=== PATIENT | female | born 1990 | race Caucasian/White ===

== ENCOUNTER 2020-03-23 12:41 | Outpatient (REF) | payer OTHER, SELFPAY ==
[2020-03-23 14:29] LABS: COVID-19 Test Negative (Negative)
== END 2020-03-23 12:42 | disposition home or self-care (01) ==
LOC: HO.LAB 12:41
PROVIDERS: Visit Provider Internal Medicine
DX: Z20.828 Contact with and (suspected) exposure to other viral communicable diseases (principal)
CPT/HCPCS: 87635; C9803

== ENCOUNTER 2020-03-30 07:07 | Outpatient (REF) | payer OTHER, SELFPAY ==
[2020-03-30 08:02] LABS: COVID-19 Test Negative (Negative)
== END 2020-03-30 07:08 | disposition home or self-care (01) ==
LOC: HO.EMPCOV 07:07
PROVIDERS: PCP Internal Medicine; Visit Provider Internal Medicine
DX: Z20.828 Contact with and (suspected) exposure to other viral communicable diseases (principal)
CPT/HCPCS: 87635; C9803

== ENCOUNTER 2020-03-31 06:59 | Outpatient (REF) | payer OTHER, SELFPAY ==
[2020-03-31 07:37] LABS: COVID-19 Test Negative (Negative)
== END 2020-03-31 07:00 | disposition home or self-care (01) ==
LOC: HO.EMPCOV 06:59
PROVIDERS: Visit Provider Internal Medicine
DX: Z20.828 Contact with and (suspected) exposure to other viral communicable diseases (principal)
CPT/HCPCS: 87635; C9803

== ENCOUNTER 2020-04-02 07:44 | Outpatient (REF) | payer OTHER, SELFPAY ==
[2020-04-02 08:10] LABS: COVID-19 Test Negative (Negative)
== END 2020-04-02 07:45 | disposition home or self-care (01) ==
LOC: HO.EMPCOV 07:44
PROVIDERS: Visit Provider Internal Medicine
DX: Z20.828 Contact with and (suspected) exposure to other viral communicable diseases (principal)
CPT/HCPCS: 87635; C9803

== ENCOUNTER 2020-06-10 13:25 | Outpatient (REF) | payer OTHER, SELFPAY ==
[2020-06-10 13:46] LABS: COVID-19 Test Negative (Negative)
== END 2020-06-10 13:26 | disposition home or self-care (01) ==
LOC: HO.EMPCOV 13:25
PROVIDERS: Visit Provider Internal Medicine
DX: Z20.822 Contact with and (suspected) exposure to COVID-19 (principal)
CPT/HCPCS: 36415; 87635; C9803

== ENCOUNTER 2020-06-16 08:06 | Outpatient (REF) | payer OTHER, SELFPAY ==
[2020-06-16 08:56] LABS: COVID-19 Test Negative (Negative); IDNOW Serial# 55D5AD1C
== END 2020-06-16 08:07 | disposition home or self-care (01) ==
LOC: HO.EMPCOV 08:06
PROVIDERS: Visit Provider Internal Medicine
DX: Z20.822 Contact with and (suspected) exposure to COVID-19 (principal)
CPT/HCPCS: 36415; 87635; C9803

== ENCOUNTER → 2020-07-03 09:58 | Outpatient (BNVA) | payer OTHER, SELFPAY | PROVIDERS: PCP Internal Medicine; Visit Provider Physician Assistant ==

== ENCOUNTER → 2020-07-06 07:20 | Outpatient (BNVA) | payer OTHER, SELFPAY | PROVIDERS: PCP Internal Medicine; Visit Provider Surgery ==

== ENCOUNTER 2020-07-08 07:49 | Emergency (ER) | payer OTHER, SELFPAY ==
--- NOTE | ~2020-07-08 | XR_ITS ---
EXAMINATION: XR LUMBOSACRAL SPINE CLINICAL INFORMATION: Trauma, pain COMPARISON: None TECHNIQUE: Three views of the lumbosacral spine. FINDINGS: There is mild straightening of lumbar lordosis. The vertebral heights and alignment is normal. There is mild loss of L4-L5 and L5-S1 disc heights. Rest of the disc heights are normal. No visible acute fracture, dislocation or lytic process seen. The paravertebral soft tissues are normal. The SI joints are normal. XR/XR lumbar spine 2-3V IMPRESSION: Disc changes L4-L5 and L5-S1 disc levels.
[2020-07-08 09:07] VITALS: BP 110/70; PULSE 77; RESP 16; TEMP 36.7; O2SAT 98; BMI 57.2
--- NOTE | 2020-07-08 09:49 | ED.BACK ---
HPI - Back Pain/Injury General Chief Complaint: Back Pain/Injury Stated Complaint: back pain Time Seen by Provider: 07/08/20 09:41 Source: patient Mode of arrival: ambulatory Limitations: no limitations History of Present Illness HPI Narrative: 30-year-old female with a past medical history of back problems, sleep apnea, asthma, morbid obesity here with complaints of low back pain x2 days which radiates down the right leg. She has intermittent numbness and tingling in the leg. She denies any numbness in the groin. No bowel or bladder incontinence. No fevers or chills. Pain is worsened with ambulating. History of what sounds like herniated disc in 2016 requiring admission. Patient is unclear on actual diagnosis. MD elicited complaint: back pain Related Data Home Medications Medication Instructions Recorded Confirmed albuterol sulfate 90 mcg/actuation 2 puff PO Q4H PRN 07/03/20 07/06/20 aerosol inhaler budesonide-formoterol HFA 160 INHALATION DIRECTED 07/03/20 07/06/20 mcg-4.5 mcg/actuation aerosol inhaler cetirizine 10 mg tablet 10 mg PO DAILY PRN 07/03/20 07/06/20 inhalational spacing device #1 ea 07/03/20 07/06/20 meclizine 25 mg tablet 25 mg PO TID PRN 07/03/20 07/06/20 melatonin 5 mg capsule mg PO 07/03/20 07/06/20 montelukast 10 mg tablet 10 mg PO DAILY 07/03/20 07/06/20 prednisone 20 mg tablet 20 mg PO BID 07/03/20 07/06/20 umeclidinium 62.5 mcg-vilanterol 1 ea PO BID 07/03/20 07/06/20 25 mcg/actuation powdr for inhalation tiotropium bromide 2.5 2 puff INHALATION DAILY 07/06/20 07/06/20 mcg/actuation mist for inhalation Previous Rx's Medication Instructions Recorded cyclobenzaprine 10 mg PO TID PRN #10 tab 07/08/20 lidocaine [Lidoderm] 1 patch TOPICAL DAILY #15 ea 07/08/20 naproxen 500 mg PO BID PRN #20 tab 07/08/20 Allergies Allergy/AdvReac Type Severity Reaction Status Date / Time animal dander Allergy Unknown UNKNOWN Unverified 07/06/20 12:52 lactose [LACTOSE] Allergy Unknown GI Unverified 07/06/20 12:52 UPSET/DIRRHEA mold Allergy Unknown UNKNOWN Unverified 07/06/20 12:52 pollen extracts [POLLEN] Allergy Unknown UNKNOWN Unverified 07/06/20 12:52 Review of Systems Review of Systems: Yes all other systems are reviewed and are negative Constitutional: Constitutional: Reports no additional constitutional complaints, Denies body ache(s), Denies chills, Denies fever(s), Denies headache(s) and Denies weakness Eyes: Eyes: Reports no additional eye complaints and Denies change in vision ENT: Reports system reviewed and no additional complaints, except as documented, Denies dizziness, Denies headache(s), Denies nasal congestion, Denies nasal discharge and Denies neck pain Cardiovascular: Cardiovascular: Reports no additional cardiovascular complaints, Denies chest pain, Denies leg edema and Denies dyspnea Respiratory: Respiratory: Reports no additional respiratory complaints, Denies cough and Denies dyspnea Gastrointestinal: Gastrointestinal: Reports no additional gastrointestinal complaints, Denies abdominal pain, Denies diarrhea, Denies nausea and Denies vomiting Genitourinary: Genitourinary: Reports no additional female genitourinary complaints and Denies urinary incontinence Musculoskeletal: Musculoskeletal: Reports no additional musculoskeletal complaints, Reports back pain, Denies arthralgias, Denies joint swelling, Denies neck pain, Denies numbness and Denies tingling Integumentary/Breasts: Skin/Breast: Reports system reviewed and no additional complaints, except as docu and Denies rash Neurologic: Reports system reviewed and no additional complaints, except as documented, Denies Abnormal speech present, Denies dizziness, Denies headache(s), Denies numbness, Denies tingling and Denies weakness [facility] Past Medical History Attestation statement: The following information was validated with the patient. Source: old records reviewed and nursing notes reviewed Medical History Asthma Chronic back pain Morbid obesity Surgical History Hx of wisdom tooth extraction Family History Family History Mother Kidney stone Asthma Father No problems noted. Brother Asthma Back problem Social History Social History Alcohol intake: current Alcohol intake frequency: holidays/special occasions only Alcohol type: hard liquor Smoking Status: Former smoker Smoked in Last 30 Days: No Advance Directives: No Advance Directives Information Provided: No Physical Exam Vital Signs: Vital Signs: Last Vital Signs Temp 98.0 F 07/08/20 09:07 Pulse 77 07/08/20 09:07 Resp 16 07/08/20 09:07 BP 110/70 07/08/20 09:07 Pulse Ox 98 07/08/20 09:07 Body Mass Index 57.2 Const: General: cooperative, healthy appearing, comfortable and no acute distress Orientation/consciousness: patient oriented x3 Limitations: no limitations HENMT: Head: Yes normal to inspection Ears: hearing grossly normal bilaterally General nose exam: Normal external nose present Face and sinus: Yes normal facial exam Mouth: Normal oral and palatal mucosa present Throat: Yes posterior oropharynx normal Eyes: General: appearance normal, both eyes and all related structures Pupils: Equal, round and reactive pupils present Neck: Neck: Yes normal visual inspection Chest: Chest palpation & inspection: normal inspection of the chest Resp: Effort & Inspection: normal respiratory effort Auscultation: clear to auscultation bilaterally Cardio: Rate: regular rate Rhythm: regular rhythm Peripheral pulses: Peripheral pulses 2+ throughout GI: Inspection: Yes normal to inspection Palpation (GI): Soft to palpation and nontender Auscultation: normal bowel sounds Back/Spine/Pelvis: Other: Mid spine lumbar tenderness with no step-off deformities. Also having right lumbar paraspinal tenderness. Pain is worsened with straight leg raise on the right side Thoracic/Lumbar Spine: thoracic and lumbar spine normal to inspection Skin: General skin exam: no rashes or lesions noted Neuro: General: patient oriented x3, no focal motor deficits and normal sensation to monofilament Cranial nerves: Yes CN's II-XII intact bilaterally, Yes Equal, round and reactive pupils present, Yes Bilaterally intact EOM present, Yes Normal facial strength present and Yes Midline tongue present Cognition (Neuro): normal cognition Speech: No Abnormal speech present Gait exam (Neuro): Normal gait present Motor exam (neuro): 5/5 motor strength present throughout Sensory Exam: Normal double simultaneous stimulation for sensation Deep tendon reflexes (DTR's): Right patellar reflex intensity grade: 2+ and Left patellar reflex intensity grade: 2+ Extrem: General: Yes normal to inspection Course Course Course Narrative: Acute on chronic low back pain x2 days. No new injury or trauma. Pain radiates down the right leg with intermittent numbness and tingling. No red flag symptoms of neurological deficits from baseline. Will check imaging, manage pain and reassess. 1100-Xrays show Disc changes L4-L5 and L5-S1 disc levels. NO neuro deficits. Patient ambulatory. Discussed that she will likely need to follow-up with her primary care doctor for outpatient MRI for persistent pain. Reviewed worrisome signs and symptoms when to return to the emergency department. Comfortable discharge home. MDM - Back Pain/Injury Medical Records Attestation: I reviewed the patient's medical records. Lab Data Attestation: I reviewed the patient's lab results. Imaging Data lumbar xray: Attestation: I personally reviewed and interpreted this imaging study as follows: Radiologist's impression: EXAMINATION: XR LUMBOSACRAL SPINE CLINICAL INFORMATION: Trauma, pain COMPARISON: None TECHNIQUE: Three views of the lumbosacral spine. FINDINGS: There is mild straightening of lumbar lordosis. The vertebral heights and alignment is normal. There is mild loss of L4-L5 and L5-S1 disc heights. Rest of the disc heights are normal. No visible acute fracture, dislocation or lytic process seen. The paravertebral soft tissues are normal. The SI joints are normal. XR/XR lumbar spine 2-3V IMPRESSION: Disc changes L4-L5 and L5-S1 disc levels. Discharge Plan Discharge Clinical Impression: Strain of lumbar region Patient Disposition: Home, Self-Care Instructions: Acute Low Back Pain (ED) Additional Instructions: Call your doctor for a follow-up appointment as you likely will need an MRI of your low back No heavy lifting or bending Gentle stretching Heat or ice to the back Prescriptions: New cyclobenzaprine 10 mg tablet 10 mg PO TID PRN (Reason: muscle spasm) Qty: 10 RF: 0 naproxen 500 mg tablet 500 mg PO BID PRN (Reason: pain) Qty: 20 RF: 0 lidocaine [Lidoderm] 5 % adhesive patch,medicated 1 patch topical DAILY Qty: 15 RF: 0 No Action budesonide-formoterol 160-4.5 mcg/actuation HFA aerosol inhaler inhalation DIRECTED RF: 0 cetirizine 10 mg tablet 10 mg PO DAILY PRN (Reason: allergies) RF: 0 Anoro Ellipta 62.5-25 mcg/actuation blister with device 1 ea PO BID RF: 0 prednisone 20 mg tablet 20 mg PO BID RF: 0 (DME) [employer] Janae C Spacer See Rx Instructions ea .ROUTE .MEDSUPPLY Qty: 1 RF: 0 meclizine 25 mg tablet 25 mg PO TID PRN (Reason: dizziness) RF: 0 albuterol sulfate 90 mcg/actuation HFA aerosol inhaler 2 puff PO Q4H PRN (Reason: wheezing) RF: 0 melatonin 5 mg capsule PO RF: 0 montelukast [Singulair] 10 mg tablet 10 mg PO DAILY RF: 0 Spiriva Respimat 2.5 mcg/actuation mist 2 puff inhalation DAILY RF: 0 Referrals: Teri Grigsby MD [Primary Care Provider] - 2 days Stand Alone Forms: Work/School Release Interventions: ED Discharge Assessment Last Done: 07/08/20 11:22 Discharge Date/Time: 07/08/20 11:10
[2020-07-08] MEDS: Ketorolac Tromethamine 60 MG/2 ML VIAL IM (10:15)
== END 2020-07-08 11:10 | disposition home or self-care (01) ==
PROVIDERS: Emergency Provider Emergency Medicine Emergency Medical Services; PCP Internal Medicine
DX: S39.012A Strain of muscle, fascia and tendon of lower back, initial encounter (principal); M79.604 Pain in right leg; X58.XXXA Exposure to other specified factors, initial encounter; Y93.9 Activity, unspecified; Y92.9 Unspecified place or not applicable; Y99.9 Unspecified external cause status; Z79.899 Other long term (current) drug therapy; Z87.891 Personal history of nicotine dependence
CPT/HCPCS: 72100; 96372; 99283; 99284; J1885

== ENCOUNTER 2020-07-09 07:48 | Outpatient (REF) | payer OTHER, SELFPAY ==
--- NOTE | 2020-07-09 17:16 | PFT_ITS ---
FLOWS: FEV1 is 83% of predicted at 2.84 L. FVC 85% of predicted at 3.43 L. FEV1 to FVC ratio of 0.83. Positive bronchodilator response. LUNG VOLUMES: Total lung capacity 89% of predicted at 4.79 L. Residual volume 107% of predicted at 1.56 L. Slow vital capacity 82% of predicted at 3.24 L. Expiratory reserve volume 21% of predicted at 0.32 L. Diffusion capacity is normal. IMPRESSION: No obstructive or restrictive ventilatory defect. Positive bronchodilator response. Decreased expiratory reserve volume suggests extrathoracic restriction, likely secondary to underlying abdominal obesity. This test results can be observed in well controlled asthma. Clinical correlation is advised. MD PATTI Estrella/MODL / [id number]
== END 2020-07-09 07:49 | disposition home or self-care (01) ==
LOC: HO.RESP 07:48
PROVIDERS: PCP Internal Medicine; Visit Provider Surgery
DX: G47.30 Sleep apnea, unspecified (principal); G47.19 Other hypersomnia; J45.41 Moderate persistent asthma with (acute) exacerbation; E66.01 Morbid (severe) obesity due to excess calories
CPT/HCPCS: 94060; 94727; 94729; 95806

== ENCOUNTER 2020-07-10 08:15 | Outpatient (REF) | payer OTHER, SELFPAY ==
--- NOTE | ~2020-07-10 | XR_ITS ---
EXAMINATION: XR CHEST CLINICAL INFORMATION: Obesity. COMPARISON: Prior chest July 2018 TECHNIQUE: 2 views of the chest were obtained. FINDINGS: No significant abnormality is noted involving the heart, lungs, mediastinum, bony thorax or soft tissues. XR/XR chest 2V IMPRESSION: Unremarkable examination.
--- NOTE | 2020-07-10 09:06 | ECG_ITS ---
Test Reason : MORBID OBESITY Blood Pressure : / mmHG Vent. Rate : 074 BPM Atrial Rate : 074 BPM P-R Int : 080 ms QRS Dur : 126 ms QT Int : 438 ms P-R-T Axes : 000 018 000 degrees QTc Int : 486 ms Sinus rhythm with sinus arrhythmia with short CO Normal ECG When compared with ECG of 14-OCT-2014 20:03, No significant changes seen Referred By: Cesar Clark Electronically Signed By:JONATAN JON MD
[2020-07-10 09:36] LABS: MANUAL DIFF FLAG NO
[2020-07-10 09:37] LABS: Basophils Percent Auto 0.4 % (0-2); Eosinophils Absolute Auto 0.4 X10*3/uL (0.0-0.4); Hematocrit 40.9 % (37-47); Hemoglobin 13.2 g/dl (12.0-16.0); Imm Gran Abs Auto 0.01 X10*3/uL (0.00-0.03); Imm Gran Pct Auto 0.1 % (0.0-0.4); Lymphocytes Absolute Auto 1.3 X10*3/uL (1.2-4.9); Lymphocytes Percent Auto 19.2 % (20-40); Mean Corpuscular HGB Conc 32.3 g/dl (31.0-35.0); Mean Corpuscular Hemoglobin 27.6 pg (27.0-33.0); Mean Corpuscular Volume 85.6 fL (80-98); Mean Platelet Volume 11.4 fL (9.4-12.3); Monocytes Absolute Auto 0.3 X10*3/uL (0.1-1.2); Monocytes Percent Auto 4.6 % (2-11); Neutrophils Absolute Auto 4.9 X10*3/uL (2.0-8.3); Neutrophils Percent Auto 70.7 % (45-73); Platelet Count 309 X10*3/uL (160-400); Red Blood Count 4.78 X10*6/uL (4.20-5.50); Red Cell Distribution Width 13.1 % (11.0-16.0)
[2020-07-10 09:50] LABS: Estimated Average Glucose 100 mg/dL; Hemoglobin A1c % 5.1 %
[2020-07-10 10:18] LABS: Alanine Aminotransferase 40 U/L (0-31); Albumin Level 4.2 g/dL (3.5-5.0); Alkaline Phosphatase 56 U/L (39-117); Anion Gap 15 (12-20); Aspartate Amino Transferase 26 U/L (5-31); Bilirubin Total 1.3 mg/dL (0.0-1.0); Blood Urea Nitrogen 18 mg/dL (9-16); Carbon Dioxide 27 mmol/L (22-29); Chloride 109 mmol/L (96-108); Cholesterol 151 mg/dL; Estimated Glomerular Filt Rate > 60; Glucose Random 97 mg/dL (60-115); HDL Cholesterol 43 mg/dL; LDL Cholesterol Calculated 95 mg/dl; Potassium 4.6 mmol/L (3.3-5.1); Sodium 146 mmol/L (135-145); Total Protein 6.7 g/dL (6.5-8.0); Triglycerides 69 mg/dL
[2020-07-10 10:25] LABS: Ferritin 20 ng/mL (10-122); TSH reflex Free T4 1.51 uIU/mL (0.32-4.0); Vitamin D 25-OH Total 5.8 ng/mL (>30)
[2020-07-11 12:29] LABS: Folate 8.2 ng/mL (> or = 4.0); Vitamin B12 245 pg/mL (200-900)
[2020-07-11 15:12] LABS: H Pylori Breath Test NOT DETECTED (NOT DETECTED)
[2020-07-14 00:21] LABS: Zinc 73 mcg/dL (60-130)
[2020-07-14 21:51] LABS: Insulin Level Total 24.4 uIU/mL
[2020-07-15 14:31] LABS: Vitamin A 36 mcg/dL (38-98)
[2020-07-17 11:57] LABS: Calcium (PTHI) 9.3 mg/dL (8.6-10.2); PTHI 85 pg/mL (14-64)
[2020-07-22 11:02] LABS: Vitamin B1 9 nmol/L (8-30)
== END 2020-07-10 08:16 | disposition home or self-care (01) ==
LOC: HO.LAB 08:15
PROVIDERS: PCP Internal Medicine; Visit Provider Surgery
DX: E66.01 Morbid (severe) obesity due to excess calories (principal); G47.30 Sleep apnea, unspecified; J45.909 Unspecified asthma, uncomplicated
CPT/HCPCS: 36415; 71046; 80053; 80061; 82306; 82607; 82728; 82746; 83013; 83036; 83525; 83970; 84425; 84443; 84590; 84630; 85025; 86140; 93005

== ENCOUNTER → 2020-07-17 08:36 | Outpatient (BNVA) | payer OTHER, SELFPAY | PROVIDERS: PCP Internal Medicine; Visit Provider Physician Assistant ==

== ENCOUNTER 2020-07-21 08:19 | Outpatient (REF) | payer OTHER, SELFPAY ==
--- NOTE | ~2020-07-21 | FL_ITS ---
EXAMINATION: FL UPPER GI SERIES CLINICAL INFORMATION: Morbid/severe obesity due to excessive calories. COMPARISON: None TECHNIQUE: Routine upper GI air-contrast study was performed in upright and lying position. FINDINGS: Following oral administration of thick barium and effervescent granules, there is normal propagation bolus from the oral cavity through the pharynx, esophagus into stomach without any evidence of obstruction, narrowing or stricture. On placing patient supine and prone lying, the course, caliber and peristalsis of the esophagus, stomach and the duodenum is normal. There is a large gastroesophageal reflux without hiatal hernia. The mucosal pattern of the stomach and the duodenum is normal. FLUOROSCOPY TIME: 1.1 minute. DOSE AREA PRODUCT: 60.6 uGy-m2 (microgray-meter squared) FL/FL upper GI series IMPRESSION: Large gastroesophageal reflux without hiatal hernia.
--- NOTE | ~2020-07-21 | US_ITS ---
EXAMINATION: US COMPLETE ABDOMEN WITH LIVER ELASTOGRAPHY CLINICAL INFORMATION: Obesity. COMPARISON: None. TECHNIQUE: Real-time imaging of the abdominal viscera. Noninvasive ultrasound liver fibrosis assessment is performed using Livia ElastPQ point quantification shear wave elastography (pSWE) with a C5-2 MHz transducer. Multiple elastography samples are obtained. FINDINGS: PANCREAS: The visualized pancreatic head and body are normal in appearance. The remainder of the pancreas is obscured from visualization by the overlying bowel gas. ABDOMINAL AORTA: The proximal, middle, and distal aortic segments are normal in caliber. INFERIOR VENA CAVA: Visualized portions are normal. LIVER: The liver demonstrates normal size, contour and increased echogenicity. There are areas of focal fatty sparing. No focal lesion or intrahepatic biliary duct dilatation. The right lobe measures 18.3 cm in length. The left lobe measures 14.5 cm in length. Portal flow is hepatopedal. Shear wave liver elastography median stiffness is 1.48 m/s (reference: normal median stiffness is 1.3 m/s or less). IQR/median stiffness to assess sampling precision is 0.27 (reference: good quality data set is IQR/median stiffness of 0.15 or less). GALLBLADDER: Normal. The gallbladder is physiologically distended without evidence of stones, sludge, polyps, wall thickening or pericholecystic fluid. COMMON BILE DUCT: Normal in caliber measuring 0.6 cm in diameter. RIGHT KIDNEY: Normal. No hydronephrosis. No renal calculi or focal parenchymal lesions. The kidney measures 10.2 cm in maximum dimension. LEFT KIDNEY: Normal. No hydronephrosis. No renal calculi or focal parenchymal lesions. The kidney measures 10.9 cm in maximum dimension. SPLEEN: Normal. The spleen measures 13.7 cm in maximum dimension. FREE FLUID: None. US/US abdomen comp w elastography IMPRESSION: 1. Diffuse hepatic steatosis with areas of focal fatty sparing. The rest of the abdominal ultrasound is unremarkable. 2. Liver elastography: Liver stiffness measures 1.48 m/s. cALCD ruled out. REFERENCE: Society of Radiologists in Ultrasound Liver Stiffness Thresholds (2019): LIVER STIFFNESS THRESHOLDS: *Liver Stiffness equal or less than 1.3 m/s: High probability of being normal. *Liver Stiffness less than 1.7 m/s: In the absence of other known clinical signs, rules out compensated advanced chronic liver disease. *Liver Stiffness 1.7-2.1 m/s: Suggestive of compensated advanced chronic liver disease but need further test for confirmation. *Liver Stiffness over 2.1 m/s: Rules in compensated advanced chronic liver disease. *Liver Stiffness over 2.4 m/s: Suggestive of clinically significant portal hypertension. QUALITY OF DATA SET: *IQR/Median value equal or less than 0.15 implies a quality data set. *IQR/Median value over 0.15 implies a poor quality data set. SIGNIFICANT CHANGE FROM PRIOR EXAM: Significant change if liver stiffness measurement is 10% or greater from prior exam. OTHER CONSIDERATIONS: The stage of liver fibrosis may be overestimated in the setting of acute hepatitis, liver inflammation, elevated liver function tests, hepatic vascular congestion, obstructive cholestasis, non-fasting state, and infiltrative diseases such as amyloidosis and lymphoma. In some patients with NAFLD, the liver stiffness thresholds for compensated advanced chronic liver disease may be lower. In causes other than viral hepatitis and NAFLD, liver stiffness thresholds are not well established.
== END 2020-07-21 08:20 | disposition home or self-care (01) ==
LOC: HO.US 08:19
PROVIDERS: PCP Internal Medicine; Visit Provider Surgery
DX: Z01.818 Encounter for other preprocedural examination (principal); E66.01 Morbid (severe) obesity due to excess calories; K21.9 Gastro-esophageal reflux disease without esophagitis; G47.30 Sleep apnea, unspecified; J45.909 Unspecified asthma, uncomplicated
CPT/HCPCS: 74240; 76705; 76981

== ENCOUNTER → 2020-07-24 08:51 | Outpatient (BNVA) | payer OTHER, SELFPAY | PROVIDERS: PCP Internal Medicine; Visit Provider Physician Assistant ==

== ENCOUNTER → 2020-07-28 10:15 | Outpatient (BNVA) | payer OTHER, SELFPAY | PROVIDERS: PCP Internal Medicine; Visit Provider Internal Medicine ==

== ENCOUNTER → 2020-07-31 08:06 | Outpatient (BNVA) | payer OTHER, SELFPAY | PROVIDERS: PCP Internal Medicine; Visit Provider Physician Assistant ==

== ENCOUNTER → 2020-08-07 08:05 | Outpatient (BNVA) | payer OTHER, SELFPAY | PROVIDERS: PCP Internal Medicine; Visit Provider Dietitian, Registered | DX: E66.01 Morbid (severe) obesity due to excess calories (principal) | CPT/HCPCS: 97802 ==

== ENCOUNTER → 2020-08-14 08:05 | Outpatient (BNVA) | payer OTHER, SELFPAY | PROVIDERS: PCP Internal Medicine; Visit Provider Physician Assistant ==

== ENCOUNTER → 2020-08-19 19:55 | Outpatient (REF) | payer OTHER, SELFPAY | LOC: HO.SL 19:55 | PROVIDERS: PCP Internal Medicine; Visit Provider Internal Medicine | DX: G47.34 Idiopathic sleep related nonobstructive alveolar hypoventilation (principal); G47.30 Sleep apnea, unspecified | CPT/HCPCS: 95811 ==

== ENCOUNTER → 2020-08-21 08:26 | Outpatient (BNVA) | payer OTHER, SELFPAY | PROVIDERS: PCP Internal Medicine; Visit Provider Physician Assistant ==

== ENCOUNTER → 2020-08-28 08:08 | Outpatient (BNVA) | payer OTHER, SELFPAY | PROVIDERS: PCP Internal Medicine; Referring Provider Internal Medicine; Visit Provider Physician Assistant ==

== ENCOUNTER → 2020-09-04 07:59 | Outpatient (BNVA) | payer OTHER, SELFPAY | PROVIDERS: PCP Internal Medicine; Visit Provider Physician Assistant ==

== ENCOUNTER → 2020-09-09 09:40 | Outpatient (BNVA) | payer OTHER, SELFPAY | PROVIDERS: PCP Internal Medicine; Visit Provider Internal Medicine ==

== ENCOUNTER → 2020-09-11 08:14 | Outpatient (BNVA) | payer OTHER, SELFPAY | PROVIDERS: PCP Internal Medicine; Visit Provider Physician Assistant ==

== ENCOUNTER → 2020-09-18 07:55 | Outpatient (BNVA) | payer OTHER, SELFPAY | PROVIDERS: PCP Internal Medicine; Visit Provider Surgery ==

== ENCOUNTER → 2020-09-25 08:02 | Outpatient (BNVA) | payer OTHER, SELFPAY | PROVIDERS: PCP Internal Medicine; Visit Provider Physician Assistant ==

== ENCOUNTER → 2020-10-02 07:59 | Outpatient (BNVA) | payer OTHER, SELFPAY | PROVIDERS: PCP Internal Medicine; Visit Provider Physician Assistant ==

== ENCOUNTER → 2020-10-09 08:03 | Outpatient (BNVA) | payer OTHER, SELFPAY | PROVIDERS: PCP Internal Medicine; Referring Provider Internal Medicine; Visit Provider Physician Assistant ==

== ENCOUNTER → 2020-10-12 07:42 | Outpatient (BNVA) | payer OTHER, SELFPAY | PROVIDERS: PCP Internal Medicine; Visit Provider Surgery ==

== ENCOUNTER → 2020-10-15 08:21 | Outpatient (BNVA) | payer OTHER, SELFPAY | PROVIDERS: PCP Internal Medicine; Visit Provider Surgery ==

== ENCOUNTER → 2020-10-23 08:04 | Outpatient (BNVA) | payer OTHER, SELFPAY | PROVIDERS: PCP Internal Medicine; Referring Provider Internal Medicine; Visit Provider Physician Assistant ==

== ENCOUNTER → 2020-10-30 08:48 | Outpatient (BNVA) | payer OTHER, SELFPAY | PROVIDERS: PCP Internal Medicine; Visit Provider Physician Assistant ==

== ENCOUNTER 2020-11-04 23:50 | Inpatient (IN) | payer OTHER, SELFPAY ==
[2020-10-28 10:06] VITALS: BMI 56.1
[2020-10-30 10:36] LABS: MANUAL DIFF FLAG NO
[2020-10-30 10:47] LABS: Prothrombin Time 11.7 SEC (9.9-13.0)
[2020-10-30 10:50] LABS: Partial Thromboplastin Time 37.8 SEC (24.1-38.0)
[2020-10-30 11:00] LABS: Basophils Percent Auto 0.3 % (0-2); Eosinophils Absolute Auto 0.2 X10*3/uL (0.0-0.4); Eosinophils Percent Auto 3.7 % (0-4); Hemoglobin 13.2 g/dl (12.0-16.0); Imm Gran Abs Auto 0.01 X10*3/uL (0.00-0.03); Imm Gran Pct Auto 0.2 % (0.0-0.4); Lymphocytes Absolute Auto 1.2 X10*3/uL (1.2-4.9); Lymphocytes Percent Auto 19.6 % (20-40); Mean Corpuscular HGB Conc 32.2 g/dl (31.0-35.0); Mean Platelet Volume 11.6 fL (9.4-12.3); Monocytes Absolute Auto 0.4 X10*3/uL (0.1-1.2); Monocytes Percent Auto 6.8 % (2-11); Neutrophils Absolute Auto 4.1 X10*3/uL (2.0-8.3); Neutrophils Percent Auto 69.4 % (45-73); Platelet Count 289 X10*3/uL (160-400); Red Blood Count 4.88 X10*6/uL (4.20-5.50); Red Cell Distribution Width 13.1 % (11.0-16.0); White Blood Count 5.9 X10*3/uL (4.8-10.8)
[2020-10-30 11:01] LABS: Alanine Aminotransferase 25 U/L (0-31); Alkaline Phosphatase 48 U/L (39-117); Anion Gap 12 (12-20); Aspartate Amino Transferase 20 U/L (5-31); Bilirubin Total 1.5 mg/dL (0.0-1.0); Blood Urea Nitrogen 16 mg/dL (9-16); C Reactive Protein 0.73 mg/dL (< or = 0.50); Calcium 9.4 mg/dL (8.4-10.2); Carbon Dioxide 26 mmol/L (22-29); Chloride 107 mmol/L (96-108); Cholesterol 149 mg/dL; Creatinine Clr Calc Pharmacy 141.4; Estimated Glomerular Filt Rate > 60; Glucose Random 96 mg/dL (60-115); HDL Cholesterol 40 mg/dL; LDL Cholesterol Calculated 95 mg/dl; Potassium 4.3 mmol/L (3.3-5.1); Sodium 141 mmol/L (135-145); Total Protein 6.6 g/dL (6.5-8.0); Triglycerides 71 mg/dL
[2020-10-30 11:07] LABS: Estimated Average Glucose 97 mg/dL; Hemoglobin A1C 108.5726 umol/L
[2020-10-30 11:24] LABS: TSH reflex Free T4 0.55 uIU/mL (0.32-4.0)
[2020-10-31 07:06] LABS: Insulin Level Total 20.4 uIU/mL
--- NOTE | ~2020-11-04 | FL_ITS ---
EXAMINATION: FL GI SERIES CLINICAL INFORMATION: Evaluation status post gastric bypass. COMPARISON: Preoperative upper GI 07/21/2020 TECHNIQUE: Patient received 50% Gastrografin mixed with water for oral contrast. Examination is performed using fluoroscopic evaluation in addition to fluoroscopic spot views. Delayed overhead imaging is also performed up to 60 minutes. Fluoroscopy time: 0.5 minutes DAP: 25.197 Gycm2 Images: 9 fluoroscopic spot and 6 overhead. FINDINGS: There is prompt transit of the swallowed contrast through the gastric pouch and into the efferent small bowel. There is no abnormal retention of contrast in the gastric pouch. There is no visible extravasation of contrast. There is mild uniform gaseous distention small bowel likely mild postoperative ileus. No small bowel dilatation or thickening of folds. No small bowel extravasation of contrast. FL/FL upper GI w gastrografin IMPRESSION: 1. Status post gastric bypass with prompt transit to efferent loop. 2. Mild ileus. No extravasation of contrast.
--- NOTE | 2020-11-04 08:36 | P.CONAN_ITS ---
Documented by User: Lidya Shawnee 11/04/20 08:38 HPI - Anesthesia Eval Consult details Narrative: 30yo F for Gastric Bypass Laparoscopic,EGD,possible diaphragmatic hernia,possible ventral hernia,possible open PMFSH Active Problems Active Problems: All Active Problems (Updated 10/28/20 @ 10:13 by Marialuisa Yadav) Sleep apnea (Acute) Adjustment disorder, unspecified (Acute) Vitamin A deficiency (Acute) Vitamin D deficiency (Acute) Vitamin B12 deficiency (Acute) Nocturnal hypoxemia (Acute) Asthma (Acute) Morbid obesity (Acute) Past Medical History Medical History Asthma Chronic back pain COVID-19 vaccine series completed Maternal anesthesia complication Morbid obesity Nocturnal hypoxemia Vertigo Family History Family History Mother Kidney stone Asthma Father No problems noted. Brother Asthma Back problem Surgical History Surgical History Hx of wisdom tooth extraction Social History Social History Are you a primary career developer to a significant other at home: No Do you presently have visiting nurse or other home services: No Alcohol intake: current Alcohol intake frequency: a few times a month Alcohol type: hard liquor Patient Tobacco Use Status: Former Tobacco user Quit Date: 10 yrs ago Tobacco use type: Cigarette Use of substances other than those prescribed or required for medical reasons: No Have you been hit, kicked, punched, or otherwise hurt by someone within the past year? If so, by whom?: No Are you DNR?: No Advance Directives: No Advance Directives Information Provided: No Advance Directives on File: No Recently lost weight without trying: No How much weight loss: 24-33 pounds Eating poorly because of decreased appetite: No Nutrition screen score: 3 Nutrition Risks: No Nutritional Risk Patient : No FDLMP: 10/04/20 : No Meds Allergies Allergy/AdvReac Type Severity Reaction Status Date / Time animal dander Allergy Unknown UNKNOWN Verified 11/05/20 06:20 lactose [LACTOSE] Allergy Unknown GI Verified 11/05/20 06:20 UPSET/DIRRHEA mold Allergy Unknown UNKNOWN Verified 11/05/20 06:20 pollen extracts [POLLEN] Allergy Unknown UNKNOWN Verified 11/05/20 06:20 Home Medications Medication Instructions Recorded Confirmed Last Taken Type albuterol sulfate 90 mcg/actuation 2 puff PO Q4H PRN 07/03/20 10/28/20 Unknown History aerosol inhaler budesonide-formoterol HFA 160 2 puff INHALATION DIRECTED 07/03/20 10/28/20 11/05/20 05:00 History mcg-4.5 mcg/actuation aerosol inhaler cetirizine 10 mg tablet 10 mg PO DAILY PRN 07/03/20 10/28/20 Unknown History inhalational spacing device #1 ea 07/03/20 10/15/20 Unknown History meclizine 25 mg tablet 25 mg PO TID PRN 07/03/20 10/28/20 Unknown History melatonin 5 mg capsule 5 mg PO BEDTIME 07/03/20 10/28/20 Unknown History montelukast 10 mg tablet 10 mg PO DAILY 07/03/20 10/28/20 Unknown History tiotropium bromide 2.5 2 puff INHALATION DAILY 07/06/20 10/28/20 Unknown History mcg/actuation mist for inhalation lidocaine 5 % topical patch 1 patch TOPICAL DAILY PRN ea 09/09/20 10/28/20 Unknown History triamcinolone acetonide 0.1 % TOPICAL 09/09/20 10/15/20 Unknown History lotion Exam Exam Date and Time: November 04, 2020 0836 Height,Weight and Vital Signs: Height 5 ft 4.5 in Weight 150.706 kg Pertinent Lab Results Pertinent Lab Results: Laboratory Tests 10/30/20 10/30/20 10/30/20 09:38 09:38 09:38 WBC 5.9 RBC 4.88 Hgb 13.2 Hct 41.0 MCV 84.0 MCH 27.0 MCHC 32.2 RDW 13.1 Plt Count 289 MPV 11.6 Immature Gran % (Auto) 0.2 Neut % (Auto) 69.4 Lymph % (Auto) 19.6 L [place] % (Auto) 6.8 Eos % (Auto) 3.7 Baso % (Auto) 0.3 Lymph # (Auto) 1.2 [place] # (Auto) 0.4 Eos # (Auto) 0.2 Baso # (Auto) 0.0 Abs Immat Gran (auto) 0.01 Absolute Neuts (auto) 4.1 Absolute Nucleated RBC 0.000 Nucleated RBC % (auto) 0.0 PT 11.7 INR 1.0 APTT 37.8 Sodium 141 Potassium 4.3 Chloride 107 Carbon Dioxide 26 Anion Gap 12 BUN 16 Creatinine 0.87 Estim Creat Clear Calc 141.4 Estimated GFR > 60 Random Glucose 96 Estimat Average Glucose Hemoglobin A1c % Total Insulin Calcium 9.4 Total Bilirubin 1.5 H AST 20 ALT 25 Alkaline Phosphatase 48 C-Reactive Protein 0.73 H Total Protein 6.6 Albumin 4.0 Triglycerides 71 Cholesterol 149 LDL Cholesterol, Calc 95 HDL Cholesterol 40 TSH 0.55 Blood Type Antibody Screen 10/30/20 10/30/20 10/30/20 09:38 09:38 09:38 WBC RBC Hgb Hct MCV MCH MCHC RDW Plt Count MPV Immature Gran % (Auto) Neut % (Auto) Lymph % (Auto) [place] % (Auto) Eos % (Auto) Baso % (Auto) Lymph # (Auto) [place] # (Auto) Eos # (Auto) Baso # (Auto) Abs Immat Gran (auto) Absolute Neuts (auto) Absolute Nucleated RBC Nucleated RBC % (auto) PT INR APTT Sodium Potassium Chloride Carbon Dioxide Anion Gap BUN Creatinine Estim Creat Clear Calc Estimated GFR Random Glucose Estimat Average Glucose 97 Hemoglobin A1c % 5.0 Total Insulin 20.4 H Calcium Total Bilirubin AST ALT Alkaline Phosphatase C-Reactive Protein Total Protein Albumin Triglycerides Cholesterol LDL Cholesterol, Calc HDL Cholesterol TSH Blood Type A Positive Antibody Screen NEGATIVE Narrative Narrative: EKG 06/2020 Vent. Rate : 074 BPM Atrial Rate : 074 BPM P-R Int : 080 ms QRS Dur : 126 ms QT Int : 438 ms P-R-T Axes : 000 018 000 degrees QTc Int : 486 ms Sinus rhythm with sinus arrhythmia with short MN Normal ECG When compared with ECG of 14-OCT-2014 20:03, No significant changes seen PFT 06/2020 IMPRESSION: No obstructive or restrictive ventilatory defect. Positive bronchodilator response. Decreased expiratory reserve volume suggests extrathoracic restriction, likely secondary to underlying abdominal obesity. This test results can be observed in well controlled asthma. Clinical correlation is advised. Assessment and Plan Assessment Anesthesia Assessment: Chart Reviewed Documented by User: Bree Chandra 11/05/20 07:55 PMFSH Past Medical History Medical History Asthma Chronic back pain COVID-19 vaccine series completed Maternal anesthesia complication Morbid obesity Nocturnal hypoxemia Vertigo Family History Family History Mother Kidney stone Asthma Father No problems noted. Brother Asthma Back problem Surgical History Surgical History Hx of wisdom tooth extraction Social History Social History Are you a primary career developer to a significant other at home: No Do you presently have visiting nurse or other home services: No Alcohol intake: current Alcohol intake frequency: a few times a month Alcohol type: hard liquor Patient Tobacco Use Status: Former Tobacco user Quit Date: 10 yrs ago Tobacco use type: Cigarette Use of substances other than those prescribed or required for medical reasons: No Have you been hit, kicked, punched, or otherwise hurt by someone within the past year? If so, by whom?: No Are you DNR?: No Advance Directives: No Advance Directives Information Provided: No Advance Directives on File: No Recently lost weight without trying: No How much weight loss: 24-33 pounds Eating poorly because of decreased appetite: No Nutrition screen score: 3 Nutrition Risks: No Nutritional Risk Patient : No FDLMP: 10/04/20 : No Meds Allergies Allergy/AdvReac Type Severity Reaction Status Date / Time animal dander Allergy Unknown UNKNOWN Verified 11/05/20 06:20 lactose [LACTOSE] Allergy Unknown GI Verified 11/05/20 06:20 UPSET/DIRRHEA mold Allergy Unknown UNKNOWN Verified 11/05/20 06:20 pollen extracts [POLLEN] Allergy Unknown UNKNOWN Verified 11/05/20 06:20 Home Medications Medication Instructions Recorded Confirmed Last Taken Type albuterol sulfate 90 mcg/actuation 2 puff PO Q4H PRN 07/03/20 10/28/20 Unknown History aerosol inhaler budesonide-formoterol HFA 160 2 puff INHALATION DIRECTED 07/03/20 10/28/20 11/05/20 05:00 History mcg-4.5 mcg/actuation aerosol inhaler cetirizine 10 mg tablet 10 mg PO DAILY PRN 07/03/20 10/28/20 Unknown History inhalational spacing device #1 ea 07/03/20 10/15/20 Unknown History meclizine 25 mg tablet 25 mg PO TID PRN 07/03/20 10/28/20 Unknown History melatonin 5 mg capsule 5 mg PO BEDTIME 07/03/20 10/28/20 Unknown History montelukast 10 mg tablet 10 mg PO DAILY 07/03/20 10/28/20 Unknown History tiotropium bromide 2.5 2 puff INHALATION DAILY 07/06/20 10/28/20 Unknown History mcg/actuation mist for inhalation lidocaine 5 % topical patch 1 patch TOPICAL DAILY PRN ea 09/09/20 10/28/20 Unknown History triamcinolone acetonide 0.1 % TOPICAL 09/09/20 10/15/20 Unknown History lotion Exam Airway Mallampati Class: II TM Dist: >3cm Neck ROM: Full Loose/Missing/Broken Teeth: No Heart: RRR Lungs: CTA Assessment and Plan Assessment Anesthesia Assessment: Anesthesia Plan Discussed and Chart Reviewed Final Anesthetic Review NPO: Yes ASA Class: III Final Preanesthetic Review: Meds/Allgs Chart Reviewed, Consent Obtained/Reviewed and Anes Risks/Benef Reviewed Patient Risk: Intermediate Procedure Risk: Intermediate Anesthetic Plan Anesthetic Plan: GA Disposition: Standard PACU
--- NOTE | 2020-11-04 23:49 | MHC.SHP ---
Pre-Procedural Eval Section A Date of Service: 11/04/20 The patient is an INPATIENT: Yes The History & Physical has been completed within 30 days and I have reviewed it.: Yes Section B Chief Complaint: morbid obesity Details of Present Illness: obesity Relevant Family History (Specify if Yes): No Relevant Social History: None Present Medications: None Medical History: No relevant PMH History of Previous Operations: No relevant previous surgery Allergies: Allergies Allergy/AdvReac Type Severity Reaction Status Date / Time animal dander Allergy Unknown UNKNOWN Verified 10/28/20 09:12 lactose [LACTOSE] Allergy Unknown GI Verified 10/28/20 09:12 UPSET/DIRRHEA mold Allergy Unknown UNKNOWN Verified 10/28/20 09:12 pollen extracts [POLLEN] Allergy Unknown UNKNOWN Verified 10/28/20 09:12 Review of Systems Sugical H&P ROS: Negative: Constitution, Cardiovascular, Respiratory, Neurological, Psychiatric, Hem-Onc, Allergic/Immunologic, Gastrointestinal, Genitourinary, Musculoskeletal, Integumentary, Endocrine and Eyes/Ears/Nose/Throat Exam Surgical H&P Exam: Normal: HEENT, Normal: Heart, Normal: Lungs, Normal: Extremities, Normal: Abdomen, Normal: Skin and Normal: Neurological Plan Diagnosis/Plan: Unchanged I have reviewed the history and physical and performed a pertinent physical examination on my patient. No changes have occurred unless specified.
[2020-11-05] VITALS (18 sets, daily range): BP systolic 98–146; BP diastolic 53–102; PULSE 57–87; RESP 6–19; TEMP 35.8–36.4; O2SAT 95–99
[2020-11-05 06:33] LABS: UPreg QC Valid YES; Urine Pregnancy NEGATIVE (NEGATIVE)
[2020-11-05 06:46] LABS: COVID-19 Test Negative (Negative); IDNOW Serial# 9DD0AD1C
[2020-11-05] MEDS: Lactated Ringers 1,000 ML 100 ML IVCONT (07:13)
[2020-11-05] MEDS: Lactated Ringers 1,000 ML 999 ML IV (07:13)
--- NOTE | 2020-11-05 12:09 | PM.OP ---
Brief Operative Note Date of Service: 11/05/20 Pre-op diagnosis: Morbid obesity and comorbidities Post-op diagnosis: same Procedure: PROCEDURE: Upper endoscopy, laparoscopic lysis of adhesions and laparoscopic Nahomi-en-Y gastric bypass with a Nahomi limb of 200 cm INDICATIONS: This is a 30 year-old female with a BMI of 61.8 kg/m2 and associated comorbid conditions as described previously. After appropriate workup was performed and a 34.8 lbs preoperative weight loss, the patient was electively scheduled for laparoscopic, possibly open, gastric bypass. The risks and complications of the procedure were discussed with the patient in advance, particularly the possibility of ; pulmonary embolism; anastomotic leak; bleeding; bowel obstruction; cardiac, pulmonary, or renal complications; as well as long-term problems such as insufficient weight loss, vitamin deficiency, anastomotic strictures, or ulcers. The patient understood all the risks, and was in agreement to proceed with surgery. DESCRIPTION OF PROCEDURE: After informed consent was obtained from the patient, the patient was given preoperative antibiotics, and was transferred to the operating room. After successful induction of general anesthesia, a Magallanes catheter and pneumatic compressive devices were placed on both lower extremities. An upper endoscopy was performed next. The oropharynx and esophagus appeared to be within normal limits. There was no diaphragmatic hernia consistent with the findings of the preoperative upper GI. The stomach was entered. Then after all fluid and air were suctioned and the stomach was fully decompressed, the scope was withdrawn and secured in the mid esophagus. The patient was then prepped and draped in the usual sterile manner, and abdominal access was established at the right upper quadrant with the Rajni technique. A 12 mm blunt port was inserted, and the abdomen was insufflated with CO2 to a pressure of 15 mmHg. Under direct visualization, additional ports were placed, specifically a 5 and a 12 mm Versi-Step port, to the left and right of the umbilicus, two 5 mm ports to the left upper quadrant, and a 5 mm Versi-Step port to the right upper quadrant. Due to the significant depth of the abdominal wall, extra long Versi-step ports had to be used and additionally the Rajni port had to be relocated cephalad about 3 inches. Following that, the patient was placed in a steep reverse Trendelenburg position. An additional 5 mm port was placed to the right flank for the Mediflex retractor that was used to retract the left lobe of the liver. The pars flaccida was opened with the ultrasonic device and the lesser sac was entered. The angle of His was opened with the ultrasonic device the fundus of the stomach from any diaphragmatic and splenic attachments. There were extensive congenital adhesions between the pancreas and posterior gastric wall. Those were lysed completely with the ultrasonic device. The lesser omentum was divided with an Endo CHRISTIANO-45 articulating maki load. We opened the angle of His with the ultrasonic device, the fundus of the stomach from any diaphragmatic or splenic attachments. After a window was established there, the stomach was divided transversely with an Endo CHRISTIANO-45 articulating purple load. Every effort was made that the gastric pouch had a tubular and not spherical shape by limiting the vertical division of the stomach with the first staple load at the lesser curvature. A second articulating Endo CHRISTIANO-45 purple load was fired next towards the angle of His. The staple line of the gastric remnant was then reinforced with a running 2-0 Surgidac suture using the Endo Stitch device. The retrogastric space was dissected after the first two staple loads were fired. The retrogastric space was opened in the avascular plane medially to the splenic artery and laterally to the left cooper all the way to the angle of His. The gastric pouch was completed with two additional Endo CHRISTIANO- 45 and 60 articulating purple loads. The AEON stapler and loads were used. The remaining staple line of the gastric remnant was also reinforced with a running 2-0 Polysorb suture using the Endo Stitch device. The staple line of the gastric pouch was reinforced with Hemoclips. I then opened the gastrocolic ligament between the transverse colon and the greater curvature of the stomach with the ultrasonic device to enter the lesser sac and facilitate delivery of the Nahomi limb through the lesser sac at a later step of the procedure. The patient was then placed in supine position, and after we retracted the transverse colon and the omentum cephalad, we identified the ligament of Treitz. I counted 50 cm from the ligament of Treitz, and the small bowel and the mesentery were divided with an Endo CHRISTIANO-60 white load. Using the ultrasonic device, we opened the peritoneum at the root of the mesentery further to gain extra mobility. A clip was used to lani the proximal end of the divided bowel, the bilio- pancreatic end, which was run back to the ligament of Treitz to confirm that we had marked the correct side and we had done so. We then developed the mesocolic window slightly to the left and superior to the ligament of Treitz using the ultrasonic device. The apex of the Nahomi limb was identified. Following that, we grasped the apex of the Nahomi limb with an articulating bowel grasper, and after we made sure there was no twisting of the mesentery, it was delivered in a retrocolic, retrogastric fashion through the mesocolic window which we had previously made. Following that, we noted there was no tension between the gastric pouch and the Nahomi limb. Enterotomies were made at the apex of the pouch and the Nahomi limb, and the gastro-jejunostomy was made with an Endo CHRISTIANO-45 mcclain load measured to be 4.5 cm in diameter. The enterotomy was closed using the Endo Stitch device in one layer of running 2-0 Polysorb suture in a Raulito fashion starting from each corner of the enterotomy and tying the two ends together in the center of the enterotomy. The Nahomi limb was clamped with a bowel clamp approximately 15 cm from the gastro-jejunostomy, and a leak test was performed by submerging the anastomosis in saline and insufflating air off the scope into the pouch. There was no narrowing of the GE junction. There was no air leak during the test. There was no significant ischemia of the mucosa of the gastric pouch or Nahomi limb. There was no bleeding from the suture or staple lines of the anastomosis, as well as the staple line of the gastric pouch which was clearly seen in its entirety. In addition, the anastomosis was patent, and we easily advanced the scope into the proximal Nahomi limb. With the scope pulled back at the esophagus, I reinforced the anastomosis circumferentially with multiple interrupted 2-0 Polysorb sutures in a Lembert type fashion using the Endo Stitch device. At that point, we pulled the endoscope back to the esophagus while we were decompressing the Nahomi limb and gastric pouch from any remaining air. At that point, the patient was placed in supine position, and after we reduced the Nahomi limb back into the abdomen, I counted 200 cm from the gastro-jejunostomy. An enterotomy was made there with the ultrasonic device. After a similar enterotomy was made at the apex of the bilio-pancreatic limb, the jejuno-jejunostomy was made with an Endo CHRISTIANO-60 white load. The enterotomy was closed with another Endo CHRISTIANO-60 white load after appropriate alignment with four interrupted 2-0 Surgidac sutures. Two anti-obstruction sutures were placed next between the staple line of the bilio-pancreatic limb and the mesentery of the Nahomi limb distal from the anastomosis to prevent kinking of the anastomosis. I then closed the small bowel mesenteric defect in a running fashion using a running 2-0 Surgidac suture using the Endo Stitch device. We checked the anastomosis at the end. The jejuno-jejunostomy was patent. The Nahomi limb was not narrowed. The staple lines were intact, viable, without evidence of any ischemia, bleeding, or any open areas, and the entire anastomosis was sitting nicely without tension, narrowing, or kinking. I then closed the Espinoza's defect with one interrupted 2-0 Surgidac suture in a U-type fashion and then the mesocolic defect with four interrupted 2-0 Sofsilk sutures in a U-type fashion. The Nahomi limb was clamped 20 cm inferior to the mesocolic window and another endoscopy was performed. We could easily pass the gastroscope through the gastro-jejunostomy and mesocolic window without any narrowing, kinking, or evidence of bleeding or ischemia. At that point the gastroscope was withdrawn from the patient?s mouth while we were decompressing the bowel and the stomach from any remaining air. I ran back the Nahomi limb from the mesocolic window to the jejuno-jejunostomy which appeared to be normal without any twisting or kinking. All blood clots were suctioned. We carefully positioned the transverse colon epiploic appendages to the root of the small bowel mesentery to prevent any adhesions between them and the anastomosis that could lead to an internal hernia. I then placed the patient back in a steep reverse Trendelenburg position. We looked into the lesser sac to see how the Nahomi limb was situating and it was situating well. There was no bleeding from the suture lines of the remnant, angle of His, and gastric pouch, as well as from the mesentery of the Nahomi limb. At this point we placed a 10 mm MIESHA drain underneath the gastro-jejunostomy and was secured the skin level with an #0 Sofsilk suture. The Mediflex retractor was removed, and the undersurface of the liver was inspected and there was no bleeding. The patient was placed in supine position. I closed the fascial defect of the three 12 mm port sites laparoscopically with the Osmani-Jasmina type suture passer device using #1 Polysorb sutures antibiotic coated. Then 100 cc 0.25 % Marcaine and 10 mg of Dexamethasone were used to infiltrate both fascial closures as well as all skin incisions. At this point, the abdomen was deflated, all ports were removed under direct vision, and no bleeding was noted from any of the port sites. The skin incisions were irrigated with saline and were closed with 4-0 absorbable monofilament sutures. Steri-Strips and OpSites were used to cover all incisions. The patient was extubated and was transferred in stable condition to the recovery room for further care. I was present and performed all spring parts of the procedure. Ms. Crawford was the mate first. There were no residents to assist with this case. Bari Clark MD, PhD, FACS Surgeon: Cesar Clark MD Anesthesia: GETA, local and other (TAP block) Was an Candy Forming Machine Operator used for this Procedure?: Yes Candy Forming Machine Operator: Betty Crawford Estimated blood loss (mL): 20 IV fluids (mL): 3,500 Urine output (mL): 100 Pathology: none sent Condition: stable Disposition: PACU
--- NOTE | 2020-11-05 12:17 | PM.PNGS ---
Subjective Subjective Date of Service: 11/06/20 Interval history: Patient had mild incisional pain but was able to ambulate and use the incentive spirometer. Physical Exam Vital Signs: Vital Signs: Last Vital Signs Temp 97.6 F 11/05/20 06:34 Pulse 72 11/05/20 06:34 Resp 16 11/05/20 06:34 BP 110/56 L 11/05/20 06:34 Pulse Ox 98 11/05/20 06:34 Body Mass Index 56.1 GI: Inspection: Yes normal to inspection, Yes incision (clean, dry and intact), Yes obesity and Yes other (MIESHA with serosanguinous fluid) Extrem: Right lower extremity: normal to inspection (no calf tenderness) Left lower extremity: normal to inspection (no calf tenderness) Progress Note: A&P Assessment and plan (1) Morbid obesity: Status: Acute (2) Asthma: Status: Acute (3) Nocturnal hypoxemia: Status: Acute (4) Sleep apnea with use of continuous positive airway pressure (CPAP): Status: Acute (5) Congenital intra-abdominal adhesions: Status: Acute (6) Back pain: Status: Acute (7) Steatosis, liver: Status: Acute (8) Liver fibrosis: Status: Acute (9) GERD (gastroesophageal reflux disease): Status: Acute (10) S/P gastric bypass: Status: Acute Assessment and Plan: s/p laparoscopic lysis of adhesions and Nahomi-en-Y gastric bypass Patient did well overnight. Check am labs and UGI. If OK, will d/c Magallanes and begin phase 1 bariatric diet. Fall Risk Details Current Medications: Current Medications Generic Name Dose Route Start Last Admin Trade Name Freq PRN Reason Stop Dose Admin Albuterol Sulfate 2.5 mg 11/05/20 06:15 Albuterol Sulfate (0.083%) 2.5 Mg/3 Ml Vial.Neb INHALE ONCE PRN Shortness of Breath/Wheezing Albuterol Sulfate 2.5 mg 11/05/20 07:55 Albuterol Sulfate (0.083%) 2.5 Mg/3 Ml Vial.Neb INHALE ONCE PRN Wheezing Fentanyl 50 mcg 11/05/20 07:55 Fentanyl Citrate/Pf 100 Mcg/2 Ml Vial IVPUSH Q5M PRN Pain, Severe (Pain Scale 7-10) Fentanyl 25 mcg 11/05/20 07:55 Fentanyl Citrate/Pf 100 Mcg/2 Ml Vial IVPUSH Q5M PRN Pain, Moderate (Pain Scale 4-6 Hydromorphone HCl 0.5 mg 11/05/20 07:55 Hydromorphone Hcl 0.5 Mg/0.5 Ml Syringe IVPUSH Q5M PRN Pain, Severe (Pain Scale 7-10) Hydromorphone HCl 0.25 mg 11/05/20 07:55 Hydromorphone Hcl 0.5 Mg/0.5 Ml Syringe IVPUSH Q5M PRN Pain, Severe (Pain Scale 7-10) Lactated Ringer's 1,000 mls @ 100 mls/hr 11/05/20 06:15 11/05/20 07:13 Lr IVCONT 100 mls/hr .Q10H LISA Administration Promethazine HCl 12.5 mg/ 50.5 mls @ 202 mls/hr 11/05/20 07:55 Sodium Chloride IV ONCE PRN Nausea and Vomiting Oxycodone HCl 10 mg 11/05/20 07:55 Oxycodone Hcl Immed Release 5 Mg Tablet PO ONCE PRN Pain, Severe (Pain Scale 7-10) Oxycodone HCl 5 mg 11/05/20 07:55 Oxycodone Hcl Immed Release 5 Mg Tablet PO ONCE PRN Pain, Severe (Pain Scale 7-10) Time Spent With Patient Time: Total time spent is greater than 50% in coordination of care (as documented) at patient's floor/unit and/or counseling patient: Time with patient: less than 15 minutes Procedures Date of Service Date of Service: 11/06/20 Quality Stroke Does the patient have a stroke diagnosis?: No VTE Prior VTE?: No VTE Risk Level:: Surgical - moderate VTE Device Contraindication: N/A - Device Ordered VTE Drug Contraindication: Treatment Not Indicated
--- NOTE | 2020-11-05 12:24 | PM.DS ---
DS: Providers Provider Date of Service: 11/06/20 Date of admission: 11/04/20 23:50 Primary care physician: Teri Grigsby MD DS: Diagnosis Discharge Diagnosis (1) Morbid obesity: Status: Acute (2) Asthma: Status: Acute (3) Nocturnal hypoxemia: (4) Sleep apnea with use of continuous positive airway pressure (CPAP): Status: Acute (5) Congenital intra-abdominal adhesions: (6) Back pain: Status: Acute (7) Steatosis, liver: Status: Acute (8) Liver fibrosis: Status: Acute (9) GERD (gastroesophageal reflux disease): Status: Acute (10) S/P gastric bypass: Status: Acute DS: Medications Discharge Medications Home Medications: Home Medications Medication Instructions Recorded Confirmed albuterol sulfate 90 mcg/actuation 2 puff PO Q4H PRN 07/03/20 10/28/20 aerosol inhaler budesonide-formoterol HFA 160 2 puff INHALATION DIRECTED 07/03/20 10/28/20 mcg-4.5 mcg/actuation aerosol inhaler cetirizine 10 mg tablet 10 mg PO DAILY PRN 07/03/20 10/28/20 inhalational spacing device #1 ea 07/03/20 10/15/20 meclizine 25 mg tablet 25 mg PO TID PRN 07/03/20 10/28/20 melatonin 5 mg capsule 5 mg PO BEDTIME 07/03/20 10/28/20 montelukast 10 mg tablet 10 mg PO DAILY 07/03/20 10/28/20 tiotropium bromide 2.5 2 puff INHALATION DAILY 07/06/20 10/28/20 mcg/actuation mist for inhalation lidocaine 5 % topical patch 1 patch TOPICAL DAILY PRN ea 09/09/20 10/28/20 triamcinolone acetonide 0.1 % TOPICAL 09/09/20 10/15/20 lotion Previous Rx's Medication Instructions Recorded cyclobenzaprine 10 mg PO TID PRN #10 tab 07/08/20 cholecalciferol (vitamin D3) 125 125 mcg PO DAILY #30 cap 07/20/20 mcg (5,000 unit) capsule mecobalamin (vitamin B12) 1,000 1,000 mcg SUBLINGUAL DAILY #30 tab 07/20/20 mcg disintegrating tablet,sublingual ondansetron HCl 4 mg tablet 4 mg PO Q12H #20 tab 10/15/20 pantoprazole 40 mg tablet,delayed 40 mg PO DAILY #30 tab 10/15/20 release polyethylene glycol 3350 17 gram 17 g PO DAILY #14 ea 10/15/20 oral powder packet sucralfate 100 mg/mL oral 10 ml PO BID #400 ml 10/15/20 suspension DS: Summary Time Spent with Patient Time attestation: ADMITTING DIAGNOSIS: Refractory morbid obesity with a BMI of 56.1 kg/m2 and associated co-morbid conditions including asthma. DISCHARGE DIAGNOSIS: same s/p laparoscopic RNYGBP Past surgical history: none PROCEDURE: Bzvnwsww-vkjhmh-clpgjdnwlrt and laparoscopic Nahomi-en-Y gastric bypass DISCHARGE SUMMARY: HISTORY OF PRESENT ILLNESS: The patient is a 30 year-old woman with a BMI of 61.7 kg/m2 and associated co-morbidities as described previously. The patient had extensive preoperative work-up, lost 31,9 lbs preoperatively and was electively scheduled for laparoscopic, possible open gastric bypass. Risks and complications of the surgery were discussed with the patient in advance, particularly the possibility of , pulmonary embolism, anastomotic leak, bleeding, bowel injury, GERD, cardiac, renal or pulmonary complications. The patient understood all the risks and was in agreement with the surgical plan. HOSPITAL COURSE: The patient underwent uneventful laparoscopic Nahomi-en-Y gastric bypass on the day of admission. Postoperatively, the patient was transferred to the surgical floor on a monitored bed and hemoglobin during the first 8 hours remained stable at mg/dl. The patient was on IV Acetaminophen and dilaudid for pain control. On postoperative day one, the patient was feeling well without nausea, vomiting, fevers, or tachycardia. The patient had some mild incisional pain. The abdomen was soft. UGI showed no leak or obstruction. The patient was started on 1 ounce of water or ice every half hour. The Magallanes was discontinued. During the first day, the patient did fairly well, having some incisional pain, but able to ambulate adequately and to tolerate liquids well. Since the patient is doing well, we decided that the patient was ready to be discharged. The patient was given instructions to follow-up with me next week and to call my office for any fever over 101, persistent abdominal pain, nausea, vomiting, change in the color of the MIESHA fluid, symptoms of DVT such as calf tenderness, or leg swelling, or pulmonary embolism such as chest pain or shortness of breath. The patient was also instructed to drink 40-60 ounces of liquids per day using the 1-ounce cups. The patient was given prescription for Tylenol for pain, Zofran prn for nausea, pantoprazole and carafate. The patient was encouraged to ambulate and use the incentive spirometry. The patient was allowed to shower, but no baths, and encouraged to stay active at home. All of these instructions were given to the patient personally. All questions were answered and the patient understood all instructions. The instructions were given to the patient in print as well. Please send a copy of this report to X Total time spent providing and/or coordinating discharge services: 25 Discharge coordination time: Less than 30 minutes Quality: Stroke Does the patient have a stroke diagnosis?: No Physical Exam Vital Signs: Vital Signs: Last Vital Signs Temp 97.2 F 11/05/20 12:10 Pulse 87 11/05/20 12:15 Resp 14 11/05/20 12:15 BP 128/94 H 11/05/20 12:15 Pulse Ox 97 11/05/20 12:15 Body Mass Index 56.1 DS: Data Data Completed and Pending Labs on day of discharge: Laboratory Results - last 24 hr 11/05/20 11/05/20 06:18 06:18 Urine Test NEGATIVE COVID-19 ([facility]) Negative COVID-19 Clin Com See Note Discharge Plan Discharge Anticipated Discharge Date/Time: 11/06/20 12:19 Patient Disposition: Home, Self-Care Discharge Diagnosis: s/p gastric bypass Referrals: Teri Grigsby MD [Primary Care Provider] - 1 Week Discharge Medications: Continued cyclobenzaprine 10 mg tablet 10 mg PO TID PRN (Reason: muscle spasm) Qty: 10 RF: 0 budesonide-formoterol 160-4.5 mcg/actuation HFA aerosol inhaler 2 puff inhalation DIRECTED RF: 0 cetirizine 10 mg tablet 10 mg PO DAILY PRN (Reason: allergies) RF: 0 albuterol sulfate 90 mcg/actuation HFA aerosol inhaler 2 puff PO Q4H PRN (Reason: wheezing) RF: 0 melatonin 5 mg capsule 5 mg PO BEDTIME RF: 0 montelukast [Singulair] 10 mg tablet 10 mg PO DAILY RF: 0 pantoprazole 40 mg tablet,delayed release (DR/EC) 40 mg PO DAILY Qty: 30 RF: 2 sucralfate 100 mg/mL suspension 10 ml PO BID Qty: 400 RF: 2 ondansetron HCl [Zofran] 4 mg tablet 4 mg PO Q12H Qty: 20 RF: 0 Spiriva Respimat 2.5 mcg/actuation mist 2 puff inhalation DAILY RF: 0 lidocaine [Lidoderm] 5 % adhesive patch,medicated 1 patch topical DAILY PRN (Reason: Pain) RF: 0 triamcinolone acetonide 0.1 % lotion topical RF: 0 Held meclizine 25 mg tablet 25 mg PO TID PRN (Reason: dizziness) RF: 0 Hold Instructions: Discuss restart with Dr Amber Yip cholecalciferol (vitamin D3) 125 mcg (5,000 unit) capsule 125 mcg PO DAILY Qty: 30 RF: 2 mecobalamin (vitamin B12) 1,000 mcg tablet,disintegrating 1,000 mcg sublingual DAILY Qty: 30 RF: 2 polyethylene glycol 3350 [Miralax] 17 gram powder in packet 17 g PO DAILY Qty: 14 RF: 0 No Action (DME) [facility] Spacer See Rx Instructions ea .ROUTE .MEDSUPPLY Qty: 1 RF: 0 Discharge Orders: Discharge Order (Routine); Ordered 11/06/20 Ordered By: Cesar Clark Diet: other Activity on Discharge: No heavy lifting Stand Alone Forms: Patient Portal Discharge page Activity Restrictions/Additional Instructions: No tub baths, sex or returning to work until discussed at first post op appointment. No exercise, alcohol, tobacco or illegal drug use. Continue to use incentive spirometer hourly while awake. Walk in home for 5- 10 minutes every 2 hours during the first week. Continue phase 1 diet today and start phase 2 diet tomorrow morning. Follow all instructions in the bariatric handbook and call with any questions. Empty and record fluid from drain twice per day, call MD if dark red blood, cloudy milky or green fluid. The patient's medical history has been reviewed and they are considered low risk for post op DVT and therefore DVT prophylaxis is not considered necessary. Travel after surgery was reviewed. The patient has not disclosed any travel plans during the first 30 days after surgery and they have been advised that within the first 30 days after surgery any bus, plane, train or car travel over 2 hours in duration is contraindicated due to the possibility of developing blood clots from immobility. Any travel, needs to include periods of ambulation of 10 minutes in duration every 2 hours. The patient was instructed to discuss any plans for travel during this period with their bariatric surgeon. Care Plan Goals: weight loss Health Concerns: morbid obesity Plan of Treatment: see discharge instructions Assessment: stable POD #1 s/p RNYGBP Discharge Date/Time: 11/06/20 19:55
[2020-11-05] MEDS: HYDROmorphone HCl 0.5 MG/0.5 ML SYRINGE IVPUSH ×2 (12:38→13:10)
[2020-11-05 13:06] LABS: Hematocrit 42.9 % (37-47); Hemoglobin 13.7 g/dl (12.0-16.0)
[2020-11-05 13:35] LABS: Anion Gap 18 (12-20); Blood Urea Nitrogen 11 mg/dL (9-16); Calcium 8.9 mg/dL (8.4-10.2); Carbon Dioxide 17 mmol/L (22-29); Chloride 108 mmol/L (96-108); Creatinine Clr Calc Pharmacy 128.2; Estimated Glomerular Filt Rate > 60; Glucose Random 139 mg/dL (60-115); Potassium 4.8 mmol/L (3.3-5.1); Sodium 138 mmol/L (135-145)
[2020-11-05] MEDS: Lactated Ringers 1,000 ML 150 ML IVCONT ×2 (14:19→20:32)
[2020-11-05] MEDS: Famotidine/PF 20 MG/2 ML VIAL IVPUSH ×2 (14:26→20:33)
[2020-11-05] MEDS: ceFAZolin Sodium/Dextrose,Iso 2 GM/50 ML PIGGYBACK IV (16:51)
[2020-11-05] MEDS: 0.9 % Sodium Chloride Flush 3 ML SYRINGE IVFLUSH (20:33)
[2020-11-05] MEDS: ondansetron HCL 4 MG/2 ML VIAL IVPUSH (22:21)
[2020-11-06] VITALS (8 sets, daily range): BP systolic 109–130; BP diastolic 58–74; PULSE 61–65; RESP 15–18; TEMP 36.1–36.8; O2SAT 96–98
[2020-11-06] MEDS: Lactated Ringers 1,000 ML 150 ML IVCONT ×3 (02:16→15:11)
[2020-11-06 05:53] LABS: MANUAL DIFF FLAG NO
[2020-11-06 06:06] LABS: Basophils Percent Auto 0.1 % (0-2); Hematocrit 36.8 % (37-47); Imm Gran Abs Auto 0.07 X10*3/uL (0.00-0.03); Imm Gran Pct Auto 0.5 % (0.0-0.4); Lymphocytes Absolute Auto 1.1 X10*3/uL (1.2-4.9); Lymphocytes Percent Auto 7.1 % (20-40); Mean Corpuscular HGB Conc 32.6 g/dl (31.0-35.0); Mean Corpuscular Hemoglobin 27.2 pg (27.0-33.0); Mean Corpuscular Volume 83.4 fL (80-98); Mean Platelet Volume 11.4 fL (9.4-12.3); Monocytes Percent Auto 6.5 % (2-11); Neutrophils Absolute Auto 13.2 X10*3/uL (2.0-8.3); Neutrophils Percent Auto 85.8 % (45-73); Platelet Count 327 X10*3/uL (160-400); Red Blood Count 4.41 X10*6/uL (4.20-5.50); Red Cell Distribution Width 13.1 % (11.0-16.0); White Blood Count 15.4 X10*3/uL (4.8-10.8)
[2020-11-06] MEDS: ondansetron HCL 4 MG/2 ML VIAL IVPUSH ×2 (06:09→13:47)
[2020-11-06 06:30] LABS: Anion Gap 15 (12-20); Blood Urea Nitrogen 7 mg/dL (9-16); Calcium 8.9 mg/dL (8.4-10.2); Carbon Dioxide 25 mmol/L (22-29); Chloride 103 mmol/L (96-108); Creatinine Clr Calc Pharmacy 148.2; Estimated Glomerular Filt Rate > 60; Glucose Random 105 mg/dL (60-115); Potassium 4.6 mmol/L (3.3-5.1); Sodium 138 mmol/L (135-145)
[2020-11-06] MEDS: Fluticasone/Vilanterol 200/25 BLST.W.DEV 1 PUFF INHALE (07:58)
[2020-11-06] MEDS: Famotidine/PF 20 MG/2 ML VIAL IVPUSH (10:03)
[2020-11-06] MEDS: Metoclopramide HCl 10 MG/2 ML VIAL IVPUSH (10:18)
--- NOTE | 2020-11-06 10:45 | HO.POSTANES ---
Post Anesthesia Evaluation Post Anesthesia Evaluation Vital Signs: Vital Signs Temp Pulse Resp BP Pulse Ox 11/06/20 08:00 97.0 F 11/06/20 07:56 97 11/06/20 04:00 98.2 F 61 18 124/74 97 11/05/20 23:34 97 F 57 18 98/53 L 96 Anesthesia: General Endotracheal-GETA Mental Status: Awake Pain Control: Satisfactory Nausea/Vomiting: Mild Hydration: Adequate Anesthesia-Related Issues: No Anes. Related Issues
--- NOTE | 2020-11-06 11:46 | PC.NURSE ---
Pt ambulated in [place] and is currently sitting up in recliner. A lot of belching noted. Medicated with reglan after returning from CT scan secondary to reports of nausea- good effect.
--- NOTE | 2020-11-06 12:56 | MHC.CM.PN ---
Addendum entered by Yvonne Marroquin RN 11/06/20 13:01: HCP: SRINI OWENS (PARENT) [phone] Original Note: EMR REVIEWED. PT ADMITTED S/P LAP GASTRIC BYPASS, CM MET W/PT WHO REPORTS SHE IS AN EMPLOYEE OF [employer] [place], IS INDEPENDENT W/ALL CARE, USES A CPAP & NO OTHER DME & NO HOME SERVICES, PT REPORTS SHE LIVES W/BF AND HE CAN ASSIST HER W/ANY NEEDS ONCE HOME, PT VERIFIES PCP AND COMPLETED A HCP W/CM. D/C PLAN: HOME SELF CARE TODAY, BF FOR TRANSPORT PCP: AVINASH HAMMER HCP COMPLETED, PT GIVEN EDUCATION, ORIGINAL AND 3 COPIES, COPY UPLOADED TO [employer] AND PLACED IN CHART.
[2020-11-06] MEDS: 0.9 % Sodium Chloride Flush 3 ML SYRINGE IVFLUSH (15:11)
== END 2020-11-06 19:55 | disposition home or self-care (01) | DRG 403 ==
LOC: HO.SSSA 11-05 12:24 → HO.S3 11-05 13:05
PROVIDERS: Nurse Practitioner; Physician Assistant; Admitting Provider Surgery; PCP Internal Medicine; Visit Provider Surgery
DX: E66.01 Morbid (severe) obesity due to excess calories (principal); K74.00 Hepatic fibrosis, unspecified; G47.30 Sleep apnea, unspecified; K66.0 Peritoneal adhesions (postprocedural) (postinfection); K21.9 Gastro-esophageal reflux disease without esophagitis; Z20.822 Contact with and (suspected) exposure to COVID-19; Z99.89 Dependence on other enabling machines and devices; Z68.44 Body mass index [BMI] 60.0-69.9, adult; Z87.891 Personal history of nicotine dependence; Z79.899 Other long term (current) drug therapy
CPT/HCPCS: 36415; 74240; 80048; 80053; 80061; 81025; 83036; 83525; 84443; 85014; 85018; 85025; 85610; 85730; 86140; 86850; 86900; 86901; 87635; 94640; 99024; C1758; J0131; J0690; J1100; J1170; J2250; J2370; J2405; J2765; J3010

== ENCOUNTER → 2020-11-11 07:46 | Outpatient (BNVA) | payer OTHER, SELFPAY | PROVIDERS: PCP Internal Medicine; Visit Provider Surgery ==

== ENCOUNTER → 2020-11-18 13:30 | Outpatient (BNVA) | payer OTHER, SELFPAY | PROVIDERS: PCP Internal Medicine; Visit Provider Advanced Practice Midwife ==

== ENCOUNTER → 2020-11-19 09:28 | Outpatient (BNVA) | payer OTHER, SELFPAY | PROVIDERS: PCP Internal Medicine; Referring Provider Internal Medicine; Visit Provider Physician Assistant ==

== ENCOUNTER → 2020-11-23 10:51 | Outpatient (BNVA) | payer OTHER, SELFPAY | PROVIDERS: PCP Internal Medicine; Visit Provider Internal Medicine ==

== ENCOUNTER → 2020-11-26 11:30 | Outpatient (BNVA) | payer OTHER, SELFPAY | PROVIDERS: PCP Internal Medicine; Visit Provider Physician Assistant ==

== ENCOUNTER 2020-12-03 08:17 | Emergency (ER) | payer OTHER, SELFPAY ==
--- NOTE | ~2020-12-03 | CT_ITS ---
EXAMINATION: CT ABDOMEN AND PELVIS WITH CONTRAST CLINICAL INFORMATION: Elevated lipase and bilirubin. Status post recent lap gastric bypass. COMPARISON: Ultrasound of July 21, 2020 TECHNIQUE: Multidetector volumetric images were obtained from the superior aspect of the liver through the pubic symphysis following administration 100 mL of Omnipaque 350 intravenous contrast. Sagittal and coronal reformatted images were obtained on the technologist's workstation. Oral contrast: No This CT examination was performed using dose optimization techniques as appropriate, variously including the following: *Automated exposure control *Adjustment of mA and/or kV according to patient size (this includes techniques or standardized protocols for targeted exams where dose is matched to indication/reason for exam; i.e. extremities or head) *Use of iterative reconstruction technique DLP: 1387 mGy-cm FINDINGS: LUNG BASES: The visualized lung bases are unremarkable. No pleural or pericardial effusion. LIVER, GALLBLADDER, AND BILIARY TREE: The liver is mildly enlarged measuring 20 cm in vertical span. There is diffuse fatty infiltration of the liver. No suspicious focal mass or intrahepatic bile duct dilatation is seen. Low-density region along the falciform ligament is seen consistent with fatty infiltration. The gallbladder is unremarkable with no evidence of radiopaque gallstones, gallbladder wall thickening, or obvious pericholecystic inflammatory changes. PANCREAS: Unremarkable. SPLEEN: There is splenomegaly present with vertical span of 14 cm. No abnormal focal mass identified. ADRENAL GLANDS: Unremarkable. KIDNEYS AND URETERS: The kidneys are normal in size, shape, and attenuation. No hydronephrosis, hydroureter, or calculi seen. No perinephric stranding. BLADDER: Unremarkable. GASTROINTESTINAL TRACT: No dilated loops of large or small bowel are evident. No free air or free fluid is appreciated. Patient status post gastric surgery with no adjacent abnormal fluid collection appreciated. ABDOMINAL WALL: No significant hernia is appreciated. LYMPH NODES: There are numerous mesenteric lymph nodes but without measuring as lymphadenopathy. VASCULAR: Unremarkable. PELVIC VISCERA: Unremarkable. OSSEOUS STRUCTURES: No suspicious destructive bony lesions identified. There is mild narrowing of the L4-L5 disc space. CT/CT abdomen pelvis w con IMPRESSION: Status post gastric surgery without adjacent inflammatory process or fluid collection. Mild hepatosplenomegaly. Fatty infiltration of the liver.
--- NOTE | ~2020-12-03 | US_ITS ---
EXAMINATION: US ABDOMEN LIMITED CLINICAL INFORMATION: Right upper quadrant pain. Elevated lipase and bilirubin. COMPARISON: CT abdomen and pelvis with IV contrast 12/03/2020, ultrasound abdomen with liver elastography 07/21/2020. TECHNIQUE: Real-time imaging of the right upper quadrant abdominal viscera. FINDINGS: PANCREAS: The pancreas is largely obscured by bowel gas. Portions of the mid body normal pancreatic-echogenicity. There is no ductal dilatation or retroperitoneal effusion in the visualized area. LIVER: The liver is within normal size and smooth in contour. There is increased hepatic parenchymal echogenicity consistent with hepatic steatosis. No intrahepatic biliary ductal dilatation. No focal parenchymal lesion demonstrated by ultrasound. GALLBLADDER: The gallbladder has echogenic foci within the lumen suggesting sludge and possibly cholesterol crystals. The possibility of punctate gravel-like calculi cannot be excluded. There is no definable isolated calculus. No wall thickening or pericholecystic fluid. No hyperemia on color Doppler. Negative sonographic Hilario's sign. COMMON BILE DUCT: Normal in caliber measuring 0.6 cm in diameter. No visible ductal calculus. RIGHT KIDNEY: Normal. No hydronephrosis. No renal calculi or focal parenchymal lesions. The kidney measures 10.6 cm in maximum dimension. FREE FLUID: None. US/US abdomen limited IMPRESSION: 1. Echogenic bile suggesting sludge and possibly cholesterol crystals. No isolated gallstone. No wall thickening, pericholecystic fluid, or ductal dilatation. 2. Hepatic steatosis. No intrahepatic ductal dilatation.
[2020-12-03 08:20] VITALS: BP 94/70; PULSE 80; RESP 18; TEMP 36.1; O2SAT 99; BMI 51.2
--- NOTE | 2020-12-03 08:26 | ECG_ITS ---
Test Reason : NAUSEA Blood Pressure : / mmHG Vent. Rate : 070 BPM Atrial Rate : 375 BPM P-R Int : 124 ms QRS Dur : 074 ms QT Int : 392 ms P-R-T Axes : 062 032 049 degrees QTc Int : 423 ms Normal sinus rhythm Artifact Otherwise normal ECG When compared with ECG of 10-JUL-2020 09:15, No significant changes seen Referred By: Anne Bonner Electronically Signed By:Stefan Chu
--- NOTE | 2020-12-03 08:43 | ED_ITS ---
HPI - Nausea/Vomiting/Diarrhea General Chief complaint: General Medical Stated complaint: nausea,vomiting Time Seen by Provider: 12/03/20 08:25 Source: patient Mode of arrival: ambulatory Limitations: no limitations History of Present Illness MD elicited complaint: nausea and other (feels weak and dizzy) Pertinent past history: other (s/p gastric bypass on 11/05 feels she is not taking in enough liquids, has dry heaves at times) Onset (ago): day(s) () Associated nausea: Yes Associated abdominal pain: No Severity: mild Exacerbating factors: eating (states she is compliant with all medications) Relieving factors: none Context: history of abdominal surgery Associated symptoms: loss of appetite, malaise, nausea/vomiting and weakness Related Data Home Medications Medication Instructions Recorded Confirmed albuterol sulfate 90 mcg/actuation 2 puff PO Q4H PRN 07/03/20 10/28/20 aerosol inhaler budesonide-formoterol HFA 160 2 puff INHALATION DIRECTED 07/03/20 10/28/20 mcg-4.5 mcg/actuation aerosol inhaler cetirizine 10 mg tablet 10 mg PO DAILY PRN 07/03/20 10/28/20 inhalational spacing device #1 ea 07/03/20 10/15/20 meclizine 25 mg tablet 25 mg PO TID PRN 07/03/20 10/28/20 melatonin 5 mg capsule 5 mg PO BEDTIME 07/03/20 10/28/20 montelukast 10 mg tablet 10 mg PO DAILY 07/03/20 10/28/20 (Singulair) tiotropium bromide 2.5 2 puff INHALATION DAILY 07/06/20 10/28/20 mcg/actuation mist for inhalation (Spiriva Respimat) lidocaine 5 % topical patch 1 patch TOPICAL DAILY PRN ea 09/09/20 10/28/20 (Lidoderm) triamcinolone acetonide 0.1 % TOPICAL 09/09/20 10/15/20 lotion Previous Rx's Medication Instructions Recorded cyclobenzaprine 10 mg tablet 10 mg PO TID PRN #10 tab 07/08/20 pantoprazole 40 mg tablet,delayed 40 mg PO DAILY #30 tab 10/15/20 release sucralfate 100 mg/mL oral 10 ml PO BID #400 ml 10/15/20 suspension ondansetron HCl 4 mg tablet 4 mg PO Q12H #20 tab 12/01/20 (Zofran) sennosides 8.6 mg-docusate sodium 1 tab-cap PO BEDTIME #30 tab 12/01/20 50 mg tablet (Colace 2-In-1) Allergies Allergy/AdvReac Type Severity Reaction Status Date / Time animal dander Allergy Unknown UNKNOWN Verified 11/18/20 13:31 lactose [LACTOSE] Allergy Unknown GI Verified 11/18/20 13:31 UPSET/DIRRHEA mold Allergy Unknown UNKNOWN Verified 11/18/20 13:31 pollen extracts [POLLEN] Allergy Unknown UNKNOWN Verified 11/18/20 13:31 Review of Systems Review of Systems: Constitutional : No Weight loss, No Fever, No Chills ENT/Mouth : No sore throat, No Rhinorrhea Eyes: No Swelling, No Redness Cardiovascular : No Chest Pain, No SOB, NoEdema Respiratory : No Cough, No Sputum, No Wheezing Gastrointestinal : Positive Nausea, no Vomiting, no Diarrhea, no abdominal Pain, No Hematochezia, No Melena Genitourinary : No Dysuria, No Urinary Frequency, No Hematuria, No Urgency Musculoskeletal : No joint pain, No Myalgias, No Joint Swelling Skin : No Skin Lesions, No rash Neuro : No Weakness, No Numbness, No Dizziness, No Headache Psych : No Anxiety/Panic, No Depression Heme/Lymph: No Bruising, No Lymphadenopathy Endocrine : No Polyuria, No Polydipsia All other systems reviewed and are negative. Gastrointestinal: Gastrointestinal: Reports nausea PMFSH Past Medical History Attestation statement: The following information was validated with the patient. Source: old records reviewed Medical History Asthma Back pain Chronic back pain Congenital intra-abdominal adhesions COVID-19 vaccine series completed GERD (gastroesophageal reflux disease) Liver fibrosis Maternal anesthesia complication Morbid obesity Nocturnal hypoxemia Sleep apnea Steatosis, liver Vertigo Vitamin A deficiency Vitamin B12 deficiency Vitamin D deficiency Surgical History Hx of gastric bypass Hx of wisdom tooth extraction Family History Family History Mother Kidney stone Asthma Father No problems noted. 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 Oriented X3. No acute distress. Eyes: Pupils equal, round and reactive to light. ENT: Pharynx normal. Neck: Normal inspection. Neck supple. CVS: Normal heart rate and rhythm. Pulses normal. Respiratory: No respiratory distress. Breath sounds normal. Abdomen: Soft and nontender. incision c/d/i Skin: Skin warm and dry. Normal skin color. Normal skin turgor. Extremities: No lower extremity edema. No calf ttp Neuro: Oriented X 3. No motor deficit. No sensory deficit. Course Course Course Narrative: elevated LFTs and lipase, CT scan ordered at this time will discuss with bariatric surgery, US ordered for GB evaluation given [employer] message sent to Betty Crawford from bariatric surgery Ty CHAVEZ has seen the patient - if US negative follow up and repeat labs in 1 week US no acute findings, will DC out with follow up - bariatric surgery updated with US MDM - Nausea/Vomiting/Diarrhea MDM Narrative Medical decision making narrative: 30 yo female s/p laparascopic gastric bypass on 11/05 comes in with nausea, no vomiting, some dry heaves no sig pain she is having hard BMs and passing gas. She feels that she is not taking in enough and feels weak, compliant with her medications and diet. Abdomen is soft and nontender, labs, IVF x 2L, zofran will reasess. Lab Data Result diagrams: 12/03/20 09:03 12/03/20 09:03 Labs: Lab Results 12/03/20 12/03/20 12/03/20 Range/Units 09:03 09:03 11:33 WBC 7.3 (4.8-10.8) X10*3/uL RBC 5.28 (4.20-5.50) X10*6/uL Hgb 14.3 (12.0-16.0) g/dl Hct 43.3 (37-47) % MCV 82.0 (80-98) fL MCH 27.1 (27.0-33.0) pg MCHC 33.0 (31.0-35.0) g/dl RDW 15.1 (11.0-16.0) % Plt Count 284 (160-400) X10*3/uL MPV 12.8 H (9.4-12.3) fL Immature Gran % (Auto) 0.1 (0.0-0.4) % Neut % (Auto) 70.6 (45-73) % Lymph % (Auto) 13.6 L (20-40) % [place] % (Auto) 10.9 (2-11) % Eos % (Auto) 4.0 (0-4) % Baso % (Auto) 0.8 (0-2) % Lymph # (Auto) 1.0 L (1.2-4.9) X10*3/uL [place] # (Auto) 0.8 (0.1-1.2) X10*3/uL Eos # (Auto) 0.3 (0.0-0.4) X10*3/uL Baso # (Auto) 0.1 (0.0-0.2) X10*3/uL Abs Immat Gran (auto) 0.01 (0.00-0.03) X10*3/uL Absolute Neuts (auto) 5.1 (2.0-8.3) X10*3/uL Absolute Nucleated RBC 0.000 (0.0-0.012) X10*3/uL Nucleated RBC % (auto) 0.0 (0.0-0.2) /100WBC Sodium 142 (135-145) mmol/L Potassium 3.7 (3.3-5.1) mmol/L Chloride 102 (96-108) mmol/L Carbon Dioxide 22 (22-29) mmol/L Anion Gap 22 H (12-20) BUN 13 D (9-16) mg/dL Creatinine 1.09 (0.5-1.4) mg/dL Estim Creat Clear Calc 105.6 Estimated GFR 60 Random Glucose 117 H (60-115) mg/dL Calcium 9.2 (8.4-10.2) mg/dL Magnesium 1.5 L (1.6-2.6) mg/dL Total Bilirubin 2.6 H (0.0-1.0) mg/dL Direct Bilirubin 1.0 H (0.0-0.5) mg/dL AST 39 H D (5-31) U/L ALT 31 (0-31) U/L Alkaline Phosphatase 58 D (39-117) U/L Total Protein 7.1 (6.5-8.0) g/dL Albumin 4.2 (3.5-5.0) g/dL Lipase 92 H (8-78) U/L Urine Color DARK YELLOW Urine Appearance TURBID Urine pH 6.0 (5.0-8.0) Ur Specific [place] >= 1.030 H (1.005-1.025) Urine Protein 2+ H (NEG-TRACE) MG/DL Urine Glucose (UA) 100 H (NEG) MG/DL Urine Ketones >=80 (NEG) MG/DL Urine Blood NEG (NEG) Urine Nitrite POS H (NEG) Ur Leukocyte Esterase 1+ H (NEG) Urine RBC 1-4 (0) /HPF Urine WBC 0-2 (0-4) /HPF Ur Squamous Epith Cells 1+ /LPF Amorphous Sediment 4+ /LPF Urine Bacteria 1+ /LPF Urine Test (NEGATIVE) 12/03/20 Range/Units 11:33 WBC (4.8-10.8) X10*3/uL RBC (4.20-5.50) X10*6/uL Hgb (12.0-16.0) g/dl Hct (37-47) % MCV (80-98) fL MCH (27.0-33.0) pg MCHC (31.0-35.0) g/dl RDW (11.0-16.0) % Plt Count (160-400) X10*3/uL MPV (9.4-12.3) fL Immature Gran % (Auto) (0.0-0.4) % Neut % (Auto) (45-73) % Lymph % (Auto) (20-40) % [place] % (Auto) (2-11) % Eos % (Auto) (0-4) % Baso % (Auto) (0-2) % Lymph # (Auto) (1.2-4.9) X10*3/uL [place] # (Auto) (0.1-1.2) X10*3/uL Eos # (Auto) (0.0-0.4) X10*3/uL Baso # (Auto) (0.0-0.2) X10*3/uL Abs Immat Gran (auto) (0.00-0.03) X10*3/uL Absolute Neuts (auto) (2.0-8.3) X10*3/uL Absolute Nucleated RBC (0.0-0.012) X10*3/uL Nucleated RBC % (auto) (0.0-0.2) /100WBC Sodium (135-145) mmol/L Potassium (3.3-5.1) mmol/L Chloride (96-108) mmol/L Carbon Dioxide (22-29) mmol/L Anion Gap (12-20) BUN (9-16) mg/dL Creatinine (0.5-1.4) mg/dL Estim Creat Clear Calc Estimated GFR Random Glucose (60-115) mg/dL Calcium (8.4-10.2) mg/dL Magnesium (1.6-2.6) mg/dL Total Bilirubin (0.0-1.0) mg/dL Direct Bilirubin (0.0-0.5) mg/dL AST (5-31) U/L ALT (0-31) U/L Alkaline Phosphatase (39-117) U/L Total Protein (6.5-8.0) g/dL Albumin (3.5-5.0) g/dL Lipase (8-78) U/L Urine Color Urine Appearance Urine pH (5.0-8.0) Ur Specific [place] (1.005-1.025) Urine Protein (NEG-TRACE) MG/DL Urine Glucose (UA) (NEG) MG/DL Urine Ketones (NEG) MG/DL Urine Blood (NEG) Urine Nitrite (NEG) Ur Leukocyte Esterase (NEG) Urine RBC (0) /HPF Urine WBC (0-4) /HPF Ur Squamous Epith Cells /LPF Amorphous Sediment /LPF Urine Bacteria /LPF Urine Test NEGATIVE (NEGATIVE) Discharge Plan Discharge Clinical Impression: Elevated liver function tests, Elevated bilirubin, Hypomagnesemia, Nausea Patient Disposition: Home, Self-Care Instructions: Acute Nausea and Vomiting (ED) Additional Instructions: return to ED for any worsening symptoms or concerns Prescriptions: No Action sennosides-docusate sodium [Colace 2-In-1] 8.6-50 mg tablet 1 tab-cap PO BEDTIME Qty: 30 RF: 4 ondansetron HCl [Zofran] 4 mg tablet 4 mg PO Q12H Qty: 20 RF: 0 cyclobenzaprine 10 mg tablet 10 mg PO TID PRN (Reason: muscle spasm) Qty: 10 RF: 0 budesonide-formoterol 160-4.5 mcg/actuation HFA aerosol inhaler 2 puff inhalation DIRECTED RF: 0 cetirizine 10 mg tablet 10 mg PO DAILY PRN (Reason: allergies) RF: 0 (DME) Glenys Cardoso [facility] Spacer See Rx Instructions ea .ROUTE .MEDSUPPLY Qty: 1 RF: 0 meclizine 25 mg tablet 25 mg PO TID PRN (Reason: dizziness) RF: 0 Hold Instructions: Discuss restart with Dr Clark albuterol sulfate 90 mcg/actuation HFA aerosol inhaler 2 puff PO Q4H PRN (Reason: wheezing) RF: 0 melatonin 5 mg capsule 5 mg PO BEDTIME RF: 0 montelukast [Singulair] 10 mg tablet 10 mg PO DAILY RF: 0 pantoprazole 40 mg tablet,delayed release (DR/EC) 40 mg PO DAILY Qty: 30 RF: 2 sucralfate 100 mg/mL suspension 10 ml PO BID Qty: 400 RF: 2 Spiriva Respimat 2.5 mcg/actuation mist 2 puff inhalation DAILY RF: 0 lidocaine [Lidoderm] 5 % adhesive patch,medicated 1 patch topical DAILY PRN (Reason: Pain) RF: 0 triamcinolone acetonide 0.1 % lotion topical RF: 0 Referrals: Betty Crawford PA-C [Physician Guest Service Host] - 5 days (call for follow up appointment next week)
[2020-12-03 09:05] VITALS: BP 110/64; PULSE 75
[2020-12-03 09:06] VITALS: BP 127/80; PULSE 76
[2020-12-03 09:07] VITALS: BP 131/75; PULSE 78
[2020-12-03 09:08] LABS: MANUAL DIFF FLAG NO
[2020-12-03 09:09] LABS: Basophils Absolute Auto 0.1 X10*3/uL (0.0-0.2); Basophils Percent Auto 0.8 % (0-2); Eosinophils Absolute Auto 0.3 X10*3/uL (0.0-0.4); Hematocrit 43.3 % (37-47); Hemoglobin 14.3 g/dl (12.0-16.0); Imm Gran Abs Auto 0.01 X10*3/uL (0.00-0.03); Imm Gran Pct Auto 0.1 % (0.0-0.4); Lymphocytes Percent Auto 13.6 % (20-40); Mean Corpuscular Hemoglobin 27.1 pg (27.0-33.0); Mean Platelet Volume 12.8 fL (9.4-12.3); Monocytes Absolute Auto 0.8 X10*3/uL (0.1-1.2); Monocytes Percent Auto 10.9 % (2-11); Neutrophils Absolute Auto 5.1 X10*3/uL (2.0-8.3); Neutrophils Percent Auto 70.6 % (45-73); Platelet Count 284 X10*3/uL (160-400); Red Blood Count 5.28 X10*6/uL (4.20-5.50); Red Cell Distribution Width 15.1 % (11.0-16.0); White Blood Count 7.3 X10*3/uL (4.8-10.8)
[2020-12-03] MEDS: 0.9 % Sodium Chloride 1,000 ML 999 ML IVCONT ×2 (09:09→11:57)
--- NOTE | 2020-12-03 09:16 | PC.NURSE ---
pt alert and oriented, skin pwd respirations even and unlabored, pt reports for about one week vomiting anywhere from once to multiple times a day, also having some constipation issues was instructed to use stool softeners and had a small bowel movement on monday and , intermitted abd pain in the left mid area.
[2020-12-03 09:57] LABS: Potassium 3.7 mmol/L (3.3-5.1)
[2020-12-03 09:58] LABS: Alanine Aminotransferase 31 U/L (0-31); Albumin Level 4.2 g/dL (3.5-5.0); Alkaline Phosphatase 58 U/L (39-117); Anion Gap 22 (12-20); Aspartate Amino Transferase 39 U/L (5-31); Bilirubin Total 2.6 mg/dL (0.0-1.0); Blood Urea Nitrogen 13 mg/dL (9-16); Calcium 9.2 mg/dL (8.4-10.2); Carbon Dioxide 22 mmol/L (22-29); Chloride 102 mmol/L (96-108); Creatinine Clr Calc Pharmacy 105.6; Estimated Glomerular Filt Rate 60; Glucose Random 117 mg/dL (60-115); Lipase 92 U/L (8-78); Magnesium 1.5 mg/dL (1.6-2.6); Sodium 142 mmol/L (135-145); Total Protein 7.1 g/dL (6.5-8.0)
[2020-12-03] MEDS: Magnesium Sulfate/H2O 2 GM/50 ML PIGGYBACK IV (10:50)
[2020-12-03 10:51] VITALS: BP 112/71; PULSE 72; RESP 20; O2SAT 100
--- NOTE | 2020-12-03 10:54 | PC.NURSE ---
pt reports that nausea has improved after the zofran
[2020-12-03 11:35] VITALS: BP 105/53; PULSE 69; RESP 17; TEMP 36.8; O2SAT 99
--- NOTE | 2020-12-03 11:35 | PC.NURSE ---
patient a&ox3, urine obtained, vss, ivf running per order, will continue to monitor.
[2020-12-03 11:58] LABS: Glucose Urine UA 100 MG/DL (NEG); Leukocyte Esterase Urine 1+ (NEG); Nitrite Urine POS (NEG); Specific Gravity - Urine >= 1.030 (1.005-1.025); UACC Culture Trigger YES; Urine Blood NEG (NEG); Urine Ketones >=80 MG/DL (NEG); Urine Protein 2+ MG/DL (NEG-TRACE)
--- NOTE | 2020-12-03 11:58 | PC.NURSE ---
pt to ct scan
[2020-12-03 11:59] LABS: Appearance Urine TURBID; Color Urine DARK YELLOW
[2020-12-03 12:00] LABS: UPreg QC Valid YES; Urine Pregnancy NEGATIVE (NEGATIVE)
[2020-12-03 12:15] LABS: Bacteria Urine 1+ /LPF; Squamous Epithelial Cell Urine 1+ /LPF; WBC Urine 0-2 /HPF (0-4)
[2020-12-03 12:16] LABS: Amorphous Sediment Urine 4+ /LPF
[2020-12-03] MEDS: iohexoL 350 MG/ML 100 ML INFUS..BTL IV (12:24)
== END 2020-12-03 15:14 | disposition home or self-care (01) ==
PROVIDERS: Emergency Provider Emergency Medicine; PCP Internal Medicine
DX: R11.2 Nausea with vomiting, unspecified (principal); R79.89 Other specified abnormal findings of blood chemistry; E83.42 Hypomagnesemia; R11.0 Nausea; Z98.84 Bariatric surgery status; Z79.899 Other long term (current) drug therapy; F17.210 Nicotine dependence, cigarettes, uncomplicated; Z71.6 Tobacco abuse counseling
CPT/HCPCS: 36415; 74177; 76705; 80048; 80076; 81001; 81025; 83690; 83735; 85025; 87086; 93005; 96361; 96365; 96375; 99284; J2405; J3475; Q9967

== ENCOUNTER → 2020-12-04 11:28 | Outpatient (BNVA) | payer OTHER, SELFPAY | PROVIDERS: PCP Internal Medicine; Referring Provider Internal Medicine; Visit Provider Physician Assistant ==

== ENCOUNTER 2020-12-09 11:04 | Outpatient (REF) | payer OTHER, SELFPAY ==
[2020-12-09 14:05] LABS: Alanine Aminotransferase 40 U/L (0-31); Albumin Level 4.2 g/dL (3.5-5.0); Alkaline Phosphatase 58 U/L (39-117); Anion Gap 18 (12-20); Aspartate Amino Transferase 46 U/L (5-31); Bilirubin Total 3.5 mg/dL (0.0-1.0); Blood Urea Nitrogen 16 mg/dL (9-16); Calcium 9.7 mg/dL (8.4-10.2); Carbon Dioxide 29 mmol/L (22-29); Chloride 98 mmol/L (96-108); Estimated Glomerular Filt Rate > 60; Glucose Random 92 mg/dL (60-115); Magnesium 2.1 mg/dL (1.6-2.6); Potassium 3.7 mmol/L (3.3-5.1); Sodium 141 mmol/L (135-145); Total Protein 6.9 g/dL (6.5-8.0)
== END 2020-12-09 11:05 | disposition home or self-care (01) ==
LOC: HO.LAB 11:04
PROVIDERS: Absent Provider Physician Assistant; PCP Internal Medicine; Visit Provider Advanced Practice Midwife
DX: R17 Unspecified jaundice (principal); E83.42 Hypomagnesemia; Z30.017 Encounter for initial prescription of implantable subdermal contraceptive; Z32.02 Encounter for pregnancy test, result negative; Z87.891 Personal history of nicotine dependence
CPT/HCPCS: 11981; 36415; 80053; 81025; 83735

== ENCOUNTER → 2020-12-10 12:03 | Outpatient (BNVA) | payer OTHER, SELFPAY | PROVIDERS: PCP Internal Medicine; Referring Provider Internal Medicine; Visit Provider Physician Assistant ==

== ENCOUNTER 2020-12-12 04:20 | Emergency (ER) | payer OTHER, SELFPAY ==
--- NOTE | ~2020-12-12 | CT_ITS ---
EXAMINATION: CT ABDOMEN AND PELVIS WITH CONTRAST CLINICAL INFORMATION: Abdominal pain. Question pancreatitis. History of gastric bypass. COMPARISON: 12/03/2020 TECHNIQUE: Multidetector volumetric images were obtained from the superior aspect of the liver through the pubic symphysis following administration 85 mL of Omnipaque 350 intravenous contrast. Sagittal and coronal reformatted images were obtained on the technologist's workstation. Oral contrast: No This CT examination was performed using dose optimization techniques as appropriate, variously including the following: *Automated exposure control *Adjustment of mA and/or kV according to patient size (this includes techniques or standardized protocols for targeted exams where dose is matched to indication/reason for exam; i.e. extremities or head) *Use of iterative reconstruction technique DLP: 1326 mGy-cm FINDINGS: LUNG BASES: The visualized lung bases are unremarkable. LIVER, GALLBLADDER, AND BILIARY TREE: The liver is normal in size and shape with decreased attenuation. No focal hepatic lesion or biliary ductal dilatation is present. The gallbladder is unremarkable with no evidence of radiopaque gallstones, gallbladder wall thickening, or obvious pericholecystic inflammatory changes. PANCREAS: Unremarkable. SPLEEN: Unremarkable. ADRENAL GLANDS: Unremarkable. KIDNEYS AND URETERS: The kidneys are normal in size, shape, and attenuation. There is mild right hydroureteronephrosis. 0.2 cm calculus present at the right ureterovesicular junction. No left hydronephrosis. No additional calculi. BLADDER: Unremarkable. GASTROINTESTINAL TRACT: Status post Nahomi-en-Y gastric bypass. There is no obstruction. No bowel wall thickening or inflammation. Normal appendix. No free air or free fluid. ABDOMINAL WALL: No significant hernia is appreciated. LYMPH NODES: Normal. VASCULAR: Unremarkable. PELVIC VISCERA: The uterus and adnexa are unremarkable. OSSEOUS STRUCTURES: No acute or suspicious osseous abnormality. CT/CT abdomen pelvis w con IMPRESSION: 1. Mild right hydroureteronephrosis. 0.2 cm obstructing calculus at the right ureterovesicular junction. 2. Hepatic steatosis.
[2020-12-12 04:28] VITALS: BP 121/76; PULSE 65; RESP 16; TEMP 36.7; O2SAT 98; BMI 50.8
[2020-12-12 04:55] LABS: MANUAL DIFF FLAG NO
[2020-12-12 04:56] LABS: Basophils Percent Auto 0.7 % (0-2); Eosinophils Absolute Auto 0.3 X10*3/uL (0.0-0.4); Eosinophils Percent Auto 5.2 % (0-4); Hemoglobin 14.7 g/dl (12.0-16.0); Imm Gran Abs Auto 0.01 X10*3/uL (0.00-0.03); Imm Gran Pct Auto 0.2 % (0.0-0.4); Lymphocytes Percent Auto 16.6 % (20-40); Mean Corpuscular HGB Conc 33.4 g/dl (31.0-35.0); Mean Corpuscular Hemoglobin 27.6 pg (27.0-33.0); Mean Corpuscular Volume 82.7 fL (80-98); Monocytes Absolute Auto 0.6 X10*3/uL (0.1-1.2); Monocytes Percent Auto 9.5 % (2-11); Neutrophils Percent Auto 67.8 % (45-73); Platelet Count 203 X10*3/uL (160-400); Red Blood Count 5.32 X10*6/uL (4.20-5.50); Red Cell Distribution Width 15.2 % (11.0-16.0); White Blood Count 5.9 X10*3/uL (4.8-10.8)
[2020-12-12 05:34] LABS: Alanine Aminotransferase 44 U/L (0-31); Albumin Level 3.8 g/dL (3.5-5.0); Alkaline Phosphatase 51 U/L (39-117); Anion Gap 21 (12-20); Aspartate Amino Transferase 42 U/L (5-31); Bilirubin Direct 0.9 mg/dL (0.0-0.5); Blood Urea Nitrogen 14 mg/dL (9-16); Calcium 9.1 mg/dL (8.4-10.2); Carbon Dioxide 23 mmol/L (22-29); Chloride 98 mmol/L (96-108); Creatinine Clr Calc Pharmacy 127.1; Estimated Glomerular Filt Rate > 60; Glucose Random 91 mg/dL (60-115); Lipase 113 U/L (8-78); Potassium 3.4 mmol/L (3.3-5.1); Sodium 139 mmol/L (135-145); Total Protein 6.3 g/dL (6.5-8.0)
--- NOTE | 2020-12-12 06:19 | ED_ITS ---
HPI - Abdominal Pain General Chief Complaint: Abdominal Pain Stated Complaint: Abdominal Pain Time Seen by Provider: 12/12/20 06:12 Source: patient Mode of arrival: ambulatory History of Present Illness HPI narrative: 30-year-old female with history of morbid obesity and had Nahomi-en-Y gastric bypass last month presents with onset of right flank/upper quadrant pain that started approximately 1:00 a.m. and is described as being sharp and patient unable to stay still. This is not been associated with fever chills but patient reports nausea but has been unable to vomit. Patient stated that she felt like she might need to have a bowel movement but states that this did not improve her pain. She endorses that she has continued to pass gas and denies any urinary symptoms. Related Data Home Medications Medication Instructions Recorded Confirmed albuterol sulfate 90 mcg/actuation 2 puff PO Q4H PRN 07/03/20 10/28/20 aerosol inhaler budesonide-formoterol HFA 160 2 puff INHALATION DIRECTED 07/03/20 10/28/20 mcg-4.5 mcg/actuation aerosol inhaler cetirizine 10 mg tablet 10 mg PO DAILY PRN 07/03/20 10/28/20 inhalational spacing device #1 ea 07/03/20 10/15/20 meclizine 25 mg tablet 25 mg PO TID PRN 07/03/20 10/28/20 melatonin 5 mg capsule 5 mg PO BEDTIME 07/03/20 10/28/20 montelukast 10 mg tablet 10 mg PO DAILY 07/03/20 10/28/20 (Singulair) tiotropium bromide 2.5 2 puff INHALATION DAILY 07/06/20 10/28/20 mcg/actuation mist for inhalation (Spiriva Respimat) lidocaine 5 % topical patch 1 patch TOPICAL DAILY PRN ea 09/09/20 10/28/20 (Lidoderm) triamcinolone acetonide 0.1 % TOPICAL 09/09/20 10/15/20 lotion Previous Rx's Medication Instructions Recorded cyclobenzaprine 10 mg tablet 10 mg PO TID PRN #10 tab 07/08/20 pantoprazole 40 mg tablet,delayed 40 mg PO DAILY #30 tab 10/15/20 release sucralfate 100 mg/mL oral 10 ml PO BID #400 ml 10/15/20 suspension ondansetron HCl 4 mg tablet 4 mg PO Q12H #20 tab 12/01/20 (Zofran) sennosides 8.6 mg-docusate sodium 1 tab-cap PO BEDTIME #30 tab 12/01/20 50 mg tablet (Colace 2-In-1) metoclopramide HCl 10 mg tablet 10 mg PO Q6H PRN #14 tab 12/04/20 (Reglan) tamsulosin 0.4 mg capsule (Flomax) 0.4 mg PO BEDTIME #4 cap 12/12/20 Allergies Allergy/AdvReac Type Severity Reaction Status Date / Time animal dander Allergy Unknown UNKNOWN Verified 12/09/20 11:11 lactose [LACTOSE] Allergy Unknown GI Verified 12/09/20 11:11 UPSET/DIRRHEA mold Allergy Unknown UNKNOWN Verified 12/09/20 11:11 pollen extracts [POLLEN] Allergy Unknown UNKNOWN Verified 12/09/20 11:11 Review of Systems Review of Systems Pertinent positives and negatives as stated in HPI 10 point review of systems otherwise negative. Physical Exam Vital Signs: Vital Signs: Last Vital Signs Temp 98.0 F 12/12/20 04:28 Pulse 66 12/12/20 07:45 Resp 20 12/12/20 07:45 BP 121/79 12/12/20 07:45 Pulse Ox 99 12/12/20 07:45 Body Mass Index 50.8 VITAL SIGNS: Reviewed. GENERAL: Restless, morbidly obese, Well developed, well nourished, in no acute distress. HEAD: Normocephalic/atraumatic EYES: PERRLA, EOMI LUNGS: Normal breath sounds. No adventitious sounds or accessory muscle use. SpO2<98> CARDIOVASCULAR: Regular rate and rhythm without noted murmurs, no JVD or lower extremity edema. ABDOMEN: Soft, tenderness more at right flank then right upper quadrant, non-dis tended with bowel sounds. MUSCULOSKELETAL: No tenderness, deformities, or effusions noted on gross inspection. EXTREMITIES: No cyanosis, clubbing or edema. SKIN: Inspection of the skin reveals no rashes NEUROLOGIC: Alert and oriented x 4. Strength and sensation to light touch were grossly intact x 4. Course Course Course Narrative: 30-year-old female with recent Nahomi-en-Y gastric bypass and possibilities are SBO, cholecystitis, choledocholithiasis, biliary pancreatitis, renal colic, less likely appendicitis or UTI. Review of all investigations there are no acute findings other than mild right hydroureteronephrosis with 0.2 cm obstructing stone at the right UVJ. On re- evaluation after patient received fentanyl she stated that her pain had minimally improved and she will be provided with both Flomax as well as oxycodone and further re-evaluated. Patient was signed out to Dr. Howell with follow-up of pain relief and in the event pain is well controlled patient will be discharged with a referral to [facility]. MDM - Abdominal Pain Lab Data Result diagrams: 12/12/20 04:50 12/12/20 04:49 Labs: Lab Results 12/12/20 12/12/20 Range/Units 04:49 04:50 WBC 5.9 (4.8-10.8) X10*3/uL RBC 5.32 (4.20-5.50) X10*6/uL Hgb 14.7 (12.0-16.0) g/dl Hct 44.0 (37-47) % MCV 82.7 (80-98) fL MCH 27.6 (27.0-33.0) pg MCHC 33.4 (31.0-35.0) g/dl RDW 15.2 (11.0-16.0) % Plt Count 203 D (160-400) X10*3/uL MPV 12.0 (9.4-12.3) fL Immature Gran % (Auto) 0.2 (0.0-0.4) % Neut % (Auto) 67.8 (45-73) % Lymph % (Auto) 16.6 L (20-40) % [place] % (Auto) 9.5 (2-11) % Eos % (Auto) 5.2 H (0-4) % Baso % (Auto) 0.7 (0-2) % Lymph # (Auto) 1.0 L (1.2-4.9) X10*3/uL [place] # (Auto) 0.6 (0.1-1.2) X10*3/uL Eos # (Auto) 0.3 (0.0-0.4) X10*3/uL Baso # (Auto) 0.0 (0.0-0.2) X10*3/uL Abs Immat Gran (auto) 0.01 (0.00-0.03) X10*3/uL Absolute Neuts (auto) 4.0 (2.0-8.3) X10*3/uL Absolute Nucleated RBC 0.000 (0.0-0.012) X10*3/uL Nucleated RBC % (auto) 0.0 (0.0-0.2) /100WBC Sodium 139 (135-145) mmol/L Potassium 3.4 (3.3-5.1) mmol/L Chloride 98 (96-108) mmol/L Carbon Dioxide 23 (22-29) mmol/L Anion Gap 21 H (12-20) BUN 14 (9-16) mg/dL Creatinine 0.90 (0.5-1.4) mg/dL Estim Creat Clear Calc 127.1 Estimated GFR > 60 Random Glucose 91 (60-115) mg/dL Calcium 9.1 D (8.4-10.2) mg/dL Total Bilirubin 3.0 H (0.0-1.0) mg/dL Direct Bilirubin 0.9 H (0.0-0.5) mg/dL AST 42 H (5-31) U/L ALT 44 H (0-31) U/L Alkaline Phosphatase 51 (39-117) U/L Total Protein 6.3 L (6.5-8.0) g/dL Albumin 3.8 (3.5-5.0) g/dL Lipase 113 H (8-78) U/L Discharge Plan Discharge Clinical Impression: Renal colic, Ureterolithiasis Patient Disposition: Home, Self-Care Instructions: Renal Colic (ED), Ureteral Stones (ED) Additional Instructions: 1. Increase fluid hydration especially with water. 2. Follow-up with the Urology referral that is provided below by calling the office on Monday morning. 3. Tylenol 1000 mg, orally, every 6 hours as needed for pain control. Do not exceed 4000 mg within 24 hours. Return to the ER for acute worsening of symptoms. Prescriptions: New tamsulosin [Flomax] 0.4 mg capsule 0.4 mg PO BEDTIME Qty: 4 RF: 0 No Action sennosides-docusate sodium [Colace 2-In-1] 8.6-50 mg tablet 1 tab-cap PO BEDTIME Qty: 30 RF: 4 ondansetron HCl [Zofran] 4 mg tablet 4 mg PO Q12H Qty: 20 RF: 0 cyclobenzaprine 10 mg tablet 10 mg PO TID PRN (Reason: muscle spasm) Qty: 10 RF: 0 budesonide-formoterol 160-4.5 mcg/actuation HFA aerosol inhaler 2 puff inhalation DIRECTED RF: 0 cetirizine 10 mg tablet 10 mg PO DAILY PRN (Reason: allergies) RF: 0 (DME) Glenys Cardoso [facility] Spacer See Rx Instructions ea .ROUTE .MEDSUPPLY Qty: 1 RF: 0 meclizine 25 mg tablet 25 mg PO TID PRN (Reason: dizziness) RF: 0 Hold Instructions: Discuss restart with Dr Clark albuterol sulfate 90 mcg/actuation HFA aerosol inhaler 2 puff PO Q4H PRN (Reason: wheezing) RF: 0 melatonin 5 mg capsule 5 mg PO BEDTIME RF: 0 montelukast [Singulair] 10 mg tablet 10 mg PO DAILY RF: 0 pantoprazole 40 mg tablet,delayed release (DR/EC) 40 mg PO DAILY Qty: 30 RF: 2 sucralfate 100 mg/mL suspension 10 ml PO BID Qty: 400 RF: 2 metoclopramide HCl [Reglan] 10 mg tablet 10 mg PO Q6H PRN (Reason: nausea and vomiting) Qty: 14 RF: 0 Spiriva Respimat 2.5 mcg/actuation mist 2 puff inhalation DAILY RF: 0 lidocaine [Lidoderm] 5 % adhesive patch,medicated 1 patch topical DAILY PRN (Reason: Pain) RF: 0 triamcinolone acetonide 0.1 % lotion topical RF: 0 Referrals: Silviano Rojas MD [Physician] - 2 days (2 cm obstructing stone on the r ight.) [facility] Past Medical History Source: nursing notes reviewed Medical History Asthma Back pain Chronic back pain Congenital intra-abdominal adhesions COVID-19 vaccine series completed GERD (gastroesophageal reflux disease) Liver fibrosis Maternal anesthesia complication Morbid obesity Nocturnal hypoxemia Sleep apnea Steatosis, liver Vertigo Vitamin A deficiency Vitamin B12 deficiency Vitamin D deficiency Surgical History Hx of gastric bypass Hx of wisdom tooth extraction Family History Family History Mother Kidney stone Asthma Father No problems noted. 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
[2020-12-12 06:38] VITALS: RESP 16
[2020-12-12] MEDS: fentaNYL citrate/PF 100 MCG/2 ML VIAL 12.5 MCG IVPUSH (06:38)
[2020-12-12] MEDS: iohexoL 350 MG/ML 100 ML INFUS..BTL 85 ML IV (06:38)
[2020-12-12] MEDS: 0.9 % Sodium Chloride 1,000 ML 999 ML IV (06:44)
[2020-12-12 07:45] VITALS: BP 121/79; PULSE 66; RESP 20; O2SAT 99
[2020-12-12 08:01] LABS: Glucose Urine UA NEG (NEG); Leukocyte Esterase Urine TRACE (NEG); Nitrite Urine NEG (NEG); UACC Culture Trigger YES; Urine Blood TRACE (NEG); Urine Ketones >=80 MG/DL (NEG); Urine Protein NEG (NEG-TRACE)
[2020-12-12 08:02] LABS: Appearance Urine HAZY; Color Urine YELLOW
[2020-12-12 08:03] LABS: UPreg QC Valid YES; Urine Pregnancy NEGATIVE (NEGATIVE)
[2020-12-12 08:14] LABS: RBC Urine 0-2 /HPF (0); Squamous Epithelial Cell Urine 2+ /LPF
[2020-12-12] MEDS: Tamsulosin HCL 0.4 MG CAPSULE PO (08:25)
[2020-12-12] MEDS: ondansetron HCL 4 MG/2 ML VIAL IVPUSH (08:25)
[2020-12-12] MEDS: oxyCODONE HCl Immed Release 5 MG TABLET PO (08:25)
[2020-12-12 09:31] VITALS: BP 118/69; PULSE 62; RESP 18; O2SAT 98
--- NOTE | 2020-12-12 09:31 | PC.NURSE ---
PT FEELS BETTER. NO FURTHER NAUSEA. PAIN HAS EASED UP
== END 2020-12-12 10:05 | disposition home or self-care (01) ==
PROVIDERS: Student in an Organized Health Care Education/Training Program; Emergency Provider Emergency Medicine
DX: N13.2 Hydronephrosis with renal and ureteral calculous obstruction (principal); E66.01 Morbid (severe) obesity due to excess calories; Z98.84 Bariatric surgery status; Z79.899 Other long term (current) drug therapy
CPT/HCPCS: 36415; 74177; 80048; 80076; 81001; 81003; 81025; 83690; 85025; 87086; 96361; 96374; 96375; 99283; 99284; J2405; J3010; Q9967

== ENCOUNTER → 2020-12-17 11:52 | Outpatient (BNVA) | payer OTHER, SELFPAY | PROVIDERS: Visit Provider Physician Assistant ==

== ENCOUNTER → 2020-12-24 11:58 | Outpatient (BNVA) | payer OTHER, SELFPAY | PROVIDERS: PCP Internal Medicine; Visit Provider Physician Assistant ==

== ENCOUNTER → 2020-12-25 07:17 | Outpatient (BNVA) | payer OTHER, SELFPAY | PROVIDERS: PCP Internal Medicine; Visit Provider Surgery ==

== ENCOUNTER → 2021-01-01 16:02 | Outpatient (BNVA) | payer OTHER, SELFPAY | PROVIDERS: PCP Internal Medicine; Visit Provider Physician Assistant ==

== ENCOUNTER 2021-01-12 14:50 | Outpatient (REF) | payer OTHER, SELFPAY ==
[2021-01-13 01:18] LABS: CT PCR NOT DETECTED (Not Detect.); NG PCR NOT DETECTED (Not Detect.)
[2021-01-13 08:50] LABS: BV Int Neg Control Negative (Negative); BV Int Pos Control Positive (Positive)
== END 2021-01-12 14:51 | disposition home or self-care (01) ==
LOC: HO.LAB 14:50
PROVIDERS: PCP Internal Medicine; Visit Provider Advanced Practice Midwife
DX: Z30.46 Encounter for surveillance of implantable subdermal contraceptive (principal); R30.0 Dysuria; Z20.2 Contact with and (suspected) exposure to infections with a predominantly sexual mode of transmission
CPT/HCPCS: 81003; 87086; 87480; 87491; 87510; 87591; 87660

== ENCOUNTER → 2021-01-15 10:13 | Outpatient (BNVA) | payer OTHER, SELFPAY | PROVIDERS: PCP Internal Medicine; Referring Provider Internal Medicine; Visit Provider Physician Assistant Surgical ==

== ENCOUNTER 2021-01-19 17:55 | Inpatient (IN) | payer OTHER, SELFPAY ==
--- NOTE | ~2021-01-19 | MR_ITS ---
EXAMINATION: MR BRAIN WITHOUT CONTRAST MR CERVICAL SPINE WITHOUT CONTRAST MR THORACIC SPINE WITHOUT CONTRAST CLINICAL INFORMATION: Screening MRI for multiple sclerosis. Neuropathy. COMPARISON: No relevant prior imaging. TECHNIQUE: Multiplanar MR imaging of the brain was performed without contrast. Limited sagittal images of the cervical and thoracic spine were also obtained. 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 No associated mass effect on the tectum and no obstructive hydrocephalus. There is no abnormal extra axial collection. The cervicomedullary junction is normal. There is no abnormal white matter disease. No acute territorial infarct. No pathological magnetic susceptibility artifact. Intracranial vascular flow voids are maintained. There is no mastoid middle ear effusion. No active paranasal sinus disease. Globes and orbits are symmetric. Cervical and thoracic spine: Limited MR images of the cervical and thoracic spine reveal no canal compromise or cord compression. No abnormal intramedullary signal changes. There is nonspecific reversal of the cervical lordosis. Alignment is otherwise normal. Vertebral heights are preserved. No acute bone marrow signal changes. There is disc desiccation at multiple levels without substantial loss of intervertebral disc height. Visualized soft tissues of the neck are unremarkable. Limited visualization of intrathoracic anatomy reveals no abnormal finding. MR/MR thoracic spine wo con IMPRESSION: No evidence of demyelinating disease within the brain or spinal cord. 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 No associated mass effect within the intracranial compartment.
--- NOTE | ~2021-01-19 | US_ITS ---
EXAMINATION: US ABDOMEN LIMITED WITH LIVER ELASTOGRAPHY CLINICAL INFORMATION: Elevated bilirubin and liver function tests. COMPARISON: Abdominal ultrasound 01/21/2021. Abdominal ultrasound 07/21/2020. Abdominal ultrasound 12/03/2020. TECHNIQUE: Real-time imaging of the abdominal viscera. Noninvasive ultrasound liver fibrosis assessment is performed using Livia ElastPQ point quantification shear wave elastography (pSWE) with a C5-2 MHz transducer. Multiple elastography samples are obtained. FINDINGS: PANCREAS: Normal. The visualized pancreatic head and body are normal in appearance. The remainder of the pancreas is obscured from visualization by the overlying bowel gas. LIVER: Normal size and capsular contour. Right lobe 15.2 cm. Left lobe 9.0 cm. Hepatopedal flow within the main portal vein. A 1.8 cm x 2.1 cm well-circumscribed uniformly hyperechoic subcapsular lesion is noted within the anterior segment of the right lobe of the liver without associated mass effect or adjacent capsular deformation. The right lobe measures 15.2 cm in length. The left lobe measures 9.0 cm in length. Portal flow is hepatopedal Shear wave liver elastography median stiffness is 1.5 m/s (reference: normal median stiffness is 1.3 m/s or less). IQR/median stiffness to assess sampling precision is 0.22 (reference: good quality data set is IQR/median stiffness of 0.15 or less). GALLBLADDER: Echogenic sludge is identified within the gallbladder lumen. Punctate hyperechoic foci are noted within the areas of gallbladder sludge and may represent developing gallstones. No definitive posterior acoustic shadowing is noted with these foci to specifically confirm the presence of gallstones. Gallbladder wall measures 0.3 mm in maximum width. No pericholecystic fluid identified. No sonographic Hilario sign reported. The chief ultrasound technologist. COMMON BILE DUCT: Normal in caliber measuring 0.3 cm in diameter. RIGHT KIDNEY: Normal. No hydronephrosis. No renal calculi or focal parenchymal lesions. The kidney measures 10.2 cm in maximum dimension. FREE FLUID: None. US/US abdomen coleman w elastography IMPRESSION: 1. Diffusely increased echogenicity of the liver and decreased sonographic penetration suspicious for diffuse hepatic steatosis. 2. Single 1.2 cm lesion within the anterior segment of the right lobe of the liver suspicious for a hemangioma. This finding was not identified on the comparison study of 01/21/2021 but may have been obscured from optimal visualization by suboptimal sonographic visualization of the liver on the prior study. The absence of known or suspected neoplasm, this finding may be further evaluated with follow-up ultrasonography. Alternatively, as clinically indicated, consider further evaluation with cross-sectional imaging. Overall, this finding has the sonographic suspicious for a benign hepatic hemangioma. 3. Prominent quantity of sludge within the gallbladder lumen with scattered punctate hyperechoic foci within the areas of gallbladder sludge which may represent developing cholelithiasis. No definitive cholelithiasis (no definitive echogenic foci with posterior acoustic shadowing to specifically confirm the presence of cholelithiasis). No biliary duct dilatation. 4. Liver elastography: No significant change compared with 07/21/2020. Borderline elevated liver stiffness without definitive evidence of hepatic fibrosis. REFERENCE: Society of Radiologists in Ultrasound Liver Stiffness Thresholds (2020): LIVER STIFFNESS THRESHOLDS: *Liver Stiffness equal or less than 1.3 m/s: High probability of being normal. *Liver Stiffness less than 1.7 m/s: In the absence of other known clinical signs, rules out compensated advanced chronic liver disease. *Liver Stiffness 1.7-2.1 m/s: Suggestive of compensated advanced chronic liver disease but need further test for confirmation. *Liver Stiffness over 2.1 m/s: Rules in compensated advanced chronic liver disease. *Liver Stiffness over 2.4 m/s: Suggestive of clinically significant portal hypertension. QUALITY OF DATA SET: *IQR/Median value equal or less than 0.15 implies a quality data set. *IQR/Median value over 0.15 implies a poor quality data set. SIGNIFICANT CHANGE FROM PRIOR EXAM: Significant change if liver stiffness measurement is 10% or greater from prior exam. OTHER CONSIDERATIONS: The stage of liver fibrosis may be overestimated in the setting of acute hepatitis, liver inflammation, elevated liver function tests, hepatic vascular congestion, obstructive cholestasis, non-fasting state, and infiltrative diseases such as amyloidosis and lymphoma. In some patients with NAFLD, the liver stiffness thresholds for compensated advanced chronic liver disease may be lower. In causes other than viral hepatitis and NAFLD, liver stiffness thresholds are not well established.
--- NOTE | ~2021-01-19 | US_ITS ---
EXAMINATION: US ABDOMEN LIMITED CLINICAL INFORMATION: Elevated LFTs. COMPARISON: CT abdomen/pelvis dated from 12/12/2020. TECHNIQUE: Real-time imaging of the right upper quadrant abdominal viscera. FINDINGS: PANCREAS: Suboptimally visualized due to shadowing from overlying bowel gas. LIVER: The liver is only partially visualized due to poor acoustic windows in the setting of increased body habitus and shadowing from bowel gas. Specifically, the left hepatic lobe is suboptimally assessed. There is increased parenchymal echogenicity within the visualized liver parenchyma. No focal abnormalities are identified. There is no biliary ductal dilatation. GALLBLADDER: There is echogenic sludge without shadowing stones. There is no wall thickening or pericholecystic fluid. COMMON BILE DUCT: Normal in caliber measuring 0.4 cm in diameter. RIGHT KIDNEY: Normal. No hydronephrosis. No renal calculi or focal parenchymal lesions. The kidney measures 9.5 cm in maximum dimension. FREE FLUID: None. US/US abdomen limited IMPRESSION: Limited evaluation due to patient body habitus and poor acoustic windows. 1. Gallbladder sludge. No sonographic evidence of acute cholecystitis. 2. Hepatic steatosis.
--- NOTE | ~2021-01-19 | MR_ITS ---
EXAMINATION: MR BRAIN WITHOUT CONTRAST MR CERVICAL SPINE WITHOUT CONTRAST MR THORACIC SPINE WITHOUT CONTRAST CLINICAL INFORMATION: Screening MRI for multiple sclerosis. Neuropathy. COMPARISON: No relevant prior imaging. TECHNIQUE: Multiplanar MR imaging of the brain was performed without contrast. Limited sagittal images of the cervical and thoracic spine were also obtained. 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 No associated mass effect on the tectum and no obstructive hydrocephalus. There is no abnormal extra axial collection. The cervicomedullary junction is normal. There is no abnormal white matter disease. No acute territorial infarct. No pathological magnetic susceptibility artifact. Intracranial vascular flow voids are maintained. There is no mastoid middle ear effusion. No active paranasal sinus disease. Globes and orbits are symmetric. Cervical and thoracic spine: Limited MR images of the cervical and thoracic spine reveal no canal compromise or cord compression. No abnormal intramedullary signal changes. There is nonspecific reversal of the cervical lordosis. Alignment is otherwise normal. Vertebral heights are preserved. No acute bone marrow signal changes. There is disc desiccation at multiple levels without substantial loss of intervertebral disc height. Visualized soft tissues of the neck are unremarkable. Limited visualization of intrathoracic anatomy reveals no abnormal finding. MR/MR head/brain wo con IMPRESSION: No evidence of demyelinating disease within the brain or spinal cord. 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 No associated mass effect within the intracranial compartment.
[2021-01-19 18:32] VITALS: BP 124/22; PULSE 102; O2SAT 97
[2021-01-19 20:13] VITALS: BP 124/78; PULSE 114; RESP 18; TEMP 36.7; O2SAT 98; BMI 46.2
--- NOTE | 2021-01-19 22:38 | PC.NURSE ---
extremities are cool and dusky when dependent upon arrival to ED in WC> pt is unable to stand and bear weight. full assist to bed using assistive device( travis stedy ). when elevated color improved but cap refill remains sluggish. pedal pulses by doppler only.
[2021-01-19 23:19] VITALS: BP 121/76; PULSE 82; RESP 18; O2SAT 95
[2021-01-20] VITALS (10 sets, daily range): BP systolic 106–157; BP diastolic 60–87; PULSE 79–98; RESP 16–20; TEMP 36.5–37; O2SAT 95–100; BMI 46.3
--- NOTE | 2021-01-20 01:36 | ED_ITS ---
HPI - General Adult General Chief complaint: Extremity Problem Stated complaint: bilateral leg weakness Time Seen by Provider: 01/19/21 18:00 Source: patient Mode of arrival: EMS Limitations: no limitations History of Present Illness HPI narrative: Patient history of asthma otherwise very healthy notice numbness feeling in both lower extremities started 10 days ago for last 2 days noticed increased weakness fell 2 times because of the weakness no paresthesias in upper extremity no fever no chills no headache no sore throat. No family history of lupus or multiple sclerosis no headache no back pain Related Data Home Medications Medication Instructions Recorded Confirmed albuterol sulfate 90 mcg/actuation 2 puff PO Q4H PRN 07/03/20 10/28/20 aerosol inhaler budesonide-formoterol HFA 160 2 puff INHALATION DIRECTED 07/03/20 10/28/20 mcg-4.5 mcg/actuation aerosol inhaler cetirizine 10 mg tablet 10 mg PO DAILY PRN 07/03/20 10/28/20 inhalational spacing device #1 ea 07/03/20 10/15/20 meclizine 25 mg tablet 25 mg PO TID PRN 07/03/20 10/28/20 melatonin 5 mg capsule 5 mg PO BEDTIME 07/03/20 10/28/20 montelukast 10 mg tablet 10 mg PO DAILY 07/03/20 10/28/20 (Singulair) tiotropium bromide 2.5 2 puff INHALATION DAILY 07/06/20 10/28/20 mcg/actuation mist for inhalation (Spiriva Respimat) lidocaine 5 % topical patch 1 patch TOPICAL DAILY PRN ea 09/09/20 10/28/20 (Lidoderm) triamcinolone acetonide 0.1 % TOPICAL 09/09/20 10/15/20 lotion etonogestrel 68 mg subdermal implant SUBDERMAL 01/12/21 implant (Nexplanon) Previous Rx's Medication Instructions Recorded cyclobenzaprine 10 mg tablet 10 mg PO TID PRN #10 tab 07/08/20 pantoprazole 40 mg tablet,delayed 40 mg PO DAILY #30 tab 10/15/20 release sucralfate 100 mg/mL oral 10 ml PO BID #400 ml 10/15/20 suspension ondansetron HCl 4 mg tablet 4 mg PO Q12H #20 tab 08/03/21 (Zofran) sennosides 8.6 mg-docusate sodium 1 tab-cap PO BEDTIME #30 tab 12/01/20 50 mg tablet (Colace 2-In-1) metoclopramide HCl 10 mg tablet 10 mg PO Q6H PRN #14 tab 12/04/20 (Reglan) nitrofurantoin 100 mg PO Q12H 7 Days #14 cap 12/12/20 monohydrate/macrocrystals 100 mg capsule (Macrobid) oxycodone 5 mg tablet 5 mg PO Q8H PRN #5 tab 12/12/20 tamsulosin 0.4 mg capsule (Flomax) 0.4 mg PO BEDTIME #4 cap 12/12/20 prednisone 20 mg tablet 20 mg PO DAILY 5 Days #5 tab 12/14/20 tamsulosin 0.4 mg capsule 0.4 mg PO DAILY 10 Days #10 cap 12/14/20 metronidazole 0.75 % vaginal gel 1 appful VAGINAL BEDTIME 5 Days 01/19/21 (Metrogel Vaginal) #70 g Allergies Allergy/AdvReac Type Severity Reaction Status Date / Time animal dander Allergy Unknown UNKNOWN Verified 01/12/21 14:51 lactose [LACTOSE] Allergy Unknown GI Verified 01/12/21 14:51 UPSET/DIRRHEA mold Allergy Unknown UNKNOWN Verified 01/12/21 14:51 pollen extracts [POLLEN] Allergy Unknown UNKNOWN Verified 01/12/21 14:51 Review of Systems Review of Systems: Yes all other systems are reviewed and are negative PMFSH Past Medical History Medical History Asthma Back pain Chronic back pain Congenital intra-abdominal adhesions COVID-19 vaccine series completed GERD (gastroesophageal reflux disease) Liver fibrosis Maternal anesthesia complication Morbid obesity Nocturnal hypoxemia Sleep apnea Steatosis, liver Vertigo Vitamin A deficiency Vitamin B12 deficiency Vitamin D deficiency Surgical History Hx of gastric bypass Hx of wisdom tooth extraction Family History Family History Mother Kidney stone Asthma Father No problems noted. 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 Oriented X3. No acute distress. Obese Eyes: PERRLA, No Nystagmus ENT: Pharynx normal. Oral Mucosa moist Neck: Normal inspection. Neck supple. CVS: Normal heart rate and rhythm. Pulses normal. Respiratory: No respiratory distress. Equal air entry bilateral, no wh eezing/rales/rhonchi Abdomen: Soft and nontender. Bowel sounds are present, no mass palpable, no CVA tenderness Skin: Skin warm and dry. Normal skin color. Normal skin turgor. Extremities: No lower extremity edema. No calf tenderness Neuro: Oriented X 3. Decreased sensation to light touch and pinprick, overall weakness proximal more than the distal lower extremity, cerebellar signs , cranial nerves II-XII intact, DTR absent in lower extremities(difficult to elicit) Procedures Lumbar Puncture Time Out Performed: Yes Patient Position: upright Skin Prep: Povidone-Iodine 1% Local Anesthetic: lidocaine 2% Amount of anesthesia used (mL): 4 Spinal Needle Gauge: 22G Interspace Used: L3-L4 Fluid Initially Obtained: clear Complications: none Medical Decision Making MDM Narrative Medical decision making narrative: Patient with lower extremity weakness etiology is not very clear , reflexes are difficult to elicit because of the obesity no focal sensory deficit noticed no history of MS or Lyme disease no headache no back pain weakness is more proximal than distal lower extremity patient was ambulatory 3 days before been falling multiple times in the ER when she ambulated with walker had difficulty in holding her weight. LP was done which was negative for GBS. Case discussed with Dr. Fulton advised to add a CPK will see the patient and decide further progress will admit the patient to hospitalist service case discussed with hospitalist aware of admission Lab Data Lab results reviewed: Yes I reviewed the patient's lab results. Result diagrams: 01/20/21 02:13 01/20/21 02:14 Labs: Lab Results 01/20/21 01/20/21 01/20/21 Range/Units 02:13 02:14 02:14 WBC 6.5 (4.8-10.8) X10*3/uL RBC 5.43 (4.20-5.50) X10*6/uL Hgb 14.9 (12.0-16.0) g/dl Hct 43.8 (37-47) % MCV 80.7 (80-98) fL MCH 27.4 (27.0-33.0) pg MCHC 34.0 (31.0-35.0) g/dl RDW 15.1 (11.0-16.0) % Plt Count 301 D (160-400) X10*3/uL MPV 11.2 (9.4-12.3) fL Immature Gran % (Auto) 0.5 H (0.0-0.4) % Neut % (Auto) 58.3 (45-73) % Lymph % (Auto) 27.8 (20-40) % [place] % (Auto) 9.7 (2-11) % Eos % (Auto) 3.1 (0-4) % Baso % (Auto) 0.6 (0-2) % Lymph # (Auto) 1.8 (1.2-4.9) X10*3/uL [place] # (Auto) 0.6 (0.1-1.2) X10*3/uL Eos # (Auto) 0.2 (0.0-0.4) X10*3/uL Baso # (Auto) 0.0 (0.0-0.2) X10*3/uL Abs Immat Gran (auto) 0.03 (0.00-0.03) X10*3/uL Absolute Neuts (auto) 3.8 (2.0-8.3) X10*3/uL Absolute Nucleated RBC 0.000 (0.0-0.012) X10*3/uL Nucleated RBC % (auto) 0.0 (0.0-0.2) /100WBC ESR 34 H (0-20) MM/HR Sodium 140 (135-145) mmol/L Potassium 4.1 D (3.3-5.1) mmol/L Chloride 101 (96-108) mmol/L Carbon Dioxide 22 (22-29) mmol/L Anion Gap 21 H (12-20) BUN 14 (9-16) mg/dL Creatinine 0.74 (0.5-1.4) mg/dL Estim Creat Clear Calc 145.9 Estimated GFR > 60 Random Glucose 87 (60-115) mg/dL Calcium 10.0 D (8.4-10.2) mg/dL Total Bilirubin 3.5 H (0.0-1.0) mg/dL Direct Bilirubin 1.3 H (0.0-0.5) mg/dL AST 41 H (5-31) U/L ALT 53 H (0-31) U/L Alkaline Phosphatase 61 (39-117) U/L C-Reactive Protein 3.61 H (< or = 0.50) mg/dL Total Protein 6.8 (6.5-8.0) g/dL Albumin 4.1 (3.5-5.0) g/dL TSH 2.20 (0.32-4.0) uIU/mL CSF Tube Number CSF Volume ML CSF Appearance CSF Color CSF WBC MM*3 CSF RBC MM*3 CSF Lymphocytes % CSF Appearance (b) CSF Glucose mg/dL CSF Total Protein (15-45) mg/dL 01/20/21 01/20/21 Range/Units 04:34 04:34 WBC (4.8-10.8) X10*3/uL RBC (4.20-5.50) X10*6/uL Hgb (12.0-16.0) g/dl Hct (37-47) % MCV (80-98) fL MCH (27.0-33.0) pg MCHC (31.0-35.0) g/dl RDW (11.0-16.0) % Plt Count (160-400) X10*3/uL MPV (9.4-12.3) fL Immature Gran % (Auto) (0.0-0.4) % Neut % (Auto) (45-73) % Lymph % (Auto) (20-40) % [place] % (Auto) (2-11) % Eos % (Auto) (0-4) % Baso % (Auto) (0-2) % Lymph # (Auto) (1.2-4.9) X10*3/uL [place] # (Auto) (0.1-1.2) X10*3/uL Eos # (Auto) (0.0-0.4) X10*3/uL Baso # (Auto) (0.0-0.2) X10*3/uL Abs Immat Gran (auto) (0.00-0.03) X10*3/uL Absolute Neuts (auto) (2.0-8.3) X10*3/uL Absolute Nucleated RBC (0.0-0.012) X10*3/uL Nucleated RBC % (auto) (0.0-0.2) /100WBC ESR (0-20) MM/HR Sodium (135-145) mmol/L Potassium (3.3-5.1) mmol/L Chloride (96-108) mmol/L Carbon Dioxide (22-29) mmol/L Anion Gap (12-20) BUN (9-16) mg/dL Creatinine (0.5-1.4) mg/dL Estim Creat Clear Calc Estimated GFR Random Glucose (60-115) mg/dL Calcium (8.4-10.2) mg/dL Total Bilirubin (0.0-1.0) mg/dL Direct Bilirubin (0.0-0.5) mg/dL AST (5-31) U/L ALT (0-31) U/L Alkaline Phosphatase (39-117) U/L C-Reactive Protein (< or = 0.50) mg/dL Total Protein (6.5-8.0) g/dL Albumin (3.5-5.0) g/dL TSH (0.32-4.0) uIU/mL CSF Tube Number 3 4 CSF Volume 1.0 ML CSF Appearance CLEAR CSF Color COLORLESS CSF WBC 2 MM*3 CSF RBC 1 MM*3 CSF Lymphocytes 100 % CSF Appearance (b) Clear, Colorless CSF Glucose 55 mg/dL CSF Total Protein 28.3 (15-45) mg/dL Discharge Plan Discharge Clinical Impression: Myopathy, Weakness Patient Disposition: Admitted As Inpatient
[2021-01-20 02:17] LABS: MANUAL DIFF FLAG NO
[2021-01-20 02:19] LABS: Basophils Percent Auto 0.6 % (0-2); Eosinophils Absolute Auto 0.2 X10*3/uL (0.0-0.4); Eosinophils Percent Auto 3.1 % (0-4); Hematocrit 43.8 % (37-47); Hemoglobin 14.9 g/dl (12.0-16.0); Imm Gran Abs Auto 0.03 X10*3/uL (0.00-0.03); Imm Gran Pct Auto 0.5 % (0.0-0.4); Lymphocytes Absolute Auto 1.8 X10*3/uL (1.2-4.9); Lymphocytes Percent Auto 27.8 % (20-40); Mean Corpuscular Hemoglobin 27.4 pg (27.0-33.0); Mean Corpuscular Volume 80.7 fL (80-98); Mean Platelet Volume 11.2 fL (9.4-12.3); Monocytes Absolute Auto 0.6 X10*3/uL (0.1-1.2); Monocytes Percent Auto 9.7 % (2-11); Neutrophils Absolute Auto 3.8 X10*3/uL (2.0-8.3); Neutrophils Percent Auto 58.3 % (45-73); Platelet Count 301 X10*3/uL (160-400); Red Blood Count 5.43 X10*6/uL (4.20-5.50); Red Cell Distribution Width 15.1 % (11.0-16.0); White Blood Count 6.5 X10*3/uL (4.8-10.8)
[2021-01-20 02:40] LABS: Alanine Aminotransferase 53 U/L (0-31); Albumin Level 4.1 g/dL (3.5-5.0); Alkaline Phosphatase 61 U/L (39-117); Anion Gap 21 (12-20); Aspartate Amino Transferase 41 U/L (5-31); Bilirubin Direct 1.3 mg/dL (0.0-0.5); Bilirubin Total 3.5 mg/dL (0.0-1.0); Blood Urea Nitrogen 14 mg/dL (9-16); C Reactive Protein 3.61 mg/dL (< or = 0.50); Carbon Dioxide 22 mmol/L (22-29); Chloride 101 mmol/L (96-108); Creatinine Clr Calc Pharmacy 145.9; Estimated Glomerular Filt Rate > 60; Glucose Random 87 mg/dL (60-115); Potassium 4.1 mmol/L (3.3-5.1); Sodium 140 mmol/L (135-145); Total Protein 6.8 g/dL (6.5-8.0)
[2021-01-20 04:08] LABS: Erythrocyte Sedimentation Rate 34 MM/HR (0-20)
[2021-01-20 05:06] LABS: CSF Appearance Clear, Colorless; CSF Tube # 3
--- NOTE | 2021-01-20 05:06 | PC.NURSE ---
pt hr remains 40-41 after the atropine was given. pt is arrousable but still falls back to sleep mid sentences. unable to safey verify the home med list at this time due to pt is too drowsy to answer the question correctly.
--- NOTE | 2021-01-20 05:13 | PC.NURSE ---
bandaid to mid lower bck dry and intact. pt denies pain, no headache.
[2021-01-20 05:17] LABS: Glucose CSF 55 mg/dL; Total Protein CSF 28.3 mg/dL (15-45)
[2021-01-20 05:40] LABS: Appearance CSF CLEAR; CSF Tube # 4
[2021-01-20 05:41] LABS: Color CSF COLORLESS; Lymphocytes CSF 100 %; Red Blood Cell CSF 1 MM*3; White Blood Cell CSF 2 MM*3
--- NOTE | 2021-01-20 06:17 | PC.NURSE ---
pt walked with a walker in the hallway/ pt was having numbness to karen upper leg and tingling from the knee to the lower leg. pt ambulated 12 feet and then placed in a bed to bring her back to her room.
[2021-01-20 06:49] LABS: Magnesium 1.8 mg/dL (1.6-2.6)
[2021-01-20 08:44] LABS: Folate 3.3 ng/mL (> or = 4.0); Vitamin B12 372 pg/mL (200-900)
[2021-01-20] MEDS: Folic Acid 1 MG in 0.9 % Sodium Chloride 50 ML 100.4 MG IV (10:56)
[2021-01-20] MEDS: Enoxaparin Sodium 40 MG/0.4 ML SYRINGE SUBCUT (11:59)
--- NOTE | 2021-01-20 12:00 | PM.CNGS ---
History of Present Illness Consult details Consult date: 01/20/21 Reason for consult: other (numbness and weakness lower extremities, s/p GBP October 2020) Narrative: This is a 30 yo woman who had RNYGBP by Dr Clark on November 05, 2020, total weight loss of 96 lbs. Pt came to ED yesterday with complaints of worsening numbness, tingling and decreased motor strength in lower extremities over the last 2 weeks. Pt had her last appt with Dr Clark on 12/25 and had a weight check in our office on 01/15. The dry heaving that she had earlier in her post op period has resolved at least 2 weeks ago. Her present meal plan is 4d/ week - 2 Premier protein shakes and 3 protien bars and 3d/ week 2 shakes, 2 bars and one meal of 4 forkfuls protien and 4 forkfuls vegetables. She states she also drink drinks 2 bottles of water and the equivalent of another bottle of non calorie drink. She only takes her baritric vitamin 3d/ week - states she doesn't remember otherwise. Review of Systems Review of Systems: see HPI Neurologic: Denies confusion Psychiatric: Psychiatric: Denies confusion PMFSH Past Medical History Medical History Asthma Back pain Chronic back pain Congenital intra-abdominal adhesions COVID-19 vaccine series completed GERD (gastroesophageal reflux disease) Liver fibrosis Maternal anesthesia complication Morbid obesity Nocturnal hypoxemia Sleep apnea Steatosis, liver Vertigo Vitamin A deficiency Vitamin B12 deficiency Vitamin D deficiency Family History Family History Mother Kidney stone Asthma Father No problems noted. Brother Asthma Back problem Surgical History Surgical History Hx of gastric bypass Hx of wisdom tooth extraction Social History Social History Are you a primary healthcare educator to a significant other at home: No Do you presently have visiting nurse or other home services: No Alcohol intake: former Patient Tobacco Use Status: Former Tobacco user Quit Date: 10 yrs ago Tobacco use type: Cigarette Use of substances other than those prescribed or required for medical reasons: No Advance Directives: No Advance Directives Information Provided: Yes service: No Current occupational status: employed 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 [employer] Allergies Allergy/AdvReac Type Severity Reaction Status Date / Time animal dander Allergy Unknown UNKNOWN Verified 01/12/21 14:51 lactose [LACTOSE] Allergy Unknown GI Verified 01/12/21 14:51 UPSET/DIRRHEA mold Allergy Unknown UNKNOWN Verified 01/12/21 14:51 pollen extracts [POLLEN] Allergy Unknown UNKNOWN Verified 01/12/21 14:51 Active Medications: Current Medications Enoxaparin Sodium (Enoxaparin Sodium 40 Mg/0.4 Ml Syringe) 40 mg SUBCUT Q24H LISA Sodium Chloride (0.9 % Sodium Chloride Flush 3 Ml Syringe) 3 ml IVFLUSH QSHIFT [facility] Home Medications Medication Instructions Recorded Confirmed Last Taken Type albuterol sulfate 90 mcg/actuation 2 puff PO Q4H PRN 07/03/20 10/28/20 Unknown History aerosol inhaler budesonide-formoterol HFA 160 2 puff INHALATION DIRECTED 07/03/20 01/20/21 11/05/20 05:00 History mcg-4.5 mcg/actuation aerosol inhaler cetirizine 10 mg tablet 10 mg PO DAILY PRN 07/03/20 10/28/20 Unknown History inhalational spacing device #1 ea 07/03/20 10/15/20 Unknown History melatonin 5 mg capsule 5 mg PO BEDTIME 07/03/20 10/28/20 Unknown History montelukast 10 mg tablet 10 mg PO DAILY 07/03/20 10/28/20 Unknown History (Singulair) tiotropium bromide 2.5 2 puff INHALATION DAILY 07/06/20 10/28/20 Unknown History mcg/actuation mist for inhalation (Spiriva Respimat) lidocaine 5 % topical patch 1 patch TOPICAL DAILY PRN ea 09/09/20 10/28/20 Unknown History (Lidoderm) triamcinolone acetonide 0.1 % TOPICAL 09/09/20 10/15/20 Unknown History lotion etonogestrel 68 mg subdermal implant SUBDERMAL 01/12/21 Unknown History implant (Nexplanon) Physical Exam Vital Signs: Vital Signs: Last Vital Signs Temp 98 F 01/20/21 11:38 Pulse 85 01/20/21 11:38 Resp 18 01/20/21 11:38 BP 157/87 H 01/20/21 11:38 Pulse Ox 96 01/20/21 11:38 Body Mass Index 46.2 Const: General: cooperative, healthy appearing, comfortable and no acute distress; No confusion or lethargic Nutritional Appearance: obese Orientation/consciousness: patient oriented x3, No confusion and No lethargic GI: Inspection: Yes normal to inspection, No distended and Yes scar (all lapraroscopic scars healed well) Palpation (GI): Soft to palpation, nontender, no guarding, not rigid, no hernias and no masses Neuro: Other: Pt reports diminished sensation over R leg. General: patient oriented x3 and No confusion Extrem: General: Yes normal to inspection (LE - motor strenght 4/5, UE motor strength 5/5), No no pedal edema and No calf tenderness Results Labs Result diagrams: 01/20/21 02:13 01/20/21 02:14 Labs: Abnormal lab results 01/20/21 01/20/21 01/20/21 Range/Units 02:13 02:14 02:14 Immature Gran % (Auto) 0.5 H (0.0-0.4) % ESR 34 H (0-20) MM/HR Anion Gap 21 H (12-20) Total Bilirubin 3.5 H (0.0-1.0) mg/dL Direct Bilirubin 1.3 H (0.0-0.5) mg/dL AST 41 H (5-31) U/L ALT 53 H (0-31) U/L Total Creatine Kinase 18 L (26-140) U/L C-Reactive Protein 3.61 H (< or = 0.50) mg/dL Folate (> or = 4.0) ng/mL 01/20/21 Range/Units 02:14 Immature Gran % (Auto) (0.0-0.4) % ESR (0-20) MM/HR Anion Gap (12-20) Total Bilirubin (0.0-1.0) mg/dL Direct Bilirubin (0.0-0.5) mg/dL AST (5-31) U/L ALT (0-31) U/L Total Creatine Kinase (26-140) U/L C-Reactive Protein (< or = 0.50) mg/dL Folate 3.3 L (> or = 4.0) ng/mL Short CBC 01/20/21 Range/Units 02:13 WBC 6.5 (4.8-10.8) X10*3/uL Hgb 14.9 (12.0-16.0) g/dl Hct 43.8 (37-47) % Plt Count 301 D (160-400) X10*3/uL BMP 01/20/21 02:14 Sodium 140 Potassium 4.1 D Chloride 101 Carbon Dioxide 22 BUN 14 Creatinine 0.74 Calcium 10.0 D Cardiac Enzymes 01/20/21 Range/Units 02:14 Total Creatine Kinase 18 L (26-140) U/L Liver Function 01/20/21 Range/Units 02:14 Total Bilirubin 3.5 H (0.0-1.0) mg/dL Direct Bilirubin 1.3 H (0.0-0.5) mg/dL AST 41 H (5-31) U/L ALT 53 H (0-31) U/L Alkaline Phosphatase 61 (39-117) U/L Albumin 4.1 (3.5-5.0) g/dL All other labs normal. Assessment and Plan (1) Myopathy: Status: Acute (2) Weakness: Status: Acute (3) S/P gastric bypass: Status: Acute (4) Steatosis, liver: Status: Acute (5) Morbid obesity: Status: Acute (6) Elevated bilirubin: Status: Acute 30 yo woman s/p RNYGBP 2 months ago admitted with lower extremity numbness and tingling and reports fo decreased lower extremity motor strength has normal lumbar puncture results has neuro consult in progress. Folate levels are low and being supplemented, will order thiamine level, MMA pending. Pt has had chronic elevation of her billirubins and AST/ALT. I discussed the case with Dr Clark. Meal plan per Dr Clark should stay the same as home plan, patient may use home protein shakes or Ensure shakes from the hospital, continue her home protein bars and 1 small meal 3d/ week. She will need daily MVI, should use her bariatric vitamin from home to ensure appropriate vitamin levels s/p GBP. We will follow with you. Procedures Date of Service Date of Service: 01/20/21
--- NOTE | 2021-01-20 12:58 | PHA.MEDREC ---
Pharmacy Consult ? Medication Reconciliation Pharmacy has completed the medication reconciliation. There are no remarkable issues to report. Odalys Buckley, IsaiahD
--- NOTE | 2021-01-20 13:39 | P.CNNE_ITS ---
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 She said that she felt numbness and tingling in feet and legs and then few days later noted some weakness. She had difficulty climbing stairs. Most of the weakness seem to be in proximal area of legs. She had difficulty getting up from sitting position especially from a commode. Though in the past she had suffer from back pain this time there was no significant pain. There was no bowel bladder difficulty. There was no history of trauma or any recent cold or flu-like illness. She denied any stress or depression or any tendency for anxiety. She denied any such previous illnesses. She came to emergency room last night and had and multiple investigations including a lumbar puncture. Review of Systems Review of Systems: No recent cold or flu-like illness or trauma or back pain. [facility] Past Medical History Medical History Asthma Back pain Chronic back pain Congenital intra-abdominal adhesions COVID-19 vaccine series completed GERD (gastroesophageal reflux disease) Liver fibrosis Maternal anesthesia complication Morbid obesity Nocturnal hypoxemia Sleep apnea Steatosis, liver Vertigo Vitamin A deficiency Vitamin B12 deficiency Vitamin D deficiency Family History Family History Mother Kidney stone Asthma Father No problems noted. Brother Asthma Back problem Surgical History Surgical History Hx of gastric bypass Hx of wisdom tooth extraction Social History Social History Are you a primary health care social worker to a significant other at home: No Do you presently have visiting nurse or other home services: No Alcohol intake: former Patient Tobacco Use Status: Former Tobacco user Quit Date: 10 yrs ago Tobacco use type: Cigarette Use of substances other than those prescribed or required for medical reasons: No Advance Directives: No Advance Directives Information Provided: Yes service: No Current occupational status: employed 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 [employer] Allergies Allergy/AdvReac Type Severity Reaction Status Date / Time animal dander Allergy Unknown UNKNOWN Verified 01/12/21 14:51 lactose [LACTOSE] Allergy Unknown GI Verified 01/12/21 14:51 UPSET/DIRRHEA mold Allergy Unknown UNKNOWN Verified 01/12/21 14:51 pollen extracts [POLLEN] Allergy Unknown UNKNOWN Verified 01/12/21 14:51 Active Medications: Current Medications Enoxaparin Sodium (Enoxaparin Sodium 40 Mg/0.4 Ml Syringe) 40 mg SUBCUT Q24H [facility] Last Admin: 01/20/21 11:59 Dose: 40 mg Documented by: Sodium Chloride (0.9 % Sodium Chloride Flush 3 Ml Syringe) 3 ml IVFLUSH QSHIFT [facility] Home Medications Medication Instructions Recorded Confirmed Last Taken Type albuterol sulfate 90 mcg/actuation 2 puff PO Q4H PRN 07/03/20 01/20/21 01/19/21 History aerosol inhaler cetirizine 10 mg tablet 10 mg PO DAILY PRN 07/03/20 01/20/21 01/19/21 History inhalational spacing device #1 ea 07/03/20 10/15/20 Unknown History melatonin 5 mg capsule 5 mg PO BEDTIME PRN 07/03/20 01/20/21 01/19/21 History multivitamin 1 tab PO DAILY 01/20/21 01/20/21 01/19/21 History Physical Exam Vital Signs: Vital Signs: Last Vital Signs Temp 98 F 01/20/21 12:01 Pulse 87 01/20/21 12:01 Resp 18 01/20/21 12:01 BP 120/85 01/20/21 12:01 Pulse Ox 95 01/20/21 12:01 Body Mass Index 46.2 Neuro: Other: Significantly obese woman somewhat limiting examination. She was alert awake with normal spontaneity of speech fluency comprehension and affect. Pupils were equal and reactive to light and extraocular muscles were intact. Visual torres were full to confrontation. Face was symmetrical. Tongue was midline. There was no pronator drift. There was no obvious arm weakness. She was able to lift each leg against gravity but had significant difficulty with left leg stating that that was more affected. She could left right leg for few inches against gravity. Knee reflexes were 1+ and ankle reflexes were absent with flexor plantars. Joint position sensation was present in toes. Results Labs CBC & Chem 7: 01/20/21 02:13 01/20/21 02:14 Labs: Short CBC 01/20/21 Range/Units 02:13 WBC 6.5 (4.8-10.8) X10*3/uL Hgb 14.9 (12.0-16.0) g/dl Hct 43.8 (37-47) % Plt Count 301 D (160-400) X10*3/uL BMP 01/20/21 02:14 Sodium 140 Potassium 4.1 D Chloride 101 Carbon Dioxide 22 BUN 14 Creatinine 0.74 Calcium 10.0 D Cardiac Enzymes 01/20/21 Range/Units 02:14 Total Creatine Kinase 18 L (26-140) U/L Liver Function 01/20/21 Range/Units 02:14 Total Bilirubin 3.5 H (0.0-1.0) mg/dL Direct Bilirubin 1.3 H (0.0-0.5) mg/dL AST 41 H (5-31) U/L ALT 53 H (0-31) U/L Alkaline Phosphatase 61 (39-117) U/L Albumin 4.1 (3.5-5.0) g/dL Her spinal fluid reveal no significant abnormality. CPK was normal. Microbiology Microbiology Results: Microbiology 01/20/21 04:33 Cerebrospinal Fluid Gram Stain - Final 01/20/21 04:33 Cerebrospinal Fluid CSF Examination - Final 01/20/21 04:33 Cerebrospinal Fluid Fluid Description - Final Assessment and Plan (1) Weakness: Status: Acute 30 years old woman with no significant past medical history other than obesity presented with new onset of bilateral leg paresthesias and then weakness within last 1-2 weeks. There was no preceding trauma pain or cold or flu-like illness or virus illness. Examination revealed bilateral leg mostly proximal, left more than right, weakness. Upper extremity strength was full and there were no cranial nerve findings. Ankle reflexes are absent. Overall presentation was suggestive of a new onset of neuropathy. If ankle reflexes were previously present, which would be difficult to confirm, it would suggest an acute neuropathy. Her spinal fluid was clear but that could be clear sometime in early stages. An EMG nerve conduction study can help but might be difficult to obtain while she is in hospital. She would need formal evaluation to rule out Guillain-Lonoke syndrome. My recommendation at this time is to keep her inpatient involve PT OT and clinically follow her. Depending how she does, I would try to do an EMG nerve conduction study on her leg during next few days. If she worsens and more weakness appears, I would suggest starting her on IVIG treatment. Procedures Date of Service Date of Service: 01/20/21
--- NOTE | 2021-01-20 14:21 | MHC.CM.ED ---
Met with patient in regards to discharge planning. Patient lives with her boyfriend, ambulates independently and had no services prior to coming to the hospital. PCP verified. HCP verified to be on file. Obs notice explained and signed. Patient's boyfriend will transport her home when medically stable. Patient received 2 Pfizer vaccines. Patient's boyfriend will transport patient home when medically stable. Continue to monitor for d/c needs.
--- NOTE | 2021-01-20 15:52 | P.HPHOSP_ITS ---
History of Present Illness Date of Service: 01/20/21 Chief Complaint: Lower extremity weakness. 30 years old woman with no significant past medical history other than obesity working on OBGYN office in the hospital developed problem with her legs but 2-3 weeks ago.? She said she had recent bariatric surgery-for which she was on multivitamins she was not taking them. She said she 1st started with numbness and tingling in feet and legs and then few days later noted some weakness. ? She had difficulty climbing stairs and of the weakness seem to be in proximal area of legs.? She had difficulty getting up from sitting position especially from a commode .? Though in the past she had suffer from back pain this time there was no significant pain.? There was no bowel bladder difficulty.? There was no history of trauma or any recent cold or flu-like illness.? She denied any stress or depression or any tendency for anxiety.? She denied any such previous illnesses.? She came to emergency room last night and had and multiple investigations including a lumbar puncture. Review of Systems Review of Systems: Patient denies any chest pain shortness of breath or abdominal pain or fever or chills or cough or phlegm Denies any rash Denies any muscle pains PMFSH Medical History Asthma Back pain Chronic back pain Congenital intra-abdominal adhesions COVID-19 vaccine series completed GERD (gastroesophageal reflux disease) Liver fibrosis Maternal anesthesia complication Morbid obesity Nocturnal hypoxemia Sleep apnea Steatosis, liver Vertigo Vitamin A deficiency Vitamin B12 deficiency Vitamin D deficiency Family History Mother Kidney stone Asthma Father No problems noted. Brother Asthma Back problem Pertinent family history: mother -asthma Surgical History Hx of gastric bypass Hx of wisdom tooth extraction Social History Are you a primary tire care manager to a significant other at home: No Do you presently have visiting nurse or other home services: No Alcohol intake: former Patient Tobacco Use Status: Former Tobacco user Quit Date: 10 yrs ago Tobacco use type: Cigarette Use of substances other than those prescribed or required for medical reasons: No Advance Directives: No Advance Directives Information Provided: Yes service: No Current occupational status: employed 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 [employer] Allergies Allergy/AdvReac Type Severity Reaction Status Date / Time animal dander Allergy Unknown UNKNOWN Verified 01/12/21 14:51 lactose [LACTOSE] Allergy Unknown GI Verified 01/12/21 14:51 UPSET/DIRRHEA mold Allergy Unknown UNKNOWN Verified 01/12/21 14:51 pollen extracts [POLLEN] Allergy Unknown UNKNOWN Verified 01/12/21 14:51 Active Medications: Current Medications Enoxaparin Sodium (Enoxaparin Sodium 40 Mg/0.4 Ml Syringe) 40 mg SUBCUT Q24H [facility] Last Admin: 01/20/21 11:59 Dose: 40 mg Documented by: Sodium Chloride (0.9 % Sodium Chloride Flush 3 Ml Syringe) 3 ml IVFLUSH QSHIFT [facility] Home Medications Medication Instructions Recorded Confirmed Last Taken Type albuterol sulfate 90 mcg/actuation 2 puff PO Q4H PRN 07/03/20 01/20/21 01/19/21 History aerosol inhaler cetirizine 10 mg tablet 10 mg PO DAILY PRN 07/03/20 01/20/21 01/19/21 History inhalational spacing device #1 ea 07/03/20 10/15/20 Unknown History melatonin 5 mg capsule 5 mg PO BEDTIME PRN 07/03/20 01/20/21 01/19/21 History multivitamin 1 tab PO DAILY 01/20/21 01/20/21 01/19/21 History Physical Exam Vital Signs and Narrative: Vital Signs: Last Vital Signs Temp 98 F 01/20/21 12:01 Pulse 87 01/20/21 12:01 Resp 18 01/20/21 12:01 BP 120/85 01/20/21 12:01 Pulse Ox 95 01/20/21 12:01 Body Mass Index 46.2 Appearance: Alert.? Oriented X3.? not in distress.? Eyes: Pupils equal, round and reactive to light.? Sclera nonicteric.? ENT: Pharynx normal.? Moist mucous membranes. cvs: rrr, [id number] , no murmur res: clear to auscultation ,no rhonchii or wheezing abd: no rebound or guarding ,nt, bs present. ext pulses present , no cyanosis ,Gait well balanced well coordinated. neuro: axo3 , has bilateral lower extremity weakness and numbness more in upper lthighs rather than lower . Results Labs CBC and Chem 7: 01/20/21 02:13 01/20/21 02:14 Labs: Laboratory Results - last 24 hr 01/20/21 01/20/21 01/20/21 02:13 02:14 02:14 MCV 80.7 MCH 27.4 MCHC 34.0 RDW 15.1 Plt Count 301 D MPV 11.2 Immature Gran % (Auto) 0.5 H Neut % (Auto) 58.3 Lymph % (Auto) 27.8 Chambers % (Auto) 9.7 Eos % (Auto) 3.1 Baso % (Auto) 0.6 Lymph # (Auto) 1.8 Chambers # (Auto) 0.6 Eos # (Auto) 0.2 Baso # (Auto) 0.0 Abs Immat Gran (auto) 0.03 Absolute Neuts (auto) 3.8 Absolute Nucleated RBC 0.000 Nucleated RBC % (auto) 0.0 ESR 34 H Anion Gap 21 H Estim Creat Clear Calc 145.9 Estimated GFR > 60 Random Glucose 87 Calcium 10.0 D Magnesium 1.8 Total Bilirubin 3.5 H Direct Bilirubin 1.3 H AST 41 H ALT 53 H Alkaline Phosphatase 61 Total Creatine Kinase 18 L C-Reactive Protein 3.61 H Total Protein 6.8 Albumin 4.1 Vitamin B12 Folate TSH 2.20 CSF Tube Number CSF Volume CSF Appearance CSF Color CSF WBC CSF RBC CSF Lymphocytes CSF Appearance (b) CSF Glucose CSF Total Protein 01/20/21 01/20/21 01/20/21 02:14 04:34 04:34 MCV MCH MCHC RDW Plt Count MPV Immature Gran % (Auto) Neut % (Auto) Lymph % (Auto) Chambers % (Auto) Eos % (Auto) Baso % (Auto) Lymph # (Auto) Chambers # (Auto) Eos # (Auto) Baso # (Auto) Abs Immat Gran (auto) Absolute Neuts (auto) Absolute Nucleated RBC Nucleated RBC % (auto) ESR Anion Gap Estim Creat Clear Calc Estimated GFR Random Glucose Calcium Magnesium Total Bilirubin Direct Bilirubin AST ALT Alkaline Phosphatase Total Creatine Kinase C-Reactive Protein Total Protein Albumin Vitamin B12 372 Folate 3.3 L TSH CSF Tube Number 3 4 CSF Volume 1.0 CSF Appearance CLEAR CSF Color COLORLESS CSF WBC 2 CSF RBC 1 CSF Lymphocytes 100 CSF Appearance (b) Clear, Colorless CSF Glucose 55 CSF Total Protein 28.3 ECG ECG interpretation date: 01/20/21 ECG interpretation time: 18:28 Assessment and Plan (1) Myopathy: Status: Acute (2) Neuropathy: Status: Acute 1. Acute neuropathy unclear etiology: Lab imaging and EKG reviewed and personally improved interpreted Neurology evaluation-may need EMG B12 seems normal, added folate folic acid since folic acid borderline. Also will add B complex vitamin If weakness worsens may need-further workup, and may need IVIG PT OT Will ask bariatric surgery to follow-up also due to recent surgery 2. Asthma: Asymptomatic P.r.n. nebs added DVT prophylaxis with Lovenox Above management and plan including acute neuropathy as well as management options discussed with the patient in detail and also discussed with goal of care ,total time spent 70 minutes. Quality Stroke Does the patient have a stroke diagnosis?: No VTE Prior VTE?: No VTE Risk Level:: Medical - moderate - high VTE Device Contraindication: N/A - Device Ordered VTE Drug Contraindication: N/A - Med Ordered
--- NOTE | 2021-01-20 16:37 | PC.NURSE ---
Patient A+ox4. Meds given per [place]. continent. Able to reposition self. Tolerates PO. Resting safely.
[2021-01-20 19:16] LABS: Vitamin B12 330 pg/mL (200-900)
[2021-01-20] MEDS: Thiamine HCL 100 MG in 0.9 % Sodium Chloride 100 ML 202 MG IV (19:23)
[2021-01-20] MEDS: Cyanocobalamin (Vitamin B-12) 1,000 MCG/ML VIAL 1000 MCG IM (21:34)
[2021-01-20] MEDS: 0.9 % Sodium Chloride Flush 3 ML SYRINGE IVFLUSH (22:55)
[2021-01-21] VITALS (7 sets, daily range): BP systolic 108–134; BP diastolic 61–85; PULSE 71–88; RESP 18–20; TEMP 36.1–37.1; O2SAT 98–99
[2021-01-21] MEDS: traMADoL HCL 50 MG TABLET PO (00:27)
[2021-01-21 09:36] LABS: Alanine Aminotransferase 60 U/L (0-31); Albumin Level 3.9 g/dL (3.5-5.0); Alkaline Phosphatase 57 U/L (39-117); Anion Gap 17 (12-20); Aspartate Amino Transferase 43 U/L (5-31); Bilirubin Direct 1.3 mg/dL (0.0-0.5); Bilirubin Total 3.8 mg/dL (0.0-1.0); Blood Urea Nitrogen 14 mg/dL (9-16); Calcium 9.7 mg/dL (8.4-10.2); Carbon Dioxide 26 mmol/L (22-29); Chloride 100 mmol/L (96-108); Estimated Glomerular Filt Rate > 60; Glucose Random 82 mg/dL (60-115); Potassium 3.7 mmol/L (3.3-5.1); Sodium 139 mmol/L (135-145); Total Protein 6.4 g/dL (6.5-8.0)
[2021-01-21 09:54] LABS: HBS Num1 5.47 mIU/mL (0-7.99); ~HepC Num1 0.39 S/CO (0.00-0.79); ~Hepatitis B Surface Antibody NONREACTIVE (Nonreactive); ~Hepatitis C Antibody Nonreactive (Nonreactive)
[2021-01-21 10:00] LABS: HBc Num1 0.12 S/CO (0.00-0.79); HBsAGNum1 0.23 S/CO (0.00-0.99); Hepatitis B Core Antibody Nonreactive (Nonreactive); Hepatitis B Surface Antigen Negative (Negative)
[2021-01-21] MEDS: Folic Acid 1 MG TABLET PO (10:07)
[2021-01-21] MEDS: 0.9 % Sodium Chloride Flush 3 ML SYRINGE IVFLUSH ×3 (10:07→20:40)
[2021-01-21] MEDS: Thiamine HCL 100 MG in 0.9 % Sodium Chloride 100 ML 202 MG IV (10:07)
[2021-01-21] MEDS: Multivitamin TABLET 1 TAB PO (10:07)
[2021-01-21] MEDS: Acetaminophen 325 MG TABLET 650 MG PO ×2 (10:27→17:12)
--- NOTE | 2021-01-21 11:24 | MHC.CM.PN ---
CM INFORMED PT IS RECOMMENDING ACUTE REHAB FOR THIS PT. REFERRALS PLACED TO [facility]. AWAITING RESPONSES
[2021-01-21] MEDS: Enoxaparin Sodium 40 MG/0.4 ML SYRINGE SUBCUT (12:44)
--- NOTE | 2021-01-21 14:17 | P.PNIM_ITS ---
Subjective Subjective Date of Service: 01/22/21 Interval History: b/l lower ext wekaness Review of Systems still has b/l weakness unchanged. Denies any new complaint of chest pain or shortness of breath or abdominal pain or fever or chills or nausea or vomiting Denies any cough Denies any weakness or numbness. Physical Exam Vital Signs: Vital Signs: Last Vital Signs Temp 97.9 F 01/21/21 11:29 Pulse 79 01/21/21 11:29 Resp 18 01/21/21 11:29 BP 110/68 01/21/21 11:29 Pulse Ox 98 01/21/21 11:29 Body Mass Index 46.3 Appearance: Alert.? Oriented X3.? not in distress.? Eyes: Pupils equal, round and reactive to light.? Sclera nonicteric.? ENT: Pharynx normal.? Moist mucous membranes. cvs: rrr, [id number] , no murmur res: clear to auscultation ,no rhonchii or wheezing abd: no rebound or guarding ,nt, bs present. ext pulses present , no cyanosis ,Gait well balanced well coordinated. neuro: axo3 , has bilateral lower extremity weakness and numbness more in upper thighs >shins . Objective Data Active Medications Acetaminophen (Acetaminophen 325 Mg Tablet) 650 mg PO Q6H PRN PRN Reason: pain Last Admin: 01/21/21 10:27 Dose: 650 mg Documented by: LATISHA Albuterol/Ipratropium (Albuterol/Iprat 2.5/0.5mg 3 Ml Ampul.Neb) 3 ml INHALE RQ6H PRN PRN Reason: asthma Cyanocobalamin (Cyanocobalamin (Vitamin B-12) 1,000 Mcg/Ml Vial) 1,000 mcg IM Q30D [facility] Last Admin: 01/20/21 21:34 Dose: 1,000 mcg Documented by: JOSE ARMANDO Docusate Sodium (Docusate Sodium 100 Mg Capsule) 100 mg PO BEDTIME [facility] Enoxaparin Sodium (Enoxaparin Sodium 40 Mg/0.4 Ml Syringe) 40 mg SUBCUT Q24H [facility] Last Admin: 01/21/21 12:44 Dose: 40 mg Documented by: LATISHA Folic Acid (Folic Acid 1 Mg Tablet) 1 mg PO DAILY [facility] Last Admin: 01/21/21 10:07 Dose: 1 mg Documented by: LATISHA Thiamine HCl 100 mg/ Sodium (Chloride) 101 mls @ 202 mls/hr IV DAILY [facility] Last Infusion: 01/21/21 11:35 Dose: 0 mls/hr Documented by: LATISHA Multivitamins/Vitamin C (Multivitamin Tablet) 1 tab PO DAILY [facility] Last Admin: 01/21/21 10:07 Dose: 1 tab Documented by: LATISHA Oxycodone HCl (Oxycodone Hcl Immed Release 5 Mg Tablet) 5 mg PO Q6H PRN PRN Reason: Pain, Mild (Pain Scale 1-3) Senna (Sennosides 8.6 Mg Tablet) 17.2 mg PO BEDTIME [facility] Sodium Chloride (0.9 % Sodium Chloride Flush 3 Ml Syringe) 3 ml IVFLUSH QSHIFT [facility] Last Admin: 01/21/21 10:07 Dose: 3 ml Documented by: LATISHA Labs CBC & Chem 7: 01/21/21 16:06 01/21/21 08:53 Labs: Laboratory Results - last 24 hr 01/20/21 01/21/21 01/21/21 18:19 08:53 08:53 Anion Gap 17 Estim Creat Clear Calc 148.0 Estimated GFR > 60 Random Glucose 82 Calcium 9.7 Total Bilirubin 3.8 H Direct Bilirubin 1.3 H AST 43 H ALT 60 H Alkaline Phosphatase 57 Total Protein 6.4 L Albumin 3.9 Vitamin B12 330 Hep Bs Antigen Negative Hep Bs Antibody NONREACTIVE Hep B Core Total Ab Nonreactive Hepatitis C Ab (EIA) Nonreactive Microbiology Microbiology Results: Microbiology 01/20/21 04:33 Gram Stain - Final Cerebrospinal Fluid CSF Examination - Final Fluid Description - Final CSF Culture - Preliminary No growth after 1 day Assessment and Plan (1) Neuropathy: Status: Acute Assessment and Plan: ?1. Acute neuropathy unclear etiology: Lab imaging and EKG reviewed and personally improved interpreted Neurology evaluation-may need EMG B12 seems normal, added folate folic acid since folic acid borderline.? added B complex vitamin added EMG If weakness worsens may need-further workup, and may need IVIG PT OT need neuro follow up- added workup brain mri and C, T spine for workup for b/l lower ext weakness bariatric surgery eval noted- poetein shakes /ensure :as per bariatric surgery- patient should stay the same as home plan, patient may use home protein shakes or Ensure shakes from the hospital, continue her home protein bars and 1 small meal 3d/ week 2. Asthma:? Asymptomatic P.r.n. nebs added DVT prophylaxis with Lovenox Quality Stroke Does the patient have a stroke diagnosis?: No VTE Prior VTE?: No VTE Risk Level:: Medical - moderate - high VTE Device Contraindication: N/A - Device Ordered VTE Drug Contraindication: N/A - Med Ordered
--- NOTE | 2021-01-21 15:36 | MHC.CLN ---
RE: CONSULT PT IS WEEK 11 S/P BARIATRIC SURGERY RECOMMEND BARIATRIC DIET PHASE 5 (WEEK7-12) WILL UPDATE DIET ORDER FULL ASSESSMENT TO FOLLOW
[2021-01-21 16:03] LABS: Lactate Dehydrogenase 186 U/L (122-220)
[2021-01-21 16:14] LABS: Hematocrit 40.8 % (37-47); Hemoglobin 13.7 g/dl (12.0-16.0); Mean Corpuscular HGB Conc 33.6 g/dl (31.0-35.0); Mean Corpuscular Hemoglobin 27.8 pg (27.0-33.0); Mean Corpuscular Volume 82.8 fL (80-98); Mean Platelet Volume 11.2 fL (9.4-12.3); Platelet Count 275 X10*3/uL (160-400); Red Blood Count 4.93 X10*6/uL (4.20-5.50); Red Cell Distribution Width 15.5 % (11.0-16.0); White Blood Count 6.5 X10*3/uL (4.8-10.8)
--- NOTE | 2021-01-21 16:20 | P.PNGS_ITS ---
Subjective Subjective Date of Service: 01/21/21 Patient reports: no new complaints Interval history: Pt states no nausea, emesis or abdominal pain. She has not received the protein shakes or protein bars yet, the bariatric diet has been placed today. Her boyfriend will bring her protein bars tomorrow. She has been eating small amounts of regular diet without any intolerances. No change in numbness, tingling and motor strength in LE. Seen by OT/PT today and MRI of head and spine have been ordered. RUQ ULs today - revealed sludge in gall bladder again, liver steatosis no acute changes. Physical Exam Vital Signs: Vital Signs: Last Vital Signs Temp 97 F 01/21/21 15:12 Pulse 80 01/21/21 15:12 Resp 18 01/21/21 15:12 BP 120/70 01/21/21 15:12 Pulse Ox 99 01/21/21 15:12 Body Mass Index 46.3 Const: General: cooperative, healthy appearing and no acute distress Procedures Date of Service Date of Service: 01/21/21 Progress Note: A&P Assessment and plan (1) S/P gastric bypass: Status: Acute Assessment and Plan: No changes, patient will continue her home bariatric diet while undergoing work up for neuropathy. (2) Neuropathy: Status: Acute Assessment and Plan: Awaiting results of neuro work up. Fall Risk Details Current Medications: Current Medications Acetaminophen (Acetaminophen 325 Mg Tablet) 650 mg PO Q6H PRN PRN Reason: pain Last Admin: 01/21/21 10:27 Dose: 650 mg Documented by: Albuterol/Ipratropium (Albuterol/Iprat 2.5/0.5mg 3 Ml Ampul.Neb) 3 ml INHALE RQ6H PRN PRN Reason: asthma Cyanocobalamin (Cyanocobalamin (Vitamin B-12) 1,000 Mcg/Ml Vial) 1,000 mcg IM Q30D [facility] Last Admin: 01/20/21 21:34 Dose: 1,000 mcg Documented by: Docusate Sodium (Docusate Sodium 100 Mg Capsule) 100 mg PO BEDTIME [facility] Enoxaparin Sodium (Enoxaparin Sodium 40 Mg/0.4 Ml Syringe) 40 mg SUBCUT Q24H [facility] Last Admin: 01/21/21 12:44 Dose: 40 mg Documented by: Folic Acid (Folic Acid 1 Mg Tablet) 1 mg PO DAILY [facility] Last Admin: 01/21/21 10:07 Dose: 1 mg Documented by: Thiamine HCl 100 mg/ Sodium (Chloride) 101 mls @ 202 mls/hr IV DAILY [facility] Last Infusion: 01/21/21 11:35 Dose: Infused Documented by: Multivitamins/Vitamin C (Multivitamin Tablet) 1 tab PO DAILY [facility] Last Admin: 01/21/21 10:07 Dose: 1 tab Documented by: Oxycodone HCl (Oxycodone Hcl Immed Release 5 Mg Tablet) 5 mg PO Q6H PRN PRN Reason: Pain, Mild (Pain Scale 1-3) Senna (Sennosides 8.6 Mg Tablet) 17.2 mg PO BEDTIME [facility] Sodium Chloride (0.9 % Sodium Chloride Flush 3 Ml Syringe) 3 ml IVFLUSH QSHIFT [facility] Last Admin: 01/21/21 14:58 Dose: 3 ml Documented by: Time Spent With Patient Time: Total time spent is greater than 50% in coordination of care (as documented) at patient's floor/unit and/or counseling patient: Time with patient: less than 15 minutes Quality Stroke Does the patient have a stroke diagnosis?: No VTE Prior VTE?: No VTE Risk Level:: Medical - moderate - high VTE Device Contraindication: N/A - Device Ordered VTE Drug Contraindication: N/A - Med Ordered
--- NOTE | 2021-01-21 18:09 | PM.GICN ---
History of Present Illness Data of Consult Service Date: 01/21/21 Requesting physician: Ac Valdes Primary Care Provider: Teri Grigsby MD HPI Reason for consult: abn LFT 30 years old woman with hx of obesity and RYGB surgery who I am seeing for assessment for abn LFT. She has had [id number] days of worsening weakness in both legs with numbness and parasthesia but is able to control bladder and bowels although having trouble walking. Prior to this she also had an attaack of vertigo of a days worth of headaches with diplopia. No recent viral illness or sick contacts. Denies back pain. She did have a bout of upper abdominal pain with nausea and vomiting for few days but this cleared up by itself. Right now she has no abdomina pain, appettite is good, no nausea or vomiting, no rectal bleeding or melena, no diarrhea or constipation. She has not been compliant with multivitamins but bariatric surgeon checked her vitamins, and B1 was low nml, b12 was 330 and zn was normal. Folate was low at 3.3. Lft have been elevated incl AST/ALT and mor recently bili albeit more indirect bili. She does have steatosis on imaging. Hep B and C negative. Review of Systems Review of Systems: still has Bilateral lower extremity weakness, which is unchanged. Denies any new complaint of chest pain or shortness of breath or abdominal pain or fever or chills or nausea or vomiting Denies any cough, Shortness of breath, fever, chills, or muscle tenderness. No recurrence of diplopia Yes all other systems are reviewed and are negative Neurologic: Denies Abnormal speech present and Denies confusion Psychiatric: Psychiatric: Denies confusion [facility] Past Medical History Medical History Asthma Back pain Chronic back pain Congenital intra-abdominal adhesions COVID-19 vaccine series completed GERD (gastroesophageal reflux disease) Liver fibrosis Maternal anesthesia complication Morbid obesity Nocturnal hypoxemia Sleep apnea Steatosis, liver Vertigo Vitamin A deficiency Vitamin B12 deficiency Vitamin D deficiency Family History Family History Mother Kidney stone Asthma Father No problems noted. Brother Asthma Back problem Pertinent family history: mother -asthma Surgical History Surgical History Hx of gastric bypass Hx of wisdom tooth extraction Social History Social History Household Members: Spouse Housing: Apartment Are you a primary day care supervisor to a significant other at home: No Do you presently have visiting nurse or other home services: No Alcohol intake: former Patient Tobacco Use Status: Former Tobacco user Quit Date: 10 yrs ago Tobacco use type: Cigarette Use of substances other than those prescribed or required for medical reasons: No Currently Displaying Signs/Symptoms of Drug Intoxication Withdrawal: No Have you been hit, kicked, punched, or otherwise hurt by someone within the past year? If so, by whom?: No Do you feel safe in your current relationship?: No Is there a partner from a previous relationship who is making you feel unsafe now?: No Spiritual Healthcare Practices: no Buddhism Healthcare Practices: no Cultural Healthcare Practices: no Advance Directives: No Advance Directives Information Provided: Yes Do you have thoughts of harming others: None Do you have a plan to hurt others: No Plan Recently lost weight without trying: Yes How much weight loss: 34pounds or more Eating poorly because of decreased appetite: No Nutrition screen score: 6 Nutrition Risks: No Nutritional Risk Patient : No : No Poor oral hygiene: No service: No Current occupational status: employed 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 [employer] Allergies Allergy/AdvReac Type Severity Reaction Status Date / Time animal dander Allergy Unknown UNKNOWN Verified 01/12/21 14:51 mold Allergy Unknown UNKNOWN Verified 01/12/21 14:51 pollen extracts [POLLEN] Allergy Unknown UNKNOWN Verified 01/12/21 14:51 Active Medications: Current Medications Acetaminophen (Acetaminophen 325 Mg Tablet) 650 mg PO Q6H PRN PRN Reason: pain Last Admin: 01/21/21 17:12 Dose: 650 mg Documented by: Albuterol/Ipratropium (Albuterol/Iprat 2.5/0.5mg 3 Ml Ampul.Neb) 3 ml INHALE RQ6H PRN PRN Reason: asthma Cyanocobalamin (Cyanocobalamin (Vitamin B-12) 1,000 Mcg/Ml Vial) 1,000 mcg IM Q30D [facility] Last Admin: 01/20/21 21:34 Dose: 1,000 mcg Documented by: Docusate Sodium (Docusate Sodium 100 Mg Capsule) 100 mg PO BEDTIME [facility] Enoxaparin Sodium (Enoxaparin Sodium 40 Mg/0.4 Ml Syringe) 40 mg SUBCUT Q24H [facility] Last Admin: 01/21/21 12:44 Dose: 40 mg Documented by: Folic Acid (Folic Acid 1 Mg Tablet) 1 mg PO DAILY [facility] Last Admin: 01/21/21 10:07 Dose: 1 mg Documented by: Thiamine HCl 100 mg/ Sodium (Chloride) 101 mls @ 202 mls/hr IV DAILY [facility] Last Infusion: 01/21/21 11:35 Dose: Infused Documented by: Multivitamins/Vitamin C (Multivitamin Tablet) 1 tab PO DAILY [facility] Last Admin: 01/21/21 10:07 Dose: 1 tab Documented by: Oxycodone HCl (Oxycodone Hcl Immed Release 5 Mg Tablet) 5 mg PO Q6H PRN PRN Reason: Pain, Mild (Pain Scale 1-3) Senna (Sennosides 8.6 Mg Tablet) 17.2 mg PO BEDTIME [facility] Sodium Chloride (0.9 % Sodium Chloride Flush 3 Ml Syringe) 3 ml IVFLUSH QSHIFT [facility] Last Admin: 01/21/21 14:58 Dose: 3 ml Documented by: Home Medications Medication Instructions Recorded Confirmed Last Taken Type albuterol sulfate 90 mcg/actuation 2 puff PO Q4H PRN 07/03/20 01/20/21 01/19/21 History aerosol inhaler cetirizine 10 mg tablet 10 mg PO DAILY PRN 07/03/20 01/20/21 01/19/21 History inhalational spacing device (Space #1 ea 07/03/20 01/20/21 Unknown History Chamber) melatonin 5 mg capsule 5 mg PO BEDTIME PRN 07/03/20 01/20/21 01/19/21 History multivitamin 1 tab PO DAILY 01/20/21 01/20/21 01/19/21 History Physical Exam Vital Signs: Vital Signs: Last Vital Signs Temp 97 F 01/21/21 15:12 Pulse 80 01/21/21 15:12 Resp 18 01/21/21 15:12 BP 120/70 01/21/21 15:12 Pulse Ox 99 01/21/21 15:12 Body Mass Index 46.3 Const: General: cooperative, healthy appearing, comfortable and no acute distress; No confusion or lethargic Nutritional Appearance: obese Orientation/consciousness: patient oriented x3, No confusion and No lethargic Eyes: Pupils: Equal, round and reactive pupils present GI: Inspection: Yes normal to inspection, No distended and Yes scar (all lapraroscopic scars healed well) Palpation (GI): Soft to palpation, nontender, no guarding, not rigid, no hernias and no masses Neuro: Other: reduced fine touch sensation up to lower abdomen, reduced power both lower limbs, nml power arms. General: patient oriented x3, No confusion and Unable to assess gait Cranial nerves: Yes Intact sense of smell present and Yes Equal, round and reactive pupils present Cognition (Neuro): normal cognition Speech: No Abnormal speech present Gait exam (Neuro): Unable to assess gait Motor exam (neuro): no tremor noted Extrem: General: Yes normal to inspection (LE - motor strenght 4/5, UE motor strength 5/5), No no pedal edema and No calf tenderness Results Labs CBC & Chem 7: 01/21/21 16:06 01/21/21 08:53 Labs: Short CBC 01/21/21 Range/Units 16:06 WBC 6.5 (4.8-10.8) X10*3/uL Hgb 13.7 (12.0-16.0) g/dl Hct 40.8 (37-47) % Plt Count 275 (160-400) X10*3/uL BMP 01/21/21 08:53 Sodium 139 Potassium 3.7 Chloride 100 Carbon Dioxide 26 BUN 14 Creatinine 0.73 Calcium 9.7 Liver Function 01/21/21 Range/Units 08:53 Total Bilirubin 3.8 H (0.0-1.0) mg/dL Direct Bilirubin 1.3 H (0.0-0.5) mg/dL AST 43 H (5-31) U/L ALT 60 H (0-31) U/L Alkaline Phosphatase 57 (39-117) U/L Albumin 3.9 (3.5-5.0) g/dL Microbiology Microbiology Results: Microbiology 01/20/21 04:33 Cerebrospinal Fluid Gram Stain - Final 01/20/21 04:33 Cerebrospinal Fluid CSF Examination - Final 01/20/21 04:33 Cerebrospinal Fluid Fluid Description - Final 01/20/21 04:33 Cerebrospinal Fluid CSF Culture - Preliminary No growth after 1 day Assessment and Plan (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 (2) Neuropathy: Status: Acute (3) Elevated bilirubin: Status: Acute 1/ Worsening neuropathy suspected demyelinating illness but nml brain and c spine MRI, mild abn LFT with steatosis on imaging, most likely VITAL with possible superimposed gilberts syndrome ddx: viral or infectious hepatitis, sarcoidosis, wilsons disease, vasculitis, SLE, nutritonal defc PLAN: 1/ check ceruloplasmin and 24 hr urine copper 2/ liver serologies inlc walker, SLA, Ig, BECK level, celiac serology, a1at, HIV, tick borne panel incl lyme 3/ if lft worsen then liver bx 4/ commence multivitamin, check fat tonya vitamins 5/ optimize vit D levels Procedures Date of Service Date of Service: 01/21/21
[2021-01-21] MEDS: oxyCODONE HCl Immed Release 5 MG TABLET PO (22:15)
[2021-01-22] VITALS (7 sets, daily range): BP systolic 108–135; BP diastolic 66–80; PULSE 76–98; RESP 18–20; TEMP 36.1–36.9; O2SAT 97–100
[2021-01-22 04:28] LABS: Hepatitis A Antibody IgM 0.36 Index (0-0.79); ~Hepatitis A Antibody IgM Nonreactive (Nonreactive)
[2021-01-22] MEDS: oxyCODONE HCl Immed Release 5 MG TABLET PO (05:03)
[2021-01-22] MEDS: Acetaminophen 325 MG TABLET 650 MG PO ×2 (09:02→17:35)
[2021-01-22] MEDS: Folic Acid 1 MG TABLET PO (09:02)
[2021-01-22] MEDS: 0.9 % Sodium Chloride Flush 3 ML SYRINGE IVFLUSH ×2 (09:02→17:01)
[2021-01-22] MEDS: Multivitamin TABLET 1 TAB PO (09:02)
[2021-01-22] MEDS: Thiamine HCL 100 MG in 0.9 % Sodium Chloride 100 ML 202 MG IV (11:56)
[2021-01-22] MEDS: Enoxaparin Sodium 40 MG/0.4 ML SYRINGE SUBCUT (11:56)
--- NOTE | 2021-01-22 12:36 | MHC.CM.PN ---
per multi dis rounds pt recommends acute rehab [facility] considering pt no dc date at this time
--- NOTE | 2021-01-22 14:18 | PM.PNGS ---
Subjective Subjective Date of Service: 01/22/21 Interval history: Pt now has protein shakes and her boyfriend is bringing her protein bars and bariatric multivitamins today. She will continue this bariatric meal plan and can have adult multivit stopped once she starts her bariatirc vitmain - should take with food (meal or bar) at dinner time. No nausea, emesis or abd pain. Physical Exam Vital Signs: Vital Signs: Last Vital Signs Temp 97.9 F 01/22/21 10:54 Pulse 96 01/22/21 10:54 Resp 18 01/22/21 10:54 BP 117/73 01/22/21 10:54 Pulse Ox 99 01/22/21 10:54 Body Mass Index 46.3 Const: General: cooperative, healthy appearing and comfortable Nutritional Appearance: obese GI: Inspection: Yes normal to inspection Palpation (GI): Soft to palpation, nontender, no guarding and not rigid Procedures Date of Service Date of Service: 01/22/21 Progress Note: A&P Assessment and plan (1) Neuropathy: Status: Acute Assessment and Plan: Treatment per medicine and neuro team. MRI results reviewed, awaiting EMG testing. (2) Elevated bilirubin: Status: Acute Assessment and Plan: Per GI consult (3) S/P gastric bypass: Status: Acute Assessment and Plan: No acute issues, will continue bariatric diet and multivitamin. Please contact us with questions. Fall Risk Details Current Medications: Current Medications Acetaminophen (Acetaminophen 325 Mg Tablet) 650 mg PO Q6H PRN PRN Reason: pain Last Admin: 01/22/21 09:02 Dose: 650 mg Documented by: Albuterol/Ipratropium (Albuterol/Iprat 2.5/0.5mg 3 Ml Ampul.Neb) 3 ml INHALE RQ6H PRN PRN Reason: asthma Cyanocobalamin (Cyanocobalamin (Vitamin B-12) 1,000 Mcg/Ml Vial) 1,000 mcg IM Q30D [facility] Last Admin: 01/20/21 21:34 Dose: 1,000 mcg Documented by: Docusate Sodium (Docusate Sodium 100 Mg Capsule) 100 mg PO BEDTIME [facility] Last Admin: 01/21/21 20:41 Dose: Not Given Documented by: Enoxaparin Sodium (Enoxaparin Sodium 40 Mg/0.4 Ml Syringe) 40 mg SUBCUT Q24H [facility] Last Admin: 01/22/21 11:56 Dose: 40 mg Documented by: Folic Acid (Folic Acid 1 Mg Tablet) 1 mg PO DAILY [facility] Last Admin: 01/22/21 09:02 Dose: 1 mg Documented by: Thiamine HCl 100 mg/ Sodium (Chloride) 101 mls @ 202 mls/hr IV DAILY [facility] Last Infusion: 01/22/21 12:55 Dose: Infused Documented by: Multivitamins/Vitamin C (Multivitamin Tablet) 1 tab PO DAILY [facility] Last Admin: 01/22/21 09:02 Dose: 1 tab Documented by: Oxycodone HCl (Oxycodone Hcl Immed Release 5 Mg Tablet) 5 mg PO Q6H PRN PRN Reason: Pain, Mild (Pain Scale 1-3) Last Admin: 01/22/21 05:03 Dose: 5 mg Documented by: Senna (Sennosides 8.6 Mg Tablet) 17.2 mg PO BEDTIME [facility] Last Admin: 01/21/21 20:41 Dose: Not Given Documented by: Sodium Chloride (0.9 % Sodium Chloride Flush 3 Ml Syringe) 3 ml IVFLUSH QSHIFT [facility] Last Admin: 01/22/21 09:02 Dose: 3 ml Documented by: Time Spent With Patient Time: Total time spent is greater than 50% in coordination of care (as documented) at patient's floor/unit and/or counseling patient: Time with patient: 15 - 24 minutes Quality Stroke Does the patient have a stroke diagnosis?: No VTE Prior VTE?: No VTE Risk Level:: Medical - moderate - high VTE Device Contraindication: N/A - Device Ordered VTE Drug Contraindication: N/A - Med Ordered
--- NOTE | 2021-01-22 15:27 | PM.NEUROCN ---
History of Present Illness Data of Consult Service Date: 01/22/21 Primary Care Provider: Teri Grigsby MD [facility] Reason for consult: history of progressive weakness in the legs with multiple falls This is a previously healthy 30-year-old woman who started to gets some numbness in her legs and slowly progressive weakness about 10 days ago and found it harder to get up from the toilet. This became progressively worse and she started to fall and was having multiple falls a day before she came to the hospital and needed to be picked off the ground. She also needed help to get up from the toilet and it was very difficult for her to go up and down stairs. One week ago she also had binocular, horizontal diplopia for about 24-36 hours, which then resolved. She is not aware of any weakness in the upper extremities. No bladder or or bowel control problems. In the last 24 hours she developed severe pain and pins and needles from the knees down. She's had some chronic lower back pain, which has not gotten worse. She had Gastric bypass surgery for weight loss and about 2-3 months ago and has lost 60 pounds. She takes multivitamins. Review of Systems Review of Systems: still has Bilateral lower extremity weakness, which is unchanged. Denies any new complaint of chest pain or shortness of breath or abdominal pain or fever or chills or nausea or vomiting Denies any cough, Shortness of breath, fever, chills, or muscle tenderness. No recurrence of diplopia Yes all other systems are reviewed and are negative Neurologic: Denies confusion Psychiatric: Psychiatric: Denies confusion [facility] Past Medical History Medical History Asthma Back pain Chronic back pain Congenital intra-abdominal adhesions COVID-19 vaccine series completed GERD (gastroesophageal reflux disease) Liver fibrosis Maternal anesthesia complication Morbid obesity Nocturnal hypoxemia Sleep apnea Steatosis, liver Vertigo Vitamin A deficiency Vitamin B12 deficiency Vitamin D deficiency Family History Family History Mother Kidney stone Asthma Father No problems noted. Brother Asthma Back problem Pertinent family history: mother -asthma Surgical History Surgical History Hx of gastric bypass Hx of wisdom tooth extraction Social History Social History Household Members: Spouse Housing: Apartment Are you a primary childcare provider to a significant other at home: No Do you presently have visiting nurse or other home services: No Alcohol intake: former Patient Tobacco Use Status: Former Tobacco user Quit Date: 10 yrs ago Tobacco use type: Cigarette Use of substances other than those prescribed or required for medical reasons: No Currently Displaying Signs/Symptoms of Drug Intoxication Withdrawal: No Have you been hit, kicked, punched, or otherwise hurt by someone within the past year? If so, by whom?: No Do you feel safe in your current relationship?: No Is there a partner from a previous relationship who is making you feel unsafe now?: No Spiritual Healthcare Practices: no Roman Catholic Healthcare Practices: no Cultural Healthcare Practices: no Advance Directives: No Advance Directives Information Provided: Yes Do you have thoughts of harming others: None Do you have a plan to hurt others: No Plan Recently lost weight without trying: Yes How much weight loss: 34pounds or more Eating poorly because of decreased appetite: No Nutrition screen score: 6 Nutrition Risks: No Nutritional Risk Patient : No : No Poor oral hygiene: No service: No Current occupational status: employed 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 [employer] Allergies Allergy/AdvReac Type Severity Reaction Status Date / Time animal dander Allergy Unknown UNKNOWN Verified 01/12/21 14:51 mold Allergy Unknown UNKNOWN Verified 01/12/21 14:51 pollen extracts [POLLEN] Allergy Unknown UNKNOWN Verified 01/12/21 14:51 Active Medications: Current Medications Acetaminophen (Acetaminophen 325 Mg Tablet) 650 mg PO Q6H PRN PRN Reason: pain Last Admin: 01/22/21 09:02 Dose: 650 mg Documented by: Albuterol/Ipratropium (Albuterol/Iprat 2.5/0.5mg 3 Ml Ampul.Neb) 3 ml INHALE RQ6H PRN PRN Reason: asthma Cyanocobalamin (Cyanocobalamin (Vitamin B-12) 1,000 Mcg/Ml Vial) 1,000 mcg IM Q30D [facility] Last Admin: 01/20/21 21:34 Dose: 1,000 mcg Documented by: Docusate Sodium (Docusate Sodium 100 Mg Capsule) 100 mg PO BEDTIME [facility] Last Admin: 01/21/21 20:41 Dose: Not Given Documented by: Enoxaparin Sodium (Enoxaparin Sodium 40 Mg/0.4 Ml Syringe) 40 mg SUBCUT Q24H [facility] Last Admin: 01/22/21 11:56 Dose: 40 mg Documented by: Folic Acid (Folic Acid 1 Mg Tablet) 1 mg PO DAILY [facility] Last Admin: 01/22/21 09:02 Dose: 1 mg Documented by: Thiamine HCl 100 mg/ Sodium (Chloride) 101 mls @ 202 mls/hr IV DAILY [facility] Last Infusion: 01/22/21 12:55 Dose: Infused Documented by: Multivitamins/Vitamin C (Multivitamin Tablet) 1 tab PO DAILY [facility] Last Admin: 01/22/21 09:02 Dose: 1 tab Documented by: Oxycodone HCl (Oxycodone Hcl Immed Release 5 Mg Tablet) 5 mg PO Q6H PRN PRN Reason: Pain, Mild (Pain Scale 1-3) Last Admin: 01/22/21 05:03 Dose: 5 mg Documented by: Senna (Sennosides 8.6 Mg Tablet) 17.2 mg PO BEDTIME [facility] Last Admin: 01/21/21 20:41 Dose: Not Given Documented by: Sodium Chloride (0.9 % Sodium Chloride Flush 3 Ml Syringe) 3 ml IVFLUSH QSHIFT [facility] Last Admin: 01/22/21 09:02 Dose: 3 ml Documented by: Home Medications Medication Instructions Recorded Confirmed Last Taken Type albuterol sulfate 90 mcg/actuation 2 puff PO Q4H PRN 07/03/20 01/20/21 01/19/21 History aerosol inhaler cetirizine 10 mg tablet 10 mg PO DAILY PRN 07/03/20 01/20/21 01/19/21 History inhalational spacing device (Space #1 ea 07/03/20 01/20/21 Unknown History Chamber) melatonin 5 mg capsule 5 mg PO BEDTIME PRN 07/03/20 01/20/21 01/19/21 History multivitamin 1 tab PO DAILY 01/20/21 01/20/21 01/19/21 History Physical Exam Vital Signs: Vital Signs: Last Vital Signs Temp 97 F 01/22/21 15:15 Pulse 98 01/22/21 15:15 Resp 20 01/22/21 15:15 BP 108/75 01/22/21 15:15 Pulse Ox 99 01/22/21 15:15 Body Mass Index 46.3 Const: General: cooperative, healthy appearing, comfortable and no acute distress; No confusion or lethargic Nutritional Appearance: obese Orientation/consciousness: patient oriented x3, No confusion and No lethargic GI: Inspection: Yes normal to inspection, No distended and Yes scar (all lapraroscopic scars healed well) Palpation (GI): Soft to palpation, nontender, no guarding, not rigid, no hernias and no masses Neuro: Other: This is an obese young woman who is 266 pounds, is currently not in any acute distress. She is alert and oriented with normal intellectual functions. Her speech and language functions are normal. Her cranial nerves II through XII are normal with no facial weakness and no extraocular movement abnormality. Neck muscles of normal strength. In the upper extremities she has no pronator drift, however, on individual muscle testing she has bilateral deltoid weakness, which is graded at 4+/5 and bilateral biceps weakness which is 5 minus/5. Triceps are normal. Wrist extensor and finger spread is normal. In the lower extremities she has 4 minus/5 weakness in the iliopsoas, quadriceps, and 4+/5 in the hamstrings. The distal strength is 4+/5. She has 2+ reflexes in the upper extremities, absent ankle reflexes and absent knee reflexes. Plantar responses are clearly flexor. Vibration is preserved in the toes. Position sense is intact. She has decreased pinprick sensation diffusely in both lower extremities up to the mid abdominal region. General: patient oriented x3 and No confusion Extrem: General: Yes normal to inspection (LE - motor strenght 4/5, UE motor strength 5/5), No no pedal edema and No calf tenderness Results Labs CBC & Chem 7: 01/21/21 16:06 01/21/21 08:53 Labs: Short CBC 01/21/21 Range/Units 16:06 WBC 6.5 (4.8-10.8) X10*3/uL Hgb 13.7 (12.0-16.0) g/dl Hct 40.8 (37-47) % Plt Count 275 (160-400) X10*3/uL Microbiology Microbiology Results: Microbiology 01/20/21 04:33 Cerebrospinal Fluid Gram Stain - Final 01/20/21 04:33 Cerebrospinal Fluid CSF Examination - Final 01/20/21 04:33 Cerebrospinal Fluid Fluid Description - Final 01/20/21 04:33 Cerebrospinal Fluid CSF Culture - Preliminary No growth after 2 days Assessment and Plan (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 Her spinal fluid was normal on 922. My recommendation at this time were personally conveyed to Dr. Valdes. She should be started on IVIG 0.4 g/kg body weight which is 122 kg. Daily IV infusion for a total of 5 days with a total dose of 2 g/kg. Check a vital capacity and monitor it daily. Pain management. Check her Lyme antibody titers, repeat sedimentation rate, CPK and aldolase. Evaluation of elevated bilirubin. I would also give her some IV multivitamins because of her recent gastric bypass just in case this is a nutritional neuropathy. (2) S/P gastric bypass: Status: Acute No acute issues, will continue bariatric diet and multivitamin. Please contact us with questions. (3) Elevated bilirubin: Status: Acute Per GI consult (4) Myopathy: Status: Acute Procedures Date of Service Date of Service: 01/22/21
--- NOTE | 2021-01-22 15:45 | MHC.CM.PN ---
pt is now inpt
[2021-01-22 16:15] LABS: Lyme (B. burgdorferi) PCR NOT DETECTED (NOT DETECTED); Lyme PCR Source NOT GIVEN
--- NOTE | 2021-01-22 16:48 | P.PNIM_ITS ---
Subjective Subjective Date of Service: 01/22/21 Interval History: gbs Review of Systems Patient also started to having upper extremities somewhat weakness in addition to lower extremities See could she could able to lift her lower extremities little better than yesterday Denies any new complaint of chest pain or shortness of breath or abdominal pain or fever or chills or nausea or vomiting Denies any cough Physical Exam Vital Signs: Vital Signs: Last Vital Signs Temp 97 F 01/22/21 15:15 Pulse 98 01/22/21 15:15 Resp 20 01/22/21 15:15 BP 108/75 01/22/21 15:15 Pulse Ox 99 01/22/21 15:15 Body Mass Index 46.3 Appearance: Alert.? Oriented X3.? not in distress.? Eyes: Pupils equal, round and reactive to light.? Sclera nonicteric.? ENT: Pharynx normal.? Moist mucous membranes. cvs: rrr, [id number] , no murmur res: clear to auscultation ,no rhonchii or wheezing abd: no rebound or guarding ,nt, bs present. ext pulses present , no cyanosis ,Gait well balanced well coordinated. neuro: axo3 , has bilateral lower extremity weakness and numbness more in upper thighs >shins . Objective Data Active Medications Acetaminophen (Acetaminophen 325 Mg Tablet) 650 mg PO Q6H PRN PRN Reason: pain Last Admin: 01/22/21 09:02 Dose: 650 mg Documented by: LATISHA Acetaminophen (Acetaminophen 325 Mg Tablet) 650 mg PO DAILY@1600 [facility] Stop: 01/26/21 16:01 Albuterol/Ipratropium (Albuterol/Iprat 2.5/0.5mg 3 Ml Ampul.Neb) 3 ml INHALE RQ6H PRN PRN Reason: asthma Cyanocobalamin (Cyanocobalamin (Vitamin B-12) 1,000 Mcg/Ml Vial) 1,000 mcg IM Q30D [facility] Last Admin: 01/20/21 21:34 Dose: 1,000 mcg Documented by: JOSE ARMANDO Diphenhydramine HCl (Diphenhydramine Hcl 50 Mg/Ml Vial) 25 mg IVPUSH DAILY@1600 [facility] Stop: 01/26/21 16:01 Docusate Sodium (Docusate Sodium 100 Mg Capsule) 100 mg PO BEDTIME [facility] Last Admin: 01/21/21 20:41 Dose: Not Given Documented by: DANIEL Non-Admin Reason: Patient Refused Enoxaparin Sodium (Enoxaparin Sodium 40 Mg/0.4 Ml Syringe) 40 mg SUBCUT Q24H [facility] Last Admin: 01/22/21 11:56 Dose: 40 mg Documented by: LATISHA Folic Acid (Folic Acid 1 Mg Tablet) 1 mg PO DAILY [facility] Last Admin: 01/22/21 09:02 Dose: 1 mg Documented by: LATISHA Thiamine HCl 100 mg/ Sodium (Chloride) 101 mls @ 202 mls/hr IV DAILY [facility] Last Infusion: 01/22/21 12:55 Dose: 0 mls/hr Documented by: LATISHA Immune Globulin (Gammagard 10%) 400 mls @ 61 mls/hr IV DAILY@1730 [facility] Stop: 01/27/21 00:04 Immune Globulin (Gammagard 10%) 50 mls @ 61 mls/hr IV DAILY@1630 [facility] Stop: 01/26/21 17:20 Sodium Chloride (Ns) 500 mls @ 500 mls/hr IV DAILY@1530 [facility] Stop: 01/26/21 16:29 Methylprednisolone Sodium Succinate (Methylprednisolone Sod Succ 40 Mg/Ml Vial) 40 mg IVPUSH DAILY@1630 [facility] Stop: 01/26/21 16:31 Multivitamins/Vitamin C (Multivitamin Tablet) 1 tab PO DAILY [facility] Last Admin: 01/22/21 09:02 Dose: 1 tab Documented by: LATISHA Oxycodone HCl (Oxycodone Hcl Immed Release 5 Mg Tablet) 5 mg PO Q6H PRN PRN Reason: Pain, Mild (Pain Scale 1-3) Last Admin: 01/22/21 05:03 Dose: 5 mg Documented by: DANIEL Senna (Sennosides 8.6 Mg Tablet) 17.2 mg PO BEDTIME [facility] Last Admin: 01/21/21 20:41 Dose: Not Given Documented by: DANIEL Non-Admin Reason: Patient Refused Sodium Chloride (0.9 % Sodium Chloride Flush 3 Ml Syringe) 3 ml IVFLUSH QSHIFT [facility] Last Admin: 01/22/21 09:02 Dose: 3 ml Documented by: LATISHA Labs CBC & Chem 7: 01/21/21 16:06 01/21/21 08:53 Labs: Laboratory Results - last 24 hr 01/20/21 01/21/21 01/22/21 04:33 08:53 08:10 Total Creatine Kinase A1AT Clinical Indicatr Cancelled A1AT Mutation Cancelled Fld Lyme DNA (PCR) NOT GIVEN RBC Copper Lyme Disease DNA (PCR) NOT DETECTED Hepatitis A IgM Ab Nonreactive 01/22/21 01/22/21 08:11 15:49 Total Creatine Kinase 20 L A1AT Clinical Indicatr A1AT Mutation Fld Lyme DNA (PCR) RBC Copper Cancelled Lyme Disease DNA (PCR) Hepatitis A IgM Ab Microbiology Microbiology Results: Microbiology 01/20/21 04:33 Gram Stain - Final Cerebrospinal Fluid CSF Examination - Final Fluid Description - Final CSF Culture - Preliminary No growth after 2 days 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 Acute neuropathy unclear etiology: Lab imaging and EKG reviewed and personally improved interpreted Neurology evaluation-may need EMG B12 seems normal, added folate folic acid since folic acid borderline.?? added B complex vitamin added EMG Upper extremity weakness in his new- need IVIG PT OT need neuro follow up- added workup brain mri and C, T spine for workup for b/l lower ext weakness ?bariatric surgery eval noted- poetein shakes /ensure :as per bariatric surgery-patient should stay the same as home plan, patient may use home protein shakes or Ensure shakes from the hospital, continue her home protein bars and 1 small meal 3d/ week 2. Asthma:? Asymptomatic P.r.n. nebs added DVT prophylaxis with Lovenox Quality Stroke Does the patient have a stroke diagnosis?: No VTE Prior VTE?: No VTE Risk Level:: Medical - moderate - high VTE Device Contraindication: N/A - Device Ordered VTE Drug Contraindication: N/A - Med Ordered
[2021-01-22] MEDS: 0.9 % Sodium Chloride 500 ML IV (16:53)
[2021-01-22] MEDS: diphenhydrAMINE HCL 50 MG/ML VIAL 25 MG IVPUSH (17:34)
[2021-01-22] MEDS: methylPREDNISolone Sod Succ 40 MG/ML VIAL IVPUSH (17:35)
[2021-01-22 18:15] LABS: Gamma Glutamyl Transpeptidase 39 U/L (7-33)
[2021-01-22 18:35] LABS: Vitamin D 25-OH Total 23.5 ng/mL (>30)
[2021-01-23 07:13] VITALS: BP 135/73; PULSE 74; RESP 18; TEMP 35.5; O2SAT 100
[2021-01-23 07:17] LABS: Alanine Aminotransferase 93 U/L (0-31); Albumin Level 3.5 g/dL (3.5-5.0); Alkaline Phosphatase 54 U/L (39-117); Anion Gap 14 (12-20); Aspartate Amino Transferase 60 U/L (5-31); Bilirubin Direct 1.2 mg/dL (0.0-0.5); Bilirubin Total 2.9 mg/dL (0.0-1.0); Blood Urea Nitrogen 13 mg/dL (9-16); Calcium 9.2 mg/dL (8.4-10.2); Carbon Dioxide 23 mmol/L (22-29); Chloride 103 mmol/L (96-108); Creatinine Clr Calc Pharmacy 161.2; Estimated Glomerular Filt Rate > 60; Glucose Random 103 mg/dL (60-115); Potassium 4.4 mmol/L (3.3-5.1); Sodium 136 mmol/L (135-145); Total Protein 7.4 g/dL (6.5-8.0)
[2021-01-23 07:51] LABS: Erythrocyte Sedimentation Rate 51 MM/HR (0-20)
[2021-01-23] MEDS: Multivitamin TABLET 1 TAB PO (08:12)
[2021-01-23] MEDS: Folic Acid 1 MG in 0.9 % Sodium Chloride 50 ML 100.4 MG IV (08:12)
[2021-01-23] MEDS: 0.9 % Sodium Chloride Flush 3 ML SYRINGE IVFLUSH ×2 (08:13→16:25)
--- NOTE | 2021-01-23 08:40 | MHC.CM.PN ---
Addendum entered by Meredith Mancilla 01/23/21 13:36: [facility] NOW FOLLOWING Addendum entered by Meredith Mancilla 01/23/21 08:59: [facility] NOW OFFERING A BED PENDING INSURANCE AUTH WHICH CANNOT BE OBTAINED PRIOR TO MONDAY. PT WILL NEED UPDATED PT AND OT EVALS PRIOR TO AUTH REQUEST BEING SUBMITTED Original Note: UPDATES S[facility]. THUS FAR PT HAS HAD NO BED OFFERS. AWAITING RESPONSES.
[2021-01-23] MEDS: Thiamine HCL 100 MG in 0.9 % Sodium Chloride 100 ML 202 MG IV (09:42)
[2021-01-23 10:59] VITALS: BP 128/70; PULSE 90; RESP 18; TEMP 35.5; O2SAT 100
--- NOTE | 2021-01-23 12:34 | HO.PM.IMPN ---
Subjective Subjective Date of Service: 01/23/21 Interval History: GBS Review of Systems Upper and lower extremity weakness seems to be improving slowly Denies any shortness of breath or cough or chest pain. Denies fever or chills or nausea or vomiting Denies any cough Denies any weakness or numbness. Physical Exam Vital Signs: Vital Signs: Last Vital Signs Temp 96 F L 01/23/21 10:59 Pulse 90 01/23/21 10:59 Resp 18 01/23/21 10:59 BP 128/70 01/23/21 10:59 Pulse Ox 100 01/23/21 10:59 Body Mass Index 46.3 Appearance: Alert.? Oriented X3.? not in distress.? Eyes: Pupils equal, round and reactive to light.? Sclera nonicteric.? ENT: Pharynx normal.? Moist mucous membranes. cvs: rrr, [id number] , no murmur res: clear to auscultation ,no rhonchii or wheezing abd: no rebound or guarding ,nt, bs present. ext pulses present , no cyanosis ,Gait well balanced well coordinated. neuro: axo3 , wekaness lower and upper seems slightly improing Objective Data Active Medications Acetaminophen (Acetaminophen 325 Mg Tablet) 650 mg PO Q6H PRN PRN Reason: pain Last Admin: 01/22/21 09:02 Dose: 650 mg Documented by: LATISHA Acetaminophen (Acetaminophen 325 Mg Tablet) 650 mg PO DAILY@1600 [facility] Stop: 01/26/21 16:01 Last Admin: 01/22/21 17:35 Dose: 650 mg Documented by: LATISHA Albuterol/Ipratropium (Albuterol/Iprat 2.5/0.5mg 3 Ml Ampul.Neb) 3 ml INHALE RQ6H PRN PRN Reason: asthma Cyanocobalamin (Cyanocobalamin (Vitamin B-12) 1,000 Mcg/Ml Vial) 1,000 mcg IM Q30D [facility] Last Admin: 01/20/21 21:34 Dose: 1,000 mcg Documented by: JOSE ARMANDO Diphenhydramine HCl (Diphenhydramine Hcl 50 Mg/Ml Vial) 25 mg IVPUSH DAILY@1600 [facility] Stop: 01/26/21 16:01 Last Admin: 01/22/21 17:34 Dose: 25 mg Documented by: LATISHA Docusate Sodium (Docusate Sodium 100 Mg Capsule) 100 mg PO BEDTIME [facility] Last Admin: 01/22/21 22:04 Dose: Not Given Documented by: DAVION Non-Admin Reason: Patient Refused Enoxaparin Sodium (Enoxaparin Sodium 40 Mg/0.4 Ml Syringe) 40 mg SUBCUT Q24H [facility] Last Admin: 01/22/21 11:56 Dose: 40 mg Documented by: LATISHA Thiamine HCl 100 mg/ Sodium (Chloride) 101 mls @ 202 mls/hr IV DAILY [facility] Last Infusion: 01/23/21 10:17 Dose: 0 mls/hr Documented by: TIFFANY Immune Globulin (Gammagard 10%) 400 mls @ 61 mls/hr IV DAILY@1730 [facility] Stop: 01/27/21 00:04 Last Infusion: 01/23/21 02:25 Dose: 0 mls/hr Documented by: DAVION Immune Globulin (Gammagard 10%) 50 mls @ 61 mls/hr IV DAILY@1630 [facility] Stop: 01/26/21 17:20 Last Infusion: 01/22/21 20:11 Dose: 0 mls/hr Documented by: DAVION Sodium Chloride (Ns) 500 mls @ 500 mls/hr IV DAILY@1530 [facility] Stop: 01/26/21 16:29 Last Infusion: 01/22/21 18:33 Dose: 0 mls/hr Documented by: ALEX Folic Acid 1 mg/ Sodium (Chloride) 50.2 mls @ 100.4 mls/hr IV DAILY [facility] Stop: 01/24/21 09:29 Last Infusion: 01/23/21 09:29 Dose: 0 mls/hr Documented by: TIFFANY Methylprednisolone Sodium Succinate (Methylprednisolone Sod Succ 40 Mg/Ml Vial) 40 mg IVPUSH DAILY@1630 [facility] Stop: 01/26/21 16:31 Last Admin: 01/22/21 17:35 Dose: 40 mg Documented by: LATISHA Multivitamins/Vitamin C (Multivitamin Tablet) 1 tab PO DAILY [facility] Last Admin: 01/23/21 08:12 Dose: 1 tab Documented by: TIFFANY Oxycodone HCl (Oxycodone Hcl Immed Release 5 Mg Tablet) 5 mg PO Q6H PRN PRN Reason: Pain, Mild (Pain Scale 1-3) Last Admin: 01/22/21 05:03 Dose: 5 mg Documented by: DANIEL Rodriguez (Sennosides 8.6 Mg Tablet) 17.2 mg PO BEDTIME [facility] Last Admin: 01/22/21 22:04 Dose: Not Given Documented by: DEYANIRAJ Non-Admin Reason: Patient Refused Sodium Chloride (0.9 % Sodium Chloride Flush 3 Ml Syringe) 3 ml IVFLUSH QSHIFT [facility] Last Admin: 01/23/21 08:13 Dose: 3 ml Documented by: TIFFANY Labs CBC & Chem 7: 01/21/21 16:06 01/23/21 06:39 Labs: Laboratory Results - last 24 hr 01/20/21 01/22/21 01/22/21 04:33 15:49 17:35 ESR Anion Gap Estim Creat Clear Calc Estimated GFR Random Glucose Calcium Total Bilirubin Direct Bilirubin GGT 39 H AST ALT Alkaline Phosphatase Total Creatine Kinase 20 L Total Protein Albumin 25-OH Vitamin D Total Fld Lyme DNA (PCR) NOT GIVEN Lyme Disease DNA (PCR) NOT DETECTED 01/22/21 01/23/21 01/23/21 17:35 06:39 06:39 ESR 51 H Anion Gap 14 Estim Creat Clear Calc 161.2 Estimated GFR > 60 Random Glucose 103 Calcium 9.2 Total Bilirubin 2.9 H Direct Bilirubin 1.2 H GGT AST 60 H ALT 93 H Alkaline Phosphatase 54 Total Creatine Kinase Total Protein 7.4 Albumin 3.5 25-OH Vitamin D Total 23.5 Fld Lyme DNA (PCR) Lyme Disease DNA (PCR) Microbiology Microbiology Results: Microbiology 01/20/21 04:33 Gram Stain - Final Cerebrospinal Fluid CSF Examination - Final Fluid Description - Final CSF Culture - Final No growth after 3 days. 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 Acute neuropathy unclear etiology: Lab imaging and EKG reviewed and personally improved interpreted Neurology evaluation-may need EMG B12 seems normal, added folate folic acid since folic acid borderline.?? added B complex vitamin added EMG weakness eeems improving-day2/5 PT OT need neuro follow up- added workup brain mri and C, T spine for workup for b/l lower ext weakness also cpk -normal esr seems trending up to 51 , ldh normal, cpk normal , aldolase pending alpha 1 anitripsin, ceruloplasmin, alpha , B ang G tocopherol pending rbc copper and venous lead pending ?bariatric surgery eval noted- poetein shakes /ensure :as per bariatric surgery-patient should stay the same as home plan, patient may use home protein shakes or Ensure shakes from the hospital, continue her home protein bars and 1 small meal 3d/ week 2. Asthma:? Asymptomatic P.r.n. nebs added 3. elevated liver functions: Seen by Gi-likely VITAL versus Gilbert syndrome. bilirubin improving ast and alt trnding slowy up Hepatitis ABC screen negative HIV pending Erlichia , babesia , bcr, Lyme testing pending alpha 1 anitripsin, ceruloplasmin, alpha , B ang G tocopherol pending, serologies IgG, Igm , protease3, anti Hu, anti transglutaminase IgG and IgA pending abd grace also ordered . also incidenatl her vitamin d insufficent : levels 23.5 : Added supplements DVT prophylaxis with Lovenox Quality Stroke Does the patient have a stroke diagnosis?: No VTE Prior VTE?: No VTE Risk Level:: Medical - moderate - high VTE Device Contraindication: N/A - Device Ordered VTE Drug Contraindication: N/A - Med Ordered
[2021-01-23] MEDS: 0.9 % Sodium Chloride 500 ML IV (13:51)
[2021-01-23] MEDS: Enoxaparin Sodium 40 MG/0.4 ML SYRINGE SUBCUT (13:51)
[2021-01-23] MEDS: Cholecalciferol (Vitamin D3) 25 MCG TABLET PO (13:51)
[2021-01-23 15:34] VITALS: BP 105/65; PULSE 82; RESP 19; TEMP 37.2; O2SAT 98
[2021-01-23] MEDS: Acetaminophen 325 MG TABLET 650 MG PO (16:24)
[2021-01-23] MEDS: methylPREDNISolone Sod Succ 40 MG/ML VIAL IVPUSH (16:24)
[2021-01-23] MEDS: diphenhydrAMINE HCL 50 MG/ML VIAL 25 MG IVPUSH (16:24)
[2021-01-23 19:43] VITALS: BP 145/65; PULSE 76; RESP 19; TEMP 37.2; O2SAT 98
[2021-01-23 23:54] VITALS: BP 107/63; PULSE 79; RESP 18; TEMP 36.4; O2SAT 97
[2021-01-24 03:14] VITALS: BP 102/62; PULSE 74; RESP 16; TEMP 37.7; O2SAT 97
[2021-01-24 07:18] LABS: Baso%MD 0.3 %; Hematocrit 33.7 % (37-47); Hemoglobin 11.5 g/dl (12.0-16.0); IG%MD 0.6 %; Lymph%MD 13.7 %; Mean Corpuscular HGB Conc 34.1 g/dl (31.0-35.0); Mean Corpuscular Hemoglobin 28.3 pg (27.0-33.0); Mean Platelet Volume 12.2 fL (9.4-12.3); Mono%MD 5.9 %; Neut%MD 79.5 %; Platelet Count 261 X10*3/uL (160-400); Red Blood Count 4.06 X10*6/uL (4.20-5.50); Red Cell Distribution Width 15.5 % (11.0-16.0); White Blood Count 6.3 X10*3/uL (4.8-10.8)
[2021-01-24 07:27] VITALS: BP 112/71; PULSE 74; RESP 16; TEMP 36.2; O2SAT 99
[2021-01-24 07:46] LABS: Anion Gap 13 (12-20); Blood Urea Nitrogen 13 mg/dL (9-16); Calcium 8.7 mg/dL (8.4-10.2); Carbon Dioxide 24 mmol/L (22-29); Chloride 104 mmol/L (96-108); Creatinine Clr Calc Pharmacy 163.7; Estimated Glomerular Filt Rate > 60; Glucose Random 88 mg/dL (60-115); Potassium 4.3 mmol/L (3.3-5.1); Sodium 137 mmol/L (135-145)
[2021-01-24 07:50] LABS: Band Neutrophils Percent 0 % (3-5); Lymphocytes Absolute Manual 1.2 X10*3/uL (0.6-4.8); Lymphocytes Percent Manual 19 % (20-40); Monocytes Absolute Manual 0.6 X10*3/uL (0.0-1.2); Monocytes Percent Manual 10 % (2-11); Neutrophils Absolute Manual 4.5 X10*3/uL (2.2-7.9); Neutrophils Percent Manual 71 % (45-73)
[2021-01-24 07:52] LABS: Platelet Estimate NORMAL (NORMAL); Platelet Morphology Comment NORMAL; RBC Morphology NOTED
[2021-01-24 07:53] LABS: Acanthocytes 1+ (0-2) /OIF; Basophilic Stippling 1+ (0-2) /OIF; Burr Cells 1+ (0-2) /OIF; Ovalocytes 1+ (5-14) /OIF
--- NOTE | 2021-01-24 08:11 | P.PNIM_ITS ---
Subjective Subjective Date of Service: 01/24/21 Interval History: Follow-up forGBS, elevated liver function Review of Systems Patient has upper and lower extremity weakness seems to be improving day-by-day. Denies any new complaint of chest pain or shortness of breath or abdominal pain or fever or chills or nausea or vomiting Denies any cough Denies any weakness or numbness. Physical Exam Vital Signs: Vital Signs: Last Vital Signs Temp 97.1 F 01/24/21 07:27 Pulse 74 01/24/21 07:27 Resp 16 01/24/21 07:27 BP 112/71 01/24/21 07:27 Pulse Ox 99 01/24/21 07:27 Body Mass Index 46.3 ? Appearance: Alert.? Oriented X3.? not in distress.? Eyes: Pupils equal, round and reactive to light.? Sclera nonicteric.? ENT: Pharynx normal.? Moist mucous membranes. cvs: rrr, [id number] , no murmur res: clear to auscultation ,no rhonchii or wheezing abd: no rebound or guarding ,nt, bs present. ext pulses present , no cyanosis ,Gait well balanced well coordinated. neuro: axo3 , wekaness lower and upper seems improving Objective Data Active Medications Acetaminophen (Acetaminophen 325 Mg Tablet) 650 mg PO Q6H PRN PRN Reason: pain Last Admin: 01/22/21 09:02 Dose: 650 mg Documented by: LATISHA Acetaminophen (Acetaminophen 325 Mg Tablet) 650 mg PO DAILY@1600 [facility] Stop: 01/26/21 16:01 Last Admin: 01/23/21 16:24 Dose: 650 mg Documented by: TIFFANY Albuterol/Ipratropium (Albuterol/Iprat 2.5/0.5mg 3 Ml Ampul.Neb) 3 ml INHALE RQ6H PRN PRN Reason: asthma Cyanocobalamin (Cyanocobalamin (Vitamin B-12) 1,000 Mcg/Ml Vial) 1,000 mcg IM Q30D [facility] Last Admin: 01/20/21 21:34 Dose: 1,000 mcg Documented by: JOSE ARMANDO Diphenhydramine HCl (Diphenhydramine Hcl 50 Mg/Ml Vial) 25 mg IVPUSH DAILY@1600 [facility] Stop: 01/26/21 16:01 Last Admin: 01/23/21 16:24 Dose: 25 mg Documented by: TIFFANY Docusate Sodium (Docusate Sodium 100 Mg Capsule) 100 mg PO BEDTIME [facility] Last Admin: 01/23/21 20:52 Dose: Not Given Documented by: DAVION Non-Admin Reason: Patient Refused Enoxaparin Sodium (Enoxaparin Sodium 40 Mg/0.4 Ml Syringe) 40 mg SUBCUT Q24H [facility] Last Admin: 01/23/21 13:51 Dose: 40 mg Documented by: TIFFAYN Thiamine HCl 100 mg/ Sodium (Chloride) 101 mls @ 202 mls/hr IV DAILY [facility] Last Infusion: 01/23/21 10:17 Dose: 0 mls/hr Documented by: TIFFANY Immune Globulin (Gammagard 10%) 400 mls @ 61 mls/hr IV DAILY@1730 [facility] Stop: 01/27/21 00:04 Last Infusion: 01/23/21 21:58 Dose: 61 mls/hr Documented by: DAVION Immune Globulin (Gammagard 10%) 50 mls @ 61 mls/hr IV DAILY@1630 [facility] Stop: 01/26/21 17:20 Last Infusion: 01/23/21 17:53 Dose: 0 mls/hr Documented by: TIFFANY Sodium Chloride (Ns) 500 mls @ 500 mls/hr IV DAILY@1530 [facility] Stop: 01/26/21 16:29 Last Infusion: 01/23/21 15:03 Dose: 0 mls/hr Documented by: TIFFANY Folic Acid 1 mg/ Sodium (Chloride) 50.2 mls @ 100.4 mls/hr IV DAILY [facility] Stop: 01/24/21 09:29 Last Infusion: 01/23/21 09:29 Dose: 0 mls/hr Documented by: TIFFANY Methylprednisolone Sodium Succinate (Methylprednisolone Sod Succ 40 Mg/Ml Vial) 40 mg IVPUSH DAILY@1630 [facility] Stop: 01/26/21 16:31 Last Admin: 01/23/21 16:24 Dose: 40 mg Documented by: TIFFANY Multivitamins/Vitamin C (Multivitamin Tablet) 1 tab PO DAILY [facility] Last Admin: 01/23/21 08:12 Dose: 1 tab Documented by: TIFFANY Oxycodone HCl (Oxycodone Hcl Immed Release 5 Mg Tablet) 5 mg PO Q6H PRN PRN Reason: Pain, Mild (Pain Scale 1-3) Last Admin: 01/22/21 05:03 Dose: 5 mg Documented by: DANIEL Paulna (Sennosides 8.6 Mg Tablet) 17.2 mg PO BEDTIME [facility] Last Admin: 01/23/21 20:52 Dose: Not Given Documented by: DAVION Non-Admin Reason: Patient Refused Sodium Chloride (0.9 % Sodium Chloride Flush 3 Ml Syringe) 3 ml IVFLUSH QSHIFT [facility] Last Admin: 01/24/21 00:14 Dose: Not Given Documented by: DAVION Non-Admin Reason: IV Running Vitamin D (Cholecalciferol (Vitamin D3) 25 Mcg Tablet) 25 mcg PO DAILY [facility] Last Admin: 01/23/21 13:51 Dose: 25 mcg Documented by: TIFFANY Labs CBC & Chem 7: 01/24/21 06:10 01/24/21 06:10 Labs: Laboratory Results - last 24 hr 01/24/21 01/24/21 06:10 06:10 MCV 83.0 MCH 28.3 MCHC 34.1 RDW 15.5 Plt Count 261 MPV 12.2 Absolute Nucleated RBC 0.000 Nucleated RBC % (auto) 0.0 Neutrophils % (Manual) 71 Band Neutrophils % 0 L Lymphocytes % (Manual) 19 L Monocytes % (Manual) 10 Abs Neuts (Manual) 4.5 Lymphocytes # (Manual) 1.2 Monocytes # (Manual) 0.6 Platelet Estimate NORMAL Plt Morphology Comment NORMAL RBC Morphology NOTED Basophilic Stippling 1+ (0-2) Ovalocytes 1+ (5-14) [place] Cells 1+ (0-2) Acanthocytes (Spur) 1+ (0-2) Anion Gap 13 Estim Creat Clear Calc 163.7 Estimated GFR > 60 Random Glucose 88 Calcium 8.7 Microbiology Microbiology Results: Microbiology 01/20/21 04:33 Gram Stain - Final Cerebrospinal Fluid CSF Examination - Final Fluid Description - Final CSF Culture - Final No growth after 3 days. 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 Acute neuropathy unclear etiology: Lab imaging and EKG reviewed and personally improved interpreted Neurology evaluation-may need EMG B12 seems normal, added folate folic acid since folic acid borderline.?? added B complex vitamin added EMG weakness eeems improving-day3/5 PT OT need neuro follow up- added workup brain mri and C, T spine for workup for b/l lower ext weakness also cpk -normal esr seems trending up to 51 , ldh normal, cpk normal , aldolase pending alpha 1 anitripsin, ceruloplasmin, alpha , B ang G tocopherol pending rbc copper and venous lead pending ?bariatric surgery eval noted- poetein shakes /ensure :as per bariatric surgery- patient should stay the same as home plan, patient may use home protein shakes or Ensure shakes from the hospital, continue her home protein bars and 1 small meal 3d/ week 2. Asthma:? Asymptomatic P.r.n. nebs added 3. elevated liver functions: Seen by Gi-likely VITAL versus Gilbert syndrome. bilirubin improving ast and alt trnding slowy up Hepatitis ABC screen negative HIV pending Erlichia ,? babesia , bcr, Lyme testing pending alpha 1 anitripsin, ceruloplasmin, alpha , B ang G tocopherol pending, serologies IgG, Igm , protease3, anti Hu, anti transglutaminase IgG and IgA pending abd grace also ordered . also incidenatl her vitamin d insufficent : levels 23.5 :?on supplements DVT prophylaxis with Lovenox Quality Stroke Does the patient have a stroke diagnosis?: No VTE Prior VTE?: No VTE Risk Level:: Medical - moderate - high VTE Device Contraindication: N/A - Device Ordered VTE Drug Contraindication: N/A - Med Ordered
[2021-01-24 08:53] LABS: Alanine Aminotransferase 100 U/L (0-31); Albumin Level 3.2 g/dL (3.5-5.0); Alkaline Phosphatase 47 U/L (39-117); Aspartate Amino Transferase 60 U/L (5-31); Bilirubin Direct 1.1 mg/dL (0.0-0.5); Bilirubin Total 3.1 mg/dL (0.0-1.0); Total Protein 7.7 g/dL (6.5-8.0)
--- NOTE | 2021-01-24 09:55 | MHC.CM.PN ---
MD indicates 2 more days of IVIG. CM to follow.
[2021-01-24] MEDS: Multivitamin TABLET 1 TAB PO (10:04)
[2021-01-24] MEDS: 0.9 % Sodium Chloride Flush 3 ML SYRINGE IVFLUSH ×3 (10:05→20:27)
[2021-01-24] MEDS: Cholecalciferol (Vitamin D3) 25 MCG TABLET PO (10:06)
[2021-01-24] MEDS: Thiamine HCL 100 MG in 0.9 % Sodium Chloride 100 ML 202 MG IV (10:06)
[2021-01-24] MEDS: Folic Acid 1 MG in 0.9 % Sodium Chloride 50 ML 100.4 MG IV (11:04)
[2021-01-24 11:05] VITALS: BP 126/83; PULSE 79; RESP 20; TEMP 36.6; O2SAT 99
[2021-01-24] MEDS: Enoxaparin Sodium 40 MG/0.4 ML SYRINGE SUBCUT (11:13)
[2021-01-24 15:30] VITALS: BP 103/62; PULSE 77; RESP 18; TEMP 36; O2SAT 100
[2021-01-24] MEDS: 0.9 % Sodium Chloride 500 ML IV (15:35)
[2021-01-24] MEDS: methylPREDNISolone Sod Succ 40 MG/ML VIAL IVPUSH (16:45)
[2021-01-24] MEDS: diphenhydrAMINE HCL 50 MG/ML VIAL 25 MG IVPUSH (16:45)
[2021-01-24] MEDS: Acetaminophen 325 MG TABLET 650 MG PO (16:46)
[2021-01-24 19:11] VITALS: BP 109/62; PULSE 82; RESP 18; TEMP 36.4; O2SAT 100
[2021-01-24] MEDS: Sennosides 8.6 MG TABLET 17.2 MG PO (20:27)
[2021-01-24] MEDS: Docusate Sodium 100 MG CAPSULE PO (20:27)
[2021-01-24 23:17] VITALS: BP 129/75; PULSE 77; RESP 18; TEMP 36.3; O2SAT 100
[2021-01-25 03:46] VITALS: BP 116/72; PULSE 73; RESP 18; TEMP 36.4; O2SAT 99
[2021-01-25 07:32] VITALS: BP 109/65; PULSE 89; RESP 18; TEMP 36.4; O2SAT 99
[2021-01-25 08:38] LABS: HIV AB/AG Nonreactive (Nonreactive); HIV Num 1 0.12 S/CO (0.00-0.99)
[2021-01-25] MEDS: Folic Acid 1 MG in 0.9 % Sodium Chloride 50 ML 100.4 MG IV (09:11)
[2021-01-25] MEDS: Cholecalciferol (Vitamin D3) 25 MCG TABLET PO (09:11)
[2021-01-25] MEDS: 0.9 % Sodium Chloride Flush 3 ML SYRINGE IVFLUSH (09:11)
[2021-01-25] MEDS: Multivitamin TABLET 1 TAB PO (09:11)
[2021-01-25 09:12] LABS: Myeloperoxidase Antibody <1.0 AI; Proteinase 3 PR3 Antibodies <1.0 AI
[2021-01-25 09:48] VITALS: BP 109/65; PULSE 89; O2SAT 99
[2021-01-25] MEDS: Thiamine HCL 100 MG in 0.9 % Sodium Chloride 100 ML 202 MG IV (09:50)
[2021-01-25 10:01] LABS: Methylmalonic Acid 81 nmol/L (87-318)
[2021-01-25 10:55] VITALS: BP 121/74; PULSE 72; RESP 18; TEMP 36.7; O2SAT 100
--- NOTE | 2021-01-25 12:09 | MHC.CM.PN ---
per rounds pt to be dcd tomorrow kin going for vasquez asked md for ej
[2021-01-25 12:21] LABS: Ceruloplasmin 27 mg/dL (18-53)
[2021-01-25 12:21] LABS: IgA 412 mg/dL (47-310); IgG 829 mg/dL (600-1640); IgM 130 mg/dL (50-300)
[2021-01-25] MEDS: Enoxaparin Sodium 40 MG/0.4 ML SYRINGE SUBCUT (12:49)
[2021-01-25] MEDS: Acetaminophen 325 MG TABLET 650 MG PO ×2 (12:52→17:12)
[2021-01-25 13:45] LABS: Alpha 1 Anti-trypsin 172 mg/dL (83-199)
--- NOTE | 2021-01-25 13:49 | HO.PM.IMPN ---
Subjective Subjective Date of Service: 01/25/21 Interval History: gbs Review of Systems Weakness seems to be improving and lower extremity , numbness on lower ext also improving Denies any new complaint of chest pain or shortness of breath or abdominal pain or fever or chills or nausea or vomiting Denies any cough Physical Exam Vital Signs: Vital Signs: Last Vital Signs Temp 98.0 F 01/25/21 10:55 Pulse 72 01/25/21 10:55 Resp 18 01/25/21 10:55 BP 121/74 01/25/21 10:55 Pulse Ox 100 01/25/21 10:55 Body Mass Index 46.3 Appearance: Alert.? Oriented X3.? not in distress.? Eyes: Pupils equal, round and reactive to light.? Sclera nonicteric.? ENT: Pharynx normal.? Moist mucous membranes. cvs: rrr, [id number] , no murmur res: clear to auscultation ,no rhonchii or wheezing abd: no rebound or guarding ,nt, bs present. ext pulses present , no cyanosis ,Gait well balanced well coordinated. neuro: axo3 , weakness lower and upper seems? improving day by day Objective Data Active Medications Acetaminophen (Acetaminophen 325 Mg Tablet) 650 mg PO Q6H PRN PRN Reason: pain Last Admin: 01/25/21 12:52 Dose: 650 mg Documented by: LILA Acetaminophen (Acetaminophen 325 Mg Tablet) 650 mg PO DAILY@1600 [facility] Stop: 01/26/21 16:01 Last Admin: 01/24/21 16:46 Dose: 650 mg Documented by: JOHN Albuterol/Ipratropium (Albuterol/Iprat 2.5/0.5mg 3 Ml Ampul.Neb) 3 ml INHALE RQ6H PRN PRN Reason: asthma Cyanocobalamin (Cyanocobalamin (Vitamin B-12) 1,000 Mcg/Ml Vial) 1,000 mcg IM Q30D [facility] Last Admin: 01/20/21 21:34 Dose: 1,000 mcg Documented by: JOSE ARMANDO Diphenhydramine HCl (Diphenhydramine Hcl 50 Mg/Ml Vial) 25 mg IVPUSH DAILY@1600 [facility] Stop: 01/26/21 16:01 Last Admin: 01/24/21 16:45 Dose: 25 mg Documented by: JOHN Docusate Sodium (Docusate Sodium 100 Mg Capsule) 100 mg PO BEDTIME [facility] Last Admin: 01/24/21 20:27 Dose: 100 mg Documented by: MANDO Enoxaparin Sodium (Enoxaparin Sodium 40 Mg/0.4 Ml Syringe) 40 mg SUBCUT Q24H [facility] Last Admin: 01/25/21 12:49 Dose: 40 mg Documented by: LILA Thiamine HCl 100 mg/ Sodium (Chloride) 101 mls @ 202 mls/hr IV DAILY [facility] Last Infusion: 01/25/21 10:35 Dose: 0 mls/hr Documented by: LILA Immune Globulin (Gammagard 10%) 400 mls @ 61 mls/hr IV DAILY@1730 [facility] Stop: 01/27/21 00:04 Last Infusion: 01/25/21 01:01 Dose: 0 mls/hr Documented by: MANDO Immune Globulin (Gammagard 10%) 50 mls @ 61 mls/hr IV DAILY@1630 [facility] Stop: 01/26/21 17:20 Last Infusion: 01/24/21 18:16 Dose: 0 mls/hr Documented by: JOHN Sodium Chloride (Ns) 500 mls @ 500 mls/hr IV DAILY@1530 [facility] Stop: 01/26/21 16:29 Last Infusion: 01/24/21 16:47 Dose: 0 mls/hr Documented by: JOHN Folic Acid 1 mg/ Sodium (Chloride) 50.2 mls @ 100.4 mls/hr IV DAILY [facility] Last Infusion: 01/25/21 10:00 Dose: 0 mls/hr Documented by: LILA Methylprednisolone Sodium Succinate (Methylprednisolone Sod Succ 40 Mg/Ml Vial) 40 mg IVPUSH DAILY@1630 [facility] Stop: 01/26/21 16:31 Last Admin: 01/24/21 16:45 Dose: 40 mg Documented by: JOHN Multivitamins/Vitamin C (Multivitamin Tablet) 1 tab PO DAILY [facility] Last Admin: 01/25/21 09:11 Dose: 1 tab Documented by: LILA Oxycodone HCl (Oxycodone Hcl Immed Release 5 Mg Tablet) 5 mg PO Q6H PRN PRN Reason: Pain, Mild (Pain Scale 1-3) Last Admin: 01/22/21 05:03 Dose: 5 mg Documented by: DANIEL Senna (Sennosides 8.6 Mg Tablet) 17.2 mg PO BEDTIME [facility] Last Admin: 01/24/21 20:27 Dose: 17.2 mg Documented by: MANDO Sodium Chloride (0.9 % Sodium Chloride Flush 3 Ml Syringe) 3 ml IVFLUSH QSHIFT [facility] Last Admin: 01/25/21 09:11 Dose: 3 ml Documented by: LILA Vitamin D (Cholecalciferol (Vitamin D3) 25 Mcg Tablet) 25 mcg PO DAILY [facility] Last Admin: 01/25/21 09:11 Dose: 25 mcg Documented by: LILA Labs CBC & Chem 7: 01/24/21 06:10 01/24/21 06:10 Labs: Laboratory Results - last 24 hr 01/20/21 01/22/21 01/22/21 02:14 08:10 08:11 Ifhea-5-Xxnsgkhhosa 172 Ceruloplasmin 27 Methylmalonic Acid 81 L IgG Total IgA Total IgM Proteinase 3 (PR3) Ab Myeloperoxidase Ab HIV 1&2 Ab/P24 Ag 4thGn 01/22/21 01/22/21 17:35 20:18 Wmhmd-1-Twpbhjtpkcn Ceruloplasmin Methylmalonic Acid IgG Total 829 IgA Total 412 H IgM 130 Proteinase 3 (PR3) Ab <1.0 Myeloperoxidase Ab <1.0 HIV 1&2 Ab/P24 Ag 4thGn Nonreactive Assessment and Plan (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 added B complex vitamin added EMG weakness eeems improving-day08/03 -discussed with the pharmacy patient will complete course of IVig midnight 01/26. PT OT need neuro follow up- added workup brain mri and C, T spine for workup for b/l lower ext weakness also cpk -normal esr seems trending up to 51 , ldh normal, cpk normal , aldolase pending alpha 1 anitripsin, ceruloplasmin, alpha , B ang G tocopherol, walker pending rbc copper and venous lead pending ?bariatric surgery eval noted- poetein shakes /ensure :as per bariatric surgery-patient should stay the same as home plan, patient may use home protein shakes or Ensure shakes from the hospital, continue her home protein bars and 1 small meal 3d/ week 2. Asthma:? Asymptomatic P.r.n. nebs added 3. elevated liver functions: Seen by Gi-likely VITAL versus Gilbert syndrome. bilirubin improving ast and alt trnding slowy up Hepatitis ABC screen negative HIV pending Erlichia ,? babesia , bcr, Lyme testing pending alpha 1 anitripsin, ceruloplasmin, alpha , B ang G tocopherol pending, serologies IgG, Igm , protease3, anti Hu, anti transglutaminase IgG and IgA pending abd sono also ordered-? diffuse hepatic steatosis,? hemanagioma, ? vital d/w Gi follow up in and labs in am. also incidenatl her vitamin d insufficent : levels 23.5 :?on supplements DVT prophylaxis with Lovenox Quality Stroke Does the patient have a stroke diagnosis?: No VTE Prior VTE?: No VTE Risk Level:: Medical - moderate - high VTE Device Contraindication: N/A - Device Ordered VTE Drug Contraindication: N/A - Med Ordered
[2021-01-25] MEDS: 0.9 % Sodium Chloride 500 ML IV (15:55)
[2021-01-25] MEDS: diphenhydrAMINE HCL 50 MG/ML VIAL 25 MG IVPUSH (17:12)
[2021-01-25] MEDS: methylPREDNISolone Sod Succ 40 MG/ML VIAL IVPUSH (17:16)
[2021-01-25 17:41] LABS: Lyme Abs Screen <0.90 index
[2021-01-25] MEDS: Immun Glob G(IgG)/Gly/IGA Ov50 200 ML IV ×2 (19:20→22:35)
[2021-01-25 22:11] VITALS: BP 106/63; PULSE 73; RESP 18; TEMP 36; O2SAT 97
[2021-01-25 23:32] VITALS: BP 117/68; PULSE 78; RESP 18; TEMP 36.8; O2SAT 99
[2021-01-26 00:26] LABS: Venous Lead <1 mcg/dL (<5)
[2021-01-26 06:23] LABS: COVID-19 Test Negative (Negative); IDNOW Serial# 9DD0AD1C
[2021-01-26 06:53] LABS: Hematocrit 31.8 % (37-47); Hemoglobin 11.1 g/dl (12.0-16.0); Mean Corpuscular HGB Conc 34.9 g/dl (31.0-35.0); Mean Corpuscular Hemoglobin 29.5 pg (27.0-33.0); Mean Corpuscular Volume 84.6 fL (80-98); Mean Platelet Volume 12.2 fL (9.4-12.3); Platelet Count 244 X10*3/uL (160-400); Red Blood Count 3.76 X10*6/uL (4.20-5.50); Red Cell Distribution Width 17.2 % (11.0-16.0); White Blood Count 8.8 X10*3/uL (4.8-10.8)
[2021-01-26 07:30] LABS: Alanine Aminotransferase 153 U/L (0-31); Albumin Level 3.1 g/dL (3.5-5.0); Alkaline Phosphatase 46 U/L (39-117); Anion Gap 12 (12-20); Aspartate Amino Transferase 100 U/L (5-31); Bilirubin Direct 0.8 mg/dL (0.0-0.5); Bilirubin Total 5.7 mg/dL (0.0-1.0); Blood Urea Nitrogen 14 mg/dL (9-16); Calcium 8.5 mg/dL (8.4-10.2); Carbon Dioxide 22 mmol/L (22-29); Chloride 107 mmol/L (96-108); Creatinine Clr Calc Pharmacy 161.2; Estimated Glomerular Filt Rate > 60; Glucose Random 94 mg/dL (60-115); Potassium 4.1 mmol/L (3.3-5.1); Sodium 137 mmol/L (135-145); Total Protein 9.2 g/dL (6.5-8.0)
[2021-01-26] MEDS: Cholecalciferol (Vitamin D3) 25 MCG TABLET PO (08:03)
[2021-01-26] MEDS: Multivitamin TABLET 1 TAB PO (08:03)
[2021-01-26] MEDS: Folic Acid 1 MG in 0.9 % Sodium Chloride 50 ML 100.4 MG IV (08:03)
[2021-01-26] MEDS: Thiamine HCL 100 MG in 0.9 % Sodium Chloride 100 ML 202 MG IV (08:53)
[2021-01-26 09:19] VITALS: BP 117/68; PULSE 78; O2SAT 99
[2021-01-26 09:26] VITALS: BP 100/69; PULSE 104; RESP 18; TEMP 36.5; O2SAT 100
[2021-01-26 09:35] LABS: Transglutaminase Ab IgG <1.0 U/mL; Transglutaminase IgA <1.0 U/mL
--- NOTE | 2021-01-26 10:42 | P.PNIM_ITS ---
Subjective Subjective Date of Service: 01/26/21 Interval History: Seen in f/u weakness in lower extremity feels a bit better Review of Systems no fever weakness in legs Physical Exam Vital Signs: Vital Signs: Last Vital Signs Temp 97.7 F 01/26/21 09:26 Pulse 104 H 01/26/21 09:26 Resp 18 01/26/21 09:26 BP 100/69 01/26/21 09:26 Pulse Ox 100 01/26/21 09:26 Body Mass Index 46.3 Objective Data Active Medications Acetaminophen (Acetaminophen 325 Mg Tablet) 650 mg PO Q6H PRN PRN Reason: pain Last Admin: 01/25/21 12:52 Dose: 650 mg Documented by: LILA Acetaminophen (Acetaminophen 325 Mg Tablet) 650 mg PO DAILY@1600 [facility] Stop: 01/26/21 16:01 Last Admin: 01/25/21 17:12 Dose: 650 mg Documented by: LILA Albuterol/Ipratropium (Albuterol/Iprat 2.5/0.5mg 3 Ml Ampul.Neb) 3 ml INHALE RQ6H PRN PRN Reason: asthma Cyanocobalamin (Cyanocobalamin (Vitamin B-12) 1,000 Mcg/Ml Vial) 1,000 mcg IM Q30D [facility] Last Admin: 01/20/21 21:34 Dose: 1,000 mcg Documented by: JOSE ARMANDO Diphenhydramine HCl (Diphenhydramine Hcl 50 Mg/Ml Vial) 25 mg IVPUSH DAILY@1600 [facility] Stop: 01/26/21 16:01 Last Admin: 01/25/21 17:12 Dose: 25 mg Documented by: LILA Docusate Sodium (Docusate Sodium 100 Mg Capsule) 100 mg PO BEDTIME [facility] Last Admin: 01/25/21 19:52 Dose: Not Given Documented by: MANDO Non-Admin Reason: Patient Refused Enoxaparin Sodium (Enoxaparin Sodium 40 Mg/0.4 Ml Syringe) 40 mg SUBCUT Q24H [facility] Last Admin: 01/25/21 12:49 Dose: 40 mg Documented by: LILA Thiamine HCl 100 mg/ Sodium (Chloride) 101 mls @ 202 mls/hr IV DAILY [facility] Last Infusion: 01/26/21 10:03 Dose: 0 mls/hr Documented by: LILA Immune Globulin (Gammagard 10%) 50 mls @ 61 mls/hr IV DAILY@1630 [facility] Stop: 01/26/21 17:20 Last Infusion: 01/25/21 19:09 Dose: 0 mls/hr Documented by: MANDO Sodium Chloride (Ns) 500 mls @ 500 mls/hr IV DAILY@1530 [facility] Stop: 01/26/21 16:29 Last Infusion: 01/25/21 17:21 Dose: 0 mls/hr Documented by: LILA Folic Acid 1 mg/ Sodium (Chloride) 50.2 mls @ 100.4 mls/hr IV DAILY [facility] Last Infusion: 01/26/21 08:58 Dose: 0 mls/hr Documented by: LILA Immune Globulin (Gammagard 10%) 200 mls @ 61 mls/hr IV DAILY@1730 [facility] Stop: 01/26/21 20:47 Last Infusion: 01/25/21 22:36 Dose: 0 mls/hr Documented by: MANDO Immune Globulin (Gammagard 10%) 200 mls @ 61 mls/hr IV DAILY@2100 [facility] Stop: 01/27/21 00:17 Last Infusion: 01/26/21 01:41 Dose: 0 mls/hr Documented by: MANDO Methylprednisolone Sodium Succinate (Methylprednisolone Sod Succ 40 Mg/Ml Vial) 40 mg IVPUSH DAILY@1630 [facility] Stop: 01/26/21 16:31 Last Admin: 01/25/21 17:16 Dose: 40 mg Documented by: LILA Multivitamins/Vitamin C (Multivitamin Tablet) 1 tab PO DAILY [facility] Last Admin: 01/26/21 08:03 Dose: 1 tab Documented by: LILA Oxycodone HCl (Oxycodone Hcl Immed Release 5 Mg Tablet) 5 mg PO Q6H PRN PRN Reason: Pain, Mild (Pain Scale 1-3) Last Admin: 01/22/21 05:03 Dose: 5 mg Documented by: DANIEL Senna (Sennosides 8.6 Mg Tablet) 17.2 mg PO BEDTIME [facility] Last Admin: 01/25/21 19:52 Dose: Not Given Documented by: MANDO Non-Admin Reason: Patient Refused Sodium Chloride (0.9 % Sodium Chloride Flush 3 Ml Syringe) 3 ml IVFLUSH QSHIFT [facility] Last Admin: 01/26/21 08:09 Dose: Not Given Documented by: LILA Non-Admin Reason: IV Running Vitamin D (Cholecalciferol (Vitamin D3) 25 Mcg Tablet) 25 mcg PO DAILY [facility] Last Admin: 01/26/21 08:03 Dose: 25 mcg Documented by: LILA Labs CBC & Chem 7: 01/26/21 05:44 01/26/21 05:44 Labs: Laboratory Results - last 24 hr 01/22/21 01/22/21 01/22/21 08:10 08:11 08:11 MCV MCH MCHC RDW Plt Count MPV Absolute Nucleated RBC Nucleated RBC % (auto) Anion Gap Estim Creat Clear Calc Estimated GFR Random Glucose Calcium Total Bilirubin Direct Bilirubin AST ALT Alkaline Phosphatase Total Protein Albumin Dmryy-0-Lbcvgbenfek 172 Ceruloplasmin 27 Venous Lead IgG Total IgA Total IgM Tiss Transglutamin IgG <1.0 Tiss Transglutamin IgA <1.0 Lyme Screen IgG & IgM Lyme Progressive Test COVID-19 (ABELARDO) COVID-19 Vivaty 01/22/21 01/22/21 01/22/21 17:35 17:35 17:35 MCV MCH MCHC RDW Plt Count MPV Absolute Nucleated RBC Nucleated RBC % (auto) Anion Gap Estim Creat Clear Calc Estimated GFR Random Glucose Calcium Total Bilirubin Direct Bilirubin AST ALT Alkaline Phosphatase Total Protein Albumin Sksqb-2-Tfdpiipxmoi Ceruloplasmin Venous Lead <1 IgG Total 829 IgA Total 412 H IgM 130 Tiss Transglutamin IgG Tiss Transglutamin IgA Lyme Screen IgG & IgM <0.90 Lyme Progressive Test TNP COVID-19 (ABELARDO) COVID-19 Vivaty 01/26/21 01/26/21 01/26/21 05:30 05:44 05:44 MCV MCH MCHC RDW Plt Count MPV Absolute Nucleated RBC Nucleated RBC % (auto) Anion Gap 12 Estim Creat Clear Calc 161.2 Estimated GFR > 60 Random Glucose 94 Calcium 8.5 Total Bilirubin 5.7 H Cancelled Direct Bilirubin 0.8 H Cancelled AST 100 H Cancelled ALT 153 H Cancelled Alkaline Phosphatase 46 Cancelled Total Protein 9.2 H Cancelled Albumin 3.1 L Cancelled Jjoas-3-Eqdyvmbiozt Ceruloplasmin Venous Lead IgG Total IgA Total IgM Tiss Transglutamin IgG Tiss Transglutamin IgA Lyme Screen IgG & IgM Lyme Progressive Test COVID-19 (ABELARDO) Negative COVID-19 Clin Com See Note 01/26/21 05:44 MCV 84.6 MCH 29.5 MCHC 34.9 RDW 17.2 H Plt Count 244 MPV 12.2 Absolute Nucleated RBC 0.000 Nucleated RBC % (auto) 0.0 Anion Gap Estim Creat Clear Calc Estimated GFR Random Glucose Calcium Total Bilirubin Direct Bilirubin AST ALT Alkaline Phosphatase Total Protein Albumin Aozgo-9-Amrqnhizyjr Ceruloplasmin Venous Lead IgG Total IgA Total IgM Tiss Transglutamin IgG Tiss Transglutamin IgA Lyme Screen IgG & IgM Lyme Progressive Test COVID-19 (ABELARDO) COVID-19 Clin Com 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 Asthma:? Asymptomatic P.r.n. nebs added DVT prophylaxis with Lovenox Quality Stroke Does the patient have a stroke diagnosis?: No VTE Prior VTE?: No VTE Risk Level:: Medical - moderate - high VTE Device Contraindication: N/A - Device Ordered VTE Drug Contraindication: N/A - Med Ordered
[2021-01-26] MEDS: Enoxaparin Sodium 40 MG/0.4 ML SYRINGE SUBCUT (12:53)
--- NOTE | 2021-01-26 13:00 | PM.PNGS ---
Subjective Subjective Date of Service: 01/26/21 Patient reports: no new complaints, feels better, voiding w/o difficulty and bowel movement Interval history: This is a 30 yo woman who had RNYGBP by Dr Clark on November 05, 2020, total weight loss of 96 lbs. Admitted on 01/19/21 with complaints of worsening? numbness, tingling? and decreased motor strength in lower extremities over the last 2 weeks prior to admission. Pt had her last appt with Dr Clark on 12/25 and had a weight check in our office on 01/15. The dry heaving that she had earlier in her post op period has resolved at least 2 weeks ago. Her present meal plan is 4d/ week - 2 Premier protein shakes and 3 protien bars and 3d/ week 2 shakes, 2 bars and one meal of 4 forkfuls protien and 4 forkfuls vegetables. She states she also drink drinks 2 bottles of water and the equivalent of another bottle of non calorie drink. She only takes her baritric vitamin 3d/ week - states she doesn't remember otherwise. Since admission, she has had an extensive w/u including multiple imaging studies and seen in consultation by Neurology and GI. Severl labs remain outstanding and Vitamin levels. Working dx GBS. Responding to IVIG. Her boyfriend has brought in her bariatric vitamins and elizabeth+D. 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 Appears to be responding favorably to IVIG. (2) S/P gastric bypass: Status: Acute Assessment and Plan: Tolerating home bariatric meal plan, baraitric multivits. Continue and please call if any questions. (3) Elevated bilirubin: Status: Acute Assessment and Plan: Unclear etiology. Liver elasticity US with evidence of GB sludge without evidence of cholelithiaisis or cholecystitis. No pain on abdominal exam. Trial ursodiol 300 mg po bid to thin the viscosity of bile. Fall Risk Details Current Medications: Current Medications Acetaminophen (Acetaminophen 325 Mg Tablet) 650 mg PO Q6H PRN PRN Reason: pain Last Admin: 01/25/21 12:52 Dose: 650 mg Documented by: Acetaminophen (Acetaminophen 325 Mg Tablet) 650 mg PO DAILY@1600 [facility] Stop: 01/26/21 16:01 Last Admin: 01/25/21 17:12 Dose: 650 mg Documented by: Albuterol/Ipratropium (Albuterol/Iprat 2.5/0.5mg 3 Ml Ampul.Neb) 3 ml INHALE RQ6H PRN PRN Reason: asthma Cyanocobalamin (Cyanocobalamin (Vitamin B-12) 1,000 Mcg/Ml Vial) 1,000 mcg IM Q30D [facility] Last Admin: 01/20/21 21:34 Dose: 1,000 mcg Documented by: Diphenhydramine HCl (Diphenhydramine Hcl 50 Mg/Ml Vial) 25 mg IVPUSH DAILY@1600 [facility] Stop: 01/26/21 16:01 Last Admin: 01/25/21 17:12 Dose: 25 mg Documented by: Docusate Sodium (Docusate Sodium 100 Mg Capsule) 100 mg PO BEDTIME [facility] Last Admin: 01/25/21 19:52 Dose: Not Given Documented by: Enoxaparin Sodium (Enoxaparin Sodium 40 Mg/0.4 Ml Syringe) 40 mg SUBCUT Q24H [facility] Last Admin: 01/26/21 12:53 Dose: 40 mg Documented by: Thiamine HCl 100 mg/ Sodium (Chloride) 101 mls @ 202 mls/hr IV DAILY [facility] Last Infusion: 01/26/21 10:03 Dose: Infused Documented by: Immune Globulin (Gammagard 10%) 50 mls @ 61 mls/hr IV DAILY@1630 [facility] Stop: 01/26/21 17:20 Last Infusion: 01/25/21 19:09 Dose: Infused Documented by: Sodium Chloride (Ns) 500 mls @ 500 mls/hr IV DAILY@1530 [facility] Stop: 01/26/21 16:29 Last Infusion: 01/25/21 17:21 Dose: Infused Documented by: Folic Acid 1 mg/ Sodium (Chloride) 50.2 mls @ 100.4 mls/hr IV DAILY [facility] Last Infusion: 01/26/21 08:58 Dose: Infused Documented by: Immune Globulin (Gammagard 10%) 200 mls @ 61 mls/hr IV DAILY@1730 [facility] Stop: 01/26/21 20:47 Last Infusion: 01/25/21 22:36 Dose: Infused Documented by: Immune Globulin (Gammagard 10%) 200 mls @ 61 mls/hr IV DAILY@2100 [facility] Stop: 01/27/21 00:17 Last Infusion: 01/26/21 01:41 Dose: Infused Documented by: Methylprednisolone Sodium Succinate (Methylprednisolone Sod Succ 40 Mg/Ml Vial) 40 mg IVPUSH DAILY@1630 [facility] Stop: 01/26/21 16:31 Last Admin: 01/25/21 17:16 Dose: 40 mg Documented by: Multivitamins/Vitamin C (Multivitamin Tablet) 1 tab PO DAILY [facility] Last Admin: 01/26/21 08:03 Dose: 1 tab Documented by: Senna (Sennosides 8.6 Mg Tablet) 17.2 mg PO BEDTIME [facility] Last Admin: 01/25/21 19:52 Dose: Not Given Documented by: Sodium Chloride (0.9 % Sodium Chloride Flush 3 Ml Syringe) 3 ml IVFLUSH QSHIFT [facility] Last Admin: 01/26/21 08:09 Dose: Not Given Documented by: Vitamin D (Cholecalciferol (Vitamin D3) 25 Mcg Tablet) 25 mcg PO DAILY [facility] Last Admin: 01/26/21 08:03 Dose: 25 mcg Documented by: Time Spent With Patient Time: Total time spent is greater than 50% in coordination of care (as documented) at patient's floor/unit and/or counseling patient: Time with patient: less than 15 minutes Quality Stroke Does the patient have a stroke diagnosis?: No VTE Prior VTE?: No VTE Risk Level:: Medical - moderate - high VTE Device Contraindication: N/A - Device Ordered VTE Drug Contraindication: N/A - Med Ordered
[2021-01-26] MEDS: 0.9 % Sodium Chloride 500 ML IV (15:26)
[2021-01-26] MEDS: diphenhydrAMINE HCL 50 MG/ML VIAL 25 MG IVPUSH (16:20)
[2021-01-26] MEDS: Acetaminophen 325 MG TABLET 650 MG PO (16:20)
[2021-01-26] MEDS: methylPREDNISolone Sod Succ 40 MG/ML VIAL IVPUSH (18:11)
[2021-01-26] MEDS: Immun Glob G(IgG)/Gly/IGA Ov50 200 ML IV ×2 (18:22→22:22)
[2021-01-26] MEDS: UrsodioL 300 MG CAPSULE PO (20:39)
[2021-01-26 22:00] VITALS: RESP 18
[2021-01-26 23:16] VITALS: BP 116/67; PULSE 87; RESP 18; TEMP 36.7; O2SAT 98
[2021-01-26 23:22] LABS: Smooth Muscle Antibody <20 U (<20)
[2021-01-27 09:17] VITALS: BP 116/67; PULSE 87; O2SAT 98
[2021-01-27] MEDS: Cholecalciferol (Vitamin D3) 25 MCG TABLET PO (09:33)
[2021-01-27] MEDS: Folic Acid 1 MG in 0.9 % Sodium Chloride 50 ML 100.4 MG IV (09:34)
[2021-01-27] MEDS: Multivitamin TABLET 1 TAB PO (09:34)
[2021-01-27] MEDS: UrsodioL 300 MG CAPSULE PO ×2 (09:34→20:55)
[2021-01-27 10:00] VITALS: BP 118/70; PULSE 87; RESP 20; TEMP 36.5; O2SAT 100
[2021-01-27] MEDS: Thiamine HCL 100 MG in 0.9 % Sodium Chloride 100 ML 202 MG IV (10:30)
--- NOTE | 2021-01-27 10:55 | MHC.CM.PN ---
PTDCD TODAY AT 1:00 TO [facility] ARRRANGED
[2021-01-27 11:07] LABS: Alanine Aminotransferase 220 U/L (0-31); Albumin Level 3.1 g/dL (3.5-5.0); Alkaline Phosphatase 46 U/L (39-117); Aspartate Amino Transferase 150 U/L (5-31); Bilirubin Direct 1.2 mg/dL (0.0-0.5); Bilirubin Total 9.4 mg/dL (0.0-1.0); Total Protein 9.4 g/dL (6.5-8.0)
--- NOTE | 2021-01-27 11:09 | HO.PM.IMPN ---
Subjective Subjective Date of Service: 01/27/21 Interval History: Seen in f/u? weakness in lower extremity, continue make small progress Review of Systems weakness in leg no fever, no abdominla pain Physical Exam Vital Signs: Vital Signs: Last Vital Signs Temp 97.7 F 01/27/21 10:00 Pulse 87 01/27/21 10:00 Resp 20 01/27/21 10:00 BP 118/70 01/27/21 10:00 Pulse Ox 100 01/27/21 10:00 Body Mass Index 46.3 General: AO X 3, no acute distress Resp: CTA bilateral CVS: S1,S2,RRR GI: +BS, NT, no distention Skin: No rash Neuro: motor grossly intact, able to lift legs up, able to stand Psych: appropriate affect Objective Data Active Medications Acetaminophen (Acetaminophen 325 Mg Tablet) 650 mg PO Q6H PRN PRN Reason: pain Last Admin: 01/25/21 12:52 Dose: 650 mg Documented by: LILA Albuterol/Ipratropium (Albuterol/Iprat 2.5/0.5mg 3 Ml Ampul.Neb) 3 ml INHALE RQ6H PRN PRN Reason: asthma Cyanocobalamin (Cyanocobalamin (Vitamin B-12) 1,000 Mcg/Ml Vial) 1,000 mcg IM Q30D [facility] Last Admin: 01/20/21 21:34 Dose: 1,000 mcg Documented by: JOSE ARMANDO Docusate Sodium (Docusate Sodium 100 Mg Capsule) 100 mg PO BEDTIME [facility] Last Admin: 01/26/21 20:38 Dose: Not Given Documented by: DIONTE Non-Admin Reason: Patient Refused Enoxaparin Sodium (Enoxaparin Sodium 40 Mg/0.4 Ml Syringe) 40 mg SUBCUT Q24H [facility] Last Admin: 01/26/21 12:53 Dose: 40 mg Documented by: LILA Thiamine HCl 100 mg/ Sodium (Chloride) 101 mls @ 202 mls/hr IV DAILY [facility] Last Admin: 01/27/21 10:30 Dose: 202 mls/hr Documented by: MG Folic Acid 1 mg/ Sodium (Chloride) 50.2 mls @ 100.4 mls/hr IV DAILY [facility] Last Infusion: 01/27/21 10:31 Dose: 100.4 mls/hr Documented by: MG Multivitamins/Vitamin C (Multivitamin Tablet) 1 tab PO DAILY [facility] Last Admin: 01/27/21 09:34 Dose: 1 tab Documented by: DIANA Senna (Sennosides 8.6 Mg Tablet) 17.2 mg PO BEDTIME [facility] Last Admin: 01/26/21 20:39 Dose: Not Given Documented by: DIONTE Non-Admin Reason: Patient Refused Sodium Chloride (0.9 % Sodium Chloride Flush 3 Ml Syringe) 3 ml IVFLUSH QSHIFT [facility] Last Admin: 01/27/21 09:35 Dose: Not Given Documented by: DIANA Non-Admin Reason: IV Running Ursodiol (Ursodiol 300 Mg Capsule) 300 mg PO BID [facility] Last Admin: 01/27/21 09:34 Dose: 300 mg Documented by: DIANA Vitamin D (Cholecalciferol (Vitamin D3) 25 Mcg Tablet) 25 mcg PO DAILY [facility] Last Admin: 01/27/21 09:33 Dose: 25 mcg Documented by: DIANA Labs CBC & Chem 7: 01/26/21 05:44 01/26/21 05:44 Labs: Laboratory Results - last 24 hr 01/22/21 01/27/21 08:10 10:41 Total Bilirubin 9.4 H Direct Bilirubin 1.2 H AST 150 H ALT 220 H Alkaline Phosphatase 46 Total Protein 9.4 H Albumin 3.1 L Anti-Smooth Muscle Ab <20 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 Elevated LFTS in setting of fatty liver disease LFTs continue to trend up especially Tibili now un to 9, mostly indirect Liver estography on 01/24: The stage of liver fibrosis may be overestimated in the setting of acute hepatitis, liver inflammation, elevated liver function tests, hepatic vascular congestion, obstructive cholestasis, non-fasting state, and infiltrative diseases such as amyloidosis and lymphoma.? In some patients with NAFLD, the liver stiffness thresholds for compensated advanced chronic liver disease may be lower.? In causes other than viral hepatitis and NAFLD, liver stiffness thresholds are not well established. significance unlear. Will check with GI again.. Bariatry service recommend Ursodiol 2. Asthma:? Asymptomatic P.r.n. nebs added s/p recent bariatric surgery--Follow diet, vitamin replacement DVT prophylaxis with Lovenox Will cancel discharge due to increasing LFTS Quality Stroke Does the patient have a stroke diagnosis?: No VTE Prior VTE?: No VTE Risk Level:: Medical - moderate - high VTE Device Contraindication: N/A - Device Ordered VTE Drug Contraindication: N/A - Med Ordered
--- NOTE | 2021-01-27 11:31 | P.PNNE_ITS ---
Subjective Subjective Date of Service: 01/27/21 Interval History: Seen in f/u? weakness in lower extremity, continue make small progress in standing and walking with walker. pain in legs comes and goes but less overall. Arm strength is better. Has completed 5 days of IVIG 2gm/ kg Critical Care Time (minutes): 0 Physical Exam Vital Signs: Vital Signs: Last Vital Signs Temp 97.7 F 01/27/21 10:00 Pulse 87 01/27/21 10:00 Resp 20 01/27/21 10:00 BP 118/70 01/27/21 10:00 Pulse Ox 100 01/27/21 10:00 Body Mass Index 46.3 Const: General: cooperative, healthy appearing, comfortable and no acute distress; No confusion or lethargic Nutritional Appearance: obese Orientation/consciousness: patient oriented x3, No confusion and No lethargic Eyes: Pupils: Equal, round and reactive pupils present Resp: Effort & Inspection: normal respiratory effort GI: Inspection: Yes normal to inspection, No distended and Yes scar (all lapraroscopic scars healed well) Palpation (GI): Soft to palpation, nontender, no guarding, not rigid, No hepatosplenomegaly present, no hernias and no masses Neuro: Other: Minimal right biceps and bilateral deltoid weakness 5-/5. Ileopsoas 4_/5, Quads 4/5. Arefkexic in LE and 2+ reflexes UE. reduced fine touch sensation up to lower abdomen, reduced power both lower limbs, nml power arms. General: patient oriented x3, No confusion and Unable to assess gait Cranial nerves: Yes Intact sense of smell present and Yes Equal, round and reactive pupils present Cognition (Neuro): normal cognition Speech: No Abnormal speech present Gait exam (Neuro): Unable to assess gait Motor exam (neuro): no tremor noted Extrem: General: Yes normal to inspection (LE - motor strenght 4/5, UE motor strength 5/5), Yes no pedal edema and No calf tenderness Objective Data Labs CBC & Chem 7: 01/26/21 05:44 01/26/21 05:44 Labs: Laboratory Results - last 24 hr 01/22/21 01/27/21 08:10 10:41 Total Bilirubin 9.4 H Direct Bilirubin 1.2 H AST 150 H ALT 220 H Alkaline Phosphatase 46 Total Protein 9.4 H Albumin 3.1 L Anti-Smooth Muscle Ab <20 Microbiology Microbiology Results: Microbiology 01/20/21 04:33 Cerebrospinal Fluid Gram Stain - Final 01/20/21 04:33 Cerebrospinal Fluid CSF Examination - Final 01/20/21 04:33 Cerebrospinal Fluid Fluid Description - Final 01/20/21 04:33 Cerebrospinal Fluid CSF Culture - Final No growth after 3 days. 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 Needs rehab facility and will be transferred to [facility]. F/U in office in 4 wks Fall Risk Details Current Medications: Current Medications Acetaminophen (Acetaminophen 325 Mg Tablet) 650 mg PO Q6H PRN PRN Reason: pain Last Admin: 01/25/21 12:52 Dose: 650 mg Documented by: Albuterol/Ipratropium (Albuterol/Iprat 2.5/0.5mg 3 Ml Ampul.Neb) 3 ml INHALE RQ6H PRN PRN Reason: asthma Cyanocobalamin (Cyanocobalamin (Vitamin B-12) 1,000 Mcg/Ml Vial) 1,000 mcg IM Q30D [facility] Last Admin: 01/20/21 21:34 Dose: 1,000 mcg Documented by: Docusate Sodium (Docusate Sodium 100 Mg Capsule) 100 mg PO BEDTIME [facility] Last Admin: 01/26/21 20:38 Dose: Not Given Documented by: Enoxaparin Sodium (Enoxaparin Sodium 40 Mg/0.4 Ml Syringe) 40 mg SUBCUT Q24H [facility] Last Admin: 01/26/21 12:53 Dose: 40 mg Documented by: Thiamine HCl 100 mg/ Sodium (Chloride) 101 mls @ 202 mls/hr IV DAILY [facility] Last Infusion: 01/27/21 11:10 Dose: Infused Documented by: Folic Acid 1 mg/ Sodium (Chloride) 50.2 mls @ 100.4 mls/hr IV DAILY [facility] Last Infusion: 01/27/21 10:31 Dose: Infused Documented by: Multivitamins/Vitamin C (Multivitamin Tablet) 1 tab PO DAILY [facility] Last Admin: 01/27/21 09:34 Dose: 1 tab Documented by: Senna (Sennosides 8.6 Mg Tablet) 17.2 mg PO BEDTIME [facility] Last Admin: 01/26/21 20:39 Dose: Not Given Documented by: Sodium Chloride (0.9 % Sodium Chloride Flush 3 Ml Syringe) 3 ml IVFLUSH QSHIFT [facility] Last Admin: 01/27/21 09:35 Dose: Not Given Documented by: Ursodiol (Ursodiol 300 Mg Capsule) 300 mg PO BID [facility] Last Admin: 01/27/21 09:34 Dose: 300 mg Documented by: Vitamin D (Cholecalciferol (Vitamin D3) 25 Mcg Tablet) 25 mcg PO DAILY [facility] Last Admin: 01/27/21 09:33 Dose: 25 mcg Documented by: Time Spent With Patient Time: Total time spent is greater than 50% in coordination of care (as docume nted) at patient's floor/unit and/or counseling patient: Time with patient: 15 - 24 minutes Procedures Date of Service Date of Service: 01/27/21 Quality Stroke Does the patient have a stroke diagnosis?: No VTE Prior VTE?: No VTE Risk Level:: Medical - moderate - high VTE Device Contraindication: N/A - Device Ordered VTE Drug Contraindication: N/A - Med Ordered
--- NOTE | 2021-01-27 11:50 | MHC.CM.PN ---
pt accepted at [facility] auth received dc cancelled due to pts worseing liver failure
[2021-01-27] MEDS: Enoxaparin Sodium 40 MG/0.4 ML SYRINGE SUBCUT (13:17)
--- NOTE | 2021-01-27 15:25 | PC.NURSE ---
AT 1300 PT C/O DIZZINESS WITH BLURRED VISION. FELT LIKE SHE WAS GOING TO PASS OUT. STATES SOMEWHAT MORE LEG WEAKNESS. BPT WAS 97/[address] SALEH MADE AWARE.
[2021-01-27 15:26] VITALS: BP 112/70; PULSE 98; RESP 18; TEMP 36.6; O2SAT 100
[2021-01-27] MEDS: 0.9 % Sodium Chloride Flush 3 ML SYRINGE IVFLUSH (15:57)
[2021-01-27 16:54] LABS: Alanine Aminotransferase 256 U/L (0-31); Albumin Level 3.3 g/dL (3.5-5.0); Alkaline Phosphatase 49 U/L (39-117); Aspartate Amino Transferase 177 U/L (5-31); Bilirubin Direct 1.5 mg/dL (0.0-0.5); Bilirubin Total 10.7 mg/dL (0.0-1.0); Total Protein 9.5 g/dL (6.5-8.0)
[2021-01-27 19:22] VITALS: BP 102/70; PULSE 92; RESP 16; TEMP 37; O2SAT 100
[2021-01-27] MEDS: 0.9 % Sodium Chloride 1,000 ML 100 ML IVCONT (21:41)
[2021-01-27 21:56] LABS: Anti Nuclear Antibody Screen POSITIVE (NEGATIVE)
[2021-01-27 23:16] LABS: Angiotensin Converting Enzyme 16 U/L (9-67)
[2021-01-28] VITALS (7 sets, daily range): BP systolic 98–122; BP diastolic 56–78; PULSE 88–103; RESP 17–18; TEMP 36.6–37.2; O2SAT 98–100
[2021-01-28 02:21] LABS: Aldolase 6.3 U/L (<=8.1)
[2021-01-28 03:47] LABS: Babesia IgG <1:64 titer (<1:64); Babesia IgM <1:20 titer (<1:20)
--- NOTE | 2021-01-28 07:04 | P.PNGI_ITS ---
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 and no hematoma or significant bruising seen Const: General: cooperative, healthy appearing, comfortable and no acute distress; No confusion or lethargic Nutritional Appearance: obese Orientation/consciousness: patient oriented x3, No confusion and No lethargic Eyes: Sclerae: scleral abnormal (icterus) Pupils: Equal, round and reactive pupils present Resp: Effort & Inspection: normal respiratory effort GI: Inspection: Yes normal to inspection, No distended and Yes scar (all lapraroscopic scars healed well) Palpation (GI): Soft to palpation, nontender, no guarding, not rigid, No hepatosplenomegaly present, no hernias and no masses Neuro: Other: weakness both lower limbs General: patient oriented x3, No confusion and Unable to assess gait Cranial nerves: Yes Intact sense of smell present and Yes Equal, round and reactive pupils present Cognition (Neuro): normal cognition Speech: No Abnormal speech present Gait exam (Neuro): Unable to assess gait Motor exam (neuro): no tremor noted Extrem: General: Yes normal to inspection (LE - motor strenght 4/5, UE motor strength 5/5), Yes no pedal edema and No calf tenderness Objective Data Labs CBC & Chem 7: 01/28/21 08:46 01/26/21 05:44 Labs: Laboratory Results - last 24 hr 01/22/21 01/22/21 01/23/21 17:35 17:35 06:39 Total Bilirubin Direct Bilirubin AST ALT Alkaline Phosphatase Total Protein Albumin Aldolase 6.3 Angiotensin Convert Enz 16 DANETTE Screen DANETTE Titer DANETTE Pattern Babesia microti IgG Ab <1:64 Babesia microti IgM Ab <1:20 Babesia Interpretation SEE NOTE 01/24/21 01/27/21 01/27/21 06:10 10:41 16:30 Total Bilirubin 9.4 H 10.7 H Direct Bilirubin 1.2 H 1.5 H AST 150 H 177 H ALT 220 H 256 H Alkaline Phosphatase 46 49 Total Protein 9.4 H 9.5 H Albumin 3.1 L 3.3 L Aldolase Angiotensin Convert Enz DANETTE Screen POSITIVE A DANETTE Titer 1:80 H DANETTE Pattern A Babesia microti IgG Ab Babesia microti IgM Ab Babesia Interpretation Microbiology Microbiology Results: Microbiology 01/20/21 04:33 Cerebrospinal Fluid Gram Stain - Final 01/20/21 04:33 Cerebrospinal Fluid CSF Examination - Final 01/20/21 04:33 Cerebrospinal Fluid Fluid Description - Final 01/20/21 04:33 Cerebrospinal Fluid CSF Culture - Final No growth after 3 days. 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 since admission and even prior to this unconjugated bili been trending upwards. AST/ALT mildly elevated but noted to have significant steatosis. Labs so far with neg celiac, neg Hep serologies, neg BECK level, nml A1AT, neg le ad level, nml ceruloplasmin, mild pos DANETTE but neg SMA, neg ANCA levels. LDH had been nml but now slightly elevated, smear wiht no hemolysis haptoglobin pending as is ivan testing. Paraneoplastic labs are pending. [place] syndrome would not cause an unconjugated bili elevation this high, leaving either hematological d/o or crigglar gabriela type 2 as alternatives. Crigglar type 2 is can rarely cause neurological symptoms. Doesn't usu cause AST/ALt elevation but may be due to VITAL. RECS: 1/ maintain intra vascular hydration, per uptodate, and avoid constipation, would give miralax BID * Intravenous normal saline (10 to 20 mL/kg bolus infusions) to establish euvolemia * Intravenous dextrose in normal saline at 1 to 1.5 times maintenance rate 2/ Hematology consult to r/o any hemolytic or myeloproliferating d/o 3/ MRI liver protocol to r/o intrahepatic lesions or masses 4/ Liver biopsy if MRi negative 5/ If hematology w/u and MRI neg then would commence phenobarbitol 180 mg daily in DIVIDED DOSES and based ob this can consider genetic testing for Aminta Almeida 6/ If bili conts to rise with neg hematology w/u then may need IV albumin or phototherapy Fall Risk Details Current Medications: Current Medications Acetaminophen (Acetaminophen 325 Mg Tablet) 650 mg PO Q6H PRN PRN Reason: pain Last Admin: 01/25/21 12:52 Dose: 650 mg Documented by: Cyanocobalamin (Cyanocobalamin (Vitamin B-12) 1,000 Mcg/Ml Vial) 1,000 mcg IM Q30D [facility] Last Admin: 01/20/21 21:34 Dose: 1,000 mcg Documented by: Docusate Sodium (Docusate Sodium 100 Mg Capsule) 100 mg PO BEDTIME [facility] Last Admin: 01/27/21 20:55 Dose: Not Given Documented by: Enoxaparin Sodium (Enoxaparin Sodium 40 Mg/0.4 Ml Syringe) 40 mg SUBCUT Q24H [facility] Last Admin: 01/27/21 13:17 Dose: 40 mg Documented by: Thiamine HCl 100 mg/ Sodium (Chloride) 101 mls @ 202 mls/hr IV DAILY [facility] Last Infusion: 01/27/21 11:10 Dose: Infused Documented by: Folic Acid 1 mg/ Sodium (Chloride) 50.2 mls @ 100.4 mls/hr IV DAILY [facility] Last Infusion: 01/27/21 10:31 Dose: Infused Documented by: Sodium Chloride (Ns) 1,000 mls @ 100 mls/hr IVCONT .Q10H [facility] Last Admin: 01/28/21 04:11 Dose: Not Given Documented by: Multivitamins/Vitamin C (Multivitamin Tablet) 1 tab PO DAILY [facility] Last Admin: 01/27/21 09:34 Dose: 1 tab Documented by: Senna (Sennosides 8.6 Mg Tablet) 17.2 mg PO BEDTIME [facility] Last Admin: 01/27/21 20:55 Dose: Not Given Documented by: Sodium Chloride (0.9 % Sodium Chloride Flush 3 Ml Syringe) 3 ml IVFLUSH QSHIFT [facility] Last Admin: 01/27/21 23:46 Dose: Not Given Documented by: Ursodiol (Ursodiol 300 Mg Capsule) 300 mg PO BID [facility] Last Admin: 01/27/21 20:55 Dose: 300 mg Documented by: Vitamin D (Cholecalciferol (Vitamin D3) 25 Mcg Tablet) 25 mcg PO DAILY [facility] Last Admin: 01/27/21 09:33 Dose: 25 mcg Documented by: Time Spent With Patient Time: Total time spent is greater than 50% in coordination of care (as documented) at patient's floor/unit and/or counseling patient: Time with patient: Greater than 35 minutes Quality Stroke Does the patient have a stroke diagnosis?: No VTE Prior VTE?: No VTE Risk Level:: Medical - moderate - high VTE Device Contraindication: N/A - Device Ordered VTE Drug Contraindication: N/A - Med Ordered
[2021-01-28] MEDS: 0.9 % Sodium Chloride 1,000 ML 100 ML IVCONT ×2 (07:36→23:36)
[2021-01-28 08:31] LABS: Alanine Aminotransferase 266 U/L (0-31); Alkaline Phosphatase 43 U/L (39-117); Aspartate Amino Transferase 183 U/L (5-31); Bilirubin Direct 2.1 mg/dL (0.0-0.5); Bilirubin Total 11.6 mg/dL (0.0-1.0); Total Protein 8.2 g/dL (6.5-8.0)
[2021-01-28] MEDS: Multivitamin TABLET 1 TAB PO (08:43)
[2021-01-28] MEDS: Cholecalciferol (Vitamin D3) 25 MCG TABLET PO (08:43)
[2021-01-28] MEDS: Folic Acid 1 MG in 0.9 % Sodium Chloride 50 ML 100.4 MG IV (08:43)
[2021-01-28] MEDS: UrsodioL 300 MG CAPSULE PO ×2 (08:43→20:40)
[2021-01-28 08:50] LABS: Basophils Percent Auto 0.5 % (0-2); Eosinophils Absolute Auto 0.1 X10*3/uL (0.0-0.4); Eosinophils Percent Auto 0.8 % (0-4); Hemoglobin 9.4 g/dl (12.0-16.0); Imm Gran Abs Auto 0.15 X10*3/uL (0.00-0.03); Imm Gran Pct Auto 1.8 % (0.0-0.4); Lymphocytes Absolute Auto 2.9 X10*3/uL (1.2-4.9); Lymphocytes Percent Auto 34.4 % (20-40); MANUAL DIFF FLAG NO; Mean Corpuscular HGB Conc 36.2 g/dl (31.0-35.0); Mean Corpuscular Volume 83.1 fL (80-98); Mean Platelet Volume 11.2 fL (9.4-12.3); Monocytes Absolute Auto 0.5 X10*3/uL (0.1-1.2); Monocytes Percent Auto 5.7 % (2-11); Neutrophils Absolute Auto 4.8 X10*3/uL (2.0-8.3); Neutrophils Percent Auto 56.8 % (45-73); Platelet Count 259 X10*3/uL (160-400); Red Blood Count 3.13 X10*6/uL (4.20-5.50); Red Cell Distribution Width 18.7 % (11.0-16.0); White Blood Count 8.4 X10*3/uL (4.8-10.8)
[2021-01-28 08:54] LABS: NRBC Pct Auto 1.1 /100WBC (0.0-0.2)
[2021-01-28 08:59] LABS: INTERNATIONAL NORM RATIO 1.1 (0.9-1.1); Prothrombin Time 12.6 SEC (9.9-13.0)
[2021-01-28] MEDS: Thiamine HCL 100 MG in 0.9 % Sodium Chloride 100 ML 202 MG IV (09:30)
[2021-01-28 09:56] LABS: Lactate Dehydrogenase 350 U/L (122-220)
[2021-01-28 10:06] LABS: Alanine Aminotransferase 278 U/L (0-31); Albumin Level 3.1 g/dL (3.5-5.0); Alkaline Phosphatase 47 U/L (39-117); Anion Gap 14 (12-20); Aspartate Amino Transferase 189 U/L (5-31); Bilirubin Direct 2.2 mg/dL (0.0-0.5); Bilirubin Total 12.1 mg/dL (0.0-1.0); Blood Urea Nitrogen 22 mg/dL (9-16); Calcium 8.2 mg/dL (8.4-10.2); Carbon Dioxide 19 mmol/L (22-29); Chloride 107 mmol/L (96-108); Creatinine Clr Calc Pharmacy 158.9; Estimated Glomerular Filt Rate > 60; Glucose Random 90 mg/dL (60-115); Potassium 3.9 mmol/L (3.3-5.1); Sodium 136 mmol/L (135-145); Total Protein 8.2 g/dL (6.5-8.0)
--- NOTE | 2021-01-28 11:23 | P.PNIM_ITS ---
Subjective Subjective Date of Service: 01/28/21 Interval History: Seen in f/u bilateral lower extremity weakness, now with elevated LFTs, and bilirubin. Weakness is slightly better, bilirubin is going and has anemia consistent with hemolysis Review of Systems Weakness is legs, no fever, no abdominal pain Physical Exam Vital Signs: Vital Signs: Last Vital Signs Temp 97.8 F 01/28/21 10:00 Pulse 88 01/28/21 10:00 Resp 18 01/28/21 10:00 BP 121/68 01/28/21 10:00 Pulse Ox 98 01/28/21 10:00 Body Mass Index 46.3 General: AO X 3, no acute distress HEENT-sclera icteris Resp: CTA bilateral CVS: S1,S2,RRR GI: +BS, NT, no distention Skin: No rash Neuro: motor grossly intact Psych: appropriate affect Objective Data Active Medications Acetaminophen (Acetaminophen 325 Mg Tablet) 650 mg PO Q6H PRN PRN Reason: pain Last Admin: 01/25/21 12:52 Dose: 650 mg Documented by: LILA Cyanocobalamin (Cyanocobalamin (Vitamin B-12) 1,000 Mcg/Ml Vial) 1,000 mcg IM Q30D [facility] Last Admin: 01/20/21 21:34 Dose: 1,000 mcg Documented by: JOSE ARMANDO Docusate Sodium (Docusate Sodium 100 Mg Capsule) 100 mg PO BEDTIME [facility] Last Admin: 01/27/21 20:55 Dose: Not Given Documented by: MARINA Non-Admin Reason: Patient Refused Enoxaparin Sodium (Enoxaparin Sodium 40 Mg/0.4 Ml Syringe) 40 mg SUBCUT Q24H [facility] Last Admin: 01/27/21 13:17 Dose: 40 mg Documented by: MG Thiamine HCl 100 mg/ Sodium (Chloride) 101 mls @ 202 mls/hr IV DAILY [facility] Last Infusion: 01/28/21 10:19 Dose: 0 mls/hr Documented by: RAMBO Folic Acid 1 mg/ Sodium (Chloride) 50.2 mls @ 100.4 mls/hr IV DAILY [facility] Last Infusion: 01/28/21 09:34 Dose: 0 mls/hr Documented by: RAMBO Sodium Chloride (Ns) 1,000 mls @ 100 mls/hr IVCONT .Q10H [facility] Last Infusion: 01/28/21 10:19 Dose: 100 mls/hr Documented by: RAMBO Multivitamins/Vitamin C (Multivitamin Tablet) 1 tab PO DAILY [facility] Last Admin: 01/28/21 08:43 Dose: 1 tab Documented by: RAMBO Polyethylene Glycol (Polyethylene Glycol 3350 17 Gm Powd.Pack) 17 gm PO BID [facility] Senna (Sennosides 8.6 Mg Tablet) 17.2 mg PO BEDTIME [facility] Last Admin: 01/27/21 20:55 Dose: Not Given Documented by: MAIRNA Non-Admin Reason: Patient Refused Sodium Chloride (0.9 % Sodium Chloride Flush 3 Ml Syringe) 3 ml IVFLUSH QSHIFT [facility] Last Admin: 01/28/21 07:40 Dose: Not Given Documented by: RAMBO Non-Admin Reason: IV Running Ursodiol (Ursodiol 300 Mg Capsule) 300 mg PO BID [facility] Last Admin: 01/28/21 08:43 Dose: 300 mg Documented by: RAMBO Vitamin D (Cholecalciferol (Vitamin D3) 25 Mcg Tablet) 25 mcg PO DAILY [facility] Last Admin: 01/28/21 08:43 Dose: 25 mcg Documented by: RAMBO Labs CBC & Chem 7: 01/28/21 08:46 01/28/21 08:46 Labs: Laboratory Tests 01/28/21 01/28/21 07:52 08:46 Total Bilirubin 12.1 H Direct Bilirubin 2.2 H AST 189 H ALT 278 H Alkaline Phosphatase 47 Lactate Dehydrogenase 350 H Total Creatine Kinase 14 L Assessment and Plan (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 Elevated LFTS in setting of fatty liver disease LFTs continue to trend up especially Tibili now un to 9, mostly indirect Liver estography on 01/24: The stage of liver fibrosis may be overestimated in the setting of acute hepatitis, liver inflammation, elevated liver function tests, hepatic vascular congestion, obstructive cholestasis, non-fasting state, and infiltrative diseases such as amyloidosis and lymphoma.? In some patients with NAFLD, the liver stiffness thresholds for compensated advanced chronic liver disease may be lower.? In causes other than viral hepatitis and NAFLD, liver stiffness thresholds are not well established. significance unlear. Will check with GI again.. Bariatry service recommend Ursodiol --Bili going up, LDH high, positive commbs test and anemia and thus hemolysis, source unclear, get hematology consult 3. constipation--Miralax 2. Asthma:? Asymptomatic P.r.n. nebs added s/p recent bariatric surgery--Follow diet, vitamin replacement DVT prophylaxis with Lovenox Will cancel discharge due to increasing LFTS Quality Stroke Does the patient have a stroke diagnosis?: No VTE Prior VTE?: No VTE Risk Level:: Medical - moderate - high VTE Device Contraindication: N/A - Device Ordered VTE Drug Contraindication: N/A - Med Ordered
[2021-01-28 11:56] LABS: Soluble Liver Ag Autoantibody <20.1 U (0.0-20.0)
[2021-01-28] MEDS: Enoxaparin Sodium 40 MG/0.4 ML SYRINGE SUBCUT (13:08)
[2021-01-28 15:11] LABS: Hu Antibody Screen, IFA Serum NEGATIVE (NEGATIVE)
--- NOTE | 2021-01-28 15:38 | PM.HEMONCCN ---
Subjective - Subjective Chief complaint: Consult for: Autoimmune hemolytic anemia. Patient: new to practice Consult date: 01/28/21 Requesting Physician: DELFINO. Primary Care Provider: Teri Grigsby MD Medical Summary: DIAGNOSIS: LYSSA POSITIVE HEMOLYTIC ANEMIA. HPI - Consult Narrative Reason for consult: Consult for: Anemia. Narrative: Lolly Deal is a pleasant 30 year old lady, developed problem with her legs about 2-3 weeks ago.? She said she had recent bariatric surgery-for which she was on multivitamins she was not taking them. She said she 1st started with numbness and tingling in feet and legs and then few days later noted some weakness. She had difficulty climbing stairs and her weakness seem to be in proximal area of legs.? She had difficulty getting up from sitting position especially from a commode. Though in the past she had suffer from back pain this time there was no significant pain.? There was no bowel bladder difficulty.? There was no history of trauma or any recent cold or flu-like illness.? She denied any stress or depression or any tendency for anxiety.? She denied any such previous illnesses.? She presented to emergency room and had and multiple investigations including a lumbar puncture. CBC on presentation: WBC 6.5, HGB 13.7, HCT 40.8, PLT 275. Past medical history: Denies significant past medical history other than obesity. 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 Review of Systems - Constitutional Reports system reviewed and no additional complaints, except as documented, Reports fatigue, Reports lack of energy, Reports malaise, Reports poor appetite, Reports weight loss - Eyes Reports system reviewed and no additional complaints, except as documented - ENT Reports system reviewed and no additional complaints, except as documented - Cardiovascular Reports system reviewed and no additional complaints, except as documented - Respiratory Reports no additional respiratory complaints - Gastrointestinal Reports system reviewed and no additional complaints, except as documented - Genitourinary Reports no additional female genitourinary complaints - Musculoskeletal Reports system reviewed and no additional complaints, except as documented - Integumentary/Breasts Skin/Breast: Reports no additional skin complaints - Neurologic Denies abnormal speech, Denies confusion - Psychiatric Reports system reviewed and no additional complaints, except as documented - Endocrine Reports no additional endocrine complaints - Hematologic/Lymphatic Reports system reviewed and no additional complaints, except as documented - Allergic/Immunologic Reports system reviewed and no additional complaints, except as documented Oncology Screenings - ECOG Performance Status ECOG Performance Status: 1 [facility] Medical History: Medical History (Last Reviewed 01/21/21 @ 12:06 by KANNAN Gerard) Asthma Back pain Chronic back pain Congenital intra-abdominal adhesions COVID-19 vaccine series completed GERD (gastroesophageal reflux disease) Liver fibrosis Maternal anesthesia complication Morbid obesity Nocturnal hypoxemia Sleep apnea Steatosis, liver Vertigo Vitamin A deficiency Vitamin B12 deficiency Vitamin D deficiency Functional capacity: independent ambulation Patient : No Family History: Family History (Last Reviewed 01/20/21 @ 18:26 by Ac Valdes MD) Mother Kidney stone Asthma Father No problems noted. Brother Asthma Back problem Surgical History: Surgical History (Last Reviewed 01/21/21 @ 12:06 by KANNAN Gerard) Hx of gastric bypass Hx of wisdom tooth extraction S/P gastric bypass Social History: Social History (Last Reviewed 01/20/21 @ 01:51 by Darshan Gant MD) Living Situation History: Household Members: Spouse Housing: Apartment Are you a primary adult caregiver to a significant other at home: No Do you presently have visiting nurse or other home services: No Alcohol History: Alcohol intake: former Alcohol History Details: Alcohol intake frequency: a few times a month Alcohol type: hard liquor Tobacco History: Patient Tobacco Use Status: Former Tobacco user Tobacco use type: Cigarette Smoke Quit Date: 10 yrs ago Occupation Assessmet: [employer] service: No Current occupational status: employed 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[employer] [place] Home Medications and Allergies Current Medications: Current Medications Acetaminophen (Acetaminophen 325 Mg Tablet) 650 mg PO Q6H PRN PRN Reason: pain Last Admin: 01/25/21 12:52 Dose: 650 mg Documented by: Cyanocobalamin (Cyanocobalamin (Vitamin B-12) 1,000 Mcg/Ml Vial) 1,000 mcg IM Q30D [facility] Last Admin: 01/20/21 21:34 Dose: 1,000 mcg Documented by: Docusate Sodium (Docusate Sodium 100 Mg Capsule) 100 mg PO BEDTIME [facility] Last Admin: 01/27/21 20:55 Dose: Not Given Documented by: Enoxaparin Sodium (Enoxaparin Sodium 40 Mg/0.4 Ml Syringe) 40 mg SUBCUT Q24H [facility] Last Admin: 01/28/21 13:08 Dose: 40 mg Documented by: Thiamine HCl 100 mg/ Sodium (Chloride) 101 mls @ 202 mls/hr IV DAILY [facility] Last Infusion: 01/28/21 10:19 Dose: Infused Documented by: Folic Acid 1 mg/ Sodium (Chloride) 50.2 mls @ 100.4 mls/hr IV DAILY [facility] Last Infusion: 01/28/21 09:34 Dose: Infused Documented by: Sodium Chloride (Ns) 1,000 mls @ 100 mls/hr IVCONT .Q10H [facility] Last Infusion: 01/28/21 10:19 Dose: 100 mls/hr Documented by: Multivitamins/Vitamin C (Multivitamin Tablet) 1 tab PO DAILY [facility] Last Admin: 01/28/21 08:43 Dose: 1 tab Documented by: Oxycodone HCl (Oxycodone Hcl Immed Release 5 Mg Tablet) 2.5 mg PO Q6H PRN PRN Reason: Pain, Severe (Pain Scale 7-10) Polyethylene Glycol (Polyethylene Glycol 3350 17 Gm Powd.Pack) 17 gm PO BID [facility] Last Admin: 01/28/21 13:29 Dose: Not Given Documented by: Senna (Sennosides 8.6 Mg Tablet) 17.2 mg PO BEDTIME [facility] Last Admin: 01/27/21 20:55 Dose: Not Given Documented by: Sodium Chloride (0.9 % Sodium Chloride Flush 3 Ml Syringe) 3 ml IVFLUSH QSHIFT [facility] Last Admin: 01/28/21 07:40 Dose: Not Given Documented by: Ursodiol (Ursodiol 300 Mg Capsule) 300 mg PO BID [facility] Last Admin: 01/28/21 08:43 Dose: 300 mg Documented by: Vitamin D (Cholecalciferol (Vitamin D3) 25 Mcg Tablet) 25 mcg PO DAILY [facility] Last Admin: 01/28/21 08:43 Dose: 25 mcg Documented by: Home Medications Medication Instructions Recorded Confirmed Type albuterol sulfate 90 mcg/actuation 2 puff PO Q4H PRN 07/03/20 01/20/21 History aerosol inhaler cetirizine 10 mg tablet 10 mg PO DAILY PRN 07/03/20 01/20/21 History inhalational spacing device (Space #1 ea 07/03/20 01/20/21 History Chamber) melatonin 5 mg capsule 5 mg PO BEDTIME PRN 07/03/20 01/20/21 History multivitamin 1 tab PO DAILY 01/20/21 01/20/21 History Allergies Allergy/AdvReac Type Severity Reaction Status Date / Time animal dander Allergy Unknown UNKNOWN Verified 01/12/21 14:51 mold Allergy Unknown UNKNOWN Verified 01/12/21 14:51 pollen extracts [POLLEN] Allergy Unknown UNKNOWN Verified 01/12/21 14:51 Physical Exam Vital signs: Vital Signs Temp 98.0 F 01/28/21 15:19 Pulse 103 H 01/28/21 15:22 Resp 17 01/28/21 15:19 BP 120/57 L 01/28/21 15:22 Pulse Ox 100 01/28/21 15:22 Intake & Output 01/27/21 01/28/21 01/28/21 18:59 06:59 18:59 Intake Total 151.2 / 951.2 800 / 951.2 1262.867 / 1262.867 Output Total 300 / 300 200 / 200 Balance 151.2 / 651.2 500 / 651.2 1062.867 / 1062.867 Urine Output (Average ml/kg/hr) 0.20 0.14 Intake: Intake, Oral Amount 800 / 800 Intake, IV Amount 151.2 / 151.2 1262.867 / 1262.867 Folic Acid 1 mg In 0.9 % Sodium 50.2 / 50.2 50.2 / 50.2 Chloride 50 ml @ 100.4 mls/hr IV DAILY [facility] Rx#:[id number] Thiamine HCL 100 mg In 0.9 % 101 / 101 101 / 101 Sodium Chloride 100 ml @ 202 mls/hr IV DAILY [facility] Rx#: [id number] 0.9 % Sodium Chloride 1,000 ml 1111.667 / 1111.667 @ 100 mls/hr IVCONT .Q10H [facility] Rx#:[id number] Output: Output, Urine Amount 300 / 300 200 / 200 Other: Breakfast % Eaten 75% Lunch % Eaten 75% Dinner % Eaten 100% Number of Unmeasured Voids 1 2 Urine Bedside Commode Bathroom Bedside Commode Urine Color [place] Margi Yellow Last Bowel Movement 01/25/21 01/28/21 Stool Bedside Commode Stool Amount Moderate Stool Color Brown Stool Consistency Formed Weight 122.3 kg - Constitutional Present: mild distress. Absent: no acute distress - Routine HEENT Exam Head: Present: normal inspection Eye: Present: normal appearance ENT: Present: mucous membranes moist - Routine Respiratory Exam Present: CTAB - Routine Cardiovascular Exam Cardiovascular: Present: RRR, S1, S2 - Routine Extremities Exam Present: nontender - Routine Skin Exam Present: intact - Routine Neurological Exam Present: alert Hem/Onc Consult Result - Labs CBC & Chem 7: 02/01/21 07:55 02/01/21 07:55 Labs: Short CBC 01/28/21 Range/Units 08:46 WBC 8.4 (4.8-10.8) X10*3/uL Hgb 9.4 L (12.0-16.0) g/dl Hct 26.0 L (37-47) % Plt Count 259 (160-400) X10*3/uL BMP 01/28/21 08:46 Sodium 136 Potassium 3.9 Chloride 107 Carbon Dioxide 19 L BUN 22 H D Creatinine 0.68 Calcium 8.2 L Cardiac Enzymes 01/27/21 01/28/21 Range/Units 16:30 08:46 Total Creatine Kinase Cancelled 14 L Liver Function 01/27/21 01/28/21 01/28/21 Range/Units 16:30 07:52 08:46 Total Bilirubin 10.7 H 11.6 H 12.1 H (0.0-1.0) mg/dL Direct Bilirubin 1.5 H 2.1 H 2.2 H (0.0-0.5) mg/dL AST 177 H 183 H 189 H (5-31) U/L ALT 256 H 266 H 278 H (0-31) U/L Alkaline Phosphatase 49 43 47 (39-117) U/L Albumin 3.3 L 3.0 L 3.1 L (3.5-5.0) g/dL Assessment and Plan Patient Active problem list reviewed?: Yes (1) Positive direct Lyssa test Status: Resolved Assessment and plan: This is an unfortunate 30-year-old lady, who was admitted on 01/21 with progress lately increasing neurological symptoms. Initially she had numbness and tingling in her feet and then progressed on to develop weakness. She is under the care of neurology. 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 Currently on IVIG. She has been noted to become anemic. Serial hemoglobin: 13.7/11.5/11.1/9.4. MCV 83. LDH: 350. ESR: 51. LFTs: 12/47/189/to 78. DANETTE: Positive. 1:80. Lyssa test: Positive for IgG. C3 negative. DIFFERENTIAL DIAGNOSIS: 1. Autoimmune hemolytic anemia: Hemoglobin has been dropping. LDH is elevated. Haptoglobin <8. Lyssa test is positive. 2. SHE: Is in the differential. PLAN: I will proceed with further evaluation. Check her peripheral smear. Check coags: PT PTT D-dimer and fibrinogen. She is on IVIG that can be a cause for hemolytic anemia as well. Will follow her blood count carefully. If it does not improve, then will give a trial of steroids. Thank you for the consult, I will follow along with you. CC: - Time Spent With Patient Time Spent with Patient (in minutes): 30
[2021-01-28 20:56] LABS: Immunoglobulin G Subclass 1 463 mg/dL (382-929); Immunoglobulin G Subclass 2 201 mg/dL (241-700); Immunoglobulin G Subclass 3 54 mg/dL (22-178); Immunoglobulin G Subclass 4 17.2 mg/dL (4-86); Immunoglobulin G Total 799 mg/dL (600-1640)
--- NOTE | 2021-01-29 | EMG_ITS ---
Lower extremity nerve conduction studies were obtained, but at one point, the patient did not tolerate the procedure and it was prematurely terminated. Similarly, needle examination was also quite limited. 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 Without proper EMG study, radiculopathy could not be ruled out. MD CEZAR Izaguirre/NATHALIE / [id number]
[2021-01-29] MEDS: UrsodioL 300 MG CAPSULE PO ×2 (07:52→20:39)
[2021-01-29] MEDS: Folic Acid 1 MG in 0.9 % Sodium Chloride 50 ML 100.4 MG IV (07:52)
[2021-01-29] MEDS: Thiamine HCL 100 MG in 0.9 % Sodium Chloride 100 ML 202 MG IV (07:53)
[2021-01-29] MEDS: Cholecalciferol (Vitamin D3) 25 MCG TABLET PO (07:53)
[2021-01-29] MEDS: Multivitamin TABLET 1 TAB PO (07:53)
[2021-01-29] MEDS: 0.9 % Sodium Chloride 1,000 ML 100 ML IVCONT ×2 (09:00→20:41)
[2021-01-29 09:21] LABS: Vitamin B1 <6 nmol/L (8-30)
[2021-01-29 09:30] VITALS: BP 122/56; PULSE 97; O2SAT 100
[2021-01-29 09:44] LABS: MANUAL DIFF FLAG NO
[2021-01-29 09:47] LABS: Basophils Percent Auto 0.5 % (0-2); Eosinophils Absolute Auto 0.1 X10*3/uL (0.0-0.4); Eosinophils Percent Auto 1.5 % (0-4); Hematocrit 27.6 % (37-47); Hemoglobin 9.8 g/dl (12.0-16.0); Imm Gran Abs Auto 0.17 X10*3/uL (0.00-0.03); Imm Gran Pct Auto 1.9 % (0.0-0.4); Lymphocytes Absolute Auto 2.9 X10*3/uL (1.2-4.9); Lymphocytes Percent Auto 33.3 % (20-40); Mean Corpuscular HGB Conc 35.5 g/dl (31.0-35.0); Mean Corpuscular Hemoglobin 30.3 pg (27.0-33.0); Mean Corpuscular Volume 85.4 fL (80-98); Mean Platelet Volume 12.1 fL (9.4-12.3); Monocytes Absolute Auto 0.6 X10*3/uL (0.1-1.2); Monocytes Percent Auto 7.2 % (2-11); Neutrophils Absolute Auto 4.9 X10*3/uL (2.0-8.3); Neutrophils Percent Auto 55.6 % (45-73); Platelet Count 245 X10*3/uL (160-400); Red Blood Count 3.23 X10*6/uL (4.20-5.50); Red Cell Distribution Width 19.9 % (11.0-16.0); Reticulocyte Percent 8.1 % (0.5-1.8); White Blood Count 8.8 X10*3/uL (4.8-10.8)
[2021-01-29 09:49] LABS: NRBC Pct Auto 1.7 /100WBC (0.0-0.2)
[2021-01-29 10:00] VITALS: BP 133/64; PULSE 92; RESP 18; TEMP 37.2; O2SAT 100
[2021-01-29 10:00] LABS: Fibrinogen 460 MG/DL (259-690)
[2021-01-29 10:03] LABS: PTT Heparin Drip 25.9 SEC (53-77.9)
[2021-01-29 10:05] LABS: Alanine Aminotransferase 273 U/L (0-31); Albumin Level 3.2 g/dL (3.5-5.0); Alkaline Phosphatase 49 U/L (39-117); Anion Gap 12 (12-20); Aspartate Amino Transferase 168 U/L (5-31); Bilirubin Direct 2.1 mg/dL (0.0-0.5); Bilirubin Total 10.8 mg/dL (0.0-1.0); Blood Urea Nitrogen 14 mg/dL (9-16); Calcium 8.4 mg/dL (8.4-10.2); Carbon Dioxide 23 mmol/L (22-29); Chloride 108 mmol/L (96-108); Creatinine Clr Calc Pharmacy 166.3; Estimated Glomerular Filt Rate > 60; Glucose Random 90 mg/dL (60-115); Lactate Dehydrogenase 296 U/L (122-220); Potassium 3.6 mmol/L (3.3-5.1); Sodium 139 mmol/L (135-145); Total Protein 8.1 g/dL (6.5-8.0)
[2021-01-29 10:22] LABS: D Dimer 432 NG/ML
--- NOTE | 2021-01-29 10:44 | P.PNIM_ITS ---
Subjective Subjective Date of Service: 01/29/21 Interval History: Seen in f/u bilateral lower extremity weakness, now with elevated LFTs, and bilirubin. Weakness is slightly better, bilirubin is going Review of Systems Weakness is legs, no fever, no abdominal pain Physical Exam Vital Signs: Vital Signs: Last Vital Signs Temp 98.9 F 01/29/21 10:00 Pulse 92 01/29/21 10:00 Resp 18 01/29/21 10:00 BP 133/64 01/29/21 10:00 Pulse Ox 100 01/29/21 10:00 Body Mass Index 46.3 General: AO X 3, no acute distress HEENT--sclera icteris Resp: CTA bilateral CVS: S1,S2,RRR GI: +BS, NT, no distention Skin: No rash Neuro: able to lift both legs against gravity but weak to ambulate on them Psych: appropriate affect Objective Data Active Medications Acetaminophen (Acetaminophen 325 Mg Tablet) 650 mg PO Q6H PRN PRN Reason: pain Last Admin: 01/25/21 12:52 Dose: 650 mg Documented by: LILA Cyanocobalamin (Cyanocobalamin (Vitamin B-12) 1,000 Mcg/Ml Vial) 1,000 mcg IM Q30D [facility] Last Admin: 01/20/21 21:34 Dose: 1,000 mcg Documented by: JOSE ARMANDO Docusate Sodium (Docusate Sodium 100 Mg Capsule) 100 mg PO BEDTIME [facility] Last Admin: 01/28/21 20:41 Dose: Not Given Documented by: CIARAN Non-Admin Reason: Patient Refused Enoxaparin Sodium (Enoxaparin Sodium 40 Mg/0.4 Ml Syringe) 40 mg SUBCUT Q24H [facility] Last Admin: 01/28/21 13:08 Dose: 40 mg Documented by: YURY Thiamine HCl 100 mg/ Sodium (Chloride) 101 mls @ 202 mls/hr IV DAILY [facility] Last Infusion: 01/29/21 08:47 Dose: 0 mls/hr Documented by: SHERWIN-ROSALINEEP Folic Acid 1 mg/ Sodium (Chloride) 50.2 mls @ 100.4 mls/hr IV DAILY [facility] Last Infusion: 01/29/21 08:46 Dose: 0 mls/hr Documented by: SHERWIN-ROSALINEEP Sodium Chloride (Ns) 1,000 mls @ 100 mls/hr IVCONT .Q10H [facility] Last Admin: 01/29/21 09:00 Dose: 100 mls/hr Documented by: RASHID Multivitamins/Vitamin C (Multivitamin Tablet) 1 tab PO DAILY [facility] Last Admin: 01/29/21 07:53 Dose: 1 tab Documented by: RASHID Oxycodone HCl (Oxycodone Hcl Immed Release 5 Mg Tablet) 2.5 mg PO Q6H PRN PRN Reason: Pain, Severe (Pain Scale 7-10) Polyethylene Glycol (Polyethylene Glycol 3350 17 Gm Powd.Pack) 17 gm PO BID [facility] Last Admin: 01/29/21 07:53 Dose: Not Given Documented by: RASHID Non-Admin Reason: Patient Refused Senna (Sennosides 8.6 Mg Tablet) 17.2 mg PO BEDTIME [facility] Last Admin: 01/28/21 20:40 Dose: Not Given Documented by: ANDRAFAELA Non-Admin Reason: Patient Refused Sodium Chloride (0.9 % Sodium Chloride Flush 3 Ml Syringe) 3 ml IVFLUSH QSHIFT [facility] Last Admin: 01/29/21 08:00 Dose: Not Given Documented by: RASHID Non-Admin Reason: IV Running Ursodiol (Ursodiol 300 Mg Capsule) 300 mg PO BID [facility] Last Admin: 01/29/21 07:52 Dose: 300 mg Documented by: RASHID Vitamin D (Cholecalciferol (Vitamin D3) 25 Mcg Tablet) 25 mcg PO DAILY [facility] Last Admin: 01/29/21 07:53 Dose: 25 mcg Documented by: RASHID Labs CBC & Chem 7: 01/29/21 09:26 01/29/21 09:26 Labs: Laboratory Results - last 24 hr 01/20/21 01/20/21 01/21/21 02:13 18:19 16:06 Hct 43.8 40.8 MCV MCH MCHC RDW Plt Count MPV Immature Gran % (Auto) Neut % (Auto) Lymph % (Auto) Campbell % (Auto) Eos % (Auto) Baso % (Auto) Lymph # (Auto) Campbell # (Auto) Eos # (Auto) Baso # (Auto) Abs Immat Gran (auto) Absolute Neuts (auto) Absolute Nucleated RBC Nucleated RBC % (auto) Neutrophils % (Manual) Band Neutrophils % Lymphocytes % (Manual) Atypical Lymphs % (Man) Monocytes % (Manual) Eosinophils % (Manual) Basophils % (Manual) Metamyelocytes % Myelocytes % Promyelocytes % Blast Cells % (Manual) Plasma Cell % (Manual) Abs Neuts (Manual) Lymphocytes # (Manual) Atyp Lymphs # (Manual) Monocytes # (Manual) Eosinophils # (Manual) Basophils # (Manual) Metamyelocytes # Myelocytes # Promyelocytes # Blast Cells # Plasma Cell # (Manual) Nucleated RBCs Differential Comment Hypersegmented Neuts Smudge Cells Toxic Granulation Toxic Vacuolation Dohle Bodies Eugenio Rods WBC Morphology Comment Platelet Estimate Large Platelets Giant Platelets Plt Morphology Comment RBC Morphology Polychromasia Hypochromasia Basophilic Stippling Microcytosis Macrocytosis Spherocytes Pappenheimer Bodies Sickle Cells Target Cells Tear Drop Cells Ovalocytes Stomatocytes Dia-Antigo Bodies Kaylyn Cells Acanthocytes (Spur) Rouleaux Schistocytes Absolute Retic Percent Retic Immature Retic Fraction Retic Hgb Equivalent APTT PTT (Heparin Protocol) Fibrinogen D-Dimer Anion Gap Estim Creat Clear Calc Estimated GFR Random Glucose Calcium Total Bilirubin Direct Bilirubin AST ALT Alkaline Phosphatase Lactate Dehydrogenase Total Protein Albumin Vitamin B1 <6 L IgG Total IgG Subclass 1 IgG Subclass 2 IgG Subclass 3 IgG Subclass 4 Anti-HU Antibody Titer Anti-Hu Antibody Anti-Hu Ab (West Blot) Soluble Liver Antigen 01/22/21 01/22/21 01/22/21 08:10 17:35 17:35 Hct MCV MCH MCHC RDW Plt Count MPV Immature Gran % (Auto) Neut % (Auto) Lymph % (Auto) Campbell % (Auto) Eos % (Auto) Baso % (Auto) Lymph # (Auto) Campbell # (Auto) Eos # (Auto) Baso # (Auto) Abs Immat Gran (auto) Absolute Neuts (auto) Absolute Nucleated RBC Nucleated RBC % (auto) Neutrophils % (Manual) Band Neutrophils % Lymphocytes % (Manual) Atypical Lymphs % (Man) Monocytes % (Manual) Eosinophils % (Manual) Basophils % (Manual) Metamyelocytes % Myelocytes % Promyelocytes % Blast Cells % (Manual) Plasma Cell % (Manual) Abs Neuts (Manual) Lymphocytes # (Manual) Atyp Lymphs # (Manual) Monocytes # (Manual) Eosinophils # (Manual) Basophils # (Manual) Metamyelocytes # Myelocytes # Promyelocytes # Blast Cells # Plasma Cell # (Manual) Nucleated RBCs Differential Comment Hypersegmented Neuts Smudge Cells Toxic Granulation Toxic Vacuolation Dohle Bodies Eugenio Rods WBC Morphology Comment Platelet Estimate Large Platelets Giant Platelets Plt Morphology Comment RBC Morphology Polychromasia Hypochromasia Basophilic Stippling Microcytosis Macrocytosis Spherocytes Pappenheimer Bodies Sickle Cells Target Cells Tear Drop Cells Ovalocytes Stomatocytes Dia-Antigo Bodies Kaylyn Cells Acanthocytes (Spur) Rouleaux Schistocytes Absolute Retic Percent Retic Immature Retic Fraction Retic Hgb Equivalent APTT PTT (Heparin Protocol) Fibrinogen D-Dimer Anion Gap Estim Creat Clear Calc Estimated GFR Random Glucose Calcium Total Bilirubin Direct Bilirubin AST ALT Alkaline Phosphatase Lactate Dehydrogenase Total Protein Albumin Vitamin B1 IgG Total 799 IgG Subclass 1 463 IgG Subclass 2 201 L IgG Subclass 3 54 IgG Subclass 4 17.2 Anti-HU Antibody Titer TNP Anti-Hu Antibody NEGATIVE Anti-Hu Ab (West Blot) TNP Soluble Liver Antigen <20.1 01/24/21 01/26/21 01/28/21 06:10 05:44 08:46 Hct 33.7 L 31.8 L 26.0 L MCV MCH MCHC RDW Plt Count MPV Immature Gran % (Auto) Neut % (Auto) Lymph % (Auto) Campbell % (Auto) Eos % (Auto) Baso % (Auto) Lymph # (Auto) Campbell # (Auto) Eos # (Auto) Baso # (Auto) Abs Immat Gran (auto) Absolute Neuts (auto) Absolute Nucleated RBC Nucleated RBC % (auto) Neutrophils % (Manual) Cancelled Band Neutrophils % Cancelled Lymphocytes % (Manual) Cancelled Atypical Lymphs % (Man) Cancelled Monocytes % (Manual) Cancelled Eosinophils % (Manual) Cancelled Basophils % (Manual) Cancelled Metamyelocytes % Cancelled Myelocytes % Cancelled Promyelocytes % Cancelled Blast Cells % (Manual) Cancelled Plasma Cell % (Manual) Cancelled Abs Neuts (Manual) Cancelled Lymphocytes # (Manual) Cancelled Atyp Lymphs # (Manual) Cancelled Monocytes # (Manual) Cancelled Eosinophils # (Manual) Cancelled Basophils # (Manual) Cancelled Metamyelocytes # Cancelled Myelocytes # Cancelled Promyelocytes # Cancelled Blast Cells # Cancelled Plasma Cell # (Manual) Cancelled Nucleated RBCs Cancelled Differential Comment Cancelled Hypersegmented Neuts Cancelled Smudge Cells Cancelled Toxic Granulation Cancelled Toxic Vacuolation Cancelled Dohle Bodies Cancelled Eugenio Rods Cancelled WBC Morphology Comment Cancelled Platelet Estimate Cancelled Large Platelets Cancelled Giant Platelets Cancelled Plt Morphology Comment Cancelled RBC Morphology Cancelled Polychromasia Cancelled Hypochromasia Cancelled Basophilic Stippling Cancelled Microcytosis Cancelled Macrocytosis Cancelled Spherocytes Cancelled Pappenheimer Bodies Cancelled Sickle Cells Cancelled Target Cells Cancelled Tear Drop Cells Cancelled Ovalocytes Cancelled Stomatocytes Cancelled Dia-Antigo Bodies Cancelled Unity Cells Cancelled Acanthocytes (Spur) Cancelled Rouleaux Cancelled Schistocytes Cancelled Absolute Retic Percent Retic Immature Retic Fraction Retic Hgb Equivalent APTT PTT (Heparin Protocol) Fibrinogen D-Dimer Anion Gap Estim Creat Clear Calc Estimated GFR Random Glucose Calcium Total Bilirubin Direct Bilirubin AST ALT Alkaline Phosphatase Lactate Dehydrogenase Total Protein Albumin Vitamin B1 IgG Total IgG Subclass 1 IgG Subclass 2 IgG Subclass 3 IgG Subclass 4 Anti-HU Antibody Titer Anti-Hu Antibody Anti-Hu Ab (West Blot) Soluble Liver Antigen 01/29/21 01/29/21 01/29/21 09:25 09:25 09:26 Hct 27.6 L MCV 85.4 MCH 30.3 MCHC 35.5 H RDW 19.9 H Plt Count 245 MPV 12.1 Immature Gran % (Auto) 1.9 H Neut % (Auto) 55.6 Lymph % (Auto) 33.3 Campbell % (Auto) 7.2 Eos % (Auto) 1.5 Baso % (Auto) 0.5 Lymph # (Auto) 2.9 Campbell # (Auto) 0.6 Eos # (Auto) 0.1 Baso # (Auto) 0.0 Abs Immat Gran (auto) 0.17 H Absolute Neuts (auto) 4.9 Absolute Nucleated RBC 0.150 H Nucleated RBC % (auto) 1.7 H Neutrophils % (Manual) Band Neutrophils % Lymphocytes % (Manual) Atypical Lymphs % (Man) Monocytes % (Manual) Eosinophils % (Manual) Basophils % (Manual) Metamyelocytes % Myelocytes % Promyelocytes % Blast Cells % (Manual) Plasma Cell % (Manual) Abs Neuts (Manual) Lymphocytes # (Manual) Atyp Lymphs # (Manual) Monocytes # (Manual) Eosinophils # (Manual) Basophils # (Manual) Metamyelocytes # Myelocytes # Promyelocytes # Blast Cells # Plasma Cell # (Manual) Nucleated RBCs Differential Comment Hypersegmented Neuts Smudge Cells Toxic Granulation Toxic Vacuolation Dohle Bodies Eugenio Rods WBC Morphology Comment Platelet Estimate Large Platelets Giant Platelets Plt Morphology Comment RBC Morphology Polychromasia Hypochromasia Basophilic Stippling Microcytosis Macrocytosis Spherocytes Pappenheimer Bodies Sickle Cells Target Cells Tear Drop Cells Ovalocytes Stomatocytes Dia-Antigo Bodies Kaylyn Cells Acanthocytes (Spur) Rouleaux Schistocytes Absolute Retic 0.260 H Percent Retic 8.1 H Immature Retic Fraction 39.0 H Retic Hgb Equivalent 35.0 APTT Cancelled PTT (Heparin Protocol) 25.9 L Fibrinogen Cancelled 460 D-Dimer 432 Anion Gap Estim Creat Clear Calc Estimated GFR Random Glucose Calcium Total Bilirubin Direct Bilirubin AST ALT Alkaline Phosphatase Lactate Dehydrogenase Total Protein Albumin Vitamin B1 IgG Total IgG Subclass 1 IgG Subclass 2 IgG Subclass 3 IgG Subclass 4 Anti-HU Antibody Titer Anti-Hu Antibody Anti-Hu Ab (West Blot) Soluble Liver Antigen 01/29/21 09:26 Hct MCV MCH MCHC RDW Plt Count MPV Immature Gran % (Auto) Neut % (Auto) Lymph % (Auto) Campbell % (Auto) Eos % (Auto) Baso % (Auto) Lymph # (Auto) Campbell # (Auto) Eos # (Auto) Baso # (Auto) Abs Immat Gran (auto) Absolute Neuts (auto) Absolute Nucleated RBC Nucleated RBC % (auto) Neutrophils % (Manual) Band Neutrophils % Lymphocytes % (Manual) Atypical Lymphs % (Man) Monocytes % (Manual) Eosinophils % (Manual) Basophils % (Manual) Metamyelocytes % Myelocytes % Promyelocytes % Blast Cells % (Manual) Plasma Cell % (Manual) Abs Neuts (Manual) Lymphocytes # (Manual) Atyp Lymphs # (Manual) Monocytes # (Manual) Eosinophils # (Manual) Basophils # (Manual) Metamyelocytes # Myelocytes # Promyelocytes # Blast Cells # Plasma Cell # (Manual) Nucleated RBCs Differential Comment Hypersegmented Neuts Smudge Cells Toxic Granulation Toxic Vacuolation Dohle Bodies Eugenio Rods WBC Morphology Comment Platelet Estimate Large Platelets Giant Platelets Plt Morphology Comment RBC Morphology Polychromasia Hypochromasia Basophilic Stippling Microcytosis Macrocytosis Spherocytes Pappenheimer Bodies Sickle Cells Target Cells Tear Drop Cells Ovalocytes Stomatocytes Dia-Antigo Bodies Kaylyn Cells Acanthocytes (Spur) Rouleaux Schistocytes Absolute Retic Percent Retic Immature Retic Fraction Retic Hgb Equivalent APTT PTT (Heparin Protocol) Fibrinogen D-Dimer Anion Gap 12 Estim Creat Clear Calc 166.3 Estimated GFR > 60 Random Glucose 90 Calcium 8.4 Total Bilirubin 10.8 H Direct Bilirubin 2.1 H AST 168 H ALT 273 H Alkaline Phosphatase 49 Lactate Dehydrogenase 296 H Total Protein 8.1 H Albumin 3.2 L Vitamin B1 IgG Total IgG Subclass 1 IgG Subclass 2 IgG Subclass 3 IgG Subclass 4 Anti-HU Antibody Titer Anti-Hu Antibody Anti-Hu Ab (West Blot) Soluble Liver Antigen Assessment and Plan (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 Elevated LFTS in setting of fatty liver disease LFTs continue to trend up especially Tibili presently 10, mostly indirect Liver estography on 01/24: The stage of liver fibrosis may be overestimated in the setting of acute hepatitis, liver inflammation, elevated liver function tests, hepatic vascular congestion, obstructive cholestasis, non-fasting state, and infiltrative diseases such as amyloidosis and lymphoma.? In some patients with NAFLD, the liver stiffness thresholds for compensated advanced chronic liver disease may be lower.? In causes other than viral hepatitis and NAFLD, liver stiffness thresholds are not well established. significance unlear. Will check with GI again.. Bariatry service recommend Ursodiol --Bili going up, LDH high, positive commbs test and anemia and thus hemolysis, source unclear--LFTs are now trending down, LDH is down, will continue to follow LFTs, Heme input noted, Fibronogen, PTT pending 3. constipation--Miralax 2. Asthma:? Asymptomatic P.r.n. nebs added s/p recent bariatric surgery--Follow diet, vitamin replacement DVT prophylaxis with Lovenox Quality Stroke Does the patient have a stroke diagnosis?: No VTE Prior VTE?: No VTE Risk Level:: Medical - moderate - high VTE Device Contraindication: N/A - Device Ordered VTE Drug Contraindication: N/A - Med Ordered
--- NOTE | 2021-01-29 11:08 | P.PNGS_ITS ---
Subjective Subjective Date of Service: 01/29/21 Patient reports: feels better Interval history: This is a 30 yo woman who had RNYGBP by Dr Clark on November 05, 2020, total weight loss of 96 lbs. Admitted on 01/19/21 with complaints of worsening? numbness, tingling? and decreased motor strength in lower extremities over the last 2 weeks prior to admission. Pt had her last appt with Dr Clark on 12/25 and had a weight check in our office on 01/15. The dry heav ing that she had earlier in her post op period has resolved at least 2 weeks ago. Her present meal plan is 4d/ week - 2 Premier protein shakes and 3 protien bars and 3d/ week 2 shakes, 2 bars and one meal of 4 forkfuls protien and 4 forkfuls vegetables. She states she also drink drinks 2 bottles of water and the equivalent of another bottle of non calorie drink. She only takes her baritric vitamin 3d/ week - states she doesn't remember otherwise. Since admission, she has had an extensive w/u including multiple imaging studies and seen in consultation by Neurology and GI and hematology.? She has had evidence of significantly elevated unconjugated bilirunin although has begun to trend downward. GI and Hematolgoy continue w/u although hemolytic anemia is working dx with Aminta Almeida remaining in the differential per GI. She also has continued treatment with IVIG for GBS per neurology. Today she reports overall feeling improved strength and appears less jaundiced. She is tolerating her bariatric diet and bariatric vitamins without difficulty and is in good spirits. Physical Exam Vital Signs: Vital Signs: Last Vital Signs Temp 98.9 F 01/29/21 10:00 Pulse 92 01/29/21 10:00 Resp 18 01/29/21 10:00 BP 133/64 01/29/21 10:00 Pulse Ox 100 01/29/21 10:00 Body Mass Index 46.3 Const: Orientation/consciousness: patient oriented x3 Eyes: Conjunctivae: conjunctival abnormal bilateral (less conjunctival icterus) Resp: Effort & Inspection: normal respiratory effort Skin: General skin exam: jaundice (less jaundice appearance) Neuro: General: patient oriented x3 Cognition (Neuro): normal cognition Procedures Date of Service Date of Service: 01/29/21 Progress Note: A&P Assessment and plan (1) S/P gastric bypass: Status: Acute Assessment and Plan: Continue current bariatric meal plan and bariatric multivitamins. Will need follow up with Dr Clark upon discharge. 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 Assessment and Plan: Defer treatment to Neurology, IVIG Fall Risk Details Current Medications: Current Medications Acetaminophen (Acetaminophen 325 Mg Tablet) 650 mg PO Q6H PRN PRN Reason: pain Last Admin: 01/25/21 12:52 Dose: 650 mg Documented by: Cyanocobalamin (Cyanocobalamin (Vitamin B-12) 1,000 Mcg/Ml Vial) 1,000 mcg IM Q30D [facility] Last Admin: 01/20/21 21:34 Dose: 1,000 mcg Documented by: Docusate Sodium (Docusate Sodium 100 Mg Capsule) 100 mg PO BEDTIME [facility] Last Admin: 01/28/21 20:41 Dose: Not Given Documented by: Enoxaparin Sodium (Enoxaparin Sodium 40 Mg/0.4 Ml Syringe) 40 mg SUBCUT Q24H [facility] Last Admin: 01/28/21 13:08 Dose: 40 mg Documented by: Thiamine HCl 100 mg/ Sodium (Chloride) 101 mls @ 202 mls/hr IV DAILY [facility] Last Infusion: 01/29/21 08:47 Dose: Infused Documented by: Folic Acid 1 mg/ Sodium (Chloride) 50.2 mls @ 100.4 mls/hr IV DAILY [facility] Last Infusion: 01/29/21 08:46 Dose: Infused Documented by: Sodium Chloride (Ns) 1,000 mls @ 100 mls/hr IVCONT .Q10H [facility] Last Admin: 01/29/21 09:00 Dose: 100 mls/hr Documented by: Multivitamins/Vitamin C (Multivitamin Tablet) 1 tab PO DAILY [facility] Last Admin: 01/29/21 07:53 Dose: 1 tab Documented by: Oxycodone HCl (Oxycodone Hcl Immed Release 5 Mg Tablet) 2.5 mg PO Q6H PRN PRN Reason: Pain, Severe (Pain Scale 7-10) Polyethylene Glycol (Polyethylene Glycol 3350 17 Gm Powd.Pack) 17 gm PO BID [facility] Last Admin: 01/29/21 07:53 Dose: Not Given Documented by: Senna (Sennosides 8.6 Mg Tablet) 17.2 mg PO BEDTIME [facility] Last Admin: 01/28/21 20:40 Dose: Not Given Documented by: Sodium Chloride (0.9 % Sodium Chloride Flush 3 Ml Syringe) 3 ml IVFLUSH QSHIFT [facility] Last Admin: 01/29/21 08:00 Dose: Not Given Documented by: Ursodiol (Ursodiol 300 Mg Capsule) 300 mg PO BID [facility] Last Admin: 01/29/21 07:52 Dose: 300 mg Documented by: Vitamin D (Cholecalciferol (Vitamin D3) 25 Mcg Tablet) 25 mcg PO DAILY [facility] Last Admin: 01/29/21 07:53 Dose: 25 mcg Documented by: Time Spent With Patient Time: Total time spent is greater than 50% in coordination of care (as documented) at patient's floor/unit and/or counseling patient: Time with patient: less than 15 minutes Quality Stroke Does the patient have a stroke diagnosis?: No VTE Prior VTE?: No VTE Risk Level:: Medical - moderate - high VTE Device Contraindication: N/A - Device Ordered VTE Drug Contraindication: N/A - Med Ordered
--- NOTE | 2021-01-29 11:12 | MHC.CM.PN ---
PER MD ROUNDS, PT LIKELY TO BE READY TO DC EARLY NEXT WEEK. DC PLAN CONTINUES TO BE ACUTE REHAB AT [facility] TRANSPORT VIA [facility]
[2021-01-29 11:20] LABS: Alpha-Tocopherol 7.2 mg/L (5.7-19.9); Beta-Gamma Tocopherol <1.0 mg/L (<=4.3); Vitamin A 28 mcg/dL (38-98)
[2021-01-29] MEDS: Enoxaparin Sodium 40 MG/0.4 ML SYRINGE SUBCUT (13:41)
[2021-01-29 14:02] LABS: Vitamin K1 157 pg/mL (130-1500)
[2021-01-29 15:57] VITALS: BP 125/74; PULSE 98; RESP 18; TEMP 36; O2SAT 100
[2021-01-29 16:17] LABS: Vitamin B5 (Pantothenic Acid) 77 ng/mL (<275)
[2021-01-29] MEDS: oxyCODONE HCl Immed Release 5 MG TABLET 2.5 MG PO (20:40)
[2021-01-29 23:35] VITALS: BP 132/79; PULSE 87; RESP 18; TEMP 36.1; O2SAT 100
[2021-01-30] MEDS: oxyCODONE HCl Immed Release 5 MG TABLET 2.5 MG PO ×3 (02:22→15:41)
--- NOTE | 2021-01-30 05:45 | P.PNIM_ITS ---
Subjective Subjective Date of Service: 01/30/21 Interval History: Seen in f/u bilateral lower extremity weakness, now with elevated LFTs, and bilirubin. Weakness is slightly better Review of Systems Weakness is legs, no fever, no abdominal pain Physical Exam Vital Signs: Vital Signs: Last Vital Signs Temp 96.9 F 01/29/21 23:35 Pulse 87 01/29/21 23:35 Resp 18 01/29/21 23:35 BP 132/79 01/29/21 23:35 Pulse Ox 100 01/29/21 23:35 Body Mass Index 46.3 General: AO X 3, no acute distress HEENT--sclera icteris Resp:? CTA bilateral CVS: S1,S2,RRR GI: +BS, NT, no distention Skin: No rash Neuro:? able to lift both legs against gravity but weak? to ambulate on them Psych: appropriate affect ? Objective Data Active Medications Acetaminophen (Acetaminophen 325 Mg Tablet) 650 mg PO Q6H PRN PRN Reason: pain Last Admin: 01/25/21 12:52 Dose: 650 mg Documented by: LILA Cyanocobalamin (Cyanocobalamin (Vitamin B-12) 1,000 Mcg/Ml Vial) 1,000 mcg IM Q30D [facility] Last Admin: 01/20/21 21:34 Dose: 1,000 mcg Documented by: JOSE ARMANDO Docusate Sodium (Docusate Sodium 100 Mg Capsule) 100 mg PO BEDTIME [facility] Last Admin: 01/29/21 20:43 Dose: Not Given Documented by: CARMELITA Non-Admin Reason: Patient Refused Enoxaparin Sodium (Enoxaparin Sodium 40 Mg/0.4 Ml Syringe) 40 mg SUBCUT Q24H [facility] Last Admin: 01/29/21 13:41 Dose: 40 mg Documented by: SHERWIN-BYRON Thiamine HCl 100 mg/ Sodium (Chloride) 101 mls @ 202 mls/hr IV DAILY [facility] Last Infusion: 01/29/21 08:47 Dose: 0 mls/hr Documented by: SHERWIN-ASKDIDIER Folic Acid 1 mg/ Sodium (Chloride) 50.2 mls @ 100.4 mls/hr IV DAILY [facility] Last Infusion: 01/29/21 08:46 Dose: 0 mls/hr Documented by: SHERWIN-ASKDIDIER Sodium Chloride (Ns) 1,000 mls @ 100 mls/hr IVCONT .Q10H [facility] Last Admin: 01/29/21 20:41 Dose: 100 mls/hr Documented by: CARMELITA Multivitamins/Vitamin C (Multivitamin Tablet) 1 tab PO DAILY [facility] Last Admin: 01/29/21 07:53 Dose: 1 tab Documented by: RASHID Oxycodone HCl (Oxycodone Hcl Immed Release 5 Mg Tablet) 2.5 mg PO Q6H PRN PRN Reason: Pain, Severe (Pain Scale 7-10) Last Admin: 01/30/21 02:22 Dose: 2.5 mg Documented by: CARMELITA Polyethylene Glycol (Polyethylene Glycol 3350 17 Gm Powd.Pack) 17 gm PO BID [facility] Last Admin: 01/29/21 20:43 Dose: Not Given Documented by: CARMELITA Non-Admin Reason: Patient Refused Senna (Sennosides 8.6 Mg Tablet) 17.2 mg PO BEDTIME [facility] Last Admin: 01/29/21 20:43 Dose: Not Given Documented by: CARMELITA Non-Admin Reason: Patient Refused Sodium Chloride (0.9 % Sodium Chloride Flush 3 Ml Syringe) 3 ml IVFLUSH QSHIFT [facility] Last Admin: 01/29/21 20:44 Dose: Not Given Documented by: CARMELITA Non-Admin Reason: IV Running Ursodiol (Ursodiol 300 Mg Capsule) 300 mg PO BID [facility] Last Admin: 01/29/21 20:39 Dose: 300 mg Documented by: CARMELITA Vitamin D (Cholecalciferol (Vitamin D3) 25 Mcg Tablet) 25 mcg PO DAILY [facility] Last Admin: 01/29/21 07:53 Dose: 25 mcg Documented by: RASHID Labs CBC & Chem 7: 01/29/21 09:26 01/29/21 09:26 Labs: Laboratory Results - last 24 hr 01/20/21 01/22/21 01/22/21 18:19 17:35 17:35 MCV MCH MCHC RDW Plt Count MPV Immature Gran % (Auto) Neut % (Auto) Lymph % (Auto) [place] % (Auto) Eos % (Auto) Baso % (Auto) Lymph # (Auto) [place] # (Auto) Eos # (Auto) Baso # (Auto) Abs Immat Gran (auto) Absolute Neuts (auto) Absolute Nucleated RBC Nucleated RBC % (auto) Smear Path Review Absolute Retic Percent Retic Immature Retic Fraction Retic Hgb Equivalent APTT PTT (Heparin Protocol) Fibrinogen D-Dimer Anion Gap Estim Creat Clear Calc Estimated GFR Random Glucose Calcium Total Bilirubin Direct Bilirubin AST ALT Alkaline Phosphatase Lactate Dehydrogenase Total Protein Albumin Vitamin A Vitamin B1 <6 L Pantothenic Acid Alpha-Tocopherol Vit E 7.2 B- and G-Tocopherol <1.0 Vitamin K1 Anti-HU Antibody Titer TNP Anti-Hu Ab ([place]ot) TNP 01/22/21 01/22/21 01/22/21 17:35 17:35 17:35 MCV MCH MCHC RDW Plt Count MPV Immature Gran % (Auto) Neut % (Auto) Lymph % (Auto) [place] % (Auto) Eos % (Auto) Baso % (Auto) Lymph # (Auto) [place] # (Auto) Eos # (Auto) Baso # (Auto) Abs Immat Gran (auto) Absolute Neuts (auto) Absolute Nucleated RBC Nucleated RBC % (auto) Smear Path Review Absolute Retic Percent Retic Immature Retic Fraction Retic Hgb Equivalent APTT PTT (Heparin Protocol) Fibrinogen D-Dimer Anion Gap Estim Creat Clear Calc Estimated GFR Random Glucose Calcium Total Bilirubin Direct Bilirubin AST ALT Alkaline Phosphatase Lactate Dehydrogenase Total Protein Albumin Vitamin A 28 L Vitamin B1 Pantothenic Acid 77 Alpha-Tocopherol Vit E B- and G-Tocopherol Vitamin K1 157 Anti-HU Antibody Titer Anti-Hu Ab ([place]) 01/28/21 01/29/21 01/29/21 08:46 09:25 09:25 MCV MCH MCHC RDW Plt Count MPV Immature Gran % (Auto) Neut % (Auto) Lymph % (Auto) [place] % (Auto) Eos % (Auto) Baso % (Auto) Lymph # (Auto) [place] # (Auto) Eos # (Auto) Baso # (Auto) Abs Immat Gran (auto) Absolute Neuts (auto) Absolute Nucleated RBC Nucleated RBC % (auto) Smear Path Review SEE NOTE Absolute Retic Percent Retic Immature Retic Fraction Retic Hgb Equivalent APTT Cancelled PTT (Heparin Protocol) 25.9 L Fibrinogen Cancelled 460 D-Dimer 432 Anion Gap Estim Creat Clear Calc Estimated GFR Random Glucose Calcium Total Bilirubin Direct Bilirubin AST ALT Alkaline Phosphatase Lactate Dehydrogenase Total Protein Albumin Vitamin A Vitamin B1 Pantothenic Acid Alpha-Tocopherol Vit E B- and G-Tocopherol Vitamin K1 Anti-HU Antibody Titer Anti-Hu Ab ([place]) 01/29/21 01/29/21 09:26 09:26 MCV 85.4 MCH 30.3 MCHC 35.5 H RDW 19.9 H Plt Count 245 MPV 12.1 Immature Gran % (Auto) 1.9 H Neut % (Auto) 55.6 Lymph % (Auto) 33.3 [place] % (Auto) 7.2 Eos % (Auto) 1.5 Baso % (Auto) 0.5 Lymph # (Auto) 2.9 [place] # (Auto) 0.6 Eos # (Auto) 0.1 Baso # (Auto) 0.0 Abs Immat Gran (auto) 0.17 H Absolute Neuts (auto) 4.9 Absolute Nucleated RBC 0.150 H Nucleated RBC % (auto) 1.7 H Smear Path Review Absolute Retic 0.260 H Percent Retic 8.1 H Immature Retic Fraction 39.0 H Retic Hgb Equivalent 35.0 APTT PTT (Heparin Protocol) Fibrinogen D-Dimer Anion Gap 12 Estim Creat Clear Calc 166.3 Estimated GFR > 60 Random Glucose 90 Calcium 8.4 Total Bilirubin 10.8 H Direct Bilirubin 2.1 H AST 168 H ALT 273 H Alkaline Phosphatase 49 Lactate Dehydrogenase 296 H Total Protein 8.1 H Albumin 3.2 L Vitamin A Vitamin B1 Pantothenic Acid Alpha-Tocopherol Vit E B- and G-Tocopherol Vitamin K1 Anti-HU Antibody Titer Anti-Hu Ab ([place]ot) Assessment and Plan (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 Elevated LFTS in setting of fatty liver disease LFTs, Tbili trending down Liver estography on 01/24: The stage of liver fibrosis may be overestimated in the setting of acute hepatitis, liver inflammation, elevated liver function tests, hepatic vascular congestion, obstructive cholestasis, non-fasting state, and infiltrative diseases such as amyloidosis and lymphoma.? In some patients with NAFLD, the liver stiffness thresholds for compensated advanced chronic liver disease may be lower.? In causes other than viral hepatitis and NAFLD, liver stiffness thresholds are not well established. significance unlear. Will check with GI again.. Bariatry service recommend Ursodiol 3. constipation--Miralax 2. Asthma:? Asymptomatic P.r.n. nebs added s/p recent bariatric surgery--Follow diet, vitamin replacement DVT prophylaxis with Lovenox To rehab Monday if LFTs continue to trend down Quality Stroke Does the patient have a stroke diagnosis?: No VTE Prior VTE?: No VTE Risk Level:: Medical - moderate - high VTE Device Contraindication: N/A - Device Ordered VTE Drug Contraindication: N/A - Med Ordered
[2021-01-30] MEDS: 0.9 % Sodium Chloride 1,000 ML 100 ML IVCONT ×2 (05:55→16:26)
[2021-01-30 08:35] LABS: Alanine Aminotransferase 213 U/L (0-31); Albumin Level 2.9 g/dL (3.5-5.0); Alkaline Phosphatase 44 U/L (39-117); Aspartate Amino Transferase 122 U/L (5-31); Bilirubin Direct 1.8 mg/dL (0.0-0.5); Bilirubin Total 8.6 mg/dL (0.0-1.0); Total Protein 6.9 g/dL (6.5-8.0)
[2021-01-30 10:00] VITALS: BP 115/61; PULSE 96; TEMP 36.6; O2SAT 100
[2021-01-30] MEDS: UrsodioL 300 MG CAPSULE PO (10:12)
[2021-01-30] MEDS: Multivitamin TABLET 1 TAB PO (10:13)
[2021-01-30] MEDS: Cholecalciferol (Vitamin D3) 25 MCG TABLET PO (10:13)
[2021-01-30] MEDS: Thiamine HCL 100 MG in 0.9 % Sodium Chloride 100 ML 200 MG IV (10:19)
[2021-01-30 10:42] LABS: Copper RBC 0.73 mg/L (0.53-0.91)
[2021-01-30] MEDS: Folic Acid 1 MG in 0.9 % Sodium Chloride 50 ML 100 MG IV (11:12)
[2021-01-30 13:40] LABS: Haptoglobin <8 mg/dL (43-212)
[2021-01-30] MEDS: Enoxaparin Sodium 40 MG/0.4 ML SYRINGE SUBCUT (14:14)
[2021-01-30 15:03] VITALS: BP 128/66; PULSE 93; RESP 21; TEMP 36.8; O2SAT 100
[2021-01-30 16:02] VITALS: BP 110/56; PULSE 90; RESP 18; TEMP 36.8; O2SAT 100
[2021-01-30 19:30] VITALS: BP 130/63; PULSE 96; RESP 20; TEMP 36.9; O2SAT 98
[2021-01-30 23:38] VITALS: BP 112/71; PULSE 99; RESP 18; TEMP 36.4; O2SAT 98
[2021-01-31] MEDS: 0.9 % Sodium Chloride 1,000 ML 100 ML IVCONT ×3 (02:15→19:53)
--- NOTE | 2021-01-31 05:12 | P.PNIM_ITS ---
Subjective Subjective Date of Service: 01/31/21 Interval History: Seen in f/u bilateral lower extremity weakness, now with elevated LFTs, and bilirubin. Weakness is slightly better, LFTs are trending down Review of Systems Weakness is legs, no fever, no abdominal pain, headache from time to time Physical Exam Vital Signs: Vital Signs: Selected Entries 01/31/21 07:32 Temperature 98.5 F Pulse Rate 96 Respiratory Rate 18 Blood Pressure 100/58 L Pulse Oximetry 99 Oxygen Delivery Me thod Room Air Body Mass Index 46.3 General: AO X 3, no acute distress HEENT--sclera icteris Resp:? CTA bilateral CVS: S1,S2,RRR GI: +BS, NT, no distention Skin: No rash Neuro:? able to lift both legs against gravity but weak? to ambulate on them Psych: appropriate affect ? Objective Data Active Medications Acetaminophen (Acetaminophen 325 Mg Tablet) 650 mg PO Q6H PRN PRN Reason: pain Last Admin: 01/25/21 12:52 Dose: 650 mg Documented by: LILA Cyanocobalamin (Cyanocobalamin (Vitamin B-12) 1,000 Mcg/Ml Vial) 1,000 mcg IM Q30D [facility] Last Admin: 01/20/21 21:34 Dose: 1,000 mcg Documented by: JOSE ARMANDO Docusate Sodium (Docusate Sodium 100 Mg Capsule) 100 mg PO BEDTIME [facility] Last Admin: 01/30/21 20:50 Dose: Not Given Documented by: CARMELITA Non-Admin Reason: Patient Refused Enoxaparin Sodium (Enoxaparin Sodium 40 Mg/0.4 Ml Syringe) 40 mg SUBCUT Q24H [facility] Last Admin: 01/30/21 14:14 Dose: 40 mg Documented by: SILVIA Thiamine HCl 100 mg/ Sodium (Chloride) 101 mls @ 202 mls/hr IV DAILY [facility] Last Infusion: 01/30/21 12:31 Dose: 200 mls/hr Documented by: SILVIA Folic Acid 1 mg/ Sodium (Chloride) 50.2 mls @ 100.4 mls/hr IV DAILY [facility] Last Infusion: 01/30/21 12:31 Dose: 100 mls/hr Documented by: SILVIA Sodium Chloride (Ns) 1,000 mls @ 100 mls/hr IVCONT .Q10H [facility] Last Admin: 01/31/21 02:15 Dose: 100 mls/hr Documented by: CARMELITA Multivitamins/Vitamin C (Multivitamin Tablet) 1 tab PO DAILY [facility] Last Admin: 01/30/21 10:13 Dose: 1 tab Documented by: SILVIA Oxycodone HCl (Oxycodone Hcl Immed Release 5 Mg Tablet) 5 mg PO Q6H PRN PRN Reason: Pain, Severe (Pain Scale 7-10) Polyethylene Glycol (Polyethylene Glycol 3350 17 Gm Powd.Pack) 17 gm PO BID [facility] Last Admin: 01/30/21 20:50 Dose: Not Given Documented by: CARMELITA Non-Admin Reason: Patient Refused Senna (Sennosides 8.6 Mg Tablet) 17.2 mg PO BEDTIME [facility] Last Admin: 01/30/21 20:50 Dose: Not Given Documented by: CARMELITA Non-Admin Reason: Patient Refused Sodium Chloride (0.9 % Sodium Chloride Flush 3 Ml Syringe) 3 ml IVFLUSH QSHIFT [facility] Last Admin: 01/31/21 02:18 Dose: Not Given Documented by: CARMELITA Non-Admin Reason: IV Running Vitamin D (Cholecalciferol (Vitamin D3) 25 Mcg Tablet) 25 mcg PO DAILY [facility] Last Admin: 01/30/21 10:13 Dose: 25 mcg Documented by: SILVIA Labs CBC & Chem 7: 02/01/21 07:55 02/01/21 07:55 Labs: Laboratory Results - last 24 hr 01/22/21 01/28/21 01/30/21 08:11 07:52 08:12 Haptoglobin <8 L Total Bilirubin 8.6 H Direct Bilirubin 1.8 H AST 122 H ALT 213 H Alkaline Phosphatase 44 Total Protein 6.9 Albumin 2.9 L RBC Copper 0.73 Assessment and Plan (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 Elevated LFTS in setting of fatty liver disease, but acute got worse of unclear cause LFTs, Tbili trending down--GI follwing, no further w/u so long as LFTs are trending down Liver estography on 01/24: The stage of liver fibrosis may be overestimated in the setting of acute hepatitis, liver inflammation, elevated liver function tests, hepatic vascular congestion, obstructive cholestasis, non-fasting state, and infiltrative diseases such as amyloidosis and lymphoma.? In some patients with NAFLD, the liver stiffness thresholds for compensated advanced chronic liver disease may be lower.? In causes other than viral hepatitis and NAFLD, liver stiffness thresholds are not well established. Anemia-d/t to hemolysis, cause unclear Hct steadily dropped from 40 to currently 27 and seem to have stablized, Heme has been following, no further w/u at this time, not sure if could related to IVIG 3. constipation--Miralax 2. Asthma:? Asymptomatic P.r.n. nebs added s/p recent bariatric surgery--Follow diet, vitamin replacement DVT prophylaxis with Lovenox as very high risk for DVT To rehab Monday if LFTs continue to trend down At this point maybe ready to transfer to rehab Quality Stroke Does the patient have a stroke diagnosis?: No VTE Prior VTE?: No VTE Risk Level:: Medical - moderate - high VTE Device Contraindication: N/A - Device Ordered VTE Drug Contraindication: N/A - Med Ordered
[2021-01-31 06:37] LABS: Hematocrit 22.5 % (37-47); Hemoglobin 7.8 g/dl (12.0-16.0); Mean Corpuscular HGB Conc 34.7 g/dl (31.0-35.0); Mean Corpuscular Hemoglobin 29.8 pg (27.0-33.0); Mean Corpuscular Volume 85.9 fL (80-98); Mean Platelet Volume 11.7 fL (9.4-12.3); Platelet Count 168 X10*3/uL (160-400); Red Blood Count 2.62 X10*6/uL (4.20-5.50); Red Cell Distribution Width 21.8 % (11.0-16.0); White Blood Count 5.8 X10*3/uL (4.8-10.8)
[2021-01-31 07:13] LABS: NRBC Pct Auto 1.4 /100WBC (0.0-0.2)
[2021-01-31 07:32] VITALS: BP 100/58; PULSE 96; RESP 18; TEMP 36.9; O2SAT 99
[2021-01-31] MEDS: Folic Acid 1 MG in 0.9 % Sodium Chloride 50 ML 100 MG IV (09:06)
[2021-01-31] MEDS: Thiamine HCL 100 MG in 0.9 % Sodium Chloride 100 ML 200 MG IV (09:07)
[2021-01-31] MEDS: Multivitamin TABLET 1 TAB PO (09:07)
[2021-01-31] MEDS: 0.9 % Sodium Chloride Flush 3 ML SYRINGE IVFLUSH (09:07)
[2021-01-31] MEDS: Cholecalciferol (Vitamin D3) 25 MCG TABLET PO (09:07)
[2021-01-31 14:53] VITALS: BP 147/78; PULSE 76; RESP 20; TEMP 36.1; O2SAT 100
[2021-01-31 23:09] VITALS: BP 121/70; PULSE 90; RESP 18; TEMP 36.7; O2SAT 100
[2021-02-01] MEDS: 0.9 % Sodium Chloride 1,000 ML 100 ML IVCONT (05:21)
[2021-02-01 07:24] VITALS: BP 130/79; PULSE 94; RESP 18; TEMP 36.1; O2SAT 98
[2021-02-01 08:01] LABS: Hematocrit 23.7 % (37-47); Hemoglobin 8.2 g/dl (12.0-16.0); Mean Corpuscular HGB Conc 34.6 g/dl (31.0-35.0); Mean Corpuscular Hemoglobin 29.9 pg (27.0-33.0); Mean Corpuscular Volume 86.5 fL (80-98); Mean Platelet Volume 11.4 fL (9.4-12.3); Platelet Count 165 X10*3/uL (160-400); Red Blood Count 2.74 X10*6/uL (4.20-5.50); Red Cell Distribution Width 22.9 % (11.0-16.0); White Blood Count 5.6 X10*3/uL (4.8-10.8)
[2021-02-01 08:02] LABS: NRBC Pct Auto 1.1 /100WBC (0.0-0.2)
[2021-02-01 08:17] LABS: Alanine Aminotransferase 153 U/L (0-31); Alkaline Phosphatase 42 U/L (39-117); Anion Gap 12 (12-20); Aspartate Amino Transferase 79 U/L (5-31); Bilirubin Total 6.9 mg/dL (0.0-1.0); Blood Urea Nitrogen 7 mg/dL (9-16); Calcium 8.2 mg/dL (8.4-10.2); Carbon Dioxide 23 mmol/L (22-29); Chloride 107 mmol/L (96-108); Estimated Glomerular Filt Rate > 60; Glucose Random 90 mg/dL (60-115); Potassium 3.5 mmol/L (3.3-5.1); Sodium 138 mmol/L (135-145); Total Protein 6.7 g/dL (6.5-8.0)
[2021-02-01] MEDS: Folic Acid 1 MG in 0.9 % Sodium Chloride 50 ML 100 MG IV (09:08)
[2021-02-01] MEDS: Thiamine HCL 100 MG in 0.9 % Sodium Chloride 100 ML 200 MG IV (09:08)
[2021-02-01] MEDS: Multivitamin TABLET 1 TAB PO (09:09)
[2021-02-01] MEDS: Cholecalciferol (Vitamin D3) 25 MCG TABLET PO (09:09)
[2021-02-01 10:11] VITALS: BP 130/79; PULSE 94; O2SAT 98
--- NOTE | 2021-02-01 10:23 | PM.DS ---
DS: Providers Provider Date of Service: 02/01/21 Date of admission: 01/22/21 14:45 Primary care physician: Teri Grigsby MD Consults: 01/20/21 10:12 Consult to Neurology Routine Consulting Provider: [facility] Reason for consultation: b/l lower extermity wekaness -? 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 30 years old woman with no significant past medical history other than obesity working on OBGYN office in the hospital developed problem with her legs but 2-3 weeks ago.? She said she had recent bariatric surgery-for which she was on multivitamins she was not taking them. She said she 1st started with numbness and tingling in feet and legs and then few days later noted some weakness She had difficulty climbing stairs and? of the weakness seem to be in proximal area of legs.? She had difficulty getting up from sitting position especially from a commode. Though in the past she had suffer from back pain this time there was no significant pain.? There was no bowel bladder difficulty.? There was no history of trauma or any recent cold or flu-like illness.? She denied any stress or depression or any tendency for anxiety.? She denied any such previous illnesses.? She came to emergency room last night and had and multiple investigations including a lumbar puncture. Hospital course: 30 years old woman with no significant past medical history other than obesity presented with new onset of bilateral leg paresthesias and then weakness within last 1-2 weeks.? There was no preceding trauma pain or cold or flu-like illness or virus illness.? Examination revealed bilateral leg mostly proximal, left more than right, weakness.? Upper extremity strength was full and there were no cranial nerve findings.? Ankle reflexes are absent.? Overall presentation was suggestive of a new onset of neuropathy.? Ankle reflexes were previously present, which would be difficult to confirm, it would suggest an acute neuropathy.? Her spinal fluid was clear but that could be clear sometime in early stages.? An EMG nerve conduction study can help but might be difficult to obtain while she is in hospital.? 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 Her spinal fluid was normal on .? Dr Rodriguez made the following recommendation: She should be started on IVIG 0.4 g/kg body weight which is 122 kg.? Daily IV infusion for a total of 5 days with a total dose of 2 g/kg, completed this on on 01/26.?Vital capacity has been monitored and have been in good range. Lyme screen is negative, Aldolase level is pending, Folate level is low at 3 and is being replaced along with Vitamin B12, thiamine. She had EMG and Nerve conduction study by Dr. 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 No evidence of demyelinating disease within the brain or spinal cord. 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 No associated mass effect within the intracranial compartment. Elevated Liver enzyme and particulary high bilirubin level starting at 3.5 on admission on 01/20/21 and at peaking at 12 on 01/28 and is now gradually coming down at 6 presently. She was evaluated by Dr. Pena, she had an abdominal US that showed fatty liver. Concurrently to this patient had hemolysis with signficant anemia as described below and likely source of high bilirubin with underlying chronic hyperbilirubinemia that may need further work up on outpatient basis, it is unclear if IVIG played any role in this as numbers went up signficantly folowing completion of IVIG. Hemolytic anemia-- positive ivan test, initial hematocrit on 01/21 was 43 and steadily droped to lowest of 22 on 01/31 and 23 today 02/01, anemia may have been agravated by Lovenox unfortunately she needed this to prevent DVT as she is extremely high risk with minimal mobilit while in the hospital. DVT prophylaxis with Lovenox Time Spent with Patient Time attestation: Total time spent providing and/or coordinating discharge services: Discharge coordination time: Greater than 30 minutes Quality: Stroke Does the patient have a stroke diagnosis?: No Physical Exam Vital Signs: Vital Signs: Last Vital Signs Temp 98.1 F 01/26/21 23:16 Pulse 87 01/27/21 09:17 Resp 18 01/26/21 23:16 BP 116/67 01/27/21 09:17 Pulse Ox 98 01/27/21 09:17 Body Mass Index 46.3 DS: Data Data Completed and Pending Completed studies during hospitalization [Text1]: Procedures Bypass Stomach to Jejunum, Percutaneous Endoscopic Approach (11/04/20) Release Peritoneum, Percutaneous Endoscopic Approach (11/04/20) Labs on day of discharge: Laboratory Results - last 24 hr 01/22/21 08:10 Anti-Smooth Muscle Ab <20 Discharge Plan Discharge Anticipated Discharge Date/Time: 01/27/21 10:14 Patient Disposition: Xfer Inpatient Rehab Fac Discharge Diagnosis: Guillain-Bare Referrals: [facility] [Other] - 1 Week [facility] [place] [Outside] - 1 Week Teri Grigsby MD [Primary Care Provider] - 1 Week Arina Flores MD [Physician] - 1 Week Discharge Medications: New multivitamin [Daily-Rand] Tablet 1 tab PO DAILY Qty: 30 RF: 0 cyanocobalamin (vitamin B-12) 1,000 mcg/mL Solution 1,000 mcg IM Q30D Qty: 10 RF: 0 ursodiol 300 mg Capsule 300 mg PO BID Qty: 14 RF: 0 cholecalciferol (vitamin D3) 25 mcg (1,000 unit) Tablet 25 mcg PO DAILY Qty: 30 RF: 0 folic acid 1 mg tablet 1 mg PO DAILY Qty: 30 RF: 0 thiamine HCl (vitamin B1) 100 mg tablet 100 mg PO DAILY Qty: 30 RF: 0 Continued multivitamin Tablet 1 tab PO DAILY RF: 0 cetirizine 10 mg tablet 10 mg PO DAILY PRN (Reason: allergies) RF: 0 albuterol sulfate 90 mcg/actuation HFA aerosol inhaler 2 puff PO Q4H PRN (Reason: wheezing) RF: 0 melatonin 5 mg capsule 5 mg PO BEDTIME PRN (Reason: Insomnia) RF: 0 pantoprazole 40 mg tablet,delayed release (DR/EC) 40 mg PO DAILY Qty: 30 RF: 2 sucralfate 100 mg/mL suspension 10 ml PO BID Qty: 400 RF: 2 No [facility] (D[facility]) Space Chamber Spacer See Rx Instructions ea .ROUTE .MEDSUPPLY Qty: 1 RF: 0 Discharge Orders: Discharge Order (Routine); Ordered 02/01/21 Ordered By: Gonzalo Alcantara Diet: advance to usual diet Activity on Discharge: As tolerated Stand Alone Forms: Patient Portal Discharge page Other Ambulatory Orders: Complete Blood Count Auto Diff (Routine) Timeframe: 3 Days Facility: [facility] - Location: Laboratory Ordered By: Arina Flores Comprehensive Met. Panel (Routine) Timeframe: 3 Days Facility: [facility] - Location: Laboratory Ordered By: Arina Flores Direct Ivan (NORMA) (Routine) Timeframe: 3 Days Facility: [facility] - Location: Laboratory Ordered By: Arina Flores Haptoglobin (Routine) Timeframe: 3 Days Facility: [facility] - Location: Laboratory Ordered By: Arina Flores Lactate Dehydrogenase (Routine) Timeframe: 3 Days Facility: [facility] - Location: Laboratory Ordered By: Arina Flores Reticulocyte Count (Routine) Timeframe: 3 Days Facility: [facility] - Location: Laboratory Ordered By: Arina Flores Type and Screen (Routine) Timeframe: 3 Days Facility: [facility] - Location: Laboratory Ordered By: Arina Flores Care Plan Goals: Full recovery from Guillain [place] Syndrome and weakness in legs and be able to ambulate on here Health Concerns: Guillain [place], hemolytic anemia, elevated LFTs. Plan of Treatment: Acute inpatient rehab, follow-up on LFTs and the hemoglobin and hematocrit. Check LFTs, CBC Monday Assessment: As above Discharge Date/Time: 02/01/21 19:23
[2021-02-01] MEDS: Enoxaparin Sodium 40 MG/0.4 ML SYRINGE SUBCUT (11:28)
--- NOTE | 2021-02-01 12:47 | MHC.CM.PN ---
CM has asked [facility] to initiate the insurance authorization process ans await updated Covid. CM will follow.
[2021-02-01 14:06] LABS: COVID-19 Test Negative (Negative)
--- NOTE | 2021-02-01 14:33 | MHC.CM.PN ---
Patient has been medically cleared for dc today to Acute Rehab. Patient will dc to [facility] today at 6PM, via [facility]. Patient is aware of and in agreement with the dc plan.
[2021-02-01 15:10] VITALS: BP 121/75; PULSE 87; RESP 19; TEMP 36.6; O2SAT 99
[2021-02-02 13:33] LABS: Lactate Dehydrogenase 241 U/L (122-220)
[2021-02-04 02:36] LABS: Haptoglobin <8 mg/dL (43-212)
[2021-02-08 15:27] LABS: A. Phagocytophilum Ab IgG <1:64 (<1:64); A. Phagocytophilum Ab IgM <1:20 (<1:20); E. Chaffeensis Ab IgG <1:64 (<1:64); E. Chaffeensis Ab IgM <1:20 (<1:20)
== END 2021-02-01 19:23 | DRG 49 ==
LOC: HO.ED 01-20 06:44 → HO.EDOVER 01-20 11:04 → HO.IMC 01-20 20:50 → HO.S3 01-22 17:36 → HO.IMC 01-22 17:41
PROVIDERS: Hospitalist; Internal Medicine Gastroenterology; Internal Medicine Medical Oncology; Surgery; Admitting Provider Internal Medicine; Emergency Provider Internal Medicine; PCP Internal Medicine; Visit Provider Internal Medicine
DX: G61.0 Guillain-Barre syndrome (principal); Z68.42 Body mass index [BMI] 45.0-49.9, adult; D58.9 Hereditary hemolytic anemia, unspecified; G62.9 Polyneuropathy, unspecified; E66.01 Morbid (severe) obesity due to excess calories; K75.81 Nonalcoholic steatohepatitis (NASH); Z20.822 Contact with and (suspected) exposure to COVID-19; J45.909 Unspecified asthma, uncomplicated; K59.00 Constipation, unspecified; R29.6 Repeated falls; Z91.81 History of falling; Z87.891 Personal history of nicotine dependence; Z98.84 Bariatric surgery status; Z79.899 Other long term (current) drug therapy
CPT/HCPCS: 36415; 70551; 72141; 72146; 76705; 76981; 80048; 80053; 80076; 82085; 82103; 82164; 82248; 82306; 82390; 82525; 82550; 82607; 82746; 82784; 82945; 82977; 83010; 83516; 83520; 83615; 83655; 83735; 83921; 84157; 84181; 84425; 84443; 84446; 84590; 84591; 84597; 85007; 85025; 85027; 85045; 85379; 85384; 85610; 85652; 85730; 86021; 86038; 86039; 86140; 86255; 86256; 86617; 86618; 86666; 86704; 86706; 86709; 86753; 86803; 86850; 86880; 86900; 86901; 87015; 87070; 87205; 87340; 87389; 87476; 87635; 89051; 94010; 95885; 95909; 97110; 97112; 97116; 97163; 97167; 97530; 97535; 99225; 99285; J1200; J1569; J1650; J2920; J3411

== ENCOUNTER → 2021-01-28 07:43 | Outpatient (BNVA) | payer OTHER, SELFPAY | PROVIDERS: PCP Internal Medicine; Visit Provider Surgery ==

== ENCOUNTER → 2021-02-19 08:03 | Outpatient (BNVA) | payer OTHER, SELFPAY | PROVIDERS: PCP Internal Medicine; Visit Provider Surgery ==

== ENCOUNTER → 2021-03-19 08:05 | Outpatient (BNVA) | payer OTHER, SELFPAY | PROVIDERS: PCP Internal Medicine; Visit Provider Surgery ==

== ENCOUNTER → 2021-04-19 08:06 | Outpatient (BNVA) | payer OTHER, SELFPAY | PROVIDERS: PCP Internal Medicine; Visit Provider Surgery ==

== ENCOUNTER → 2021-05-04 09:03 | Outpatient (BNVA) | payer OTHER, SELFPAY | PROVIDERS: PCP Internal Medicine; Visit Provider Surgery ==

== ENCOUNTER 2021-05-12 10:36 | Outpatient (REF) | payer OTHER, SELFPAY ==
[2021-05-12 10:53] LABS: MANUAL DIFF FLAG NO
[2021-05-12 11:18] LABS: Basophils Percent Auto 0.5 % (0-2); Eosinophils Absolute Auto 0.5 X10*3/uL (0.0-0.4); Eosinophils Percent Auto 5.7 % (0-4); Hematocrit 44.2 % (37.0-47.0); Hemoglobin 14.8 g/dl (12.0-16.0); Imm Gran Abs Auto 0.02 X10*3/uL (0.00-0.03); Imm Gran Pct Auto 0.3 % (0.0-0.4); Lymphocytes Absolute Auto 1.6 X10*3/uL (1.2-4.9); Lymphocytes Percent Auto 20.3 % (20-40); Mean Corpuscular HGB Conc 33.5 g/dl (31.0-35.0); Mean Corpuscular Hemoglobin 28.2 pg (27.0-33.0); Mean Corpuscular Volume 84.4 fL (80.0-98.0); Mean Platelet Volume 12.2 fL (9.4-12.3); Monocytes Absolute Auto 0.4 X10*3/uL (0.1-1.2); Monocytes Percent Auto 5.5 % (2-11); Neutrophils Absolute Auto 5.3 x10*3/uL (2.0-8.3); Neutrophils Percent Auto 67.7 % (45-73); Platelet Count 301 X10*3/uL (160-400); Red Blood Count 5.24 X10*6/uL (4.20-5.50); Red Cell Distribution Width 13.3 % (11.0-16.0); White Blood Count 7.8 X10*3/uL (4.8-10.8)
[2021-05-12 11:36] LABS: Estimated Average Glucose 97 mg/dL
[2021-05-12 11:45] LABS: Alanine Aminotransferase 14 U/L (0-31); Albumin Level 3.9 g/dL (3.5-5.0); Alkaline Phosphatase 48 U/L (39-117); Anion Gap 13 (12-20); Aspartate Amino Transferase 16 U/L (5-31); Bilirubin Total 3.5 mg/dL (0.0-1.0); Blood Urea Nitrogen 17 mg/dL (9-16); C Reactive Protein 0.21 mg/dL (< or = 0.50); Calcium 9.8 mg/dL (8.4-10.2); Carbon Dioxide 24 mmol/L (22-29); Chloride 111 mmol/L (96-108); Cholesterol 165 mg/dL; Estimated Glomerular Filt Rate > 60; Glucose Random 87 mg/dL (60-115); HDL Cholesterol 45 mg/dL; Iron 67 mcg/dL (30-160); LDL Cholesterol Calculated 104 mg/dl; Percent Iron Saturation 19 % (15-50); Potassium 4.2 mmol/L (3.3-5.1); Sodium 144 mmol/L (135-145); Total Iron Binding Capacity 345 mcg/dL (228-428); Total Protein 6.6 g/dL (6.5-8.0); Triglycerides 84 mg/dL; Unsaturated Iron Binding 278 ug/dL
[2021-05-12 12:07] LABS: Ferritin 33 ng/mL (10-122); Insulin 16 uU/mL (2-29); TSH reflex Free T4 1.25 uIU/mL (0.32-4.0); Vitamin D 25-OH Total 31.6 ng/mL (>30)
[2021-05-12 12:34] LABS: Folate > 20.0 ng/mL (> or = 4.0); Vitamin B12 296 pg/mL (200-900)
[2021-05-13 16:16] LABS: Calcium (PTHI) 9.5 mg/dL (8.6-10.2); PTHI 44 pg/mL (14-64)
[2021-05-16 01:47] LABS: Zinc 54 mcg/dL (60-130)
[2021-05-16 11:58] LABS: Vitamin B1 <6 nmol/L (8-30)
[2021-05-17 11:56] LABS: Vitamin A 29 mcg/dL (38-98)
== END 2021-05-12 10:37 | disposition home or self-care (01) ==
LOC: HO.LAB 10:36
PROVIDERS: Visit Provider Surgery
DX: K90.9 Intestinal malabsorption, unspecified (principal)
CPT/HCPCS: 36415; 80053; 80061; 82306; 82607; 82728; 82746; 83036; 83525; 83540; 83970; 84425; 84443; 84590; 84630; 85025; 86140

== ENCOUNTER → 2021-06-28 07:03 | Outpatient (BNVA) | payer OTHER, SELFPAY | PROVIDERS: PCP Internal Medicine; Visit Provider Surgery ==

== ENCOUNTER → 2021-08-09 07:57 | Outpatient (BNVA) | payer OTHER, SELFPAY | PROVIDERS: PCP Internal Medicine; Visit Provider Surgery | DX: Z13.89 Encounter for screening for other disorder (principal) ==

== ENCOUNTER 2021-11-16 15:51 | Outpatient (REF) | payer OTHER, SELFPAY ==
[2021-11-17 05:23] LABS: HBc Num1 0.11 S/CO (0.00-0.79); HIV AB/AG Nonreactive (Nonreactive); HIV Num 1 0.25 S/CO (0.00-0.99); Hepatitis B Core Antibody Nonreactive (Nonreactive); ~HepC Num1 0.07 S/CO (0.00-0.79); ~Hepatitis C Antibody Nonreactive (Nonreactive)
[2021-11-17 07:06] LABS: Syphilis Screen Nonreactive (Nonreactive)
[2021-11-17 14:17] LABS: CT PCR NOT DETECTED (Not Detect.); NG PCR NOT DETECTED (Not Detect.)
[2021-11-18 12:32] LABS: BV Int Neg Control Negative (Negative); BV Int Pos Control Positive (Positive)
== END 2021-11-16 15:52 | disposition home or self-care (01) ==
LOC: HO.LAB 15:51
PROVIDERS: Visit Provider Advanced Practice Midwife
DX: Z01.419 Encounter for gynecological examination (general) (routine) without abnormal findings (principal); Z11.3 Encounter for screening for infections with a predominantly sexual mode of transmission; Z11.4 Encounter for screening for human immunodeficiency virus [HIV]; Z20.2 Contact with and (suspected) exposure to infections with a predominantly sexual mode of transmission
CPT/HCPCS: 36415; 86704; 86780; 86803; 87389; 87480; 87491; 87510; 87591; 87660; 88142

== ENCOUNTER 2021-11-17 10:49 | Outpatient (REF) | payer OTHER, SELFPAY ==
[2021-11-17 12:32] LABS: Alanine Aminotransferase 10 U/L (0-31); Albumin Level 4.4 g/dL (3.5-5.0); Alkaline Phosphatase 49 U/L (39-117); Aspartate Amino Transferase 14 U/L (5-31); Bilirubin Direct 0.7 mg/dL (0.0-0.5); Bilirubin Total 2.2 mg/dL (0.0-1.0); Gamma Glutamyl Transpeptidase 9 U/L (7-33)
[2021-11-17 12:54] LABS: Ferritin 25 ng/mL (10-122)
[2021-11-17 13:13] LABS: Folate > 20.0 ng/mL (> or = 4.0); Vitamin B12 202 pg/mL (200-900)
[2021-11-20 14:27] LABS: Ceruloplasmin 25 mg/dL (18-53)
[2021-11-22 13:43] LABS: Alpha Fetoprotein 4.5 ng/mL
[2021-11-22 15:41] LABS: FIB-ALT 9 U/L (6-29); FIB-Alpha-2-Macroglobulin 266 mg/dL (106-279); FIB-Apolipoprotein A1 139 mg/dL (101-198); FIB-GGT 7 U/L (3-40); FIB-Haptoglobin 136 mg/dL (43-212); FIB-Total Bilirubin 1.9 mg/dL (0.2-1.2); Liver Fibrosis Score 0.24; Liver Fibrosis Stage F0-F1; Nec Inflam Act Grade A0; Nec Inflam Act Score 0.02
[2021-11-23 13:56] LABS: Vitamin D 25-OH, D2 <4 ng/mL; Vitamin D 25-OH, D3 32 ng/mL; Vitamin D 25-OH, Total 32 ng/mL (30-100)
[2021-11-24 07:47] LABS: Mitochondrial Antibodies NEGATIVE (NEGATIVE)
[2021-11-24 23:12] LABS: Smooth Muscle Antibody <20 U (<20)
== END 2021-11-17 10:50 | disposition home or self-care (01) ==
LOC: HO.LAB 10:49
PROVIDERS: Visit Provider Nurse Practitioner Family
DX: R10.9 Unspecified abdominal pain (principal); R17 Unspecified jaundice; E55.9 Vitamin D deficiency, unspecified; R19.7 Diarrhea, unspecified; R79.89 Other specified abnormal findings of blood chemistry; R74.8 Abnormal levels of other serum enzymes
CPT/HCPCS: 36415; 80076; 81596; 82105; 82306; 82390; 82607; 82728; 82746; 82977; 86015; 86255; 86256

== ENCOUNTER 2021-12-23 09:29 | Emergency (ER) | payer OTHER, SELFPAY ==
[2021-12-23 10:20] VITALS: BP 105/56; PULSE 64; RESP 18; TEMP 36.9; O2SAT 100; BMI 30.7
== END 2021-12-23 17:51 | disposition left against medical advice (07) ==
PROVIDERS: Emergency Provider Emergency Medicine
DX: R10.10 Upper abdominal pain, unspecified (principal)
CPT/HCPCS: 99281

== ENCOUNTER 2021-12-31 09:14 | Outpatient (REF) | payer OTHER, SELFPAY ==
--- NOTE | ~2021-12-31 | US_ITS ---
EXAMINATION: US ABDOMEN COMPLETE CLINICAL INFORMATION: Unspecified jaundice. COMPARISON: Ultrasound abdomen limited dated 01/21/2021 and 12/03/2020. CT abdomen and pelvis with contrast 12/12/2020. TECHNIQUE: Real-time imaging of the abdominal viscera. FINDINGS: PANCREAS: Normal. No abnormal mass or peripancreatic inflammatory change. ABDOMINAL AORTA: The proximal, mid, and distal segments are normal in caliber. INFERIOR VENA CAVA: Visualized portions are normal. LIVER: Within the anterior right lower lobe of liver there is a homogeneously hyperechoic 1.5 x 1.6 x 1.4 cm subcapsular lesion similar to previous study of 01/24/2021 and with the appearance of hemangioma. The liver is normal in size. The liver contour is normal. Parenchymal echogenicity is normal. No focal hepatic lesion. There is no intrahepatic biliary duct dilatation seen. GALLBLADDER: The gallbladder is physiologically distended. Multiple mobile gallstones are present. No evidence of gallbladder wall thickening or pericholecystic fluid. COMMON BILE DUCT: Normal in caliber measuring 0.3 cm in diameter. RIGHT KIDNEY: Normal. No hydronephrosis. No renal calculi or focal parenchymal lesions. The kidney measures 10.0 cm in maximum dimension. LEFT KIDNEY: No hydronephrosis. No renal calculi or focal parenchymal lesions. The kidney measures 10.6 cm in maximum dimension. SPLEEN: Normal. The spleen measures 11.6 cm in maximum dimension. FREE FLUID: None. US/US abdomen complete IMPRESSION: Stable right lobe of liver hemangioma. Cholelithiasis without evidence of acute cholecystitis.
== END 2021-12-31 09:15 | disposition home or self-care (01) ==
LOC: HO.US 09:14
PROVIDERS: Visit Provider Nurse Practitioner Family
DX: R17 Unspecified jaundice (principal)
CPT/HCPCS: 76700

== ENCOUNTER 2022-01-04 13:12 | Day surgery (SDC) | payer OTHER, SELFPAY ==
--- NOTE | 2021-12-31 13:00 | P.CONAN_ITS ---
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 Brother Asthma Back problem Surgical History Surgical History Hx of gastric bypass Hx of wisdom tooth extraction S/P gastric bypass Social History Social History Household Members: Spouse Housing: Apartment Are you a primary adult caregiver to a significant other at home: No Do you presently have visiting nurse or other home services: No Alcohol intake: former Patient Tobacco Use Status: Former Tobacco user Quit Date: >10 yrs ago Tobacco use type: Cigarette Use of substances other than those prescribed or required for medical reasons: No Are you DNR?: No Advance Directives: No Advance Directives Information Provided: Yes service: No Current occupational status: employed 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[employer] [place] Meds Allergies Allergy/AdvReac Type Severity Reaction Status Date / Time animal dander Allergy Unknown UNKNOWN Verified 01/04/22 13:48 mold Allergy Unknown UNKNOWN Verified 01/04/22 13:48 pollen extracts [POLLEN] Allergy Unknown UNKNOWN Verified 01/04/22 13:48 Home Medications Medication Instructions Recorded Confirmed Last Taken Type albuterol sulfate 90 mcg/actuation 2 puff PO Q4H PRN wheezing 07/03/20 06/28/21 01/19/21 History aerosol inhaler cetirizine 10 mg tablet 10 mg PO DAILY PRN allergies 07/03/20 06/28/21 01/19/21 History inhalational spacing device (Space #1 ea 07/03/20 06/28/21 Unknown History Chamber) melatonin 5 mg capsule 5 mg PO BEDTIME PRN Insomnia 07/03/20 06/28/21 01/19/21 History multivitamin 1 tab PO DAILY 01/20/21 06/28/21 01/19/21 History etonogestrel 68 mg subdermal 68 subdermal 11/16/21 Unknown History implant (Nexplanon) budesonide-formoterol HFA 160 2 puff inhalation BID 01/04/22 01/04/22 Unknown History mcg-4.5 mcg/actuation aerosol inhaler (Symbicort) Exam Exam Date and Time: December 31, 2021 1300 Assessment and Plan Assessment Anesthesia Assessment: Chart Reviewed Documented by User: Teodoro Tatum MD 01/04/22 14:07 [facility] Past Medical History Medical History Asthma Back pain Chronic back pain Congenital intra-abdominal adhesions COVID-19 vaccine series completed GERD (gastroesophageal reflux disease) 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 Brother Asthma Back problem Family history of problems with anesthesia: No Surgical History Surgical History Hx of gastric bypass Hx of wisdom tooth extraction S/P gastric bypass History of Problems with Anesthesia: No Social History Social History Household Members: Spouse Housing: Apartment Are you a primary adult caregiver to a significant other at home: No Do you presently have visiting nurse or other home services: No Alcohol intake: former Patient Tobacco Use Status: Former Tobacco user Quit Date: >10 yrs ago Tobacco use type: Cigarette Use of substances other than those prescribed or required for medical reasons: No Are you DNR?: No Advance Directives: No Advance Directives Information Provided: Yes service: No Current occupational status: employed 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[employer], [place] Allergies Allergy/AdvReac Type Severity Reaction Status Date / Time animal dander Allergy Unknown UNKNOWN Verified 01/04/22 13:48 mold Allergy Unknown UNKNOWN Verified 01/04/22 13:48 pollen extracts [POLLEN] Allergy Unknown UNKNOWN Verified 01/04/22 13:48 Home Medications Medication Instructions Recorded Confirmed Last Taken Type albuterol sulfate 90 mcg/actuation 2 puff PO Q4H PRN wheezing 07/03/20 06/28/21 01/19/21 History aerosol inhaler cetirizine 10 mg tablet 10 mg PO DAILY PRN allergies 07/03/20 06/28/21 01/19/21 History inhalational spacing device (Space #1 ea 07/03/20 06/28/21 Unknown History Chamber) melatonin 5 mg capsule 5 mg PO BEDTIME PRN Insomnia 07/03/20 06/28/21 01/19/21 History multivitamin 1 tab PO DAILY 01/20/21 06/28/21 01/19/21 History etonogestrel 68 mg subdermal 68 subdermal 11/16/21 Unknown History implant (Nexplanon) budesonide-formoterol HFA 160 2 puff inhalation BID 01/04/22 01/04/22 Unknown History mcg-4.5 mcg/actuation aerosol inhaler (Symbicort) Exam Airway Mallampati Class: III TM Dist: >3cm Loose/Missing/Broken Teeth: No Heart: rrr Lungs: clear Assessment and Plan Final Anesthetic Review Family History of Problems with Anesthesia: No History of Problems with Anesthesia: No NPO: Yes ASA Class: III and IV Final Preanesthetic Review: No Changes in Pt Med Stat, Meds/Allgs Chart Reviewed, Consent Obtained/Reviewed and Anes Risks/Benef Reviewed Patient Risk: High Procedure Risk: Low Anesthetic Plan Anesthetic Plan: MAC: Disposition: Standard PACU
[2022-01-04 13:28] VITALS: BMI 31.4
[2022-01-04 13:31] LABS: UPreg QC Valid YES; Urine Pregnancy NEGATIVE (NEGATIVE)
[2022-01-04 13:34] VITALS: BP 111/61; PULSE 60; RESP 15; TEMP 36.7; O2SAT 98
[2022-01-04] MEDS: Lactated Ringers 1,000 ML 100 ML IVCONT (13:44)
--- NOTE | 2022-01-04 13:50 | MHC.SHP ---
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 Liver fibrosis Maternal anesthesia complication Morbid obesity Nocturnal hypoxemia Sleep apnea Steatosis, liver Vertigo Vitamin A d) History of Previous Operations: Relevant previous surgery/procedure and date(s) (gastric bypass) Allergies: Allergies Allergy/AdvReac Type Severity Reaction Status Date / Time animal dander Allergy Unknown UNKNOWN Verified 01/04/22 13:48 mold Allergy Unknown UNKNOWN Verified 01/04/22 13:48 pollen extracts [POLLEN] Allergy Unknown UNKNOWN Verified 01/04/22 13:48 Review of Systems Sugical H&P ROS: Negative: Constitution, Cardiovascular, Respiratory, Neurological, Psychiatric, Hem-Onc, Allergic/Immunologic, Gastrointestinal, Genitourinary, Musculoskeletal, Integumentary, Endocrine and Eyes/Ears/Nose/Throat Exam Surgical H&P Exam: Normal: HEENT, Normal: Heart, Normal: Lungs, Normal: Extremities, Normal: Abdomen, Normal: Skin and Normal: Neurological Plan Diagnosis/Plan: Unchanged I have reviewed the history and physical and performed a pertinent physical examination on my patient. No changes have occurred unless specified.
--- NOTE | 2022-01-04 13:52 | W.PM.OPN ---
Operative Note Operative Note Date of Service: 01/04/22 Narrative: Procedure Description: EGD Indication: abdominal pain hx of gastric bypass Anesthesia: MAC FLEXIBLE TRANSORAL UPPER GASTROINTESTINAL ENDOSCOPY UPPER ENDOSCOPY Consent: Indications for the procedure and potential complications of bleeding, perforation, reaction to medications and missed diagnosis were discussed with the patient and informed consent was obtained. Instrument: Olympus GIF H 190 J mid size upper endoscope Monitoring: Vital signs and clinical assessment, continuous EKG monitoring, Pulse oximetry, Carbon Dioxide monitoring and blood pressure monitoring were done throughout the procedure. Procedure: The patient was placed in the left lateral decubitis position and pre-procedure medications were administered and a bite block was placed. The endoscope was inserted into the mouth and advanced under direct vision to the jejunum.. A careful inspection was made as the upper endoscope was withdrawn including a retroflexed examination of the pouch; Findings and interventions are described below. 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 Biopsies were obtained. Grade 3 flap valve on retroflexed examination of the cardia ie. LES v lax. Bx taken from around the gastro-jejunal anastomosis as there was erthema noted. one staple was removed. jejunum: normal bx taken Intervention: Biopsies as noted above, remnant staple removal Impression/Findings: retained staple mild gastro jejunitis possible barretts lax LES PLAN: see if taking PPI, needs to be on correct formulation reflux precautions if barretts confirmed bring back in 1 year for WATS and re biopsy
[2022-01-04 14:34] VITALS: BP 95/44; PULSE 59; RESP 14; TEMP 36.3; O2SAT 100
[2022-01-04 14:49] VITALS: BP 103/57; PULSE 49; RESP 16; O2SAT 100
[2022-01-04 15:04] VITALS: BP 101/57; PULSE 52; RESP 16; TEMP 36.3; O2SAT 100
== END 2022-01-04 15:43 | disposition home or self-care (01) ==
PROVIDERS: Nurse Practitioner; Visit Provider Internal Medicine Gastroenterology
PROC: 0DJ08ZZ Inspection of Upper Intestinal Tract, Via Natural or Artificial Opening Endoscopic (ICD-10-PCS; CPT 43235; principal; 2022-01-04 14:20)
DX: K52.89 Other specified noninfective gastroenteritis and colitis (principal); R19.7 Diarrhea, unspecified; K22.4 Dyskinesia of esophagus; K29.50 Unspecified chronic gastritis without bleeding; K21.9 Gastro-esophageal reflux disease without esophagitis; K44.9 Diaphragmatic hernia without obstruction or gangrene; Z18.10 Retained metal fragments, unspecified; J45.909 Unspecified asthma, uncomplicated; Z18.89 Other specified retained foreign body fragments; Z98.84 Bariatric surgery status; Z98.0 Intestinal bypass and anastomosis status
CPT/HCPCS: 43239; 81025; 88305; 88342

== ENCOUNTER 2022-02-16 08:59 | Outpatient (REF) | payer OTHER, SELFPAY ==
[2022-02-16 10:04] LABS: Bilirubin Direct 0.7 mg/dL (0.0-0.5); Bilirubin Total 2.6 mg/dL (0.0-1.0); Blood Urea Nitrogen 18 mg/dL (9-16); Estimated Glomerular Filt Rate > 60
== END 2022-02-16 09:00 | disposition home or self-care (01) ==
LOC: HO.LAB 08:59
PROVIDERS: PCP Family Medicine; Visit Provider Nurse Practitioner Family
DX: Z30.46 Encounter for surveillance of implantable subdermal contraceptive (principal); R10.9 Unspecified abdominal pain; R17 Unspecified jaundice; K21.9 Gastro-esophageal reflux disease without esophagitis; K20.90 Esophagitis, unspecified without bleeding
CPT/HCPCS: 11982; 36415; 82247; 82248; 82565; 84520; 86003

== ENCOUNTER 2022-02-25 17:48 | Outpatient (REF) | payer OTHER, SELFPAY ==
--- NOTE | ~2022-02-25 | MR_ITS ---
EXAMINATION: MR ABDOMEN WITHOUT AND WITH CONTRAST CLINICAL INFORMATION: Unspecified jaundice. COMPARISON: Ultrasound 12/31/2021 TECHNIQUE: MR abdomen was performed without and with use of 8.5 mL intravenous Gadavist gadolinium contrast. Postcontrast images are performed in multiphase dynamic sequences. Imaging was performed in 3 planes. FINDINGS: LUNG BASES: The visualized lung bases are unremarkable. LIVER, GALLBLADDER, AND BILIARY TREE: There is a wedge-shaped area of focal fatty infiltration adjacent the fissure of the falciform ligament. Otherwise, the liver enhances normally. No focal lesion seen. Hepatic and portal veins enhance normally. No biliary ductal dilatation. Innumerable gallstones are seen dependently in an otherwise normal gallbladder. PANCREAS: Unremarkable. SPLEEN: Normal. ADRENAL GLANDS: Normal. KIDNEYS AND URETERS: The kidneys are normal in size, shape, and enhance symmetrically. No hydronephrosis. No perinephric stranding. GASTROINTESTINAL TRACT: No bowel obstruction. No ascites or fluid collection. ABDOMINAL WALL: No significant hernia is appreciated. LYMPH NODES: No lymphadenopathy. VASCULAR: Unremarkable. OSSEOUS STRUCTURES: Marrow signal normal. MR/MR abdomen wo/w con IMPRESSION: Gallstones. No biliary ductal dilation or choledocholithiasis.
== END 2022-02-25 17:49 | disposition home or self-care (01) ==
LOC: HO.MRI 17:48
PROVIDERS: Visit Provider Nurse Practitioner Family
DX: K76.9 Liver disease, unspecified (principal); E80.7 Disorder of bilirubin metabolism, unspecified
CPT/HCPCS: 74183; A9585

== ENCOUNTER → 2022-03-16 07:25 | Outpatient (REF) | payer OTHER, SELFPAY ==
--- NOTE | ~2022-03-16 | NM_ITS ---
EXAMINATION: BILIARY TRACT IMAGING STUDY WITH CCK CLINICAL INFORMATION: Unspecified jaundice, calculus of gallbladder without cholecystitis.. COMPARISON: No previous biliary scan is available for comparison. MRI of the abdomen dated 02/25/2022, ultrasound of the abdomen dated 12/31/[address] scan of the abdomen and pelvis dated 12/12/2020 are available for comparison.. TECHNIQUE: Serial gamma scintillation camera images were obtained over the abdomen for a total observation period of 91 minutes following the intravenous administration of 5 mCi Tc-99m Mebrofenin. FINDINGS: There is good concentration of activity in the liver by 5 minutes post injection. Biliary activity is visualized by 7 minutes. The gallbladder is well visualized by 15 minutes. Small bowel is well visualized by 20 minutes. At 60 minutes post radiopharmaceutical injection, a 30-minute infusion of 1.6 micrograms Sincalide was then begun and an additional 30 minutes of images were obtained. There is very poor gallbladder emptying following the sincalide infusion. At the end of the study is marked retention of activity in the gallbladder but almost complete clearance of activity from the liver and visualization of diffuse small bowel activity. The calculated gallbladder ejection fraction is 3% (normal gallbladder ejection fraction is greater than 35%). NM/NM hepatobiliary w pharm IMPRESSION: 1. Visualization of the gallbladder is evidence of a patent cystic duct and strong evidence against the diagnosis of acute cholecystitis. The common bile duct is patent. Liver function appears normal. 2. Poor gallbladder emptying and a low gallbladder ejection fraction are evidence of impaired gallbladder contractility and most likely due to chronic cholecystitis.
== END ==
LOC: HO.NUCMED 07:25
PROVIDERS: PCP Family Medicine; Visit Provider Nurse Practitioner Family
DX: R17 Unspecified jaundice (principal); K80.20 Calculus of gallbladder without cholecystitis without obstruction
CPT/HCPCS: 78227; A9537

== ENCOUNTER 2022-04-04 16:22 | Outpatient (REF) | payer OTHER, SELFPAY ==
[2022-04-04 17:32] LABS: Appearance Urine Cloudy; Color Urine Dark Yellow; Glucose Urine UA Negative (Negative); Leukocyte Esterase Urine Negative (Negative); Nitrite Urine Negative (Negative); Specific Gravity - Urine >= 1.030 (1.005-1.025); Urine Blood Negative (Negative); Urine Ketones Negative (Negative); Urine Protein Trace mg/dL (Neg-Trace)
[2022-04-04 17:36] LABS: HCG Quantitative < 2 mIU/mL
== END 2022-04-04 16:23 | disposition home or self-care (01) ==
LOC: HO.LAB 16:22
PROVIDERS: PCP Family Medicine; Visit Provider Advanced Practice Midwife
DX: N92.6 Irregular menstruation, unspecified (principal); R39.15 Urgency of urination
CPT/HCPCS: 36415; 81003; 84702

== ENCOUNTER 2022-05-11 12:29 | Outpatient (REF) | payer OTHER, SELFPAY ==
--- NOTE | 2022-05-11 09:00 | EMG_ITS ---
Please see scanned EMG / Nerve Conduction Report. MTDD
== END 2022-05-11 12:30 | disposition home or self-care (01) ==
LOC: HO.NEURO 12:29
PROVIDERS: PCP Family Medicine; Visit Provider Psychiatry & Neurology Neurology
DX: G61.0 Guillain-Barre syndrome (principal); R20.0 Anesthesia of skin
CPT/HCPCS: 95885; 95911

== ENCOUNTER → 2022-05-13 10:34 | Outpatient (BNVA) | payer OTHER, SELFPAY | PROVIDERS: PCP Family Medicine; Referring Provider Family Medicine; Visit Provider Internal Medicine Gastroenterology | DX: Z13.89 Encounter for screening for other disorder (principal) ==

== ENCOUNTER 2022-05-17 09:30 | Outpatient (REF) | payer OTHER, SELFPAY ==
[2022-05-17 11:38] LABS: HCG Quantitative 5984 mIU/mL
== END 2022-05-17 09:31 | disposition home or self-care (01) ==
LOC: HO.LAB 09:30
PROVIDERS: PCP Family Medicine; Visit Provider Advanced Practice Midwife
DX: N92.6 Irregular menstruation, unspecified (principal)
CPT/HCPCS: 36415; 81025; 84702

== ENCOUNTER 2022-05-24 10:22 | Outpatient (REF) | payer OTHER, SELFPAY ==
[2022-05-24 14:43] LABS: HCG Quantitative 39049 mIU/mL
== END 2022-05-24 10:23 | disposition home or self-care (01) ==
LOC: HO.LAB 10:22
PROVIDERS: PCP Family Medicine; Visit Provider Advanced Practice Midwife
DX: N92.6 Irregular menstruation, unspecified (principal)
CPT/HCPCS: 36415; 84702

== ENCOUNTER 2022-06-10 14:48 | Outpatient (REF) | payer OTHER, SELFPAY ==
--- NOTE | ~2022-06-10 | US_ITS ---
EXAMINATION: US OBSTETRICAL ULTRASOUND CLINICAL INFORMATION: Irregular menstruation. Check size and dates. COMPARISON: None. LMP: 04/10/2022. Gestational age by maternal dates is 8 weeks 5 days. Estimated date of delivery by maternal dates is 01/15/2023. TECHNIQUE: Transabdominal first trimester OB ultrasound FINDINGS: There is a single intrauterine gestational sac with visible yolk sac, embryo/fetus, and cardiac activity. There is a hypoechoic area adjacent to the gestational sac measuring 2.2 x 0.9 x 2 cm questionable for subchorionic hemorrhage or hematoma. HR: 165 beats per minute. CRL (crown rump length): 2 cm (8 weeks 4 days +/- 4 days). ARSENIO (estimated date of delivery): 01/16/2023 +/- 4 days. MATERNAL ADNEXA: The right maternal ovary measures 2.9 x 1.5 x 1.9 cm. The left maternal ovary measures 3.6 x 2.1 x 2.4 cm. There is a 2.2 x 1.6 x 2 cm complex cyst probably representing a corpus luteum. There is no significant maternal adnexal mass. No maternal pelvic ascites. US/US OB <= 14 weeks fetus IMPRESSION: 1. Single intrauterine gestation with ultrasound gestational age of 8 weeks 4 days +/- 4 days. 2. Estimated date of delivery is 01/16/2023 +/- 4 days. 3. No maternal adnexal mass or pelvic ascites.
== END 2022-06-10 14:49 | disposition home or self-care (01) ==
LOC: HO.US 14:48
PROVIDERS: Visit Provider Advanced Practice Midwife
DX: Z34.91 Encounter for supervision of normal pregnancy, unspecified, first trimester (principal)
CPT/HCPCS: 76801

== ENCOUNTER 2023-03-07 12:40 | Outpatient (REF) | payer OTHER, SELFPAY ==
[2023-03-10 03:53] LABS: HPV mRNA E6/E7 rflx Not Detected (Not Detected)
== END 2023-03-07 12:41 | disposition home or self-care (01) ==
LOC: HO.LNP 12:40
PROVIDERS: Visit Provider Advanced Practice Midwife
DX: Z01.419 Encounter for gynecological examination (general) (routine) without abnormal findings (principal); Z11.51 Encounter for screening for human papillomavirus (HPV)
CPT/HCPCS: 87624; 88142

== ENCOUNTER 2023-03-07 12:40 | Outpatient (AMB) | payer OTHER, SELFPAY ==
[2023-03-07 13:01] VITALS: BP 90/60; BMI 31.6
--- NOTE | 2023-03-07 13:01 | MHC.OFFVIS ---
Intake Vital Signs 03/07/23 13:01 Height 5 ft 4.5 in Weight 187 lb BMI 31.6 BP 90/60 Intake Visit Reasons: [employer] annual exam Intake Note: Scribed for Estephania Ye CNM by Oracio Fisher, quality engineer medical device, on 03/07/23 at 1:15 AM, EST Stratigraphy Teacher: Stratigraphy Teacher Present ([place]) Allergies animal dander Allergy (Unknown, Verified 03/07/23 13:01) UNKNOWN mold Allergy (Unknown, Verified 03/07/23 13:01) UNKNOWN pollen extracts [POLLEN] Allergy (Unknown, Verified 03/07/23 13:01) UNKNOWN HPI HPI Comments History of Present Illness Details She is a premenopausal woman presenting for annual examination. She is seen with her son. Doing well with some concerns. She tries to eat healthy and stays active with exercise. She has started to walk for exercise again recently, and has not started Kegel exercises. She stays hydrates and is taking both daily and PN vitamins She denies vaginal itching and irritation. She reports feeling bladder pressure with urination, but denies pain, bleeding, or backaches She denies any vaginal bleeding and feels her stitches are healing well. Nexplanon BC inserted 12/2022 after delivery STI screening offered; she declined. Denies family history of ovarian or colon cancer. She reports her great-aunt had breast cancer, her mother has a hx of calcifications but no cancer Last pap smear 11/17/21, was negative. She is scheduled for her post- appointment at her delivery hospital sometime next week. She plans to return to work sometime in 06/2023. 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 Reproductive History Menstrual Age of Menarche: 13 control method: implanted (Nexplanon 12/2022) Total pregnancies: 2 Full term: 1 Number of Living Children: 1 Date of last pap smear: 11/16/21 (neg) Review of Systems Const All systems reviewed & are unremarkable except as noted in HPI and below Reports as per HPI Eyes Reports no additional complaints ENT Reports no additional complaints Card Reports no additional complaints Resp Reports no additional complaints GI Reports as per HPI and Reports no additional complaints Reports as per HPI Musc Reports no additional complaints Skin/Breast Reports as per HPI Neuro Reports no additional complaints Psych Reports no additional complaints Endo Reports no additional complaints Luke/Lymph Reports no additional complaints Aller/Immun Reports no additional complaints Physical Exam Vital Signs: Last Vital Signs BP 90/60 03/07/23 13:01 BMI result Body Mass Index 31.6 Const General: cooperative, healthy appearing, no acute distress, well developed and alert Orientation/consciousness: patient oriented x3 HEENT Head: Yes normal to inspection Eyes General: appearance normal, both eyes and all related structures Neck Neck: Yes normal visual inspection Thyroid: Thyroid normal Chest Chest palpation & inspection: normal inspection of the chest and other (no puckering, dimpling, peau de orange, retraction, discharge, masses) Breast/axilla inspection: normal inspection of the breasts Breast/axilla palpation: normal palpation of the breasts Resp Effort & Inspection: normal respiratory effort GI Inspection: Yes normal to inspection Palpation (GI): Soft to palpation Rectal Exam - Female: deferred Other: Fair vaginal tone General: Yes bladder normal to palpation External Female Exam: normal external appearance and normal appearance of the urethra Speculum Exam - Vagina: normal appearance of the vagina, normal palpation and normal vaginal discharge Speculum Exam - Cervix: normal appearance of the cervix and normal palpation Bimanual exam- vagina & uterus: normal bimanual exam, normal palpation, uterine size normal, bladder normal to palpation, normal palpation and non-tender Bimanual Exam- Adnexa, other: no masses Skin General skin exam: no rashes or lesions noted Rashes: no rashes Neuro General: patient oriented x3 Cognition (Neuro): normal cognition Extrem General: Yes normal to inspection Psych Attitude: cooperative Thought process: Normal thought process present Assessment & Plan Assessment & Plan (1) Encounter for annual routine gynecological examination: Code(s): Z01.419 - Encounter for gynecological examination (general) (routine) without abnormal findings Plan: Discussed: Current recommendations for pap smears per ASCCP guidelines. Breast awareness and periodic self breast exams. Maintaining a healthy lifestyle including a well balanced diet and routine exercise. Discussed performing Kegels at home, should be done 3x daily, sets of 10 All of her questions and concerns were addressed to the best of my ability She will return in one year for AG. Pap smear for HPV testing done today Orders: Orders Pap Smear Today Z01.419 - Encounter for gynecological examination (general) (routine) without abnormal findings Coding Level of Care Code Est Pt Prev Care [id number]) Diagnoses Encounter for annual routine gynecological examination Z01.419
== END 2023-03-07 13:35 | disposition home or self-care (01) ==
PROVIDERS: Visit Provider Advanced Practice Midwife
DX: Z01.419 Encounter for gynecological examination (general) (routine) without abnormal findings (principal)
CPT/HCPCS: 99395

== ENCOUNTER 2023-04-17 10:34 | Outpatient (AMB) | payer OTHER, SELFPAY ==
--- NOTE | 2023-04-17 10:48 | MHC.OFFVIS ---
Intake Vital Signs 04/17/23 10:53 Height 5 ft 4.5 in Weight 187 lb BMI 31.6 BP 108/57 L Blood Pressure Location Lt brachial Position Sitting Pulse 77 Intake Visit Reasons: f/u Intake Note: Lolly presents in the office as a follow up. CC: She states that she is feeling good and not having any concerns, Allergies animal dander Allergy (Unknown, Verified 04/17/23 10:53) UNKNOWN mold Allergy (Unknown, Verified 04/17/23 10:53) UNKNOWN pollen extracts [POLLEN] Allergy (Unknown, Verified 04/17/23 10:53) UNKNOWN HPI f/u HPI Details 33 yr old f here for f/u PMHX: GBS, migraines, choleltihiasis and gastric bypass RECAP She had EGD 12/2021 with gastrojejunitis and active esophagitis she was educated on correct way to take PPI, she was TESTS: MRI 01/2022- gallstones HIDA- 03/22- low EF, maybe consistent with chronic cholecystitis LFT with chronic mild raised Bili, mostly indirect INTERIM: delivered baby Bran she has no symptoms appetite is good no abdominal pain no nausea or vomiting using PPI rarely EXAM: GENERAL: The patient is well developed and nontoxic. VITAL SIGNS:see workflow HEENT: Nonicteric sclerae, PERRLA, EOMI. Oropharynx clear. Moist mucous membranes. Conjunctivae appear well perfused. No thyroid mass. CHEST: Chest wall is nontender. HEART: Regular rate and rhythm without murmurs. LUNGS: Clear to auscultation bilaterally. ABDOMEN: Soft, positive bowel sounds, nontender, no organomegaly.no flank tenderness SKIN: No rash, no excessive bruising, petechiae, or purpura. NEUROLOGIC: Cranial nerves II-XII intact without motor/sensory deficit. 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[employer] [place] Reproductive History Menstrual Age of Menarche: 13 Physical Exam Vital Signs: Last Vital Signs Pulse 77 04/17/23 10:53 BP 108/57 L 04/17/23 10:53 BMI result Body Mass Index 31.6 Assessment & Plan Assessment & Plan (1) GERD (gastroesophageal reflux disease): Code(s): K21.9 - Gastro-esophageal reflux disease without esophagitis Qualifiers: Esophagitis presence: with esophagitis Esophagitis bleeding: without hemorrhage Qualified Code(s): K21.00 - Gastro-esophageal reflux disease with esophagitis, without bleeding Plan: see above Coding Level of Care Code Est Pt Level 3 (22721) Diagnoses Gastroesophageal reflux disease with esophagitis without hemorrhage K21.00 Esophagitis presence: with esophagitis Esophagitis bleeding: without hemorrhage
[2023-04-17 10:53] VITALS: BP 108/57; PULSE 77; BMI 31.6
== END 2023-04-17 11:18 | disposition home or self-care (01) ==
PROVIDERS: PCP Family Medicine; Visit Provider Internal Medicine Gastroenterology
DX: K21.00 Gastro-esophageal reflux disease with esophagitis, without bleeding (principal)
CPT/HCPCS: 99213

== ENCOUNTER → 2023-04-17 10:34 | Outpatient (BNVA) | payer OTHER, SELFPAY | PROVIDERS: PCP Family Medicine; Visit Provider Internal Medicine Gastroenterology ==

== ENCOUNTER 2023-10-31 11:57 | Emergency (ER) | payer OTHER, SELFPAY ==
--- NOTE | ~2023-10-31 | XR_ITS ---
EXAMINATION: XR CHEST 2 VIEW CLINICAL INFORMATION: Chest pain COMPARISON: 07/10/2020 TECHNIQUE: PA and lateral views of the chest obtained. FINDINGS: The lungs are clear. There are no pleural effusions. The cardiomediastinal silhouette is normal. XR/XR chest 2V IMPRESSION: No acute cardiopulmonary disease.
--- NOTE | 2023-10-31 11:58 | ECG_ITS ---
Test Reason : cp Blood Pressure : / mmHG Vent. Rate : 058 BPM Atrial Rate : 058 BPM P-R Int : 126 ms QRS Dur : 074 ms QT Int : 418 ms P-R-T Axes : 065 048 060 degrees QTc Int : 410 ms Sinus bradycardia Otherwise normal ECG When compared with ECG of 03-DEC-2020 11:07, No significant change was found Referred By: Ira Young Electronically Signed By:DOMINIK KINCAID
[2023-10-31 12:10] VITALS: BP 100/59; PULSE 69; RESP 17; TEMP 36.6; O2SAT 100; BMI 32.1
--- NOTE | 2023-10-31 12:11 | ED.GENADULT ---
HPI - General Adult General Chief complaint: Chest Pain Stated complaint: Chest pain/Vomiting Time Seen by Provider: 10/31/23 14:21 Source: patient, RN notes reviewed and old records reviewed Mode of arrival: ambulatory History of Present Illness ED Provider: Vilma Fletcher PA-C HPI narrative: 33-year-old female with a past medical history of Guillain-Barr[place], GERD, sleep apnea, asthma, obesity, presenting to the ED complaining of chest pain/epigastric pain starting around 11:00AM described as tightness while sitting at desk with associated nausea and emesis x1 episode. Reports discomfort has been constant since onset. Admits to similar symptoms in the past, however usually symptoms resolve. Denies SOB, abdominal pain, diarrhea, suspicious food intake, travel Related Data Home Medications ?Medication ?Instructions ?Recorded ?Confirmed albuterol sulfate 90 mcg/actuation 2 puff PO Q4H PRN wheezing 07/03/20 03/28/22 aerosol inhaler cetirizine 10 mg tablet 10 mg PO DAILY PRN allergies 07/03/20 03/28/22 inhalational spacing device (Space #1 ea 07/03/20 03/28/22 Chamber) melatonin 5 mg capsule 5 mg PO BEDTIME PRN Insomnia 07/03/20 03/28/22 multivitamin 1 tab PO DAILY 01/20/21 03/28/22 budesonide-formoterol HFA 160 2 puff inhalation BID 01/04/22 03/28/22 mcg-4.5 mcg/actuation aerosol inhaler (Symbicort) prenat.vits,elizabeth,[id number] 1 tab PO DAILY 05/13/22 Previous Rx's ?Medication ?Instructions ?Recorded cholecalciferol (vitamin D3) 25 25 mcg PO DAILY #30 tabs 01/27/21 mcg (1,000 unit) tablet cyanocobalamin (vitamin B-12) 1,000 mcg IM Q30D #10 mL 01/27/21 1,000 mcg/mL injection solution folic acid 1 mg tablet 1 mg PO DAILY #30 tabs 01/27/21 thiamine HCl (vitamin B1) 100 mg 100 mg PO DAILY #30 tabs 01/27/21 tablet omeprazole 40 mg capsule,delayed 40 mg PO DAILY #60 caps 01/04/22 release magnesium oxide 400 mg (241.3 mg 400 mg PO BEDTIME 30 days #30 tabs 03/28/22 magnesium) tablet sumatriptan succinate 100 mg tablet 50 - 100 mg (0.5 - 1 x 100 mg) PO 03/28/22 .COMPLEX PRN migraine headache 30 days #12 tabs Allergies Allergy/AdvReac Type Severity Reaction Status Date / Time animal dander Allergy Unknown UNKNOWN Verified 10/31/23 12:14 mold Allergy Unknown UNKNOWN Verified 10/31/23 12:14 pollen extracts [POLLEN] Allergy Unknown UNKNOWN Verified 10/31/23 12:14 Review of Systems Review of Systems: Constitutional: No Fever, No Chills ENT/Mouth: No Ear Pain, No Nasal Congestion, No sore throat, No Rhinorrhea, No Swallowing Difficulty Cardiovascular: + Chest Pain, No SOB Respiratory: No Cough, No Sputum, No Wheezing Gastrointestinal: + Nausea, + Vomiting, No Diarrhea, No Constipation, No Abdominal pain Genitourinary: No Dysuria, No Urinary Frequency, No Hematuria, No Flank Pain Musculoskeletal: No joint pain, No Myalgias, No Joint Swelling Skin: No Skin Lesions, No rash Neuro: No Weakness, No Numbness, No Paresthesias Yes all other systems are reviewed and are negative Constitutional: Constitutional: Reports as per [facility] Past Medical History Attestation statement: The following information was validated with the patient. 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[employer] – [place] Physical Exam ED Vital Signs: Vital Signs - 24 hr 10/31/23 12:10 Temperature 98 F Pulse Rate 69 Respiratory Rate 17 Blood Pressure 100/59 L Pulse Oximetry 100 Oxygen Delivery Method Room Air BMI result Body Mass Index 32.1 Const General: cooperative, healthy appearing and no acute distress Orientation/consciousness: patient oriented x3 Limitations: no limitations HENMT Head: Yes normal to inspection and Yes atraumatic Ears: hearing grossly normal bilaterally General nose exam: Normal external nose present Face and sinus: Yes normal facial exam Eyes General: appearance normal, both eyes and all related structures EOM: EOMs intact bilaterally Neck Neck: Yes normal visual inspection and Yes no meningeal signs Resp Effort & Inspection: normal respiratory effort and no respiratory distress Auscultation: clear to auscultation bilaterally, no crackles, no rales, no rhonchi and no wheezes Cardio Rate: regular rate Heart sounds: S1 normal heart sound present and S2 normal heart sound present GI Inspection: Yes normal to inspection Palpation (GI): Soft to palpation, nontender, no guarding and not rigid Skin Rashes: no rashes Wounds: no wounds Neuro General: patient oriented x3, tone normal and no meningeal signs Cranial nerves: Yes CN's II-XII intact bilaterally Gait exam (Neuro): Normal gait present Extrem General: Yes normal to inspection Course Course Course Narrative: This is a rapid medical exam performed by Shara Young NP: Additional HPI, ROS, PE not included below will be deferred to primary provider. Patient is a 33-year-old female with history of migraines, GERD, asthma, liver fibrosis, Guillain [place] presenting with complaint of chest/epigastric pain while at work, nausea, one episode of vomiting. Similar episodes 3x this month. Usually pain resolves after vomiting, today did not. Did not eat lunch but ate breakfast. Plan: EKG, labs -no leukocytosis. Patient with known anemia > used to be on B12 injections however has been off > has not followed up with PCP in a while. - Troponin x2 negative > PA unlikely. Patient has yet to see Cardiology, stressed importance of close follow-up -chest x-ray unremarkable Results discussed with patient including worrisome signs and symptoms and strict return precautions, and when to return to the emergency department. They verbalized understanding and feel safe for discharge at this time. Medications Administered Discontinued Medications Generic Name Dose Route Start Last Admin Trade Name Freq PRN Reason Stop Dose Admin Al Hydroxide/Mg Hydroxide 30 ml 10/31/23 14:43 10/31/23 14:54 Magnesium Hydrox/Alum Hydrox 30 Ml Oral.Susp PO 10/31/23 14:44 30 ml ONCE ONE Administration Famotidine 20 mg 10/31/23 14:43 10/31/23 14:54 Famotidine 20 Mg Tablet PO 10/31/23 14:44 20 mg ONCE ONE Administration Medical Decision Making Medical Decision Making MDM Narrative: 33-year-old female with a past medical history of Guillain-Barranqu[place], GERD, sleep apnea, asthma, obesity, presenting to the ED complaining of chest pain/epigastric pain starting around 11:00AM described as tightness while sitting at desk with associated nausea and emesis x1 episode. On exam VSS, NAD, Nontoxix appearing, abdomen soft & nontender, lungs CTA. Concern for anxiety vs atypical ACS vs GERD/gastritis/PUD vs Cholelithiasis. Lower suspicion for acute cholecystitis or pancreatitis without tenderness on exam. Unlikely appendicitis/diverticulitis. Lower suspicion for myocarditis or pericarditis Plan: EKG, labs, CXR ordered in triage Please refer to course for remaining clinical decision making, interpretation of labs/imaging results, and discussions with consultants and/or family members. Differential Diagnosis Differential Diagnoses: The differential diagnosis associated with the presentation includes As above Admission/Observation Consideration of admission/observation: Escalation of care including admission/observation considered Lab Data [facility] Lab Attestation statement: I reviewed the patient's lab results. 10/31/23 12:22 10/31/23 12:22 Labs: Lab Results 10/31/23 10/31/23 Range/Units 12:22 14:58 WBC 9.3 (4.8-10.8) X10*3/uL RBC 4.71 (4.20-5.50) X10*6/uL Hgb 10.2 L D (12.0-16.0) g/dl Hct 33.8 L D (37.0-47.0) % MCV 71.8 L (80.0-98.0) fL MCH 21.7 L (27.0-33.0) pg MCHC 30.2 L (31.0-35.0) g/dl RDW 15.0 (11.0-16.0) % Plt Count 346 (160-400) X10*3/uL MPV 10.3 (9.4-12.3) fL Immature Gran % (Auto) 0.2 (0.0-0.4) % Neut % (Auto) 68.5 (45-73) % Lymph % (Auto) 21.7 (20-40) % [place] % (Auto) 3.8 (2-11) % Eos % (Auto) 5.3 H (0-4) % Baso % (Auto) 0.5 (0-2) % Lymph # (Auto) 2.0 (1.2-4.9) X10*3/uL [place] # (Auto) 0.4 (0.1-1.2) X10*3/uL Eos # (Auto) 0.5 H (0.0-0.4) X10*3/uL Baso # (Auto) 0.1 (0.0-0.2) X10*3/uL Abs Immat Gran (auto) 0.02 (0.00-0.03) X10*3/uL Absolute Neuts (auto) 6.3 (2.0-8.3) x10*3/uL Absolute Nucleated RBC 0.000 (0.0-0.012) X10*3/uL Nucleated RBC % (auto) 0.0 (0.0-0.2) /100WBC PT 12.0 (11.1-13.3) SEC INR 1.0 (0.9-1.1) Sodium 140 (135-145) mmol/L Potassium 4.3 (3.3-5.1) mmol/L Chloride 106 (96-108) mmol/L Carbon Dioxide 27 (22-29) mmol/L Anion Gap 11 L (12-20) BUN 17 H (9-16) mg/dL Creatinine 0.69 (0.5-1.4) mg/dL Estim Creat Clear Calc 128.9 Estimated GFR > 60 Random Glucose 96 (60-115) mg/dL Calcium 8.7 D (8.4-10.2) mg/dL Total Bilirubin 1.1 H (0.0-1.0) mg/dL AST 26 (5-31) U/L ALT 13 (0-31) U/L Alkaline Phosphatase 72 (39-117) U/L Troponin I High Sens < 2.7 < 2.7 (<3.5-17.0) ng/L Total Protein 7.3 (6.5-8.0) g/dL Albumin 4.4 (3.5-5.0) g/dL Beta HCG, Quant < 2 mIU/mL Independent Interpretation I performed an independent interpretation of an: EKG and Plain X-Ray (My interpretation, appears unremarkable) Radiology Impression Discussion of test interpretation with radiology: I have reviewed the radiologist's reading. External Record Review External record reviewed: Inpatient record, Office record, Outpatient record, Prior outpatient labs, Prior outpatient radiology, Primary care record and Outside ED record Tests considered The following testing was considered but not selected: As above Prescription Management I considered prescription management with: Pain Medication Discharge Plan Discharge Clinical Impression: Chest pain Patient Disposition: Home, Self-Care Instructions: Chest Pain (DC) Additional Instructions: Your blood work is reassuring You need to follow-up with your doctor as well as Cardiology If her symptoms persist or worsen/become more constant/unbearable, persistent nausea/vomiting please return to the emergency department Prescriptions: No Action multivitamin Tablet 1 tab PO DAILY cyanocobalamin (vitamin B-12) 1,000 mcg/mL Solution 1,000 mcg IM Q30D Qty: 10 0RF cholecalciferol (vitamin D3) 25 mcg (1,000 unit) Tablet 25 mcg PO DAILY Qty: 30 0RF folic acid 1 mg tablet 1 mg PO DAILY Qty: 30 0RF thiamine HCl (vitamin B1) 100 mg tablet 100 mg PO DAILY Qty: 30 0RF budesonide-formoterol [Symbicort] 160-4.5 mcg/actuation Hfa Aerosol Inhaler 2 puff INHALATION BID omeprazole 40 mg capsule,delayed release(DR/EC) 40 mg PO DAILY Qty: 60 3RF Rx Instructions: open capsule and mix with apple sauce cetirizine 10 mg tablet 10 mg PO DAILY PRN (Reason: allergies) (DME) Space Chamber Spacer See Rx Instructions .ROUTE .MEDSUPPLY Qty: 1 Rx Instructions: As directed albuterol sulfate 90 mcg/actuation HFA aerosol inhaler 2 puff PO Q4H PRN (Reason: wheezing) melatonin 5 mg capsule 5 mg PO BEDTIME PRN (Reason: Insomnia) prenat.vits,elizabeth,[id number] Tablet 1 tab PO DAILY magnesium oxide 400 mg (241.3 mg magnesium) tablet 400 mg PO BEDTIME 30 Days Qty: 30 6RF Rx Instructions: may hold for loose stools sumatriptan succinate 100 mg tablet 50 - 100 mg PO .COMPLEX PRN (Reason: migraine headache) 30 Days Qty: 12 6RF Rx Instructions: 50 - 100 mg orally at onset of headache, may repeat in 2 hrs PRN; max 2 tabs per day or 4 tabs/week (may take with Ibuprofen) Referrals: [facility] [Provider Group] Lizbet Savage MD [Primary Care Provider] - 2 days Print Language: Singaporean
[2023-10-31 12:27] LABS: MANUAL DIFF FLAG NO
[2023-10-31 12:30] LABS: Basophils Absolute Auto 0.1 X10*3/uL (0.0-0.2); Basophils Percent Auto 0.5 % (0-2); Eosinophils Absolute Auto 0.5 X10*3/uL (0.0-0.4); Eosinophils Percent Auto 5.3 % (0-4); Hematocrit 33.8 % (37.0-47.0); Hemoglobin 10.2 g/dl (12.0-16.0); Imm Gran Abs Auto 0.02 X10*3/uL (0.00-0.03); Imm Gran Pct Auto 0.2 % (0.0-0.4); Lymphocytes Percent Auto 21.7 % (20-40); Mean Corpuscular HGB Conc 30.2 g/dl (31.0-35.0); Mean Corpuscular Hemoglobin 21.7 pg (27.0-33.0); Mean Corpuscular Volume 71.8 fL (80.0-98.0); Mean Platelet Volume 10.3 fL (9.4-12.3); Monocytes Absolute Auto 0.4 X10*3/uL (0.1-1.2); Monocytes Percent Auto 3.8 % (2-11); Neutrophils Absolute Auto 6.3 x10*3/uL (2.0-8.3); Neutrophils Percent Auto 68.5 % (45-73); Platelet Count 346 X10*3/uL (160-400); Red Blood Count 4.71 X10*6/uL (4.20-5.50); White Blood Count 9.3 X10*3/uL (4.8-10.8)
[2023-10-31 13:01] LABS: Alanine Aminotransferase 13 U/L (0-31); Albumin Level 4.4 g/dL (3.5-5.0); Alkaline Phosphatase 72 U/L (39-117); Anion Gap 11 (12-20); Aspartate Amino Transferase 26 U/L (5-31); Bilirubin Total 1.1 mg/dL (0.0-1.0); Blood Urea Nitrogen 17 mg/dL (9-16); Calcium 8.7 mg/dL (8.4-10.2); Carbon Dioxide 27 mmol/L (22-29); Chloride 106 mmol/L (96-108); Creatinine Clr Calc Pharmacy 128.9; Estimated Glomerular Filt Rate > 60; Glucose Random 96 mg/dL (60-115); Potassium 4.3 mmol/L (3.3-5.1); Sodium 140 mmol/L (135-145); Total Protein 7.3 g/dL (6.5-8.0)
[2023-10-31 13:05] LABS: HCG Quantitative < 2 mIU/mL; Troponin-I High Sensitivity < 2.7 ng/L (<3.5-17.0)
[2023-10-31] MEDS: Famotidine 20 MG TABLET PO (14:54)
[2023-10-31] MEDS: Magnesium Hydrox/Alum Hydrox 30 ML ORAL.SUSP PO (14:54)
[2023-10-31 15:34] LABS: Troponin-I High Sensitivity < 2.7 ng/L (<3.5-17.0)
[2023-10-31 16:00] VITALS: BP 101/72; PULSE 71; RESP 16; TEMP 36.6; O2SAT 100
[2023-10-31 16:24] LABS: Lipase 60 U/L (8-78); Magnesium 2.1 mg/dL (1.6-2.6)
[2023-10-31 16:48] VITALS: BP 101/72; PULSE 68; RESP 15; TEMP 36.6; O2SAT 98
== END 2023-10-31 16:51 | disposition home or self-care (01) ==
PROVIDERS: Physician Assistant; Registered Nurse Emergency; Emergency Provider Emergency Medicine; PCP Family Medicine
DX: R07.9 Chest pain, unspecified (principal); R10.13 Epigastric pain; R11.2 Nausea with vomiting, unspecified
CPT/HCPCS: 36415; 71046; 80053; 83690; 83735; 84484; 84702; 85025; 85610; 93005; 99283; 99284

== ENCOUNTER → 2023-10-31 11:58 | Outpatient (BNV) | payer OTHER, SELFPAY | PROVIDERS: Emergency Provider Emergency Medicine; PCP Family Medicine; Visit Provider Internal Medicine | DX: R07.9 Chest pain, unspecified (principal) | CPT/HCPCS: 93010 ==

== ENCOUNTER 2025-04-25 11:24 | Day surgery (SDC) | payer OTHER, SELFPAY ==
--- OUTSIDE RECORDS SUMMARY | 2025-04-21 18:20 | XMS_ITS | Clinical Summary ---
Author Organization [facility] ity Address [address] [place] [address] Care Team Providers Care Child Nurse Name Role Phone Lizbet Savage MD Primary Care Provider Allergies Active Allergy Reactions Criticality Noted Date Comments Mold 06/26/2019 Pollen Extracts 06/26/2019 Medications multivitamin tablet Take 1 tablet by mouth daily. 1 Active cetirizine (ZyrTEC) 10 mg tablet TAKE 1 TABLET BY MOUTH DAILY NEEDED FOR ALLERGIES OR RHINITIS. 1 Active fluticasone propionate (FLONASE) 50 mcg/actuation nasal spray 2 sprays each nostril twice daily as needed for nasal congestion or postnasal drip 0 Active montelukast (SINGULAIR) 10 mg tablet Take 1 Tablet by mouth at bedtime. 4 Active omeprazole (PriLOSEC) [address] capsule Take 1 capsule (40 mg total) by mouth 1 (one) time each day. Active SUMAtriptan (IMITREX) 50 mg tablet Take 1 Tab by mouth daily as needed for Migraine. May repeat dose once after 2 hours, if needed. 9 Active budesonide-formot Mukund (SYMBICORT) 160-4.5 mcg/actuation inhalerIndication s:Severe persistent asthma, uncomplicated (CMS/HCC V28) INHALE 2 PUFFS BY MOUTH 2 (TWO) TIMES A DAY. RINSE MOUTH WITH WATER AFTER USE TO REDUCE AFTERTASTE AND INCIDENCE OF CANDIDIASIS. DO NOT SWALLOW. 30.6 g 1 5 Active albuterol HFA (PROAIR HFA ; PROVENTIL HFA ; VENTOLIN HFA) 90 mcg/actuation inhaler Inhale 2 puffs by mouth every 6 (six) hours if needed for wheezing. 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 Patient was noncompliant with her vitamins.. She was hospitalized she had nerve conduction study, MRI of the spine and brain. Lumbar puncture which was normal. Neurology evaluated her and said it was subacute and in the setting of noncompliance with medications after her gastric bypass. Severe persistent asthma 08/02/2018 Overview (05/28/2024): Follows with pulmonary Irregular menses 07/25/2018 Menorrhagia 07/25/2018 Chronic low back pain 09/29/2017 Overview (05/28/2024): On gabapentin Migraine 09/29/2017 TASHA (obstructive sleep apnea) 09/29/2017 Overview (05/28/2024): Sleep study 2015, follows with [facility] pulmonology Immunizations Immunization Administration Dates Next Due HPV, Quadrivalent 09/13/2016,05/13/2016,09/15/19 16 Influenza, Unspecified 07/01/2014,02/14/2013 Pfizer SARS-CoV-2 COVID-19, mRNA, LNP-S, preservative free 05/11/2020,04/20/2020 Pneumococcal polysaccharide 23 valent (Pneumovax 23) 2yo and older 04/15/2013 Surgical History Surgery Date Site/Laterality Comments WISDOM TOOTH EXTRACTION PROCEDURE: HISTORICAL WISDOM TEETH EXTRACTION OTHER SURGICAL HISTORY PROCEDURE: HISTORY OTHER; COMMENT: gastric bypass Medical History Medical History Date Comments Irregular menses 07/25/2018 DX:Irregular me nses Menorrhagia 07/25/2018 DX:Menorrhagia Morbid obesity with BMI of 5 0.0-59.9, adult ([facility] V24, [facility] V28) 07/25/2018 DX:Morbid obesity wit h BMI of 50.0-59.9, adult ([facility]) Severe persistent asthma ([facility] V28) 9 DX:Severe persistent asthma; COMMENT: Follows with pulmonary Guillain-Excel syndrome ([facility] V24) DX:Guillain-Excel syndrome (HCC) Family History Medical History Relation Name Comments Breast cancer Aunt mom side great aunt No Known Problems Father No Known Problems Mother Cervical cancer Neg Hx Colon cancer Neg Hx Ovarian cancer Neg Hx Pancreatic cancer Neg Hx Uterine cancer Neg Hx Relation Name Status Comments Aunt mom side Alive Brother Alive Father Alive Mother Alive Social History Tobacco Use Types Packs/Day Years Used Date Smoking Tobacco: Former Smokeless Tobacco: Never Alcohol Use Standard Drinks/Week Comments Not Currently 0 (1 standard drink = 0.6 oz pur e alcohol) Comments Unknown Sex and Gender Information Value Date Recorded Sex Assigned at Female 04/04/2024 6:52 PM EST Legal Sex Female 4:51 AM EST Gender Identity Female 04/04/2024 6:52 PM EST Sexual Orientation Not on file Last Filed Vital Signs Vital Sign Reading Time Taken Comments Blood Pressure 92/60 01/23/2024 8:43 AM EDT Pulse 63 01/23/2024 8:43 AM EDT Temperature - - Respiratory Rate - - Oxygen Saturation - - Inhaled Oxygen Concentration - - Weight 85.3 kg (188 lb) 01/23/2024 8:43 AM EDT Height 165.1 cm (5' 5 ) 01/23/2024 8:43 AM EDT Body Mass Index 31.28 01/23/2024 8:43 AM EDT Plan of Treatment Upcoming Encounters Date Type Department Care Team (Late st Contact Info) Description 05/02/2025 3:45 PM EST Office Visit Adult Medicine [address] [phone] Lizbet Savage MD [address] [place] [address] Health Maintenance Due Date Last Done Comments DTaP,Tdap,and Td Vaccines (1 - Tdap) 2011 Hepatitis B Vaccines (1 of 3 - 19+ 3-dose series) 2011 Pneumococcal Vaccine: Pediatrics (0 to 5 Years) and At-Risk Patients (6 to 49 Years) (2 of 2 - PCV) 04/15/2014 04/15/2013 Cervical Cancer Screening: P ap Smear 11/28/2021 11/28/2018, 11/28/2018 Social Influencers of Health Screening 04/09/2022 Depression Screening 05/01/2024 COVID-19 Vaccine (3 - 2024-2 6 season) 2024 05/11/2020, 04/20/2020 Influenza Vaccine (#1) 2024 5, 02/14/2013 Cholesterol Screening (Lipid Panel) 01/22/2029 01/23/2024, 01/23/2024 RSV Immunization Adult Patients (1 - 1-dose 75+ series) 2067 HPV Vaccines Completed 09/13/2016, 05/13/2016, 09/15/2015 HIV Screening Completed 11/28/2018 Hepatitis C Screening Completed 11/28/2018 HIB Vaccines Aged Out No longer eligi ble based on patient's age to complete this topic Hepatitis A Vaccines Aged Out No long er eligible based on patient's age to complete this topic IPV Vaccines Aged Out No longer eligi ble based on patient's age to complete this topic MMR Vaccines Aged Out No longer eligi ble based on patient's age to complete this topic Meningococcal ACWY Vaccine Aged Out N o longer eligible based on patient's age to complete this topic Meningococcal B Vaccine Aged Out No l onger eligible based on patient's age to complete this topic RSV Immunization Patients Under 20 months Aged Out No longer eligible b ased on patient's age to complete this topic Varicella Vaccines Aged Out No longer eligible based on patient's age to complete this topic Procedures Procedure Name Priority Date/Time Associated Diagnosis Comments LIPID PANEL Routine 01/23/2024 HEPATITIS C SCREENING Routine 11/28/2018 HIV SCREENING Routine 11/28/2018 PAP SMEAR Routine 11/28/2018 from Last 3 Months or Most Recently Relevant to Health Maintenance Results * Lipid panel (01/23/2024) LDL/HDL Ratio 2 0 - 4 Triglycerides 41 0 - 150 mg/dL Cholesterol 140 0 - 200 mg/dL HDL 66 >=40 mg/dL LDL Cholesterol 66 0 - 100 mg/dL Blood Venous blood specimen / Unknown Result [facility] Historical Provider MD LAB BLOOD ORDERABLES Lizzy l Result * HIV Screening (11/28/2018) HIV Screening abstracted Historical Provider MD HEALTH MAINTENANCE Final Result * Hepatitis C Screening (11/28/2018) Hepatitis C Screening abstracted Historical Provider MD HEALTH MAINTENANCE Final Result * Pap smear (11/28/2018) 11/28/2018 Narrative HISTORICAL TESTING LAB RESULTING AGENCY - 12/04/2018 5:00 PM EDT [id number] THINPREP PAP, IMAGED: NEGATIVE FOR SQUAMOUS INTRAEPITHELIAL LESION AND MALIGNANCY . REACTIVE CELLULAR CHANGES. ABUNDANT OBSCURING RED BLOOD CELLS ARE PRESENT. TU BUCHANAN , CT(ASCP) (CASE SCREENED 11 30 2018) ELLEN WALTERS M.D. , PATHOLOGIST (CASE ELECTRONICALLY SIGNED 12 03 2018) ADEQUACY: SATISFACTORY ENDOCERVICAL/TRANSFORMATION ZONE COMPONENT PRESENT. SOURCE: THINPREP PAP HPV IF ASCUS, CERVICAL, IMAGED CLINICAL INFORMATION: HPV IF DIAGNOSIS OF ASCUS. Z12.4, Z01.419, HORMONES Result [facility] Alex LANIER LAB CYTOLOGY ORDERABLES Final Result HISTORICAL TESTING LAB RESULTING AGENCY from Last 3 Months or Most Recently Relevant to Health Maintenance Insurance [facility] Care Teams Child Nurse Relationship Specialty Start Date End Date Lizbet Savage MD [address] [place] [id number] PCP - General Internal Medicine 05/03/21
--- OUTSIDE RECORDS SUMMARY | 2025-04-21 18:20 | XMS_ITS | Clinical Summary ---
Author Organization [facility] Address [address] [facility] [address] [place] [phone] Phone Care Team Providers Care Varnishing Unit Operator Name Role Phone Teri Shearer MD Primary Care Provider [phone] Medications ergocalciferol (DRISDOL) 50,000 unit capsule Take 1 capsule (50,000 Units total) by mouth 2 (two) times a week. 26 capsule 3 07/25/2019 Active Active Problems Problem Noted Date Diagnosed Date Female infertility associated with anovulation 0 07/16/2019 Irregular menses 07/25/2018 Morbid obesity with BMI of 50.0-59.9, adult 06/30 Chronic low back pain 09/29/2017 Overview (07/16/2019): On gabapentin Social History Tobacco Use Types Packs/Day Years Used Date Smoking Tobacco: Never Assessed Education Answer Date Recorded Are you interested in more education? Not on marichuy e 08/26/2022 Are you concerned about learning? Not on file 08/26/2022 No 08/26/2022 No 08/26/2022 Digital Access Answer Date Recorded No 09/24/2022 No 09/24/2022 Reliable internet access at home? Not on file 09/24/2022 Device with a working camera? Not on file Comments Unknown Sex and Gender Information Value Date Recorded Sex Assigned at Not on file Legal Sex Female 10:54 AM EST Gender Identity Not on file Sexual Orientation Not on file Plan of Treatment Health Maintenance Due Date Last Done Comments Adult Td,Tdap Booster 1992 DEPRESSION SCREENING 2004 SMOKING Hx and SMOKELESS TOBACCO SCREENING 2005 HEPATITIS C SCREENING 2010 HIV ONE-TIME SCREENING (18-6 5 YEARS) 2010 PAP SMEAR 2013 INFLUENZA VACCINE (#1) 2024 02/12/2020 COVID-19 VACCINE (3 - 2024-2 6 season) 2024 05/11/2020, 04/20/2020 PNEUMOCOCCAL VACCINES (0-49 years) Aged Out 04/15/2013 No longer eligible b ased on patient's age to complete this topic HEPATITIS A VACCINES Aged Out No long er eligible based on patient's age to complete this topic HIB VACCINES Aged Out No longer eligi ble based on patient's age to complete this topic MENINGOCOCCAL VACCINES (ACWY) Aged Out No longer eligible based on patient's age to complete this topic MENINGOCOCCAL VACCINES (B) Aged Out N o longer eligible based on patient's age to complete this topic Medical Devices Not on file Insurance [employer] NON NSPG PCP SILVER [employer]ITY [facility] [place] [employer] [employer] CONNECTORCARE [employer] NON NSPG PCP SILVER CLARITY CONNECTORCARE CONNELLYENSE NON NSPG PCP SILVER CLARITY CONNECTORCARE WELLSENSE NON NSPG PCP SILVER CLARITY CONNECTORCARE WELL[employer] NON NSPG PCP SILVER CLARITY CONNECTORCARE WELLS[employer] NON NSPG PCP SILVER CLARITY CONNECTORCARE [employer] NON NSPG PCP SILVER CLARITY CONNECTORCARE [employer] NON NSPG PCP SILVER [employer]ARITY CONNECTORCARE Care Teams Varnishing Unit Operator Relationship Specialty Start Date End Date Teri Shearer MD [address] [place] [id number] PCP - General Internal Medicine 06/28/19 Additional Source Comments The information contained in this document represents components of the legal health record. It is not the complete legal health record.[facility]
--- NOTE | 2025-04-22 09:55 | HO.ANESPROP2 ---
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 [facility] Active Problems Active Problems: All Active Problems (Updated 04/21/25 @ 14:28 by Shara Pearce RN) Globus pharyngeus (Acute) Migraine without aura (Acute) TASHA (obstructive sleep apnea) (Acute) H/O Guillain-Gates syndrome (Acute) Breakthrough bleeding on Nexplanon (Acute) Family planning (Acute) Encounter for annual routine gynecological examination (Acute) BMI 37.0-37.9, adult (Acute) BMI 38.0-38.9,adult (Acute) Obesity (Acute) Intestinal malabsorption (Acute) Guillain Mary? syndrome (Acute) Neuropathy (Acute) Elevated bilirubin (Acute) Weakness (Acute) Myopathy (Acute) Dysuria (Acute) Encounter for surveillance of Nexplanon subdermal contraceptive (Acute) Dry heaves (Acute) Sleep apnea with use of continuous positive airway pressure (CPAP) (Acute) Adjustment disorder, unspecified (Acute) Cholelithiasis (Acute) Morbid obesity (Acute) GERD (gastroesophageal reflux disease) (Acute) Liver fibrosis (Acute) Asthma (Acute) Past Medical History Medical History (Updated 04/21/25 @ 14:28 by Shara Pearce RN) Cholelithiasis Guillain Mary? syndrome GERD (gastroesophageal reflux disease) Liver fibrosis Steatosis, liver Back pain Congenital intra-abdominal adhesions Maternal anesthesia complication Vertigo Nocturnal hypoxemia Vitamin B12 deficiency Vitamin D deficiency Vitamin A deficiency Chronic back pain Sleep apnea Asthma Morbid obesity Family History Family History Mother Kidney stone Asthma Father No problems noted. Brother Asthma Back problem Family history of problems with anesthesia: No Surgical History Surgical History (Updated 04/21/25 @ 14:28 by Shara Pearce RN) History of esophagogastroduodenoscopy (EGD) Hx of gastric bypass Hx of wisdom tooth extraction History of Problems with Anesthesia: No Social History Social History Household Members: Spouse Housing: Apartment Are you a primary career resource specialist to a significant other at home: No Do you presently have visiting nurse or other home services: No Alcohol intake: former Comment: medicated for pain, see MAR Patient Tobacco Use Status: Former Tobacco user Tobacco use type: Cigarette service: No Current occupational status: employed 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 [employer] Meds Allergies Allergy/AdvReac Type Severity Reaction Status Date / Time animal dander Allergy Unknown UNKNOWN Verified 10/31/23 12:14 mold Allergy Unknown UNKNOWN Verified 10/31/23 12:14 pollen extracts (POLLEN) Allergy Unknown UNKNOWN Verified 10/31/23 12:14 Home Medications ?Medication ?Instructions ?Recorded ?Confirmed ?Last Taken ?Type albuterol sulfate 90 mcg/actuation 2 puff PO Q4H PRN wheezing 07/03/20 04/25/25 04/25/25 History aerosol inhaler cetirizine 10 mg tablet 10 mg PO DAILY PRN allergies 07/03/20 04/25/25 01/19/21 History inhalational spacing device (Space #1 ea 07/03/20 04/25/25 Unknown History Chamber) melatonin 5 mg capsule 5 mg PO BEDTIME PRN Insomnia 07/03/20 04/25/25 01/19/21 History multivitamin 1 tab PO DAILY 01/20/21 04/25/25 01/19/21 History budesonide-formoterol HFA 160 2 puff inhalation BID 01/04/22 04/25/25 04/25/25 History mcg-4.5 mcg/actuation aerosol inhaler (Symbicort) prenat.vits,elizabeth,bzy-[id number]-[id number] 1 tab PO DAILY 05/13/22 04/25/25 Unknown History Exam Height,Weight and Vital Signs: Height 5 ft 4.5 in Assessment and Plan Assessment Anesthesia Assessment: Chart Reviewed Final Anesthetic Review Family History of Problems with Anesthesia: No History of Problems with Anesthesia: No Documented by User: Josh Noriega MD 04/25/25 14:05 [facility] Past Medical History Medical History (Updated 04/21/25 @ 14:28 by Shara Pearce RN) Cholelithiasis Guillain Mary? syndrome GERD (gastroesophageal reflux disease) Liver fibrosis Steatosis, liver Back pain Congenital intra-abdominal adhesions Maternal anesthesia complication Vertigo Nocturnal hypoxemia Vitamin B12 deficiency Vitamin D deficiency Vitamin A deficiency Chronic back pain Sleep apnea Asthma Morbid obesity Patient : No Family History Family History Mother Kidney stone Asthma Father No problems noted. Brother Asthma Back problem Surgical History Surgical History (Updated 04/21/25 @ 14:28 by Shara Pearce RN) History of esophagogastroduodenoscopy (EGD) Hx of gastric bypass Hx of wisdom tooth extraction Social History Social History Household Members: Spouse Housing: Apartment Are you a primary career resource specialist to a significant other at home: No Do you presently have visiting nurse or other home services: No Alcohol intake: former Comment: medicated for pain, see MAR Patient Tobacco Use Status: Former Tobacco user Tobacco use type: Cigarette service: No Current occupational status: employed 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 [employer] Allergies Allergy/AdvReac Type Severity Reaction Status Date / Time animal dander Allergy Unknown UNKNOWN Verified 10/31/23 12:14 mold Allergy Unknown UNKNOWN Verified 10/31/23 12:14 pollen extracts (POLLEN) Allergy Unknown UNKNOWN Verified 10/31/23 12:14 Home Medications ?Medication ?Instructions ?Recorded ?Confirmed ?Last Taken ?Type albuterol sulfate 90 mcg/actuation 2 puff PO Q4H PRN wheezing 07/03/20 04/25/25 04/25/25 History aerosol inhaler cetirizine 10 mg tablet 10 mg PO DAILY PRN allergies 07/03/20 04/25/25 01/19/21 History inhalational spacing device (Space #1 ea 07/03/20 04/25/25 Unknown History Chamber) melatonin 5 mg capsule 5 mg PO BEDTIME PRN Insomnia 07/03/20 04/25/25 01/19/21 History multivitamin 1 tab PO DAILY 01/20/21 04/25/25 01/19/21 History budesonide-formoterol HFA 160 2 puff inhalation BID 01/04/22 04/25/25 04/25/25 History mcg-4.5 mcg/actuation aerosol inhaler (Symbicort) prenat.vits,elizabeth,[id number] 1 tab PO DAILY 05/13/22 04/25/25 Unknown History Exam Airway Mallampati Class: II TM Dist: <=3cm Neck ROM: Full Loose/Missing/Broken Teeth: No Heart: ok Lungs: ok Assessment and Plan Assessment Anesthesia Assessment: Anesthesia Plan Discussed Final Anesthetic Review NPO: Yes ASA Class: III Final Preanesthetic Review: No Changes in Pt Med Stat, Meds/Allgs Chart Reviewed, Consent Obtained/Reviewed and Anes Risks/Benef Reviewed Patient Risk: Intermediate Procedure Risk: Intermediate Anesthetic Plan Anesthetic Plan: Agree w/ Assess. and Plan and TIVA Disposition: Standard PACU
[2025-04-25 11:42] VITALS: BMI 31.6
[2025-04-25 11:51] LABS: UPreg QC Valid YES
[2025-04-25] MEDS: Lactated Ringers 1,000 ML 100 ML IVCONT (12:50)
--- NOTE | 2025-04-25 12:54 | MHC.SHP ---
Pre-Procedural Eval Section A - 24 Hr Update-Section A only Date of Service: 04/25/25 Section B - Complete if H&P > 30 days Chief Complaint: Dysphagia, globus Details of Present Illness: GBS (Guillain Hathorne syndrome) Cholelithiasis Guillain Mary? syndrome GERD (gastroesophageal reflux disease) Liver fibrosis Steatosis, liver Back pain Congenital intra-abdominal adhesions COVID-19 vaccine series completed Maternal anesthesia complication Vertigo Nocturnal hypoxemia Vitamin B12 deficiency Vitamin D deficiency Vitamin A deficiency Chronic back pain Sleep apnea Asthma Morbid obesity Surgical History History of esophagogastroduodenoscopy (EGD) Hx of gastric bypass S/P gastric bypass Hx of wisdom tooth extraction Present Medications: see Short Stay Collaborative assessment Allergies: Allergies Allergy/AdvReac Type Severity Reaction Status Date / Time animal dander Allergy Unknown UNKNOWN Verified 10/31/23 12:14 mold Allergy Unknown UNKNOWN Verified 10/31/23 12:14 pollen extracts (POLLEN) Allergy Unknown UNKNOWN Verified 10/31/23 12:14 Review of Systems Review of Systems Comment: 10 point ROS negative Exam Exam Comment: Gen appear: No acute distress HEENT: no icterus Chest: No overt resp distress Abd: soft, nontender, nondistended Psych: Stable affect, answering questions appropriately Neuro: A/Ox3 noted to move all extremities spontaneously Ext: no peripheral edema Plan Diagnosis/Plan: Unchanged I have reviewed the history and physical and performed a pertinent physical examination on my patient. No changes have occurred unless specified. Time Spent With Patient Time: Total time managing care of this patient today ____ minutes.
--- NOTE | 2025-04-25 14:25 | P.OP_ITS ---
Operative Note Operative Note Date of Service: 04/25/25 Narrative: Procedure: Esophagogastroduodenoscopy Endoscopist: Kia Sommers MD Indication: Dysphagia Anesthesia Provider: Dr Josh Noriega Anesthesia Type: MAC ?? EGD Procedure:?? The procedure, indications, preparation and potential complications were reviewed with the patient, who indicated understanding and gave written informed consent to proceed. A physical exam was performed. The endoscope was introduced through the mouth, and advanced to the small bowel. The mucosa was carefully examined on slow withdrawal of the endoscope. The patient tolerated the procedure well. There were no immediate complications.? ? EGD Findings:? * Esophagus:? Normal mucosa noted in the entire esophagus. The Z line was at 38 cm. Middle and lower esophagus jumbo forceps biopsies were obtained to rule out eosinophilic esophagitis. * Stomach:? There was evidence of prior RYGB. The GJ anastomosis was at 43 cm and estimated to be 20 mm wide. There was a small linear ulceration at the jejunal end of the GJ anastomosis at 5 o clock. Jumbo forceps biopsies were taken for histology. Retroflexion was not attempted. * Jejunum:? There was a short blind stump that was appeared normal. The Nahomi limb was also intubated to 20 cm and appeared endoscopically normal. Additional intervention: Soft tip Savary wire was introduced through the biopsy channel of the gastroscope and advanced to the antrum. ?The gastroscope was then backed out. ?Savary Muna bougie was advanced over the guidewire and the esophagus was dilated to 17 with resistance felt. ?On relook, A small superficial tear with heme was noted at 15 cm confirming successful dilation. ? ? EGD Impressions:? * Cricopharyngeal stenosis (dilation) * Normal esophageal mucosa (biopsy) * 5 cm gastric pouch * Anastomotic ulcer (biopsy) ?? Recommendations:?? * Follow biopsy results. Our office will call or send a letter with results within 7-10 days. * Continue PPI therapy- OPEN capsules and mix in applesauce or pudding * If H pylori +, patient will be prescribed eradication therapy followed by test of cure. * Avoid NSAIDs. * EGD with dilation can be repeated PRN for recurrence of symptoms Above has been reviewed with the patient.
[2025-04-25 14:29] VITALS: BP 86/42; PULSE 77; RESP 20; TEMP 36.3; O2SAT 97
[2025-04-25 14:35] VITALS: BP 89/45; PULSE 71; RESP 18; O2SAT 98
[2025-04-25 14:45] VITALS: BP 95/54; PULSE 69; RESP 13; O2SAT 100
[2025-04-25 15:00] VITALS: BP 97/55; PULSE 74; RESP 17; TEMP 36.1; O2SAT 100
[2025-04-25 15:15] VITALS: BP 97/59; PULSE 79; RESP 15; TEMP 36.1; O2SAT 99
== END 2025-04-25 16:08 | disposition home or self-care (01) ==
PROVIDERS: Nurse Practitioner; PCP Family Medicine; Visit Provider Internal Medicine
PROC: 0DJ08ZZ Inspection of Upper Intestinal Tract, Via Natural or Artificial Opening Endoscopic (ICD-10-PCS; CPT 43235; principal; 2025-04-25 12:50)
DX: R13.10 Dysphagia, unspecified (principal); K21.00 Gastro-esophageal reflux disease with esophagitis, without bleeding; Z90.3 Acquired absence of stomach [part of]
CPT/HCPCS: 43239; 43248; 81025; 88305; 88313; 88342; C1769; J2003; J2704

== ENCOUNTER → 2025-04-25 11:24 | Outpatient (BNV) | payer OTHER, SELFPAY | PROVIDERS: PCP Family Medicine; Visit Provider Internal Medicine | DX: R13.10 Dysphagia, unspecified (principal); J39.2 Other diseases of pharynx; K28.9 Gastrojejunal ulcer, unspecified as acute or chronic, without hemorrhage or perforation | CPT/HCPCS: 43239; 43248 ==